=== PATIENT | male | born 1935 | race Asian ===

== ENCOUNTER 2019-06-10 14:07 | Inpatient (IN) | payer OTHER ==
--- NOTE | 2019-06-10 14:40 | PDOC ---
History of Present Illness - General Stated Complaint: Shortness of Breath Time Seen by Provider: 06/10/19 14:39
--- NOTE | 2019-06-10 14:40 | PDOC ---
History of Present Illness - General Stated Complaint: Shortness of Breath Time Seen by Provider: 06/10/19 14:39 History Source: Patient Exam Limitations: No Limitations - History of Present Illness Initial Comments: Pt is an 83 yo M, with PMH of HTN, NIDDM (not on meds), and CKD (refusing HD), who is presenting with complaints of SOB. Pt states over the past few weeks, he has had SOB from baseline, and his PMD doubled his lasix to 80 mg PO BID. Pt states this was helping until yesterday, when he could no longer even move around or walk to the bathroom without becoming SOB. He also endorses productive cough, nausea, decreased urine production, and b/l LE swelling "up to my waist". Pt denies any fevers/chills, headache, vision changes, syncope, chest pain, palpitations, vomiting, abdominal pain, hematuria or dysuria, diarrhea/constipation. Allergies: NKDA PCP: Dr. Elsie V. Endo: Dr. Danielle Social: Pt denies any cigarette, alcohol, or drug use. Remote hx of smoking, quit 20 years ago. Pt denies any recent travel or sick contacts. Surgical: no relevant history. Family: no relevant history. 06/10/19 16:56 Past History - Travel Traveled outside of the country in the last 30 days: No Close contact w/someone who was outside of country & ill: No - Past Medical History Allergies/Adverse Reactions: Allergies Allergy/AdvReac Type Severity Reaction Status Date / Time Penicillins Allergy Mild Verified 06/10/19 15:17 Home Medications: Ambulatory Orders Amlodipine Besylate 5 mg PO DAILY 06/10/19 Calcium Acetate [Phoslo -] 667 mg PO TID 06/10/19 Furosemide [Lasix] 80 mg PO TID 06/10/19 - Psycho Social/Smoking Cessation Hx Smoking History: Never smoked Have you smoked in the past 12 months: No Information on smoking cessation initiated: No Hx Alcohol Use: No Drug/Substance Use Hx: No Respiratory Specific PMHX - Complaint Specific PMHX Hx Asthma: No Hx Intubation: No Hx Bronchitis: No Hx Pneumonia: No Hx Pulmonary Embolus: No Hx TB (Tuberculosis): No Hx Angina: No Review of Systems - Review of Systems Able to Perform ROS?: Yes Is the patient limited Occitan proficient: No Constitutional: Yes: Weight Stable. No: Chills, Fever, Loss of Appetite, Malaise, Weakness HEENTM: No: Recent change in vision, Nose Congestion, Throat Pain, Throat Swelling, Difficulty Swallowing Respiratory: Yes: Cough, Shortness of Breath, SOB with Exertion, SOB at Rest. No: Orthopnea, Productive cough, Hemoptysis Cardiac (ROS): Yes: Edema. No: Chest Pain, Irregular Heart Rate, Lightheadedness, Palpitations, Syncope, Chest Tightness ABD/GI: Yes: Nausea. No: Constipated, Diarrhea, Poor Appetite, Poor Fluid Intake, Vomiting, Abdominal cramping : No: Burning, Dysuria, Frequency, Flank Pain, Hematuria, Pain, Urgency Musculoskeletal: No: Back Pain, Joint Pain, Muscle Pain, Muscle Weakness Integumentary: No: Rash Neurological: No: Headache, Numbness, Weakness, Unsteady Gait, Dizziness Psychiatric: No: Sleep Pattern Change, Change in Appetite Endocrine: No: Increased Urine, Change in Weight Hematologic/Lymphatic: No: Anemia, Blood Clots, Easy Bleeding, Easy Bruising All Other Systems: Reviewed and Negative *Physical Exam - Vital Signs Last Vital Signs Temp Pulse Resp BP Pulse Ox 97.4 F L 96 H 19 147/81 95 06/10/19 14:09 06/10/19 14:09 06/10/19 14:09 06/10/19 14:09 06/10/19 14:09 - Physical Exam Comments: Vitals stable, pt afebrile. O2 saturation 98% on Pt in NAD, normal body habitus. Pt alert and oriented x3. supervisor train operations generally intact, muscular strength and sensation intact. No midline spinal tenderness, step-offs, or crepitus. Head normocephalic, atraumatic. Eyes PERRLA, EOMI. Oropharynx without erythema or exudates, no LAD b/l. No nasal congestion. Hearing intact. +b/l pedal edema to Clear heart sounds, S1/S2, no JVD, or heart murmur. Coarse and diminished lung sounds b/l, worst at bases. Nonproductive cough on exam. No abdominal or CVA tenderness to palpation, no rebound, no guarding. Abdomen soft, non-distended, and with normoactive bowel sounds. Skin without jaundice or rash. 06/10/19 17:01 06/10/19 17:13 ED Treatment Course - LABORATORY CBC & Chemistry Diagram: 06/10/19 15:00 06/10/19 15:00 Medical Decision Making - Medical Decision Making Pt was seen at bedside, also will be seen by attending Dr. Rubio. Pt presenting with dyspnea, LE edema and nausea. Pt states his SOB has been worsening, and is now unable to ambulate within his house. Pt has discussed dialysis with his PMD and refused, also not improved by doubling lasix dose. Will evaluate for worsening CKD vs CHF vs ACS vs pleural effusions. Pt not febrile, no productive cough, less likely pneumonia. Pt stable on 2 L NC. Will continue to reassess pt and monitor for symptomatic improvement. ECG: NSR, intervals WNL (HR 91, KS 186, QRS 104, QTc 484). Mild depressions I, II, avL, V6, with no reciprocal changes. No prior ECG for comparison. 06/10/19 18:06 CBC: mild anemia, not at transfusion level CMP: BUN/Cr 88/5.9 Trop .17, BNP 50,098 POCUS echo showed poor contractility, reduced EF Pt admitted to hospitalist team (Dr. Merida) for heart failure, CKD and elevated troponin. Pt requires cardiac consultation and management of his medications. Pt stable and resting. 06/10/19 18:11 Discharge - Discharge Information Problems reviewed: Yes Clinical Impression/Diagnosis: Troponin I above reference range CHF (congestive heart failure) Qualifiers: Heart failure type: unspecified Heart failure chronicity: acute on chronic Qualified Code(s): I50.9 - Heart failure, unspecified CKD (chronic kidney disease) Qualifiers: Chronic kidney disease stage: unspecified stage Qualified Code(s): N18.9 - Chronic kidney disease, unspecified Condition: Stable - Admission Yes - Follow up/Referral - Patient Discharge Instructions - Post Discharge Activity
--- NOTE | 2019-06-10 14:42 | PDOC ---
Attending Attestation - Resident Resident Name: Ann Germain - ED Attending Attestation I have performed the following: I have examined & evaluated the patient, The case was reviewed & discussed with the resident, I agree w/resident's findings & plan - HPI HPI: 06/10/19 17:12 83 yo M, with PMH of HTN, NIDDM (not on meds), and CKD (refusing HD), who is presenting with complaints of SOB. Pt states over the past few weeks, he has had SOB from baseline, and his PMD doubled his lasix to 80 mg PO BID. Pt states this was helping until yesterday, when he could no longer even move around or walk to the bathroom without becoming SOB. He also endorses productive cough, nausea, decreased urine production, and b/l LE swelling "up to my waist". - Physicial Exam PE: 06/10/19 14:42 Agree with the resident's HPI and PE as documented in the electronic medical record. NAD, well appearing, EOMI, PERRL, nl conjunctiva, anicteric; neck supple. lungs clear, though diminished at the bases. +tachycardic, abdomen soft nontender. no rebound, guarding. Back nontender. CH x4, no focal neuro deficits. 3+ peripheral edema. normal color for ethnicity, WWP. 06/10/19 16:52 - Medical Decision Making 06/10/19 14:44 Vital Signs Temp Pulse Resp BP Pulse Ox 97.4 F L 96 H 19 147/81 95 06/10/19 14:09 06/10/19 14:09 06/10/19 14:09 06/10/19 14:09 06/10/19 14:41 DDx SOB: ACS, PE, PTX, CHF, COPD exac, pulmonary edema, pleurisy, pneumonia, viral syndrome. effusion. anemia, electrolyte/metabolic derangements. Considered but clinically doubt based on HPI and PE: Low suspicion for pulmonary embolism or dissection. Bedside ultrasound revealed severely decreased ejection fraction less than 30%, no pericardial effusion. Prior merrily a lines bilaterally with pleural effusions at the bases, left greater than right with spine sign. Laboratory results are consistent with very elevated BNP consistent with CHF. Will give diuresis, Lasix 80mg IV due to fluid overload state. ASA for NSTEMI admit to medical service, cards cs for CHF vs NSTEMI, tele monitor, hospitalist service further management. 06/10/19 16:54 06/10/19 17:01 Heart Score/ECG Review #1 ECG reviewed & interpreted by me at: 14:30 General ECG Interpretation: Sinus Rhythm, Normal Rate, Normal Intervals Compared to previous ECG there are: Previous ECG unavail 06/10/19 14:41 EKG normal sinus rhythm at 91 bpm, no interval abnormalities, narrow QRS, ST and T wave segments and morphology normal. Nonspecific T wave abnormalities with TWI in V6, I, AVL, II, III in inferolateral distribution.
[2019-06-10 15:14] LABS: BASO % 1.2 % (0-2.0); EOS % 0.7 % (0-4.5); HEMATOCRIT 37.4 % (35.4-49); HEMOGLOBIN 11.5 GM/dL (11.7-16.9); LYMPH % 6.1 % (8-40); MCHC 30.8 g/dl (32.0-35.9); MEAN CELL VOLUME 63.7 fl (80-96); MEAN PLT VOLUME 8.7 fl (7.5-11.1); MONO % 15.9 % (3.8-10.2); NEUT % 76.1 % (42.8-82.8); PLATELET COUNT 231 K/MM3 (134-434); RBC 5.87 M/mm3 (4.00-5.60); RDW 18.7 % (11.9-15.9); WHITE BLOOD COUNT 9.6 K/mm3 (4.0-10.0)
[2019-06-10 15:15] LABS: VENOUS PC02 41.8 mmHg (38-52); VENOUS PH 7.32 (7.31-7.41)
[2019-06-10 15:18] LABS: VENOUS PO2 < 49 mmHg (28-48)
[2019-06-10 15:21] LABS: MCH 19.6 pg (25.7-33.7)
[2019-06-10 15:34] LABS: INR 1.05 (0.83-1.09); PROTHROMBIN TIME (PATIENT) 12.4 SEC (9.7-13.0)
[2019-06-10 15:41] LABS: ALBUMIN 3.5 g/dl (3.4-5.0); BILIRUBIN,TOTAL 0.9 mg/dL (0.2-1); BLOOD UREA NITROGEN 88.2 mg/dL (7-18); CALCIUM 8.9 mg/dL (8.5-10.1); CREATININE 5.9 mg/dL (0.55-1.3); POTASSIUM 5.1 mmol/L (3.5-5.1)
[2019-06-10 16:01] LABS: N-TERMINAL BNP 50098.8 pg/ml (5-450)
[2019-06-10] MEDS ORDERED: FUROSEMIDE 40 MG/4 ML INJECTABLE VIAL IVPUSH ONE (16:11)
[2019-06-10] MEDS ORDERED: ASPIRIN 81 MG CHEWABLE TABLETS PO ONE (16:12)
[2019-06-10] MEDS ORDERED: FUROSEMIDE 40 MG/4 ML INJECTABLE VIAL ONE (16:23)
[2019-06-10] MEDS ORDERED: ASPIRIN 81 MG CHEWABLE TABLETS ONE (16:23)
--- NOTE | 2019-06-10 16:39 | PN ---
Teaching Attending Note Name of Resident: Jamir Nelson ATTENDING PHYSICIAN STATEMENT I saw and evaluated the patient. I reviewed the resident's note and discussed the case with the resident. I agree with the resident's findings and plan as documented. SUBJECTIVE: Patient is an 83yo male with PMHx of CKD stage V, HTN, T2DM who presents today with 1 week worsening lower extremity edema. 2 plus pillow orthopnea, patient has been refusing dialysis. OBJECTIVE: Vital Signs Temperature 97.4 F L 06/10/19 14:09 Pulse Rate 96 H 06/10/19 14:09 Respiratory Rate 19 06/10/19 14:09 Blood Pressure 147/81 06/10/19 14:09 O2 Sat by Pulse Oximetry (%) 95 06/10/19 14:41 GENERAL: The patient is awake, alert, and fully oriented, in no acute distress. HEAD: Normal with no signs of trauma. EYES: PERRL, extraocular movements intact, sclera anicteric, conjunctiva clear. ENT: Ears normal, oropharynx clear without exudates, moist mucous membranes. NECK: Trachea midline, full range of motion, supple. + JVD LUNGS: Breath sounds equal, clear to auscultation bilaterally, no wheezes, no crackles, no accessory muscle use. HEART: Regular rate and rhythm, S1, S2 without murmur, rub or gallop. ABDOMEN: Soft, nontender, nondistended, normoactive bowel sounds, no guarding, no rebound, no hepatosplenomegaly, no masses. EXTREMITIES: 2+ pulses, warm, 3+ pitting edema to groin and abdominal wall. NEUROLOGICAL: Cranial nerves II through XII grossly intact. Normal speech, gait not observed. PSYCH: Normal mood, normal affect. SKIN: Warm, dry, normal turgor, no rashes or lesions noted CBCD WBC 9.6 K/mm3 (4.0-10.0) 06/10/19 15:00 RBC 5.87 M/mm3 (4.00-5.60) H 06/10/19 15:00 Hgb 11.5 GM/dL (11.7-16.9) L 06/10/19 15:00 Hct 37.4 % (35.4-49) 06/10/19 15:00 MCV 63.7 fl (80-96) L 06/10/19 15:00 MCHC 30.8 g/dl (32.0-35.9) L 06/10/19 15:00 RDW 18.7 % (11.9-15.9) H 06/10/19 15:00 Plt Count 231 K/MM3 (134-434) 06/10/19 15:00 MPV 8.7 fl (7.5-11.1) 06/10/19 15:00 CMP Sodium 140 mmol/L (136-145) 06/10/19 15:00 Potassium 5.1 mmol/L (3.5-5.1) 06/10/19 15:00 Chloride 107 mmol/L (98-107) 06/10/19 15:00 Carbon Dioxide 23 mmol/L (21-32) 06/10/19 15:00 Anion Gap 10 MMOL/L (8-16) 06/10/19 15:00 BUN 88.2 mg/dL (7-18) H 06/10/19 15:00 Creatinine 5.9 mg/dL (0.55-1.3) H 06/10/19 15:00 Random Glucose 185 mg/dL (74-106) H 06/10/19 15:00 Calcium 8.9 mg/dL (8.5-10.1) 06/10/19 15:00 Total Bilirubin 0.9 mg/dL (0.2-1) 06/10/19 15:00 AST 31 U/L (15-37) 06/10/19 15:00 ALT 47 U/L (13-61) 06/10/19 15:00 Alkaline Phosphatase 184 U/L (45-117) H 06/10/19 15:00 Total Protein 7.0 g/dl (6.4-8.2) 06/10/19 15:00 Albumin 3.5 g/dl (3.4-5.0) 06/10/19 15:00 CARDIAC ENZYMES Creatine Kinase 159 U/L (26-308) 06/10/19 15:00 Troponin I 0.17 ng/ml (0.00-0.05) H 06/10/19 15:00 Home Medications Medication Instructions Recorded Amlodipine Besylate 5 mg PO DAILY 06/10/19 Calcium Acetate [Phoslo -] 667 mg PO TID 06/10/19 Furosemide [Lasix] 80 mg PO TID 06/10/19 ECG - NSR @91bpm, normal axis, delayed R-wave progression with questionable LVH , no BRAD or STD, TWI in inferior leads, Qtc 484ms CXR: CM, with pulmonary congestion ASSESSMENT/PLAN: Patient is an 83yo male with PMHx of CKD stage V, HTN, T2DM who presents today with 1 week worsening lower extremity edema plus 2 pillow orthopnea, patient has been refusing dialysis. # CKD Stage V with Acute volume overload; will need dialysis , lasix 80mg IV Bid , Dr. Prescott , [place] [facility] [place], fajardo for now, will stop Norvasc since swelling of LEs #Troponinemia due to CKD / demand ischemia, cardio consult Dr Ty #Prolonged Qtc : monitor, avoid prolonging agents #Mild hyperkalemia: monitor #Hx of HTN : Hydralazine 5mg BID PO for PRN SBP >170 #hx of HLD will do lipid panel #T2DM: ISS for coverage DVT PPX: Heparin TID
[2019-06-10 17:42] LABS: ANISOCYTOSIS 3+; MACROCYTOSIS 1+; PLATELET ESTIMATE NORMAL; TARGET CELLS 1+
[2019-06-10 17:46] LABS: OVALOCYTE 1+
[2019-06-10] MEDS ORDERED: HEPARIN NA (PORCINE) 5,000 UNITS/ML 1ML VIAL SQ SCH (18:00)
[2019-06-10] MEDS ORDERED: hydrALAZINE HCL 10 MG TABLET PO PRN (18:03)
--- NOTE | 2019-06-10 18:19 | HP ---
CHIEF COMPLAINT: SOB PCP: Dr. Ameya Zimmerman HISTORY OF PRESENT ILLNESS: 83yo M with h/o CKD stage V, HTN, Type 2 DM who presents today with 1 week worsening lower extremity edema. Pt has been told he has end-stage CKD, however he refuses dialysis because he believed his family members suffered and did not benefit in regards to mortality. Pt noticed about 1-2 weeks he has been having increased edema of his legs. He does not weigh himself regularly and he does not know his dry weight. Pt reports he went to see his PCP who increased his lasix to 80mg TID PO. He was only taking this for a couple of days when he noticed severe dyspnea on exertion worsening when he went to the bathroom or moving from [id number] in his house. Pt endorses orthopnea and uses multiple pillows at night to sleep. Pt denies any fever/chills, headaches, blurry vision , diarrhea/constiption, chest pain, palpitations, abdominal pain, n/v. Recent Travel: PAST MEDICAL HISTORY: As above PAST SURGICAL HISTORY: Denies Social History: Smoking: Former smoker; quit 10 years ago and used to smoke from 16-s Alcohol: Occassional coors light with dinner out Drugs: None lives at home with ; independent in ADLs; heritage: [facility] Allergies Penicillins Allergy (Mild, Verified 06/10/19 15:17) HOME MEDICATIONS: Home Medications Medication Instructions Recorded Amlodipine Besylate 5 mg PO DAILY 06/10/19 Calcium Acetate [Phoslo -] 667 mg PO TID 06/10/19 Furosemide [Lasix] 80 mg PO TID 06/10/19 REVIEW OF SYSTEMS As per HPI PHYSICAL EXAMINATION Vital Signs - 24 hr 06/10/19 06/10/19 06/10/19 14:09 14:41 17:11 Temperature 97.4 F L 98.6 F Pulse Rate 96 H Pulse Rate [ 95 H Apical] Respiratory 19 19 Rate Blood Pressure 147/81 Blood Pressure 161/98 [Right Arm] O2 Sat by Pulse 95 95 99 Oximetry (%) 06/10/19 17:42 Temperature Pulse Rate Pulse Rate [ Apical] Respiratory Rate Blood Pressure Blood Pressure [Right Arm] O2 Sat by Pulse 100 Oximetry (%) GENERAL: Awake, alert, and fully oriented, in no acute distress. HEENT: NC/AT, [place], MMM, EOMI. NECK: + JVD LUNGS: Rales throughout all lung strong bilaterally. No wheezes. No accessory muscle use. On 2LNC. Speaking in full sentences HEART: RRR, normal S1 and S2 without murmur ABDOMEN: Soft, nontender, abdominal wall edema, hypoactive BS, + hepatojugular reflux, no guarding or rebound, no hepatomegaly or caput medusa noted. MUSCULOSKELETAL: No CVA tenderness. EXTREMITIES: 2+ DP pulses b/l, 3+ pitting edema to groin and abdominal wall. Warm, venous stasis changes also noted, no calf tenderness. NEUROLOGICAL: Nonfocal exam. Normal speech. Gait no observed PSYCHIATRIC: Cooperative. Good eye contact. Appropriate mood and affect. SKIN: Warm, dry, no rashes or lesions noted, stasis changes as above, normal capillary refill. Laboratory Results - last 24 hr 06/10/19 06/10/19 06/10/19 15:00 15:00 15:00 WBC 9.6 RBC 5.87 H Hgb 11.5 L Hct 37.4 MCV 63.7 L MCH 19.6 L MCHC 30.8 L RDW 18.7 H Plt Count 231 MPV 8.7 Absolute Neuts (auto) 7.3 Neutrophils % 76.1 Lymphocytes % 6.1 L Monocytes % 15.9 H Eosinophils % 0.7 Basophils % 1.2 Nucleated RBC % 1 H Hypochromia 3+ Platelet Estimate Normal Platelet Comment Present Polychromasia 2+ Poikilocytosis 2+ Anisocytosis 3+ Microcytosis 2+ Macrocytosis 1+ Target Cells 1+ Ovalocytes 1+ Zoila Cells 1+ Schistocytes 1+ PT with INR INR VBG pH POC VBG pCO2 POC VBG pO2 VBG HCO3 VBG O2 Sat (Jhonatan) VBG Base Excess Sodium 140 Potassium 5.1 Chloride 107 Carbon Dioxide 23 Anion Gap 10 BUN 88.2 H Creatinine 5.9 H Est GFR (CKD-EPI)AfAm 9.46 Est GFR (CKD-EPI)NonAf 8.16 Random Glucose 185 H Calcium 8.9 Total Bilirubin 0.9 AST 31 ALT 47 Alkaline Phosphatase 184 H Creatine Kinase 159 Creatine Kinase Index 3.3 CK-MB (CK-2) 5.4 H Troponin I 0.17 H B-Natriuretic Peptide 46283.8 H Total Protein 7.0 Albumin 3.5 06/10/19 06/10/19 15:00 15:00 WBC RBC Hgb Hct MCV MCH MCHC RDW Plt Count MPV Absolute Neuts (auto) Neutrophils % Lymphocytes % Monocytes % Eosinophils % Basophils % Nucleated RBC % Hypochromia Platelet Estimate Platelet Comment Polychromasia Poikilocytosis Anisocytosis Microcytosis Macrocytosis Target Cells Ovalocytes [place] Cells Schistocytes PT with INR 12.40 INR 1.05 VBG pH 7.32 POC VBG pCO2 41.8 POC VBG pO2 < 49 H VBG HCO3 20.8 L VBG O2 Sat (Jhonatan) 41.2 L VBG Base Excess -4.5 L Sodium Potassium Chloride Carbon Dioxide Anion Gap BUN Creatinine Est GFR (CKD-EPI)AfAm Est GFR (CKD-EPI)NonAf Random Glucose Calcium Total Bilirubin AST ALT Alkaline Phosphatase Creatine Kinase Creatine Kinase Index CK-MB (CK-2) Troponin I B-Natriuretic Peptide Total Protein Albumin ECG - NSR @91bpm, normal axis, delayed R-wave progression with questionable LVH , no BRAD or STD, TWI in inferior leads, Qtc 484ms ASSESSMENT/PLAN: Acute volume overload CKD Stage V Troponinemia 2/2 to demand ischemia Prolonged Qtc Mild hyperkalemia History of HTN History of HLD --Pt continues to refuse dialysis --Lasix 80mg BID IVP --[place] catheter insertion for accurate I&O's --Monitor Urine output --daily weights with AM shift --Nephrology consulted --Will have to assess pt's urine ouput with Lasix 80mg IVP; if not diuresing well can likely increase to 100mg IVP --Low threshold for NIPPV for work of breathing if pt becomes labored --Troponin likley for demand ischemia and decreased renal clearance --Continue to trend --ECG without any significant findings --Avoid QT prolonging agents --BGM ACHS; ISS for coverage --Hydralazine 5mg BID PO for PRN SBP >170 --STOP norvasc as this can worsen angioedema of legs FEN: Fluids: None; active diuresis Electrolyte abnormalities: Mild hyperkalemia; monitor considering Lasix doses Nutrition: Renal; diabetic diet; fluid restriction 1.5L PPX: DVT - Heparin TID GI - Not indicated Dispo: Telemetry admission Case discussed with Dr. Henna Nelson, DO - IM PGY-3 Visit type - Emergency Visit Emergency Visit: Yes Care time: The patient presented to the Emergency Department on the above date and was hospitalized for further evaluation of their emergent condition. - New Patient This patient is new to me today: Yes Date on this admission: 06/10/19 - Critical Care Critical Care patient: No ATTENDING PHYSICIAN STATEMENT I saw and evaluated the patient. I reviewed the resident's note and discussed the case with the resident. I agree with the resident's findings and plan as documented. SUBJECTIVE: OBJECTIVE: ASSESSMENT AND PLAN:
[2019-06-10] MEDS: INSULIN SLIDING SCALE (NOVOLOG) 1 VIAL SQ SCH (22:16)
[2019-06-10] MEDS: hydrALAZINE HCL 10 MG TABLET PO SCH (22:18)
[2019-06-10] MEDS: HEPARIN NA (PORCINE) 5,000 UNITS/ML 1ML VIAL SQ SCH (22:19)
--- NOTE | 2019-06-10 23:02 | CONSULT ---
Consult Consult Specialty:: Nephrology Reason for Consultation:: CKD - History of Present Illness Chief Complaint: lower ext edema History of Present Illness: Pt is an 83 year old male with pmhx of CKD, HTN, and DM who presents to the er with shortness of breath and lower ext edema. He says that the changes have been progressive. He denies chest pain. He is on lasix at home which he has doubled to 80 mg twice a day. He feels that it did not improve his urine output. He says that he has been reluctant to start HD. He follows with Dr Danielle. He does have family history of ESRD. He had a daughter that was on HD. He denies loss of appetite. He denies nsaid use. He does complain of decreased energy. - History Source History Provided By: Patient, Medical Record - Past Medical History Cardio/Vascular: Yes: HTN Renal/: Yes: Renal Inusuff Endocrine: Yes: Diabetes Mellitus - Alcohol/Substance Use Hx Alcohol Use: No - Smoking History Smoking history: Never smoked Have you smoked in the past 12 months: No Home Medications - Allergies Allergies/Adverse Reactions: Allergies Allergy/AdvReac Type Severity Reaction Status Date / Time Penicillins Allergy Mild Verified 06/10/19 15:17 - Home Medications Home Medications: Ambulatory Orders Amlodipine Besylate 5 mg PO DAILY 06/10/19 Calcium Acetate [Phoslo -] 667 mg PO TID 06/10/19 Furosemide [Lasix] 80 mg PO TID 06/10/19 Family Medical History Family Hx Renal Disease: Daughter, Sister Review of Systems - Review of Systems Constitutional: reports: Malaise Eyes: reports: No Symptoms HENT: reports: No Symptoms Neck: reports: No Symptoms Cardiovascular: reports: Edema, Shortness of Breath Respiratory: reports: SOB on Exertion Gastrointestinal: reports: No Symptoms Genitourinary: reports: No Symptoms Musculoskeletal: reports: No Symptoms Integumentary: reports: No Symptoms Neurological: reports: No Symptoms Endocrine: reports: No Symptoms Hematology/Lymphatic: reports: No Symptoms Psychiatric: reports: No Symptoms Physical Exam Vital Signs: Vital Signs Temperature 98.6 F 06/10/19 17:11 Pulse Rate 95 H 06/10/19 17:11 Respiratory Rate 19 06/10/19 17:11 Blood Pressure 161/98 06/10/19 17:11 O2 Sat by Pulse Oximetry (%) 100 06/10/19 17:42 Constitutional: Yes: Calm Eyes: Yes: Conjunctiva Clear HENT: Yes: Atraumatic Neck: Yes: Supple Cardiovascular: Yes: S1, S2 Respiratory: Yes: CTA Bilaterally Gastrointestinal: Yes: Soft Renal/: Yes: [place] Present Musculoskeletal: Yes: WNL Edema: Yes Edema: LLE: 2+, RLE: 2+ Integumentary: Yes: Venous Stasis Changes Neurological: Yes: Oriented Psychiatric: Yes: Oriented Labs: CBC, BMP 06/10/19 15:00 06/10/19 15:00 Laboratory Tests 06/10/19 06/10/19 06/10/19 15:00 15:00 15:00 WBC 9.6 Hgb 11.5 L Plt Count 231 Sodium 140 Potassium 5.1 Chloride 107 Carbon Dioxide 23 Anion Gap 10 BUN 88.2 H Creatinine 5.9 H B-Natriuretic Peptide 82690.8 H Imaging - Results Chest X-ray: Image Reviewed Problem List - Problems (1) CKD (chronic kidney disease) Code(s): N18.9 - CHRONIC KIDNEY DISEASE, UNSPECIFIED (2) HTN (hypertension) Code(s): I10 - ESSENTIAL (PRIMARY) HYPERTENSION (3) Diabetes mellitus Code(s): E11.9 - TYPE 2 DIABETES MELLITUS WITHOUT COMPLICATIONS Assessment/Plan Current Medications Generic Name Dose Route Start Last Admin Trade Name Maria L PRN Reason Stop Dose Admin Calcium Acetate 667 mg 06/11/19 08:00 Phoslo - PO TIDCM CELESTINO Furosemide 80 mg 06/11/19 06:00 Lasix Injection - IVPUSH BID@0600,1400 [facility] Heparin Sodium (Porcine) 5,000 unit 06/10/19 18:00 06/10/19 22:19 Heparin - SQ 5,000 unit TID CELESTINO Administration Hydralazine HCl 10 mg 06/10/19 19:15 06/10/19 22:18 Apresoline - PO 10 mg Q12H CELESTINO Administration Insulin Aspart 1 vial 06/10/19 22:00 06/10/19 22:16 Novolog Vial Sliding Scale - SQ Not Given ACHS [facility] Protocol Impression 1. CKD 2. HTN 3. DM 4. fluid overload Plan - cont lasix - monitor urine output - check phos and pth - pt agrees to HD if medical therapy does not work - check renal ultrasound - repeat labs in am - low potassium diet - lokelma if he develops hyperkalemia - discussed with medical team earlier today - no indication for acute HD
[2019-06-11] MEDS: FUROSEMIDE 40 MG/4 ML INJECTABLE VIAL IVPUSH SCH ×2 (06:45→13:29)
[2019-06-11] MEDS: hydrALAZINE HCL 10 MG TABLET PO SCH ×2 (06:45→18:37)
[2019-06-11] MEDS: HEPARIN NA (PORCINE) 5,000 UNITS/ML 1ML VIAL SQ SCH ×3 (06:45→21:11)
[2019-06-11] MEDS: INSULIN SLIDING SCALE (NOVOLOG) 1 VIAL SQ SCH ×4 (06:46→21:11)
[2019-06-11 07:08] LABS: HEMATOCRIT 33.8 % (35.4-49); HEMOGLOBIN 10.6 GM/dL (11.7-16.9); MCHC 31.5 g/dl (32.0-35.9); MEAN CELL VOLUME 62.6 fl (80-96); MEAN PLT VOLUME 8.8 fl (7.5-11.1); PLATELET COUNT 219 K/MM3 (134-434); RBC 5.39 M/mm3 (4.00-5.60); RDW 18.6 % (11.9-15.9); WHITE BLOOD COUNT 10.5 K/mm3 (4.0-10.0)
[2019-06-11 07:38] LABS: ALBUMIN 3.2 g/dl (3.4-5.0); BILIRUBIN,TOTAL 0.9 mg/dL (0.2-1); BLOOD UREA NITROGEN 91.8 mg/dL (7-18); CALCIUM 8.7 mg/dL (8.5-10.1); MAGNESIUM 3.1 mg/dL (1.8-2.4); PHOSPHOROUS 6.7 mg/dL (2.5-4.9); TOT PROT 6.2 g/dl (6.4-8.2)
[2019-06-11 07:51] LABS: MCH 19.7 pg (25.7-33.7)
[2019-06-11] MEDS: CALCIUM ACETATE 667 MG CAPSULE (FP) PO SCH ×3 (09:13→17:06)
--- NOTE | 2019-06-11 11:20 | PN ---
Progress Note (short form) - Note Progress Note: Renal follow up for ISMAEL vs. Progressive CKD Seen and examined at the bedside feels a little better making urine, was unable to tolerate having fajardo catheter in place and it was removed denies any confusion, lethargy, nausea, vomiting Vital Signs Temperature 98.5 F 06/11/19 09:00 Pulse Rate 87 06/11/19 09:00 Respiratory Rate 20 06/11/19 09:00 Blood Pressure 152/87 06/11/19 09:00 O2 Sat by Pulse Oximetry (%) 97 06/11/19 09:00 Intake & Output 06/08/19 06/09/19 06/10/19 06/11/19 23:59 23:59 23:59 23:59 Weight 84.368 kg NAD awake and alert neck supple RRR Dec BS at lung bases + edema in LE CBC, BMP 06/11/19 06:00 06/11/19 06:00 Current Medications Calcium Acetate (Phoslo -) 667 mg PO TIDCM [facility] Last Admin: 06/11/19 09:13 Dose: 667 mg Furosemide (Lasix Injection -) 80 mg IVPUSH BID@0600,1400 [facility] Last Admin: 06/11/19 06:45 Dose: 80 mg Heparin Sodium (Porcine) (Heparin -) 5,000 unit SQ TID [facility] Last Admin: 06/11/19 06:45 Dose: 5,000 unit Hydralazine HCl (Apresoline -) 10 mg PO Q12H [facility] Last Admin: 06/11/19 06:45 Dose: 10 mg Insulin Aspart (Novolog Vial Sliding Scale -) 1 vial SQ [facility]; Protocol Last Admin: 06/11/19 06:46 Dose: 2 units Impression 1. CKD 2. HTN 3. DM 4. fluid overload Plan Renal function unchanged at of this morning no hyperkalemia, acidosis or uremia to warrent emergent HD however if no significant change in renal function likely will warrant [employer] in near future continue Lasix 80mg IV BID Trend renal function and electrolytes Thank you Vinnie Al DO
--- NOTE | 2019-06-11 11:29 | EKG ---
Test Reason : Blood Pressure : / mmHG Vent. Rate : 091 BPM Atrial Rate : 091 BPM P-R Int : 186 ms QRS Dur : 104 ms QT Int : 394 ms P-R-T Axes : 072 038 201 degrees QTc Int : 484 ms POOR DATA QUALITY, INTERPRETATION MAY BE ADVERSELY AFFECTED NORMAL SINUS RHYTHM POSSIBLE LEFT ATRIAL ENLARGEMENT POSSIBLE ANTERIOR INFARCT , AGE UNDETERMINED ABNORMAL ECG NO PREVIOUS ECGS AVAILABLE Confirmed by EKRVIN MONTANA, JA ([id number]) on 06/11/2019 11:29:38 AM Referred By: Confirmed By:JA GALEANA MD
--- NOTE | 2019-06-11 12:53 | PN ---
Physical Exam: SUBJECTIVE: Patient seen and examined. He denies SOB. OBJECTIVE: Vital Signs Period Temp Pulse Resp BP Sys/Alexandre Pulse Ox Last 24 Hr 97.4 F-98.6 F 83-96 18-20 142-161/81-98 95-100 GENERAL: The patient is awake, alert, and fully oriented, in no acute distress. LUNGS: Breath sounds equal, clear to auscultation bilaterally, no wheezes, no crackles, no accessory muscle use. HEART: Regular rate and rhythm, S1, S2 without murmur, rub or gallop. ABDOMEN: Soft, nontender, nondistended, normoactive bowel sounds, no guarding, no rebound, no hepatosplenomegaly, no masses. EXTREMITIES: 2+ pulses, 1+ edema of both legs. Laboratory Results - last 24 hr 06/10/19 06/10/19 06/10/19 15:00 15:00 15:00 WBC 9.6 RBC 5.87 H Hgb 11.5 L Hct 37.4 MCV 63.7 L MCH 19.6 L MCHC 30.8 L RDW 18.7 H Plt Count 231 MPV 8.7 Absolute Neuts (auto) 7.3 Neutrophils % 76.1 Lymphocytes % 6.1 L Monocytes % 15.9 H Eosinophils % 0.7 Basophils % 1.2 Nucleated RBC % 1 H Hypochromia 3+ Platelet Estimate Normal Platelet Comment Present Polychromasia 2+ Poikilocytosis 2+ Anisocytosis 3+ Microcytosis 2+ Macrocytosis 1+ Target Cells 1+ Ovalocytes 1+ Walker Cells 1+ Schistocytes 1+ PT with INR INR VBG pH POC VBG pCO2 POC VBG pO2 VBG HCO3 VBG O2 Sat (Jhonatan) VBG Base Excess Sodium 140 Potassium 5.1 Chloride 107 Carbon Dioxide 23 Anion Gap 10 BUN 88.2 H Creatinine 5.9 H Est GFR (CKD-EPI)AfAm 9.46 Est GFR (CKD-EPI)NonAf 8.16 POC Glucometer Random Glucose 185 H Hemoglobin A1c % Calcium 8.9 Phosphorus Magnesium Iron TIBC Iron Saturation Unsaturated IBC Ferritin Total Bilirubin 0.9 AST 31 ALT 47 Alkaline Phosphatase 184 H Creatine Kinase 159 Creatine Kinase Index 3.3 CK-MB (CK-2) 5.4 H Troponin I 0.17 H B-Natriuretic Peptide 39139.8 H Total Protein 7.0 Albumin 3.5 06/10/19 06/10/19 06/10/19 15:00 15:00 22:05 WBC RBC Hgb Hct MCV MCH MCHC RDW Plt Count MPV Absolute Neuts (auto) Neutrophils % Lymphocytes % Monocytes % Eosinophils % Basophils % Nucleated RBC % Hypochromia Platelet Estimate Platelet Comment Polychromasia Poikilocytosis Anisocytosis Microcytosis Macrocytosis Target Cells Ovalocytes Walker Cells Schistocytes PT with INR 12.40 INR 1.05 VBG pH 7.32 POC VBG pCO2 41.8 POC VBG pO2 < 49 H VBG HCO3 20.8 L VBG O2 Sat (Jhonatan) 41.2 L VBG Base Excess -4.5 L Sodium Potassium Chloride Carbon Dioxide Anion Gap BUN Creatinine Est GFR (CKD-EPI)AfAm Est GFR (CKD-EPI)NonAf POC Glucometer 167 Random Glucose Hemoglobin A1c % Calcium Phosphorus Magnesium Iron TIBC Iron Saturation Unsaturated IBC Ferritin Total Bilirubin AST ALT Alkaline Phosphatase Creatine Kinase Creatine Kinase Index CK-MB (CK-2) Troponin I B-Natriuretic Peptide Total Protein Albumin 06/11/19 06/11/19 06/11/19 00:00 06:00 06:00 WBC 10.5 H RBC 5.39 Hgb 10.6 L Hct 33.8 L MCV 62.6 L MCH 19.7 L MCHC 31.5 L RDW 18.6 H Plt Count 219 MPV 8.8 Absolute Neuts (auto) Neutrophils % Lymphocytes % Monocytes % Eosinophils % Basophils % Nucleated RBC % Hypochromia Platelet Estimate Platelet Comment Polychromasia Poikilocytosis Anisocytosis Microcytosis Macrocytosis Target Cells Ovalocytes Walker Cells Schistocytes PT with INR INR VBG pH POC VBG pCO2 POC VBG pO2 VBG HCO3 VBG O2 Sat (Jhonatan) VBG Base Excess Sodium 141 Potassium 5.0 Chloride 109 H Carbon Dioxide 22 Anion Gap 10 BUN 91.8 H Creatinine 6.0 H Est GFR (CKD-EPI)AfAm 9.27 Est GFR (CKD-EPI)NonAf 8.00 POC Glucometer Random Glucose 197 H Hemoglobin A1c % Calcium 8.7 Phosphorus 6.7 H Magnesium 3.1 H Iron TIBC Iron Saturation Unsaturated IBC Ferritin Total Bilirubin 0.9 AST 28 ALT 47 Alkaline Phosphatase 180 H Creatine Kinase Creatine Kinase Index CK-MB (CK-2) Troponin I 0.17 H B-Natriuretic Peptide Total Protein 6.2 L Albumin 3.2 L 06/11/19 06/11/19 06/11/19 06:00 06:00 08:40 WBC RBC Hgb Hct MCV MCH MCHC RDW Plt Count MPV Absolute Neuts (auto) Neutrophils % Lymphocytes % Monocytes % Eosinophils % Basophils % Nucleated RBC % Hypochromia Platelet Estimate Platelet Comment Polychromasia Poikilocytosis Anisocytosis Microcytosis Macrocytosis Target Cells Ovalocytes Zoila Cells Schistocytes PT with INR INR VBG pH POC VBG pCO2 POC VBG pO2 VBG HCO3 VBG O2 Sat (Jhonatan) VBG Base Excess Sodium Potassium Chloride Carbon Dioxide Anion Gap BUN Creatinine Est GFR (CKD-EPI)AfAm Est GFR (CKD-EPI)NonAf POC Glucometer Random Glucose Hemoglobin A1c % 8.0 H Calcium Phosphorus Magnesium Iron 16 L TIBC 329 Iron Saturation 4 L Unsaturated IBC 313 H Ferritin 17.1 Total Bilirubin AST ALT Alkaline Phosphatase Creatine Kinase Creatine Kinase Index CK-MB (CK-2) Troponin I 0.15 H B-Natriuretic Peptide Total Protein Albumin 06/11/19 11:13 WBC RBC Hgb Hct MCV MCH MCHC RDW Plt Count MPV Absolute Neuts (auto) Neutrophils % Lymphocytes % Monocytes % Eosinophils % Basophils % Nucleated RBC % Hypochromia Platelet Estimate Platelet Comment Polychromasia Poikilocytosis Anisocytosis Microcytosis Macrocytosis Target Cells Ovalocytes Walker Cells Schistocytes PT with INR INR VBG pH POC VBG pCO2 POC VBG pO2 VBG HCO3 VBG O2 Sat (Jhonatan) VBG Base Excess Sodium Potassium Chloride Carbon Dioxide Anion Gap BUN Creatinine Est GFR (CKD-EPI)AfAm Est GFR (CKD-EPI)NonAf POC Glucometer 118 Random Glucose Hemoglobin A1c % Calcium Phosphorus Magnesium Iron TIBC Iron Saturation Unsaturated IBC Ferritin Total Bilirubin AST ALT Alkaline Phosphatase Creatine Kinase Creatine Kinase Index CK-MB (CK-2) Troponin I B-Natriuretic Peptide Total Protein Albumin Active Medications Generic Name Dose Route Start Last Admin Trade Name Freq PRN Reason Stop Dose Admin Calcium Acetate 667 mg 06/11/19 08:00 06/11/19 11:56 Phoslo - PO 667 mg TIDCM [facility] Administration Furosemide 80 mg 06/11/19 06:00 06/11/19 06:45 Lasix Injection - IVPUSH 80 mg BID@0600,1400 [facility] Administration Heparin Sodium (Porcine) 5,000 unit 06/10/19 18:00 06/11/19 06:45 Heparin - SQ 5,000 unit TID [facility] Administration Hydralazine HCl 10 mg 06/10/19 19:15 06/11/19 06:45 Apresoline - PO 10 mg Q12H [facility] Administration Insulin Aspart 1 vial 06/10/19 22:00 06/11/19 11:23 Novolog Vial Sliding Scale - SQ Not Given ACHS [facility] Protocol ASSESSMENT/PLAN: This is an 83 year old man with a history of HTN, type 2 DM, stage 5 CKD who presented to the ED today with worsening leg swelling. 1. Fluid overload - Patient reluctant to start HD and would rather try conservative management first - Continue Lasix 80 mg IV 2x daily - Monitor BUN, creatinine, electrolytes 2. Stage 5 CKD 3. Elevated troponin likely secondary to CKD 4. HTN - Continue hydralazine, Lasix 5. Hyperlipidemia 6. Type 2 DM - Continue Novolog sliding scale 7. Anemia, likely secondary to iron deficiency and CKD - Check stool for occult blood - Monitor hemoglobin 8. Hyperphosphatemia - Continue PhosLo - PTH pending Visit type - Emergency Visit Emergency Visit: Yes ED Registration Date: 06/10/19 Care time: The patient presented to the Emergency Department on the above date and was hospitalized for further evaluation of their emergent condition. - New Patient This patient is new to me today: Yes Date on this admission: 06/11/19 - Critical Care Critical Care patient: No - Discharge Referral Referred to [facility] Med P.C.: No
--- NOTE | 2019-06-11 16:09 | CON.CARD ---
Consult Consult Specialty:: Cardiology Referred by:: Dr. Go Reason for Consultation:: CHF and elevated troponin - History of Present Illness Chief Complaint: Worsening SOB and leg edema History of Present Illness: 83 year-old man with a PMHx of HTN, DM-II, advanced CKD, refused HD in the past admitted 06/10/19 with one week of worsening leg edema and SOB. The patient noticed worsening leg edmea and SOB on exertion for about 1-2 weeks. He also reports chest congestion, fatigue and weakness. Oral Lasix increased to 80 mg BID by his PCP with little improvement. In addition to edema and dyspnea, he also has orthopnea. He reports no chest pain, palpitation, syncope or near syncope. He denies fever/chills. ECG 06/10/19 showed sinus rhythm, LAE and inferolateral ST-T changes, suggestive of ischemia. CXR 06/10/19 revealed marked cardiomegaly, possible pericardial effusion, CHF, pleural effusion. BNP is markedly elevated. Troponin is mildly elevated, but non-dynamic. Seen by renal and patient agrees to HD. - History Source History Provided By: Patient, Family Member, Medical Record Limitations to Obtaining History: No Limitations - Past Medical History Cardio/Vascular: Yes: HTN Renal/: Yes: Renal Inusuff Endocrine: Yes: Diabetes Mellitus - Alcohol/Substance Use Hx Alcohol Use: No - Smoking History Smoking history: Never smoked Have you smoked in the past 12 months: No Home Medications - Allergies Allergies/Adverse Reactions: Allergies Allergy/AdvReac Type Severity Reaction Status Date / Time Penicillins Allergy Mild Verified 06/10/19 15:17 - Home Medications Home Medications: Ambulatory Orders Amlodipine Besylate 5 mg PO DAILY 06/10/19 Calcium Acetate [Phoslo -] 667 mg PO TID 06/10/19 Furosemide [Lasix] 80 mg PO TID 06/10/19 Review of Systems - Review of Systems Constitutional: reports: Weakness Eyes: reports: No Symptoms HENT: reports: No Symptoms Neck: reports: No Symptoms Cardiovascular: reports: Shortness of Breath Respiratory: reports: Exercise Intolerance, SOB, SOB on Exertion Gastrointestinal: reports: No Symptoms Neurological: reports: Weakness Vital Signs: Vital Signs Temperature 98.2 F 06/11/19 14:10 Pulse Rate 83 06/11/19 14:10 Respiratory Rate 17 06/11/19 14:10 Blood Pressure 143/77 06/11/19 14:10 O2 Sat by Pulse Oximetry (%) 97 06/11/19 09:00 General: Well developed. Chronic ill. No acute distress. Head: Normocephalic. Atraumatic, Eyes: PERRLA, EOMI. Sclerae anicteric. Conjunctivae clear. Neck: Supple. (+) JVD. No bruits. Heart: Normal S1, S2: Regular rhythm and rate. Soft S4. II/ JACKY. Lungs: Decreased BS at bases, Bibasilar crackles and rhonchi. No wheezing. Abdomen: Soft. Bowel sound positive. Non tender. No masses. Extremities: Anasarca, 3+ edema. No clubbing or cyanosis. PD 2+, equal bilaterally. Neuro: Intact, no focal findings. AAO X3 - Other Data Labs, Other Data: CBC, BMP 06/11/19 06:00 06/11/19 06:00 INR, PTT INR 1.05 (0.83-1.09) 06/10/19 15:00 Troponin, BNP 06/10/19 06/11/19 06/11/19 15:00 00:00 08:40 Troponin I 0.17 H 0.17 H 0.15 H B-Natriuretic Peptide 35911.8 H Troponin, BNP 06/10/19 06/11/19 06/11/19 15:00 00:00 08:40 Troponin I 0.17 H 0.17 H 0.15 H B-Natriuretic Peptide 28290.8 H Assessment/Plan 83 year-old man with a PMHx of HTN, DM-II, advanced CKD, refused HD in the past admitted 06/10/19 with one week of worsening leg edema and SOB. ECG 06/10/19 showed sinus rhythm, LAE and inferolateral ST-T changes, suggestive of ischemia. CXR 06/10/19 revealed marked cardiomegaly, possible pericardial effusion, CHF, pleural effusion. BNP is markedly elevated. Troponin is mildly elevated, but non-dynamic. Seen by renal and patient agrees to HD. 1) CHF: likely acute on chronic systolic CHF with severe fluid overload, dyspnea and orthopnea with severely elevated BNP. Advanced CKD contributes significantly to his symptoms. Continue IV Lasix or start Lasix IV drip to keep Os > Is. Daily weight and monitor renal function and lytes. May need HD if not responsive to IV diuretics. Echo for cardiac dimension, systolic function and rule out pericardial effusion. Start metoprolol 25 mg BID. Add Imdur 30 mg daily. Continue hydralazine. 2) Mild, non-dynamic troponin elevation, likely secondary to advanced CKD and acute CHF. Not acute coronary syndrome, However, the patient has multiple risk factors of CAD and ECG evidence of inferolateral ischemia. He has high likelihood of significant CAD. Conservative cardiac care. Continue aspirin, change it to 81 mg daily. Start atorvastatin 40 mg daily. Start metoprolol 25 mg BID We will follow the patient with you.
[2019-06-12] MEDS: hydrALAZINE HCL 10 MG TABLET PO SCH ×2 (06:49→18:17)
[2019-06-12] MEDS: HEPARIN NA (PORCINE) 5,000 UNITS/ML 1ML VIAL SQ SCH ×3 (06:56→21:45)
[2019-06-12] MEDS: FUROSEMIDE 40 MG/4 ML INJECTABLE VIAL IVPUSH SCH ×2 (06:56→13:16)
[2019-06-12] MEDS: INSULIN SLIDING SCALE (NOVOLOG) 1 VIAL SQ SCH ×4 (06:57→21:56)
[2019-06-12 07:37] LABS: BASO % 0.1 % (0-2.0); EOS % 1.2 % (0-4.5); HEMATOCRIT 33.9 % (35.4-49); HEMOGLOBIN 10.7 GM/dL (11.7-16.9); LYMPH % 62.9 % (8-40); MCHC 31.6 g/dl (32.0-35.9); MEAN CELL VOLUME 62.6 fl (80-96); MEAN PLT VOLUME 8.7 fl (7.5-11.1); MONO % 3.2 % (3.8-10.2); NEUT % 32.6 % (42.8-82.8); PLATELET COUNT 233 K/MM3 (134-434); RBC 5.41 M/mm3 (4.00-5.60); RDW 18.9 % (11.9-15.9); WHITE BLOOD COUNT 8.7 K/mm3 (4.0-10.0)
[2019-06-12 07:47] LABS: MCH 19.8 pg (25.7-33.7)
[2019-06-12 08:05] LABS: ALBUMIN 2.9 g/dl (3.4-5.0); BILIRUBIN,TOTAL 0.7 mg/dL (0.2-1); BLOOD UREA NITROGEN 92.6 mg/dL (7-18); CALCIUM 8.6 mg/dL (8.5-10.1); CREATININE 6.3 mg/dL (0.55-1.3); MAGNESIUM 2.9 mg/dL (1.8-2.4); PHOSPHOROUS 6.2 mg/dL (2.5-4.9); POTASSIUM 4.4 mmol/L (3.5-5.1); TOT PROT 5.9 g/dl (6.4-8.2)
[2019-06-12] MEDS: CALCIUM ACETATE 667 MG CAPSULE (FP) PO SCH ×3 (09:11→17:16)
--- NOTE | 2019-06-12 10:29 | PN ---
Progress Note (short form) - Note Progress Note: Renal follow up for ISMAEL vs. Progressive CKD Coverage for Dr. Prescott Seen and examined at the bedside continues to have cough and chest congestion making urine legs remain swollen no N/V, confusion or lethargy Vital Signs Temperature 97.7 F 06/12/19 09:00 Pulse Rate 89 06/12/19 09:00 Respiratory Rate 20 06/12/19 09:00 Blood Pressure 138/73 06/12/19 09:00 O2 Sat by Pulse Oximetry (%) 95 06/12/19 09:00 Intake & Output 06/11/19 06/12/19 06/12/19 23:59 07:59 15:59 Intake Total 250 Balance 250 Weight 84.187 kg Intake: Oral 250 Other: Voiding Method Incontinent Incontinent # Unmeasured Voids Void 1 Weight Measurement Method Standing Scale NAD awake and alert neck supple Course BS Dec BS at lung bases + edema in LE CBC, BMP 06/12/19 06:16 06/12/19 06:16 Current Medications Calcium Acetate (Phoslo -) 667 mg PO TIDCM [facility] Last Admin: 06/12/19 09:11 Dose: 667 mg Furosemide (Lasix Injection -) 100 mg IVPUSH BID@0600,1400 [facility] Heparin Sodium (Porcine) (Heparin -) 5,000 unit SQ TID [facility] Last Admin: 06/12/19 06:56 Dose: 5,000 unit Hydralazine HCl (Apresoline -) 10 mg PO Q12H [facility] Last Admin: 06/12/19 06:49 Dose: 10 mg Insulin Aspart (Novolog Vial Sliding Scale -) 1 vial SQ [facility]; Protocol Last Admin: 06/12/19 06:57 Dose: Not Given Impression 1. CKD 2. HTN 3. DM 4. fluid overload Plan Renal function without improvement and pt continues to have optimal response to diuretics Will increase lasix to 100mg BID pt advised given his low eGFR and volume overload he would benifit from dialysis. He continues to be reluctant but understands that he may need it. He requests an additional day to think about it and continues diuretics no hyperkalemia, acidosis or uremia to warrent emergent HD Trend renal function and electrolytes Thank you Vinnie Al DO
[2019-06-12 10:38] LABS: ANISOCYTOSIS 2+; MACROCYTOSIS 0; OVALOCYTE 2+; PLATELET ESTIMATE NORMAL; TARGET CELLS 2+; TEAR DROP CELLS 1+; TOXIC GRANULATION 1+
--- NOTE | 2019-06-12 11:15 | PN ---
Teaching Attending Note Name of Resident: Olaf Winn ATTENDING PHYSICIAN STATEMENT I saw and evaluated the patient. I reviewed the resident's note and discussed the case with the resident. I agree with the resident's findings and plan as documented. SUBJECTIVE: Patient feels weak. OBJECTIVE: Vital Signs Period Temp Pulse Resp BP Sys/Alexandre Pulse Ox Last 24 Hr 97.7 F-98.4 F 83-94 17-20 130-149/64-84 95-96 HEART: S1S2, RRR LUNGS: Clear ABDOMEN: Soft, non-tender, non-distended, normal BS EXTREMITIES: 1+ edema Laboratory Results - last 24 hr 06/11/19 06/11/19 06/11/19 11:13 16:43 21:05 WBC RBC Hgb Hct MCV MCH MCHC RDW Plt Count MPV Absolute Neuts (auto) Neutrophils % Neutrophils % (Manual) Band Neutrophils % Lymphocytes % Lymphocytes % (Manual) Monocytes % Monocytes % (Manual) Eosinophils % Eosinophils % (Manual) Basophils % Basophils % (Manual) Myelocytes % (Man) Promyelocytes % (Man) Blast Cells % (Manual) Nucleated RBC % Metamyelocytes Hypochromia Toxic Granulation Platelet Estimate Platelet Comment Polychromasia Poikilocytosis Anisocytosis Microcytosis Macrocytosis Spherocytes Target Cells Tear Drop Cells Ovalocytes Schistocytes Sodium Potassium Chloride Carbon Dioxide Anion Gap BUN Creatinine Est GFR (CKD-EPI)AfAm Est GFR (CKD-EPI)NonAf POC Glucometer 118 158 222 Random Glucose Calcium Phosphorus Magnesium Total Bilirubin AST ALT Alkaline Phosphatase Total Protein Albumin 06/12/19 06/12/19 06/12/19 05:57 06:16 06:16 WBC 8.7 RBC 5.41 Hgb 10.7 L Hct 33.9 L MCV 62.6 L MCH 19.8 L MCHC 31.6 L RDW 18.9 H Plt Count 233 MPV 8.7 Absolute Neuts (auto) 2.8 Neutrophils % 32.6 L D Neutrophils % (Manual) 83.5 H Band Neutrophils % 0.0 Lymphocytes % 62.9 H D Lymphocytes % (Manual) 4.1 L Monocytes % 3.2 L Monocytes % (Manual) 3 L Eosinophils % 1.2 Eosinophils % (Manual) 3.1 Basophils % 0.1 Basophils % (Manual) 0.0 Myelocytes % (Man) 0 Promyelocytes % (Man) 0 Blast Cells % (Manual) 0 Nucleated RBC % 1 H Metamyelocytes 0 Hypochromia 2+ Toxic Granulation 1+ Platelet Estimate Normal Platelet Comment Present Polychromasia 1+ Poikilocytosis 2+ Anisocytosis 2+ Microcytosis 2+ Macrocytosis 0 Spherocytes 1+ Target Cells 2+ Tear Drop Cells 1+ Ovalocytes 2+ Schistocytes 1+ Sodium 138 Potassium 4.4 Chloride 106 Carbon Dioxide 21 Anion Gap 11 BUN 92.6 H Creatinine 6.3 H Est GFR (CKD-EPI)AfAm 8.74 Est GFR (CKD-EPI)NonAf 7.54 POC Glucometer 109 Random Glucose 109 H Calcium 8.6 Phosphorus 6.2 H Magnesium 2.9 H Total Bilirubin 0.7 AST 19 ALT 37 Alkaline Phosphatase 162 H Total Protein 5.9 L Albumin 2.9 L Current Medications Generic Name Dose Route Start Last Admin Trade Name Freq PRN Reason Stop Dose Admin Calcium Acetate 667 mg 06/11/19 08:00 06/12/19 09:11 Phoslo - PO 667 mg TIDCM [facility] Administration Furosemide 100 mg 06/12/19 10:27 Lasix Injection - IVPUSH BID@0600,1400 [facility] Heparin Sodium (Porcine) 5,000 unit 06/10/19 18:00 06/12/19 06:56 Heparin - SQ 5,000 unit TID [facility] Administration Hydralazine HCl 10 mg 06/10/19 19:15 06/12/19 06:49 Apresoline - PO 10 mg Q12H [facility] Administration Insulin Aspart 1 vial 06/10/19 22:00 06/12/19 06:57 Novolog Vial Sliding Scale - SQ Not Given ACHS [facility] Protocol ASSESSMENT AND PLAN: This is an 83 year old man with a history of HTN, type 2 DM, stage 5 CKD who presented to the ED today with worsening leg swelling. 1. Fluid overload - Patient still resistant to HD - he says if medication doesn't work, he is prepared and not afraid to - Weight decreased 0.18 kg in 2 days - Lasix increased to 100 mg IV 2x daily - Monitor BUN, creatinine, electrolytes 2. Stage 5 CKD 3. Elevated troponin likely secondary to CKD 4. HTN - Continue hydralazine, Lasix 5. Hyperlipidemia 6. Type 2 DM - Continue Novolog sliding scale 7. Anemia, likely secondary to iron deficiency and CKD - Check stool for occult blood - Hemoglobin stable 8. Hyperphosphatemia - Continue PhosLo - PTH pending
--- NOTE | 2019-06-12 12:31 | PN ---
Physical Exam: SUBJECTIVE: Patient seen and examined 83 y/o M, pmh of CKD stage V, T2DM presented with LE edema of 1 week duration likely 2/2 fluid overload from ESRD. Currently, pt is stable, afebrile, asymptomatic without any c/o or issues. Pt still refused dialysis for now and would like to continue medical management. Denies f/c/n/v/d/sob/chest pain. OBJECTIVE: Vital Signs Last Vital Signs Temp Pulse Resp BP Pulse Ox 97.7 F 89 20 138/73 95 06/12/19 09:00 06/12/19 09:00 06/12/19 09:00 06/12/19 09:00 06/12/19 09:00 GENERAL: The patient is awake, alert, and fully oriented, in no acute distress. HEAD: Normal with no signs of trauma. EYES: PERRL, extraocular movements intact, sclera anicteric, conjunctiva clear. No ptosis. ENT: Ears normal, nares patent, oropharynx clear without exudates, moist mucous membranes. NECK: Trachea midline, full range of motion, supple. LUNGS: Breath sounds equal, clear to auscultation bilaterally, no wheezes, no crackles, no accessory muscle use. HEART: Regular rate and rhythm, S1, S2 without murmur, rub or gallop. ABDOMEN: Soft, nontender, nondistended, normoactive bowel sounds, no guarding, no rebound, no hepatosplenomegaly, no masses. EXTREMITIES: 2+ pulses, warm, well-perfused, no edema. NEUROLOGICAL: Cranial nerves II through XII grossly intact. Normal speech, gait not observed. PSYCH: Normal mood, normal affect. SKIN: Warm, dry, normal turgor, no rashes or lesions noted Laboratory Results - last 24 hr CBC,CMP WBC 8.7 K/mm3 (4.0-10.0) 06/12/19 06:16 RBC 5.41 M/mm3 (4.00-5.60) 06/12/19 06:16 Hgb 10.7 GM/dL (11.7-16.9) L 06/12/19 06:16 Hct 33.9 % (35.4-49) L 06/12/19 06:16 MCV 62.6 fl (80-96) L 06/12/19 06:16 MCH 19.8 pg (25.7-33.7) L 06/12/19 06:16 MCHC 31.6 g/dl (32.0-35.9) L 06/12/19 06:16 RDW 18.9 % (11.9-15.9) H 06/12/19 06:16 Plt Count 233 K/MM3 (134-434) 06/12/19 06:16 MPV 8.7 fl (7.5-11.1) 06/12/19 06:16 Absolute Neuts (auto) 2.8 K/mm3 (1.5-8.0) 06/12/19 06:16 Neutrophils % 32.6 % (42.8-82.8) L D 06/12/19 06:16 Neutrophils % (Manual) 83.5 % (42.8-82.8) H 06/12/19 06:16 Band Neutrophils % 0.0 % 06/12/19 06:16 Lymphocytes % 62.9 % (8-40) H D 06/12/19 06:16 Lymphocytes % (Manual) 4.1 % (8-40) L 06/12/19 06:16 Monocytes % 3.2 % (3.8-10.2) L 06/12/19 06:16 Monocytes % (Manual) 3 % (3.8-10.2) L 06/12/19 06:16 Eosinophils % 1.2 % (0-4.5) 06/12/19 06:16 Eosinophils % (Manual) 3.1 % (0-4.5) 06/12/19 06:16 Basophils % 0.1 % (0-2.0) 06/12/19 06:16 Basophils % (Manual) 0.0 % (0-2.0) 06/12/19 06:16 Myelocytes % (Man) 0 % (0-2) 06/12/19 06:16 Promyelocytes % (Man) 0 % (0-2) 06/12/19 06:16 Blast Cells % (Manual) 0 % (0-0) 06/12/19 06:16 Nucleated RBC % 1 % (0-0) H 06/12/19 06:16 Metamyelocytes 0 % (0-2) 06/12/19 06:16 Hypochromia 2+ 06/12/19 06:16 Toxic Granulation 1+ 06/12/19 06:16 Platelet Estimate Normal 06/12/19 06:16 Platelet Comment Present 06/12/19 06:16 Polychromasia 1+ 06/12/19 06:16 Poikilocytosis 2+ 06/12/19 06:16 Anisocytosis 2+ 06/12/19 06:16 Microcytosis 2+ 06/12/19 06:16 Macrocytosis 0 06/12/19 06:16 Spherocytes 1+ 06/12/19 06:16 Target Cells 2+ 06/12/19 06:16 Tear Drop Cells 1+ 06/12/19 06:16 Ovalocytes 2+ 06/12/19 06:16 Duncan Cells 1+ 06/10/19 15:00 Schistocytes 1+ 06/12/19 06:16 Sodium 138 mmol/L (136-145) 06/12/19 06:16 Potassium 4.4 mmol/L (3.5-5.1) 06/12/19 06:16 Chloride 106 mmol/L (98-107) 06/12/19 06:16 Carbon Dioxide 21 mmol/L (21-32) 06/12/19 06:16 Anion Gap 11 MMOL/L (8-16) 06/12/19 06:16 BUN 92.6 mg/dL (7-18) H 06/12/19 06:16 Creatinine 6.3 mg/dL (0.55-1.3) H 06/12/19 06:16 Est GFR (CKD-EPI)AfAm 8.74 06/12/19 06:16 Est GFR (CKD-EPI)NonAf 7.54 06/12/19 06:16 POC Glucometer 167 UNITS (80-120) 06/12/19 11:23 Random Glucose 109 mg/dL (74-106) H 06/12/19 06:16 Hemoglobin A1c % 8.0 % (4.2-6.3) H 06/11/19 06:00 Calcium 8.6 mg/dL (8.5-10.1) 06/12/19 06:16 Phosphorus 6.2 mg/dL (2.5-4.9) H 06/12/19 06:16 Magnesium 2.9 mg/dL (1.8-2.4) H 06/12/19 06:16 Iron 16 ug/dL (50-175) L 06/11/19 06:00 TIBC 329 ug/dL (250-450) 06/11/19 06:00 Iron Saturation 4 % (17.5-39) L 06/11/19 06:00 Unsaturated IBC 313 ug/dL (200-275) H 06/11/19 06:00 Ferritin 17.1 ng/ml (8-388) 06/11/19 06:00 Total Bilirubin 0.7 mg/dL (0.2-1) 06/12/19 06:16 AST 19 U/L (15-37) 06/12/19 06:16 ALT 37 U/L (13-61) 06/12/19 06:16 Alkaline Phosphatase 162 U/L (45-117) H 06/12/19 06:16 Creatine Kinase 159 U/L (26-308) 06/10/19 15:00 Creatine Kinase Index 3.3 % (0.0-5.0) 06/10/19 15:00 CK-MB (CK-2) 5.4 ng/mL (0.5-3.6) H 06/10/19 15:00 Troponin I 0.15 ng/ml (0.00-0.05) H 06/11/19 08:40 B-Natriuretic Peptide 47064.8 pg/ml (5-450) H 06/10/19 15:00 Total Protein 5.9 g/dl (6.4-8.2) L 06/12/19 06:16 Albumin 2.9 g/dl (3.4-5.0) L 06/12/19 06:16 Active Medications Current Medications Calcium Acetate (Phoslo -) 667 mg PO TIDCM [facility] Last Admin: 06/12/19 11:26 Dose: 667 mg Furosemide (Lasix Injection -) 100 mg IVPUSH BID@0600,1400 [facility] Heparin Sodium (Porcine) (Heparin -) 5,000 unit SQ TID [facility] Last Admin: 06/12/19 06:56 Dose: 5,000 unit Hydralazine HCl (Apresoline -) 10 mg PO Q12H [facility] Last Admin: 06/12/19 06:49 Dose: 10 mg Insulin Aspart (Novolog Vial Sliding Scale -) 1 vial SQ [facility]; Protocol Last Admin: 06/12/19 11:25 Dose: 2 units Home Medications Medication Instructions Recorded Amlodipine Besylate 5 mg PO DAILY 06/10/19 Calcium Acetate [Phoslo -] 667 mg PO TID 06/10/19 Furosemide [Lasix] 80 mg PO TID 06/10/19 Microbiology 06/10/19 22:00 Urine - Urine - Catheterized Urine Culture - Final NO GROWTH OBTAINED ASSESSMENT/PLAN: 83 y/o M, pmh of CKD stage V, T2DM presented with LE edema of 1 week duration likely 2/2 fluid overload from ESRD. #LE edema likely 2/2 to Fluid overload 2/2 ESRD Pt refused HD Cont lasix 80 mg IV 2x daily monitor renal fxn and lytes Nephro consult- As per nephro Renal fxn has not improved but good response to diuretics Lasix increased to 100 BID Pt would like to think about HD today and respond tomorrow- f/u Currently no hyperkalemia, acidosis or uremia to warrant emergent HD #CHF- acute on chronic systolic CHF w/ severe fluid overload Advanced CKD contributes to symptoms As per cardio Daily weight and monitor renal function and lytes. Echo for cardiac dimension, systolic function and rule out pericardial effusion. Start metoprolol 25 mg BID. Add Imdur 30 mg daily. Continue hydralazine. Continue aspirin, change it to 81 mg daily. Start atorvastatin 40 mg daily. 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 - New Patient This patient is new to me today: Yes Date on this admission: 06/12/19 - Critical Care Critical Care patient: No - Discharge Referral Referred to [facility] Med [facility] No ATTENDING PHYSICIAN STATEMENT I saw and evaluated the patient. I reviewed the resident's note and discussed the case with the resident. I agree with the resident's findings and plan as documented. SUBJECTIVE: OBJECTIVE: ASSESSMENT AND PLAN:
[2019-06-13 06:55] LABS: ALBUMIN 2.9 g/dl (3.4-5.0); BILIRUBIN,TOTAL 0.6 mg/dL (0.2-1); CREATININE 6.2 mg/dL (0.55-1.3); PHOSPHOROUS 6.4 mg/dL (2.5-4.9); POTASSIUM 4.2 mmol/L (3.5-5.1); TOT PROT 5.7 g/dl (6.4-8.2)
[2019-06-13 07:00] LABS: HEMATOCRIT 33.3 % (35.4-49); HEMOGLOBIN 10.2 GM/dL (11.7-16.9); MCHC 30.7 g/dl (32.0-35.9); MEAN CELL VOLUME 63.3 fl (80-96); MEAN PLT VOLUME 8.7 fl (7.5-11.1); PLATELET COUNT 203 K/MM3 (134-434); RBC 5.25 M/mm3 (4.00-5.60); RDW 18.4 % (11.9-15.9); WHITE BLOOD COUNT 7.9 K/mm3 (4.0-10.0)
[2019-06-13] MEDS: HEPARIN NA (PORCINE) 5,000 UNITS/ML 1ML VIAL SQ SCH ×3 (07:02→21:23)
[2019-06-13] MEDS: FUROSEMIDE 40 MG/4 ML INJECTABLE VIAL IVPUSH SCH ×2 (07:03→14:05)
[2019-06-13 07:06] LABS: ADD RBC MORPHOLOGY YES; MCH 19.5 pg (25.7-33.7)
[2019-06-13] MEDS: INSULIN SLIDING SCALE (NOVOLOG) 1 VIAL SQ SCH ×4 (07:08→21:29)
[2019-06-13] MEDS: hydrALAZINE HCL 10 MG TABLET PO SCH ×2 (07:11→18:35)
[2019-06-13] MEDS: CALCIUM ACETATE 667 MG CAPSULE (FP) PO SCH ×3 (08:40→17:25)
--- NOTE | 2019-06-13 09:22 | PN ---
Teaching Attending Note Name of Resident: Olaf Winn ATTENDING PHYSICIAN STATEMENT I saw and evaluated the patient. I reviewed the resident's note and discussed the case with the resident. I agree with the resident's findings and plan as documented. SUBJECTIVE: Patient is an 83yo male with PMHx of CKD stage V, HTN, T2DM who presents to ED. with 1 week worsening lower extremity edema, 2 plus pillow orthopnea, patient has been refusing dialysis. Patient is feeling better today. But has a little improvement. OBJECTIVE: Vital Signs Temperature 97.7 F 06/13/19 06:00 Pulse Rate 82 06/13/19 06:00 Respiratory Rate 18 06/13/19 06:00 Blood Pressure 138/75 06/13/19 06:00 O2 Sat by Pulse Oximetry (%) 96 06/12/19 21:00 GENERAL: The patient is awake, alert, and fully oriented, in no acute distress. HEAD: Normal with no signs of trauma. EYES: PERRL, extraocular movements intact, sclera anicteric, conjunctiva clear. ENT: Ears normal, oropharynx clear without exudates, moist mucous membranes. NECK: Trachea midline, full range of motion, supple. + JVD LUNGS: Breath sounds equal, clear to auscultation bilaterally, no wheezes, no crackles, no accessory muscle use. HEART: Regular rate and rhythm, S1, S2 positive ,JACKY 2/6 ,no rub or gallop. ABDOMEN: Soft, nontender, nondistended, normoactive bowel sounds, no guarding, no rebound, no hepatosplenomegaly, no masses. EXTREMITIES: 2+ pulses, warm, 3+ pitting edema to groin and abdominal wall. NEUROLOGICAL: Cranial nerves II through XII grossly intact. Normal speech, gait not observed. PSYCH: Normal mood, normal affect. SKIN: Warm, dry, normal turgor, no rashes or lesions noted CBCD WBC 7.9 K/mm3 (4.0-10.0) 06/13/19 05:35 RBC 5.25 M/mm3 (4.00-5.60) 06/13/19 05:35 Hgb 10.2 GM/dL (11.7-16.9) L 06/13/19 05:35 Hct 33.3 % (35.4-49) L 06/13/19 05:35 MCV 63.3 fl (80-96) L 06/13/19 05:35 MCHC 30.7 g/dl (32.0-35.9) L 06/13/19 05:35 RDW 18.4 % (11.9-15.9) H 06/13/19 05:35 Plt Count 203 K/MM3 (134-434) 06/13/19 05:35 MPV 8.7 fl (7.5-11.1) 06/13/19 05:35 CMP Sodium 138 mmol/L (136-145) 06/13/19 05:35 Potassium 4.2 mmol/L (3.5-5.1) 06/13/19 05:35 Chloride 105 mmol/L (98-107) 06/13/19 05:35 Carbon Dioxide 22 mmol/L (21-32) 06/13/19 05:35 Anion Gap 10 MMOL/L (8-16) 06/13/19 05:35 BUN 103.0 mg/dL (7-18) H 06/13/19 05:35 Creatinine 6.2 mg/dL (0.55-1.3) H 06/13/19 05:35 Random Glucose 143 mg/dL (74-106) H 06/13/19 05:35 Calcium 8.0 mg/dL (8.5-10.1) L 06/13/19 05:35 Total Bilirubin 0.6 mg/dL (0.2-1) 06/13/19 05:35 AST 12 U/L (15-37) L 06/13/19 05:35 ALT 30 U/L (13-61) 06/13/19 05:35 Alkaline Phosphatase 145 U/L (45-117) H 06/13/19 05:35 Total Protein 5.7 g/dl (6.4-8.2) L 06/13/19 05:35 Albumin 2.9 g/dl (3.4-5.0) L 06/13/19 05:35 CARDIAC ENZYMES Creatine Kinase 159 U/L (26-308) 06/10/19 15:00 Troponin I 0.15 ng/ml (0.00-0.05) H 06/11/19 08:40 Home Medications Medication Instructions Recorded Amlodipine Besylate 5 mg PO DAILY 06/10/19 Calcium Acetate [Phoslo -] 667 mg PO TID 06/10/19 Furosemide [Lasix] 80 mg PO TID 06/10/19 Current Medications Generic Name Dose Route Start Last Admin Trade Name Maria L PRN Reason Stop Dose Admin Aspirin 81 mg 06/13/19 10:00 Asa - PO DAILY [facility] Atorvastatin Calcium 40 mg 06/13/19 22:00 Lipitor - PO HS [facility] Calcium Acetate 667 mg 06/11/19 08:00 06/13/19 08:40 Phoslo - PO Not Given TIDCM [facility] Furosemide 100 mg 06/12/19 10:27 06/13/19 07:03 Lasix Injection - IVPUSH 100 mg BID@0600,1400 [facility] Administration Heparin Sodium (Porcine) 5,000 unit 06/10/19 18:00 06/13/19 07:02 Heparin - SQ Not Given TID [facility] Hydralazine HCl 10 mg 06/10/19 19:15 06/13/19 07:11 Apresoline - PO Not Given Q12H [facility] Insulin Aspart 1 vial 06/10/19 22:00 06/13/19 07:08 Novolog Vial Sliding Scale - SQ Not Given ACHS [facility] Protocol Isosorbide Mononitrate 30 mg 06/13/19 10:00 Imdur - PO DAILY [facility] Metoprolol Succinate 25 mg 06/13/19 10:00 Toprol Xl - PO BID [facility] ECG - NSR @91bpm, normal axis, delayed R-wave progression with questionable LVH , no BRAD or STD, TWI in inferior leads, Qtc 484ms CXR: CM, with pulmonary congestion echocardiogram revealed an ejection fraction of 30-35% with global hypokinesis and moderate mitral and tricuspid valve regurgitation. ECG 06/10/19 showed sinus rhythm, LAE and inferolateral ST-T changes, suggestive of ischemia. CXR 06/10/19 revealed marked cardiomegaly, possible pericardial effusion, CHF, pleural effusion. ASSESSMENT/PLAN: Patient is an 83yo male with PMHx of CKD stage V, HTN, T2DM who presents to ED. with 1 week worsening lower extremity edema, 2+ pillow orthopnea, patient has been refusing dialysis. Patient agreed to dialysis today # ESRD , CKD Stage V with Acute volume overload; currently on lasix 100mg IV Bid (increased from 80mg), Dr. Foster, patient is going for a Permacath placement. Strict salt and fluid restrictions.No fluids nor ice cubes at the bedside. Continue HF regimen #Troponinemia due to CKD / demand ischemia, cardio consult Dr Ty appreciated #Prolonged Qtc : monitor, avoid prolonging agents #Hx of HTN : Hydralazine increased to 25mg tID po #hx of HLD on lipitor continue #T2DM: ISS for coverage #Anemia, likely secondary to iron deficiency and CKD,H/H is stable #Hyperphosphatemia on PhosLo, PTH is still pending, follow up DVT PPX: Heparin TID
[2019-06-13] MEDS: ASPIRIN 81 MG CHEWABLE TABLETS PO SCH (09:41)
[2019-06-13] MEDS: metoPROLOL SUCCINATE 25 MG TAB.SR.24H (FP) PO SCH ×2 (09:41→21:29)
[2019-06-13] MEDS: ISOSORBIDE MONONITRATE 30 MG TAB.SR.24H (FP) PO SCH (09:41)
[2019-06-13 09:46] LABS: ANISOCYTOSIS 3+; MACROCYTOSIS 1+; PLATELET ESTIMATE NORMAL; TARGET CELLS 3+; TEAR DROP CELLS 1+; TOXIC GRANULATION 1+
--- NOTE | 2019-06-13 10:50 | ECHO ---
Name: CARLTON BabatundeFERNANDONILESH Exam:Adult Echocardiogram Study Date: 06/13/2019 08:51 AM Age: 83 yrs Reason For Study: fluid overload Height: 68 in Weight: 185 lb BSA: 2.0 m2 MMode/2D Measurements & Calculations IVSd: 0.82 cm Ao root diam: 3.7 cm LVIDd: 6.3 cm LA dimension: 4.0 cm LVIDs: 5.3 cm ACS: 1.6 cm LVPWd: 0.82 cm IVSs: 0.93 cm LVPWs: 0.95 cm EDV(Teich): 201.6 ml ESV(Teich): 138.0 ml EPSS: 1.9 cm Doppler Measurements & Calculations MV E max rick: 74.8 cm/sec AI P1/2t: 766.6 msec MV A max rick: 53.3 cm/sec MV E/A: 1.4 AI max rick: 372.6 cm/sec MR max rick: 512.2 cm/sec AI max P.5 mmHg MR max P.9 mmHg AI dec slope: 142.3 cm/sec2 TR max rick: 327.8 cm/sec PI end-d rick: 161.8 cm/sec TR max P.2 mmHg Med Peak E' Rick: 3.7 cm/sec Med E/e': 20.1 Lat Peak E' Rick: 4.2 cm/sec Lat E/e': 17.9 Procedure A complete two-dimensional transthoracic echocardiogram was performed (2D, M-mode, Doppler and color flow Doppler). Left Ventricle The left ventricle is normal in size. Left ventricular systolic function is severely reduced. Ejectio n Fraction = 30-35%. Diastolic dysfunction, Grade II (pseudonormalization pattern). Ratio E/E'= 18. The re is severe global hypokinesis of the left ventricle. Right Ventricle The right ventricle is not well visualized. Atria Borderline left atrial enlargement. Right atrial size is normal. Mitral Valve There is mild mitral valve thickening. There is mild to moderate mitral annular calcification. There is moderate mitral regurgitation. Tricuspid Valve The tricuspid valve is normal in structure and function. There is moderate tricuspid regurgitation. P ulmonary artery systolic pressure is at least 57 mmHg if RA pressure is assumed 3 mmHg. Aortic Valve There is mild aortic sclerosis.;. No aortic regurgitation is present. Pulmonic Valve The pulmonic valve is not well visualized. Mild pulmonic valvular regurgitation. Great Vessels The aortic root is normal size. Pericardium/Pleura There is no pericardial effusion. There is a pleural effusion present. Interpretation Summary The left ventricle is normal in size. Left ventricular systolic function is severely reduced. There is severe global hypokinesis of the left ventricle. Ejection Fraction = 30-35%. Diastolic dysfunction, Grade II (pseudonormalization pattern). Ratio E/E'= 18 Borderline left atrial enlargement. Right atrial size is normal. There is mild mitral valve thickening. There is mild to moderate mitral annular calcification. There is moderate mitral regurgitation. There is moderate tricuspid regurgitation. Pulmonary artery systolic pressure is at least 57 mmHg if RA pressure is assumed 3 mmHg There is mild aortic sclerosis. Mild pulmonic valvular regurgitation. There is no pericardial effusion. There is a pleural effusion present. Previous study is not available for comparison Torres Martinez MD 06/13/2019 10:49 AM
--- NOTE | 2019-06-13 12:49 | PN ---
Physical Exam: SUBJECTIVE: Patient seen and examined 83 y/o M, pmh of CKD stage V, T2DM presented with LE edema of 1 week duration likely 2/2 fluid overload from ESRD. Currently, pt is stable, afebrile, asymptomatic without any c/o or issues. Pt accepts dialysis and is willing to move forward with it. Denies f/c/n/v/d/sob/chest pain. OBJECTIVE: Vital Signs Last Vital Signs Temp Pulse Resp BP Pulse Ox 98.2 F 81 18 146/89 100 06/13/19 10:00 06/13/19 10:00 06/13/19 10:00 06/13/19 10:00 06/13/19 09:00 GENERAL: The patient is awake, alert, and fully oriented, in no acute distress. EYES: PERRL, extraocular movements intact ENT: oropharynx clear without exudates, moist mucous membranes. NECK: full range of motion, supple. LUNGS: Breath sounds equal, clear to auscultation bilaterally, no wheezes, no crackles, HEART: Regular rate and rhythm, ABDOMEN: Soft, nontender, nondistended, normoactive bowel sounds EXTREMITIES: 2+ pulses, no edema. NEUROLOGICAL: Cranial nerves II through XII grossly intact. SKIN: Warm, dry, normal turgor Laboratory Results - last 24 hr WBC 7.9 K/mm3 (4.0-10.0) 06/13/19 05:35 RBC 5.25 M/mm3 (4.00-5.60) 06/13/19 05:35 Hgb 10.2 GM/dL (11.7-16.9) L 06/13/19 05:35 Hct 33.3 % (35.4-49) L 06/13/19 05:35 MCV 63.3 fl (80-96) L 06/13/19 05:35 MCH 19.5 pg (25.7-33.7) L 06/13/19 05:35 MCHC 30.7 g/dl (32.0-35.9) L 06/13/19 05:35 RDW 18.4 % (11.9-15.9) H 06/13/19 05:35 Plt Count 203 K/MM3 (134-434) 06/13/19 05:35 MPV 8.7 fl (7.5-11.1) 06/13/19 05:35 Absolute Neuts (auto) 2.8 K/mm3 (1.5-8.0) 06/12/19 06:16 Neutrophils % No Result Required. 06/13/19 05:35 Neutrophils % (Manual) 82.8 % (42.8-82.8) 06/13/19 05:35 Band Neutrophils % 0.0 % 06/13/19 05:35 Lymphocytes % No Result Required. 06/13/19 05:35 Lymphocytes % (Manual) 6.1 % (8-40) L D 06/13/19 05:35 Monocytes % 3.2 % (3.8-10.2) L 06/12/19 06:16 Monocytes % (Manual) 5 % (3.8-10.2) 06/13/19 05:35 Eosinophils % 1.2 % (0-4.5) 06/12/19 06:16 Eosinophils % (Manual) 5.0 % (0-4.5) H 06/13/19 05:35 Basophils % 0.1 % (0-2.0) 06/12/19 06:16 Basophils % (Manual) 0.0 % (0-2.0) 06/13/19 05:35 Myelocytes % (Man) 0 % (0-2) 06/13/19 05:35 Promyelocytes % (Man) 0 % (0-2) 06/13/19 05:35 Blast Cells % (Manual) 0 % (0-0) 06/13/19 05:35 Nucleated RBC % 0 % (0-0) 06/13/19 05:35 Metamyelocytes 0 % (0-2) 06/13/19 05:35 Hypochromia 3+ 06/13/19 05:35 Toxic Granulation 1+ 06/13/19 05:35 Platelet Estimate Normal 06/13/19 05:35 Platelet Comment Present 06/12/19 06:16 Polychromasia 1+ 06/13/19 05:35 Poikilocytosis 3+ 06/13/19 05:35 Anisocytosis 3+ 06/13/19 05:35 Microcytosis 3+ 06/13/19 05:35 Macrocytosis 1+ 06/13/19 05:35 Spherocytes 2+ 06/13/19 05:35 Target Cells 3+ 06/13/19 05:35 Tear Drop Cells 1+ 06/13/19 05:35 Ovalocytes 2+ 06/12/19 06:16 Franklin Cells 1+ 06/10/19 15:00 Fragmented RBCs 1+ 06/13/19 05:35 Schistocytes 3+ 06/13/19 05:35 Sodium 138 mmol/L (136-145) 06/13/19 05:35 Potassium 4.2 mmol/L (3.5-5.1) 06/13/19 05:35 Chloride 105 mmol/L (98-107) 06/13/19 05:35 Carbon Dioxide 22 mmol/L (21-32) 06/13/19 05:35 Anion Gap 10 MMOL/L (8-16) 06/13/19 05:35 BUN 103.0 mg/dL (7-18) H 06/13/19 05:35 Creatinine 6.2 mg/dL (0.55-1.3) H 06/13/19 05:35 Est GFR (CKD-EPI)AfAm 8.91 06/13/19 05:35 Est GFR (CKD-EPI)NonAf 7.69 06/13/19 05:35 POC Glucometer 125 UNITS (80-120) 06/13/19 11:24 Random Glucose 143 mg/dL (74-106) H 06/13/19 05:35 Hemoglobin A1c % 8.0 % (4.2-6.3) H 06/11/19 06:00 Calcium 8.0 mg/dL (8.5-10.1) L 06/13/19 05:35 Phosphorus 6.4 mg/dL (2.5-4.9) H 06/13/19 05:35 Magnesium 3.0 mg/dL (1.8-2.4) H 06/13/19 05:35 Iron 16 ug/dL (50-175) L 06/11/19 06:00 TIBC 329 ug/dL (250-450) 06/11/19 06:00 Iron Saturation 4 % (17.5-39) L 06/11/19 06:00 Unsaturated IBC 313 ug/dL (200-275) H 06/11/19 06:00 Ferritin 17.1 ng/ml (8-388) 06/11/19 06:00 Total Bilirubin 0.6 mg/dL (0.2-1) 06/13/19 05:35 AST 12 U/L (15-37) L 06/13/19 05:35 ALT 30 U/L (13-61) 06/13/19 05:35 Alkaline Phosphatase 145 U/L (45-117) H 06/13/19 05:35 Creatine Kinase 159 U/L (26-308) 06/10/19 15:00 Creatine Kinase Index 3.3 % (0.0-5.0) 06/10/19 15:00 CK-MB (CK-2) 5.4 ng/mL (0.5-3.6) H 06/10/19 15:00 Troponin I 0.15 ng/ml (0.00-0.05) H 06/11/19 08:40 B-Natriuretic Peptide 95383.8 pg/ml (5-450) H 06/10/19 15:00 Total Protein 5.7 g/dl (6.4-8.2) L 06/13/19 05:35 Albumin 2.9 g/dl (3.4-5.0) L 06/13/19 05:35 Active Medications Current Medications Aspirin (Asa -) 81 mg PO DAILY [facility] Last Admin: 06/13/19 09:41 Dose: 81 mg Atorvastatin Calcium (Lipitor -) 40 mg PO HS [facility] Calcium Acetate (Phoslo -) 667 mg PO TIDCM [facility] Last Admin: 06/13/19 11:47 Dose: 667 mg Furosemide (Lasix Injection -) 100 mg IVPUSH BID@0600,1400 [facility] Last Admin: 06/13/19 07:03 Dose: 100 mg Heparin Sodium (Porcine) (Heparin -) 5,000 unit SQ TID [facility] Last Admin: 06/13/19 07:02 Dose: Not Given Hydralazine HCl (Apresoline -) 10 mg PO Q12H [facility] Last Admin: 06/13/19 07:11 Dose: Not Given Insulin Aspart (Novolog Vial Sliding Scale -) 1 vial SQ ACHS [facility]; Protocol Last Admin: 06/13/19 11:31 Dose: Not Given Isosorbide Mononitrate (Imdur -) 30 mg PO DAILY [facility] Last Admin: 06/13/19 09:41 Dose: 30 mg Metoprolol Succinate (Toprol Xl -) 25 mg PO BID [facility] Last Admin: 11/11/19 09:41 Dose: 25 mg Home Medications Medication Instructions Recorded Amlodipine Besylate 5 mg PO DAILY 06/10/19 Calcium Acetate [Phoslo -] 667 mg PO TID 06/10/19 Furosemide [Lasix] 80 mg PO TID 06/10/19 Microbiology 06/10/19 22:00 Urine - Urine - Catheterized Urine Culture - Final NO GROWTH OBTAINED ASSESSMENT/PLAN: 83 y/o M, pmh of CKD stage V, T2DM presented with LE edema of 1 week duration likely 2/2 fluid overload from ESRD. #LE edema likely 2/2 to Fluid overload 2/2 ESRD Pt wants to move forward with HD Cont lasix 100 NID as per nephro monitor renal fxn and lytes Nephro consult- As per nephro Renal fxn has not improved but good response to diuretics Currently no hyperkalemia, acidosis or uremia to warrant emergent HD #CHF- acute on chronic systolic CHF w/ severe fluid overload Advanced CKD contributes to symptoms As per cardio Daily weight and monitor renal function and lytes. Echo- LV function severely, severe global hypokinesis, Diastolic dysfunction grade II, moderate MR, TR, pleural effusion present, EF 30% metoprolol 25 mg BID. Imdur 30 mg daily. Continue hydralazine. Continue aspirin, change it to 81 mg daily. Atorvastatin 40 mg daily. 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 - New Patient This patient is new to me today: Yes Date on this admission: 06/15/19 - Critical Care Critical Care patient: No - Discharge Referral Referred to [facility] Med [facility] No ATTENDING PHYSICIAN STATEMENT I saw and evaluated the patient. I reviewed the resident's note and discussed the case with the resident. I agree with the resident's findings and plan as documented. SUBJECTIVE: OBJECTIVE: ASSESSMENT AND PLAN:
--- NOTE | 2019-06-13 12:57 | PN ---
Progress Note, Physician History of Present Illness: Pt seen and examined at bedside. He is awake and alert. His neighbor who is a nurse is at bedside. He requests that I discuss his care with her, which I did. I also called Dr Danielle. - Current Medication List Current Medications: Active Medications Aspirin (Asa -) 81 mg PO DAILY [facility] Last Admin: 06/13/19 09:41 Dose: 81 mg Atorvastatin Calcium (Lipitor -) 40 mg PO HS [facility] Calcium Acetate (Phoslo -) 667 mg PO TIDCM [facility] Last Admin: 06/13/19 11:47 Dose: 667 mg Furosemide (Lasix Injection -) 100 mg IVPUSH BID@0600,1400 [facility] Last Admin: 06/13/19 07:03 Dose: 100 mg Heparin Sodium (Porcine) (Heparin -) 5,000 unit SQ TID [facility] Last Admin: 06/13/19 07:02 Dose: Not Given Hydralazine HCl (Apresoline -) 10 mg PO Q12H [facility] Last Admin: 06/13/19 07:11 Dose: Not Given Insulin Aspart (Novolog Vial Sliding Scale -) 1 vial SQ [facility]; Protocol Last Admin: 06/13/19 11:31 Dose: Not Given Isosorbide Mononitrate (Imdur -) 30 mg PO DAILY [facility] Last Admin: 06/13/19 09:41 Dose: 30 mg Metoprolol Succinate (Toprol Xl -) 25 mg PO BID [facility] Last Admin: 06/13/19 09:41 Dose: 25 mg - Objective Vital Signs: Vital Signs Temperature 98.2 F 06/13/19 10:00 Pulse Rate 81 06/13/19 10:00 Respiratory Rate 18 06/13/19 10:00 Blood Pressure 146/89 06/13/19 10:00 O2 Sat by Pulse Oximetry (%) 100 06/13/19 09:00 Constitutional: Yes: Calm Eyes: Yes: Conjunctiva Clear HENT: Yes: Atraumatic Neck: Yes: Supple Cardiovascular: Yes: S1, S2 Respiratory: Yes: CTA Bilaterally Gastrointestinal: Yes: Soft Genitourinary: Yes: WNL Musculoskeletal: Yes: WNL Edema: Yes Edema: LLE: 1+, RLE: 1+ Integumentary: Yes: Venous Stasis Changes Neurological: Yes: Oriented Psychiatric: Yes: Oriented Labs: CBC, BMP 06/13/19 05:35 06/13/19 05:35 INR, PTT INR 1.05 (0.83-1.09) 06/10/19 15:00 Problem List - Problems (1) CKD (chronic kidney disease) Code(s): N18.9 - CHRONIC KIDNEY DISEASE, UNSPECIFIED (2) HTN (hypertension) Code(s): I10 - ESSENTIAL (PRIMARY) HYPERTENSION (3) Diabetes mellitus Code(s): E11.9 - TYPE 2 DIABETES MELLITUS WITHOUT COMPLICATIONS Assessment/Plan Current Medications Generic Name Dose Route Start Last Admin Trade Name Maria L PRN Reason Stop Dose Admin Aspirin 81 mg 06/13/19 10:00 06/13/19 09:41 Asa - PO 81 mg DAILY [facility] Administration Atorvastatin Calcium 40 mg 06/13/19 22:00 Lipitor - PO HS [facility] Calcium Acetate 667 mg 06/11/19 08:00 06/13/19 11:47 Phoslo - PO 667 mg TIDCM [facility] Administration Furosemide 100 mg 06/12/19 10:27 06/13/19 07:03 Lasix Injection - IVPUSH 100 mg BID@0600,1400 [facility] Administration Heparin Sodium (Porcine) 5,000 unit 06/10/19 18:00 06/13/19 07:02 Heparin - SQ Not Given TID [facility] Hydralazine HCl 10 mg 06/10/19 19:15 06/13/19 07:11 Apresoline - PO Not Given Q12H [facility] Insulin Aspart 1 vial 06/10/19 22:00 06/13/19 11:31 Novolog Vial Sliding Scale - SQ Not Given ACHS [facility] Protocol Isosorbide Mononitrate 30 mg 06/13/19 10:00 06/13/19 09:41 Imdur - PO 30 mg DAILY [facility] Administration Metoprolol Succinate 25 mg 06/13/19 10:00 06/13/19 09:41 Toprol Xl - PO 25 mg BID [facility] Administration Impression 1. CKD 2. HTN 3. DM 4. fluid overload 5. esrd Plan - pt agrees to HD - discussed options at length - pt has minimal response to lasix - called vascular for permacath - renal ultrasound reviewed - pt wants an HD unit in [place], will send to [facility]
--- NOTE | 2019-06-13 13:56 | PN ---
Progress Note, Physician Chief Complaint: shortness of breath History of Present Illness: 83 year-old man with a PMHx of HTN, DM-II, advanced CKD, refused HD in the past admitted 06/10/19 with one week of worsening leg edema and SOB. The patient noticed worsening leg edmea and SOB on exertion for about 1-2 weeks. He also reports chest congestion, fatigue and weakness. Oral Lasix increased to 80 mg BID by his PCP with little improvement. In addition to edema and dyspnea, he also has orthopnea. He reports no chest pain, palpitation, syncope or near syncope. He denies fever/chills. ECG 06/10/19 showed sinus rhythm, LAE and inferolateral ST-T changes, suggestive of ischemia. CXR 06/10/19 revealed marked cardiomegaly, possible pericardial effusion, CHF, pleural effusion. BNP is markedly elevated. Troponin is mildly elevated, but non-dynamic. Seen by renal and patient agrees to HD. - Current Medication List Current Medications: Active Medications Aspirin (Asa -) 81 mg PO DAILY [facility] Last Admin: 06/13/19 09:41 Dose: 81 mg Atorvastatin Calcium (Lipitor -) 40 mg PO HS [facility] Calcium Acetate (Phoslo -) 667 mg PO TIDCM [facility] Last Admin: 06/13/19 11:47 Dose: 667 mg Furosemide (Lasix Injection -) 100 mg IVPUSH BID@0600,1400 [facility] Last Admin: 06/13/19 07:03 Dose: 100 mg Heparin Sodium (Porcine) (Heparin -) 5,000 unit SQ TID [facility] Last Admin: 06/13/19 07:02 Dose: Not Given Hydralazine HCl (Apresoline -) 10 mg PO Q12H [facility] Last Admin: 06/13/19 07:11 Dose: Not Given Insulin Aspart (Novolog Vial Sliding Scale -) [address] [facility]; Protocol Last Admin: 06/13/19 11:31 Dose: Not Given Isosorbide Mononitrate (Imdur -) 30 mg PO DAILY [facility] Last Admin: 06/13/19 09:41 Dose: 30 mg Metoprolol Succinate (Toprol Xl -) 25 mg PO BID [facility] Last Admin: 06/13/19 09:41 Dose: 25 mg - Objective Vital Signs: Vital Signs Temperature 98.2 F 06/13/19 10:00 Pulse Rate 81 06/13/19 10:00 Respiratory Rate 18 06/13/19 10:00 Blood Pressure 146/89 06/13/19 10:00 O2 Sat by Pulse Oximetry (%) 100 06/13/19 09:00 Constitutional: Yes: Mild Distress, Obese Eyes: Yes: WNL, Conjunctiva Clear, EOM Intact HENT: Yes: WNL, Atraumatic, Normocephalic Neck: Yes: WNL, Supple, Trachea Midline Cardiovascular: Yes: WNL, Regular Rate and Rhythm, S1, S2 Respiratory: Yes: Regular, On Nasal O2, Rales Gastrointestinal: Yes: WNL, Normal Bowel Sounds, Soft ...Rectal Exam: Yes: Deferred Genitourinary: Yes: Anuria Musculoskeletal: Yes: WNL Extremities: Yes: WNL Edema: LUE: 1+, RUE: 1+, LLE: 1+, RLE: 1+ Peripheral Pulses: Left Radial: 1+, Right Radial: 1+, Left Doralis Pedis: 1+, Right Dorsalis Pedis: 1+, Left Femoral: 1+, Right Femoral: 1+ Integumentary: Yes: WNL Neurological: Yes: WNL, Alert, Oriented ...Motor Strength: WNL Psychiatric: Yes: WNL, Alert, Oriented Labs: CBC, BMP 06/13/19 05:35 06/13/19 05:35 INR, PTT INR 1.05 (0.83-1.09) 06/10/19 15:00 Assessment/Plan 83 year-old man with a PMHx of HTN, DM-II, advanced CKD, refused HD in the past admitted 06/10/19 with one week of worsening leg edema and SOB. The patient noticed worsening leg edmea and SOB on exertion for about 1-2 weeks. He also reports chest congestion, fatigue and weakness. Oral Lasix increased to 80 mg BID by his PCP with little improvement. In addition to edema and dyspnea, he also has orthopnea. He reports no chest pain, palpitation, syncope or near syncope. He denies fever/chills. ECG 06/10/19 showed sinus rhythm, LAE and inferolateral ST-T changes, suggestive of ischemia. CXR 06/10/19 revealed marked cardiomegaly, possible pericardial effusion, CHF, pleural effusion. BNP is markedly elevated. Troponin is mildly elevated, but non-dynamic. Seen by renal and patient agrees to HD. The patient's echocardiogram revealed an ejection fraction of 30-35% with global hypokinesis and moderate mitral and tricuspid valve regurgitation. The patient is about to start dialysis tomorrow. Needs fluid removal. Increase hydralazine to 25 mg 3 times a day. We'll continue to up titrate the heart failure regimen. Strict salt and fluid restrictions.No fluids nor ice cubes at the bedside. conservative cardiac care in this setting. We'll continue to follow with you.
--- NOTE | 2019-06-13 14:59 | SPA.PREOP ---
- PRE-OP NOTE Dx: CKD now in need of HD Planned Procedure: Permacath Insertion Surgeon: Romario Medina Last Vital Signs Temp Pulse Resp BP Pulse Ox 97 F L 90 20 138/71 100 06/13/19 14:00 06/13/19 14:00 06/13/19 14:00 06/13/19 14:00 06/13/19 09:00 Lab Results WBC 7.9 K/mm3 (4.0-10.0) 06/13/19 05:35 RBC 5.25 M/mm3 (4.00-5.60) 06/13/19 05:35 Hgb 10.2 GM/dL (11.7-16.9) L 06/13/19 05:35 Hct 33.3 % (35.4-49) L 06/13/19 05:35 MCV 63.3 fl (80-96) L 06/13/19 05:35 MCHC 30.7 g/dl (32.0-35.9) L 06/13/19 05:35 RDW 18.4 % (11.9-15.9) H 06/13/19 05:35 Plt Count 203 K/MM3 (134-434) 06/13/19 05:35 Sodium 138 mmol/L (136-145) 06/13/19 05:35 Potassium 4.2 mmol/L (3.5-5.1) 06/13/19 05:35 Chloride 105 mmol/L (98-107) 06/13/19 05:35 Carbon Dioxide 22 mmol/L (21-32) 06/13/19 05:35 Anion Gap 10 MMOL/L (8-16) 06/13/19 05:35 BUN 103.0 mg/dL (7-18) H 06/13/19 05:35 Creatinine 6.2 mg/dL (0.55-1.3) H 06/13/19 05:35 Random Glucose 143 mg/dL (74-106) H 06/13/19 05:35 Calcium 8.0 mg/dL (8.5-10.1) L 06/13/19 05:35 INR 1.05 (0.83-1.09) 06/10/19 15:00 - ASSESSMENT/PLAN 1. Make NPO after midnight except po meds 2. GI/DVT PPX 3. Medical optimization / clearance 4. Consent to be obtained by surgeon after risks, benefits and alternatives discussed with patient and or Health Care Proxy. Problem List - Problems (1) CKD (chronic kidney disease) Code(s): N18.9 - CHRONIC KIDNEY DISEASE, UNSPECIFIED (2) Diabetes mellitus Code(s): E11.9 - TYPE 2 DIABETES MELLITUS WITHOUT COMPLICATIONS (3) HTN (hypertension) Code(s): I10 - ESSENTIAL (PRIMARY) HYPERTENSION Visit type - Case Type Case Type: ED Admission - New patient This patient is new to me today: Yes Date on this admission: 06/13/19
[2019-06-13] MEDS: ATORVASTATIN CA 40 MG TABLET (FP) PO SCH (21:29)
[2019-06-14] MEDS ORDERED: LIDOCAINE HCL 1%, 10 MG/ML (20ML VIAL) INF ONE
[2019-06-14] MEDS: FUROSEMIDE 40 MG/4 ML INJECTABLE VIAL IVPUSH SCH (06:25)
[2019-06-14] MEDS: HEPARIN NA (PORCINE) 5,000 UNITS/ML 1ML VIAL SQ SCH ×2 (06:25→15:34)
[2019-06-14] MEDS: INSULIN SLIDING SCALE (NOVOLOG) 1 VIAL SQ SCH ×4 (06:26→21:52)
[2019-06-14] MEDS: hydrALAZINE HCL 10 MG TABLET PO SCH (06:26)
[2019-06-14 06:58] LABS: BASO % 1.7 % (0-2.0); EOS % 3.5 % (0-4.5); HEMATOCRIT 33.8 % (35.4-49); HEMOGLOBIN 10.4 GM/dL (11.7-16.9); LYMPH % 9.1 % (8-40); MCHC 30.9 g/dl (32.0-35.9); MEAN CELL VOLUME 62.6 fl (80-96); MEAN PLT VOLUME 8.5 fl (7.5-11.1); MONO % 7.3 % (3.8-10.2); NEUT % 78.4 % (42.8-82.8); PLATELET COUNT 247 K/MM3 (134-434); RDW 18.9 % (11.9-15.9); WHITE BLOOD COUNT 8.2 K/mm3 (4.0-10.0)
[2019-06-14 06:59] LABS: MCH 19.3 pg (25.7-33.7)
[2019-06-14 07:22] LABS: ALBUMIN 2.9 g/dl (3.4-5.0); BILIRUBIN,TOTAL 0.6 mg/dL (0.2-1); CALCIUM 8.1 mg/dL (8.5-10.1); CREATININE 6.4 mg/dL (0.55-1.3); POTASSIUM 4.3 mmol/L (3.5-5.1)
[2019-06-14 07:35] LABS: BLOOD UREA NITROGEN 104.4 mg/dL (7-18)
[2019-06-14] MEDS: CALCIUM ACETATE 667 MG CAPSULE (FP) PO SCH ×3 (08:00→17:45)
--- NOTE | 2019-06-14 10:46 | PN ---
Progress Note, Physician History of Present Illness: pt seen and examined today in nad. no overnight events. no new complaints. - Current Medication List Current Medications: Active Medications Aspirin (Asa -) 81 mg PO DAILY [facility] Last Admin: 06/13/19 09:41 Dose: 81 mg Atorvastatin Calcium (Lipitor -) 40 mg PO HS [facility] Last Admin: 06/13/19 21:29 Dose: 40 mg Calcium Acetate (Phoslo -) 667 mg PO TIDCM [facility] Last Admin: 06/13/19 17:25 Dose: 667 mg Furosemide (Lasix Injection -) 100 mg IVPUSH BID@0600,1400 [facility] Last Admin: 06/14/19 06:25 Dose: Not Given Heparin Sodium (Porcine) (Heparin -) 5,000 unit SQ TID [facility] Last Admin: 06/14/19 06:25 Dose: Not Given Hydralazine HCl (Apresoline -) 25 mg PO TID [facility] Insulin Aspart (Novolog Vial Sliding Scale -) 1 vial SQ [facility]; Protocol Last Admin: 06/14/19 06:26 Dose: Not Given Isosorbide Mononitrate (Imdur -) 30 mg PO DAILY [facility] Last Admin: 06/13/19 09:41 Dose: 30 mg Metoprolol Succinate (Toprol Xl -) 25 mg PO BID [facility] Last Admin: 06/13/19 21:29 Dose: 25 mg - Objective Vital Signs: Vital Signs Temperature 97.7 F 06/14/19 09:13 Pulse Rate 68 06/14/19 09:13 Respiratory Rate 18 06/14/19 09:13 Blood Pressure 142/70 06/14/19 09:13 O2 Sat by Pulse Oximetry (%) 99 06/14/19 09:00 Constitutional: Yes: No Distress, Calm Eyes: Yes: Conjunctiva Clear, EOM Intact HENT: Yes: Atraumatic, Normocephalic Neck: Yes: Supple, Trachea Midline Cardiovascular: Yes: Regular Rate and Rhythm, S1, S2. No: Bradycardia, Tachycardia, Pulse Irregular, Bruit, JVD, Gallop, Murmur, Rub, S3, S4, Varicosities Respiratory: Yes: Regular, Diminished, On Nasal O2, Rales, Rhonchi. No: CTA Bilaterally, SOB, SOB on Exertion, Wheezes Gastrointestinal: Yes: Normal Bowel Sounds, Soft. No: Distention, Tenderness Extremities: Yes: WNL Edema: No Peripheral Pulses WNL: Yes Neurological: Yes: Alert, Oriented Psychiatric: Yes: Alert, Oriented Labs: CBC, BMP 06/14/19 06:07 06/14/19 06:07 INR, PTT INR 1.05 (0.83-1.09) 06/10/19 15:00 - ....Imaging Chest X-ray: Report Reviewed, Image Reviewed EKG: Report Reviewed, Image Reviewed Other: Report Reviewed, Image Reviewed (tele-nsr, 5 beats nsvt) Assessment/Plan 83 year-old man with a PMHx of HTN, DM-II, advanced CKD, refused HD in the past admitted 06/10/19 with one week of worsening leg edema and SOB. The patient noticed worsening leg edmea and SOB on exertion for about 1-2 weeks. He also reports chest congestion, fatigue and weakness. Oral Lasix increased to 80 mg BID by his PCP with little improvement. In addition to edema and dyspnea, he also has orthopnea. He reports no chest pain, palpitation, syncope or near syncope. He denies fever/chills. ECG 06/10/19 showed sinus rhythm, LAE and inferolateral ST-T changes, suggestive of ischemia. CXR 06/10/19 revealed marked cardiomegaly, possible pericardial effusion, CHF, pleural effusion. BNP is markedly elevated. Troponin is mildly elevated, but non-dynamic. Seen by renal and patient agrees to HD. The patient's echocardiogram revealed an ejection fraction of 30-35% with global hypokinesis and moderate mitral and tricuspid valve regurgitation. Acute on likely chronic systolic CHF -ESRD -planned to start HD today, plan for volume removal as needed -cont IV Lasix for now -cont hydralazine 25 mg 3 times a day. -cont Toprol XL 25mg bid -We'll continue to up titrate the heart failure regimen. -Strict salt and fluid restrictions.No fluids nor ice cubes at the bedside. -conservative cardiac care in this setting. -We'll continue to follow with you.
[2019-06-14] MEDS: ISOSORBIDE MONONITRATE 30 MG TAB.SR.24H (FP) PO SCH (11:38)
[2019-06-14] MEDS: ASPIRIN 81 MG CHEWABLE TABLETS PO SCH (11:38)
[2019-06-14] MEDS: metoPROLOL SUCCINATE 25 MG TAB.SR.24H (FP) PO SCH ×2 (11:39→21:31)
--- NOTE | 2019-06-14 12:04 | PN ---
Teaching Attending Note Name of Resident: Olaf Winn ATTENDING PHYSICIAN STATEMENT I saw and evaluated the patient. I reviewed the resident's note and discussed the case with the resident. I agree with the resident's findings and plan as documented. SUBJECTIVE: yusef is an 83yo male with PMHx of CKD stage V, HTN, T2DM who presents to ED. with 1 week worsening lower extremity edema, 2 plus pillow orthopnea, patient has been refusing dialysis. Patient is feeling better today. But has a little improvement. agreed to have dialysis , going for permacath today. OBJECTIVE: Vital Signs Temperature 97.7 F 06/14/19 09:13 Pulse Rate 68 06/14/19 09:13 Respiratory Rate 18 06/14/19 09:13 Blood Pressure 142/70 06/14/19 09:13 O2 Sat by Pulse Oximetry (%) 99 06/14/19 09:00 GENERAL: The patient is awake, alert, and fully oriented, in no acute distress. HEAD: Normal with no signs of trauma. EYES: PERRL, extraocular movements intact, sclera anicteric, conjunctiva clear. ENT: Ears normal, oropharynx clear without exudates, moist mucous membranes. NECK: Trachea midline, full range of motion, supple. + JVD LUNGS: Breath sounds equal, clear to auscultation bilaterally, no wheezes, no crackles, no accessory muscle use. HEART: Regular rate and rhythm, S1, S2 positive ,JACKY 2/6 ,no rub or gallop. ABDOMEN: Soft, nontender, nondistended, normoactive bowel sounds, no guarding, no rebound, no hepatosplenomegaly, no masses. EXTREMITIES: 2+ pulses, warm, 3+ pitting edema to groin and abdominal wall. NEUROLOGICAL: Cranial nerves II through XII grossly intact. Normal speech, gait not observed. PSYCH: Normal mood, normal affect. SKIN: Warm, dry, normal turgor, no rashes or lesions noted CBCD WBC 8.2 K/mm3 (4.0-10.0) 06/14/19 06:07 RBC 5.40 M/mm3 (4.00-5.60) 06/14/19 06:07 Hgb 10.4 GM/dL (11.7-16.9) L 06/14/19 06:07 Hct 33.8 % (35.4-49) L 06/14/19 06:07 MCV 62.6 fl (80-96) L 06/14/19 06:07 MCHC 30.9 g/dl (32.0-35.9) L 06/14/19 06:07 RDW 18.9 % (11.9-15.9) H 06/14/19 06:07 Plt Count 247 K/MM3 (134-434) D 06/14/19 06:07 MPV 8.5 fl (7.5-11.1) 06/14/19 06:07 CMP Sodium 135 mmol/L (136-145) L 06/14/19 06:07 Potassium 4.3 mmol/L (3.5-5.1) 06/14/19 06:07 Chloride 103 mmol/L (98-107) 06/14/19 06:07 Carbon Dioxide 21 mmol/L (21-32) 06/14/19 06:07 Anion Gap 11 MMOL/L (8-16) 06/14/19 06:07 BUN 104.4 mg/dL (7-18) H* 06/14/19 06:07 Creatinine 6.4 mg/dL (0.55-1.3) H 06/14/19 06:07 Random Glucose 146 mg/dL (74-106) H 06/14/19 06:07 Calcium 8.1 mg/dL (8.5-10.1) L 06/14/19 06:07 Total Bilirubin 0.6 mg/dL (0.2-1) 06/14/19 06:07 AST 14 U/L (15-37) L 06/14/19 06:07 ALT 28 U/L (13-61) 06/14/19 06:07 Alkaline Phosphatase 149 U/L (45-117) H 06/14/19 06:07 Total Protein 6.0 g/dl (6.4-8.2) L 06/14/19 06:07 Albumin 2.9 g/dl (3.4-5.0) L 06/14/19 06:07 CARDIAC ENZYMES Creatine Kinase 159 U/L (26-308) 06/10/19 15:00 Troponin I 0.15 ng/ml (0.00-0.05) H 06/11/19 08:40 Current Medications Generic Name Dose Route Start Last Admin Trade Name Freq PRN Reason Stop Dose Admin Aspirin 81 mg 06/13/19 10:00 06/14/19 11:38 Asa - PO Not Given DAILY [facility] Atorvastatin Calcium 40 mg 06/13/19 22:00 06/13/19 21:29 Lipitor - PO 40 mg HS [facility] Administration Calcium Acetate 667 mg 06/11/19 08:00 06/14/19 08:00 Phoslo - PO Not Given TIDCM [facility] Furosemide 100 mg 06/12/19 10:27 06/14/19 06:25 Lasix Injection - IVPUSH Not Given BID@0600,1400 [facility] Heparin Sodium (Porcine) 5,000 unit 06/10/19 18:00 06/14/19 06:25 Heparin - SQ Not Given TID [facility] Hydralazine HCl 25 mg 06/14/19 13:00 Apresoline - PO TID [facility] Insulin Aspart 1 vial 06/10/19 22:00 06/14/19 06:26 Novolog Vial Sliding Scale - SQ Not Given ACHS [facility] Protocol Isosorbide Mononitrate 30 mg 06/13/19 10:00 06/14/19 11:38 Imdur - PO Not Given DAILY [facility] Metoprolol Succinate 25 mg 06/13/19 10:00 06/14/19 11:39 Toprol Xl - PO Not Given BID [facility] Home Medications Medication Instructions Recorded Amlodipine Besylate 5 mg PO DAILY 06/10/19 Calcium Acetate [Phoslo -] 667 mg PO TID 06/10/19 Furosemide [Lasix] 80 mg PO TID 06/10/19 ECG - NSR @91bpm, normal axis, delayed R-wave progression with questionable LVH , no BRAD or STD, TWI in inferior leads, Qtc 484ms CXR: CM, with pulmonary congestion echocardiogram revealed an ejection fraction of 30-35% with global hypokinesis and moderate mitral and tricuspid valve regurgitation. ECG 06/10/19 showed sinus rhythm, LAE and inferolateral ST-T changes, suggestive of ischemia. CXR 06/10/19 revealed marked cardiomegaly, possible pericardial effusion, CHF, pleural effusion. ASSESSMENT/PLAN: Patient is an 83yo male with PMHx of CKD stage V, HTN, T2DM who presents to ED. with 1 week worsening lower extremity edema, 2+ pillow orthopnea, patient has been refusing dialysis. Patient agreed to dialysis today # ESRD , CKD Stage V with Acute volume overload; currently on lasix 100mg IV Bid (increased from 80mg) will hold it for now as per Dr. Foster, patient is going for a Permacath placement. Strict salt and fluid restrictions.No fluids nor ice cubes at the bedside. Continue HF regimen, HD today,renal diet,pending placement in HD #Troponinemia due to CKD / demand ischemia, cardio consult Dr Ty appreciated #Prolonged Qtc : monitor, avoid prolonging agents #Hx of HTN : Hydralazine increased to 25mg tID po #hx of HLD on lipitor continue #T2DM: ISS for coverage #Anemia, likely secondary to iron deficiency and CKD,H/H is stable #Hyperphosphatemia on PhosLo, PTH is still pending, follow up DVT PPX: Heparin TID
[2019-06-14 12:40] LABS: ANISOCYTOSIS 2+; MACROCYTOSIS 1+; OVALOCYTE 1+; PLATELET ESTIMATE NORMAL; TARGET CELLS 2+
[2019-06-14] MEDS ORDERED: HEPARIN NA (PORCINE) 5,000 UNITS/ML 1ML VIAL ONE (12:46)
[2019-06-14] MEDS ORDERED: LIDOCAINE HCL 1%, 10 MG/ML (20ML VIAL) ONE ×2 (12:46)
[2019-06-14] MEDS ORDERED: SODIUM CHLORIDE 250 ML IV PRN (12:56)
--- NOTE | 2019-06-14 12:56 | PN ---
Progress Note, Physician History of Present Illness: Pt seen and examined at bedside. He is awake and alert. He denies shortness of breath at rest. He is going for a permacath today. - Current Medication List Current Medications: Active Medications Aspirin (Asa -) 81 mg PO DAILY [facility] Last Admin: 06/14/19 11:38 Dose: Not Given Atorvastatin Calcium (Lipitor -) 40 mg PO HS [facility] Last Admin: 06/13/19 21:29 Dose: 40 mg Calcium Acetate (Phoslo -) 667 mg PO TIDCM [facility] Last Admin: 06/14/19 12:18 Dose: Not Given Furosemide (Lasix Injection -) 100 mg IVPUSH BID@0600,1400 [facility] Last Admin: 06/14/19 06:25 Dose: Not Given Heparin Sodium (Porcine) (Heparin -) 5,000 unit SQ TID [facility] Last Admin: 06/14/19 06:25 Dose: Not Given Hydralazine HCl (Apresoline -) 25 mg PO TID [facility] Insulin Aspart (Novolog Vial Sliding Scale -) 1 vial SQ [facility]; Protocol Last Admin: 06/14/19 12:46 Dose: Not Given Isosorbide Mononitrate (Imdur -) 30 mg PO DAILY [facility] Last Admin: 06/14/19 11:38 Dose: Not Given Metoprolol Succinate (Toprol Xl -) 25 mg PO BID [facility] Last Admin: 06/14/19 11:39 Dose: Not Given - Objective Vital Signs: Vital Signs Temperature 97.7 F 06/14/19 09:13 Pulse Rate 68 06/14/19 09:13 Respiratory Rate 18 06/14/19 09:13 Blood Pressure 142/70 06/14/19 09:13 O2 Sat by Pulse Oximetry (%) 99 06/14/19 09:00 Constitutional: Yes: Calm Eyes: Yes: Conjunctiva Clear HENT: Yes: Atraumatic Neck: Yes: Supple Cardiovascular: Yes: S1, S2 Respiratory: Yes: CTA Bilaterally Gastrointestinal: Yes: Soft Genitourinary: Yes: WNL Musculoskeletal: Yes: WNL Edema: Yes Edema: LLE: 2+, RLE: 2+ Integumentary: Yes: Venous Stasis Changes Neurological: Yes: Oriented Psychiatric: Yes: Oriented Labs: CBC, BMP 06/14/19 06:07 06/14/19 06:07 INR, PTT INR 1.05 (0.83-1.09) 06/10/19 15:00 Problem List - Problems (1) CKD (chronic kidney disease) Code(s): N18.9 - CHRONIC KIDNEY DISEASE, UNSPECIFIED (2) HTN (hypertension) Code(s): I10 - ESSENTIAL (PRIMARY) HYPERTENSION (3) Diabetes mellitus Code(s): E11.9 - TYPE 2 DIABETES MELLITUS WITHOUT COMPLICATIONS Assessment/Plan Current Medications Generic Name Dose Route Start Last Admin Trade Name Maria L PRN Reason Stop Dose Admin Aspirin 81 mg 06/13/19 10:00 06/14/19 11:38 Asa - PO Not Given DAILY [facility] Atorvastatin Calcium 40 mg 06/13/19 22:00 06/13/19 21:29 Lipitor - PO 40 mg HS [facility] Administration Calcium Acetate 667 mg 06/11/19 08:00 06/14/19 12:18 Phoslo - PO Not Given TIDCM [facility] Furosemide 100 mg 06/12/19 10:27 06/14/19 06:25 Lasix Injection - IVPUSH Not Given BID@0600,1400 [facility] Heparin Sodium (Porcine) 5,000 unit 06/10/19 18:00 06/14/19 06:25 Heparin - SQ Not Given TID [facility] Hydralazine HCl 25 mg 06/14/19 13:00 Apresoline - PO TID [facility] Insulin Aspart 1 vial 06/10/19 22:00 06/14/19 12:46 Novolog Vial Sliding Scale - SQ Not Given ACHS [facility] Protocol Isosorbide Mononitrate 30 mg 06/13/19 10:00 06/14/19 11:38 Imdur - PO Not Given DAILY [facility] Metoprolol Succinate 25 mg 06/13/19 10:00 06/14/19 11:39 Toprol Xl - PO Not Given BID [facility] Impression 1. CKD 2. HTN 3. DM 4. fluid overload 5. esrd Plan - permacath today - HD today - renal diet - pending placement in HD - hold lasix today
[2019-06-14] MEDS ORDERED: ONDANSETRON 4 MG/2 ML VIAL IVPUSH PRN (13:11)
[2019-06-14] MEDS ORDERED: SODIUM CHLORIDE 1,000 ML IV SCH (13:15)
--- NOTE | 2019-06-14 13:20 | PN ---
Physical Exam: SUBJECTIVE: Patient seen and examined 83 y/o M, pmh of CKD stage V, T2DM presented with LE edema of 1 week duration likely 2/2 fluid overload from ESRD. Currently, pt is stable, afebrile, asymptomatic without any c/o or issues. Pt accepts dialysis and is willing to move forward with it. However, pt appears to be mildy confused. Denies f/c/n/v/d /sob/chest pain. OBJECTIVE: Last Vital Signs Temp Pulse Resp BP Pulse Ox 97.7 F 68 18 142/70 99 06/14/19 09:13 06/14/19 09:13 06/14/19 09:13 06/14/19 09:13 06/14/19 09:00 GENERAL: The patient is awake, alert but not too oriented to person. But is oriented to place and time. As per , pt is becoming confused EYES: PERRL, extraocular movements intact ENT: oropharynx clear without exudates, moist mucous membranes. NECK: full range of motion, supple. LUNGS: stridors and wheezing heard b/l. HEART: Regular rate and rhythm, S1 and S2 normal ABDOMEN: Soft, nontender, nondistended, normoactive bowel sounds EXTREMITIES: 2+ pulses, no edema. Chronic venous stasis skin changes b/l NEUROLOGICAL: Cranial nerves II through XII grossly intact. SKIN: Warm, dry, normal turgor Laboratory Results - last 24 hr CBC,CMP WBC 8.2 K/mm3 (4.0-10.0) 06/14/19 06:07 RBC 5.40 M/mm3 (4.00-5.60) 06/14/19 06:07 Hgb 10.4 GM/dL (11.7-16.9) L 06/14/19 06:07 Hct 33.8 % (35.4-49) L 06/14/19 06:07 MCV 62.6 fl (80-96) L 06/14/19 06:07 MCH 19.3 pg (25.7-33.7) L 06/14/19 06:07 MCHC 30.9 g/dl (32.0-35.9) L 06/14/19 06:07 RDW 18.9 % (11.9-15.9) H 06/14/19 06:07 Plt Count 247 K/MM3 (134-434) D 06/14/19 06:07 MPV 8.5 fl (7.5-11.1) 06/14/19 06:07 Absolute Neuts (auto) 6.5 K/mm3 (1.5-8.0) 06/14/19 06:07 Neutrophils % 78.4 % (42.8-82.8) D 06/14/19 06:07 Neutrophils % (Manual) 82.8 % (42.8-82.8) 06/13/19 05:35 Band Neutrophils % 0.0 % 06/13/19 05:35 Lymphocytes % 9.1 % (8-40) D 06/14/19 06:07 Lymphocytes % (Manual) 6.1 % (8-40) L D 06/13/19 05:35 Monocytes % 7.3 % (3.8-10.2) D 06/14/19 06:07 Monocytes % (Manual) 5 % (3.8-10.2) 06/13/19 05:35 Eosinophils % 3.5 % (0-4.5) D 06/14/19 06:07 Eosinophils % (Manual) 5.0 % (0-4.5) H 06/13/19 05:35 Basophils % 1.7 % (0-2.0) D 06/14/19 06:07 Basophils % (Manual) 0.0 % (0-2.0) 06/13/19 05:35 Myelocytes % (Man) 0 % (0-2) 06/13/19 05:35 Promyelocytes % (Man) 0 % (0-2) 06/13/19 05:35 Blast Cells % (Manual) 0 % (0-0) 06/13/19 05:35 Nucleated RBC % 2 % (0-0) H 06/14/19 06:07 Metamyelocytes 0 % (0-2) 06/13/19 05:35 Hypochromia 2+ 06/14/19 06:07 Toxic Granulation 1+ 06/13/19 05:35 Platelet Estimate Normal 06/14/19 06:07 Platelet Comment Present 06/12/19 06:16 Polychromasia 1+ 06/14/19 06:07 Poikilocytosis 2+ 06/14/19 06:07 Anisocytosis 2+ 06/14/19 06:07 Microcytosis 2+ 06/14/19 06:07 Macrocytosis 1+ 06/14/19 06:07 Spherocytes 2+ 06/13/19 05:35 Target Cells 2+ 06/14/19 06:07 Tear Drop Cells 1+ 06/13/19 05:35 Ovalocytes 1+ 06/14/19 06:07 Pine Cells 1+ 06/10/19 15:00 Fragmented RBCs 0 06/14/19 06:07 Schistocytes 1+ 06/14/19 06:07 Sodium 135 mmol/L (136-145) L 06/14/19 06:07 Potassium 4.3 mmol/L (3.5-5.1) 06/14/19 06:07 Chloride 103 mmol/L (98-107) 06/14/19 06:07 Carbon Dioxide 21 mmol/L (21-32) 06/14/19 06:07 Anion Gap 11 MMOL/L (8-16) 06/14/19 06:07 BUN 104.4 mg/dL (7-18) H* 06/14/19 06:07 Creatinine 6.4 mg/dL (0.55-1.3) H 06/14/19 06:07 Est GFR (CKD-EPI)AfAm 8.57 06/14/19 06:07 Est GFR (CKD-EPI)NonAf 7.40 06/14/19 06:07 POC Glucometer 135 UNITS (80-120) 06/14/19 12:25 Random Glucose 146 mg/dL (74-106) H 06/14/19 06:07 Hemoglobin A1c % 8.0 % (4.2-6.3) H 06/11/19 06:00 Calcium 8.1 mg/dL (8.5-10.1) L 06/14/19 06:07 Phosphorus 6.4 mg/dL (2.5-4.9) H 06/13/19 05:35 Magnesium 3.0 mg/dL (1.8-2.4) H 06/13/19 05:35 Iron 16 ug/dL (50-175) L 06/11/19 06:00 TIBC 329 ug/dL (250-450) 06/11/19 06:00 Iron Saturation 4 % (17.5-39) L 06/11/19 06:00 Unsaturated IBC 313 ug/dL (200-275) H 06/11/19 06:00 Ferritin 17.1 ng/ml (8-388) 06/11/19 06:00 Total Bilirubin 0.6 mg/dL (0.2-1) 06/14/19 06:07 AST 14 U/L (15-37) L 06/14/19 06:07 ALT 28 U/L (13-61) 06/14/19 06:07 Alkaline Phosphatase 149 U/L (45-117) H 06/14/19 06:07 Creatine Kinase 159 U/L (26-308) 06/10/19 15:00 Creatine Kinase Index 3.3 % (0.0-5.0) 06/10/19 15:00 CK-MB (CK-2) 5.4 ng/mL (0.5-3.6) H 06/10/19 15:00 Troponin I 0.15 ng/ml (0.00-0.05) H 06/11/19 08:40 B-Natriuretic Peptide 55968.8 pg/ml (5-450) H 06/10/19 15:00 Total Protein 6.0 g/dl (6.4-8.2) L 06/14/19 06:07 Albumin 2.9 g/dl (3.4-5.0) L 06/14/19 06:07 Active Medications Current Medications Aspirin (Asa -) 81 mg PO DAILY [facility] Last Admin: 06/14/19 11:38 Dose: Not Given Atorvastatin Calcium (Lipitor -) 40 mg PO HS [facility] Last Admin: 06/13/19 21:29 Dose: 40 mg Calcium Acetate (Phoslo -) 667 mg PO TIDCM [facility] Last Admin: 06/14/19 12:18 Dose: Not Given Heparin Sodium (Porcine) (Heparin -) 5,000 unit SQ TID [facility] Last Admin: 06/14/19 06:25 Dose: Not Given Hydralazine HCl (Apresoline -) 25 mg PO TID [facility] Sodium Chloride (Normal Saline -) 250 mls @ 3,000 mls/hr IV PRN PRN PRN Reason: Hypotension during Dialysis Stop: 06/15/19 12:56 Insulin Aspart (Novolog Vial Sliding Scale -) 1 vial SQ [facility]; Protocol Last Admin: 06/14/19 12:46 Dose: Not Given Isosorbide Mononitrate (Imdur -) 30 mg PO DAILY [facility] Last Admin: 06/14/19 11:38 Dose: Not Given Metoprolol Succinate (Toprol Xl -) 25 mg PO BID [facility] Last Admin: 06/14/19 11:39 Dose: Not Given Home Medications Medication Instructions Recorded Amlodipine Besylate 5 mg PO DAILY 06/10/19 Calcium Acetate [Phoslo -] 667 mg PO TID 06/10/19 Furosemide [Lasix] 80 mg PO TID 06/10/19 Microbiology 06/10/19 22:00 Urine - Urine - Catheterized Urine Culture - Final NO GROWTH OBTAINED ASSESSMENT/PLAN: 83 y/o M, pmh of CKD stage V, T2DM presented with LE edema of 1 week duration likely 2/2 fluid overload from ESRD. #LE edema likely 2/2 to Fluid overload 2/2 ESRD Pt wants to move forward with HD As per nephro permacath today HD today renal diet pending placement in HD Hold lasix as per nephro for HD #CHF- acute on chronic systolic CHF w/ severe fluid overload Advanced CKD contributes to symptoms As per cardio Daily weight and monitor renal function and lytes. Echo- LV function severely, severe global hypokinesis, Diastolic dysfunction grade II, moderate MR, TR, pleural effusion present, EF 30% metoprolol 25 mg BID. Imdur 30 mg daily. Continue hydralazine 25 mg 3 times a day. Continue 81 mg daily. Atorvastatin 40 mg daily. Strict salt and fluid restrictions.No fluids nor ice cubes at the bedside. 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 - New Patient This patient is new to me today: Yes Date on this admission: 06/15/19 - Critical Care Critical Care patient: No - Discharge Referral Referred to [facility] Med P.C.: No ATTENDING PHYSICIAN STATEMENT I saw and evaluated the patient. I reviewed the resident's note and discussed the case with the resident. I agree with the resident's findings and plan as documented. SUBJECTIVE: OBJECTIVE: ASSESSMENT AND PLAN:
[2019-06-14] MEDS ORDERED: PROPOFOL 20 ML ONE (14:02)
[2019-06-14] MEDS ORDERED: LIDOCAINE HCL 1%, 10 MG/ML (20ML VIAL) NR ONE (15:03)
[2019-06-14] MEDS: hydrALAZINE HCL 25 MG TABLET (FP) PO SCH ×2 (17:44→21:31)
[2019-06-14] MEDS: guaiFENesin 600 MG TABLET.ER (FP) PO SCH ×2 (17:45→21:31)
--- NOTE | 2019-06-14 18:10 | OP ---
DATE OF OPERATION: 06/14/2019 PREOPERATIVE DIAGNOSIS: End-stage renal disease. POSTOPERATIVE DIAGNOSIS: End-stage renal disease. PROCEDURE: Insertion of Perma-Cath. SURGEON: Romario Azul DO ANESTHESIA: Fractional. BLOOD LOSS: 20 mL. INDICATIONS: Patient is an 83-year-old gentleman that is admitted to the hospital with acute renal failure. He needs dialysis access for dialysis. Patient was consented for the procedure understanding all risks, benefits, alternatives. Was then taken to the operating room. DESCRIPTION OF PROCEDURE: Once in the operating room, was laid on the operating room table in supine manner. The area of the right neck and chest were prepped and draped in sterile surgical manner. Under ultrasound guidance, we visualized the right internal jugular vein, and 10 mL of lidocaine 1% was injected there. We then took our micropuncture needle and punctured the right internal jugular vein. Micropuncture wire was inserted. Micropuncture sheath was inserted. A 0.035 floppy guidewire was inserted under fluoroscopy. We then injected 10 mL of lidocaine 1% above and below the clavicle. We then took an 11 blade and made a 1-cm incision at the puncture site. Took our 15 blade and made a 1-cm incision below the clavicle. We then tunneled the Perma-Cath up to the puncture site. We then placed our breakaway sheath over the guidewire into the vein under fluoroscopy. Inner cannula and guidewire were removed. The catheter was placed inside the sheath. Sheath was broken away as the catheter was placed inside the vein. Neck of the catheter was nice and smooth. Tip of the catheter was located outside the right atrium. We then giovani back on each port of the catheter, and there was good flow. Heparinized saline was injected, 2000 units of IV heparin was injected into each port. Using 4-0 Biosyn, we were able to place 2 simple sutures at the puncture site, 3-0 nylon was used, and the catheter was attached to the skin. Biopatch, Steri-Strips, 4 x 4, Tegaderms were placed. Patient tolerated the procedure with no complications. Patient was transferred to the PACU in stable condition where a chest x-ray will be ordered. ROMARIO AZUL DO [employer]/[id number]
[2019-06-14] MEDS: ATORVASTATIN CA 40 MG TABLET (FP) PO SCH (21:31)
[2019-06-14] MEDS ORDERED: guaiFENesin 600 MG TABLET.ER (FP) PO SCH (22:00)
[2019-06-15] MEDS: hydrALAZINE HCL 25 MG TABLET (FP) PO SCH ×3 (05:53→21:59)
[2019-06-15] MEDS: INSULIN SLIDING SCALE (NOVOLOG) 1 VIAL SQ SCH ×3 (06:21→17:37)
[2019-06-15 06:56] LABS: HEMATOCRIT 32.4 % (35.4-49); HEMOGLOBIN 10.2 GM/dL (11.7-16.9); MCHC 31.4 g/dl (32.0-35.9); MEAN CELL VOLUME 62.8 fl (80-96); MEAN PLT VOLUME 8.8 fl (7.5-11.1); PLATELET COUNT 212 K/MM3 (134-434); RBC 5.15 M/mm3 (4.00-5.60); RDW 19.1 % (11.9-15.9); WHITE BLOOD COUNT 6.3 K/mm3 (4.0-10.0)
[2019-06-15 07:01] LABS: MCH 19.7 pg (25.7-33.7)
[2019-06-15 07:21] LABS: ALBUMIN 2.6 g/dl (3.4-5.0); BILIRUBIN,TOTAL 0.6 mg/dL (0.2-1); BLOOD UREA NITROGEN 82.5 mg/dL (7-18); CALCIUM 8.2 mg/dL (8.5-10.1); CREATININE 5.3 mg/dL (0.55-1.3); TOT PROT 5.3 g/dl (6.4-8.2)
[2019-06-15] MEDS: CALCIUM ACETATE 667 MG CAPSULE (FP) PO SCH ×3 (09:28→17:37)
[2019-06-15] MEDS: guaiFENesin 600 MG TABLET.ER (FP) PO SCH ×2 (09:29→22:00)
[2019-06-15] MEDS: ASPIRIN 81 MG CHEWABLE TABLETS PO SCH ×2 (09:30→11:45)
[2019-06-15] MEDS: ISOSORBIDE MONONITRATE 30 MG TAB.SR.24H (FP) PO SCH ×2 (09:31→11:45)
[2019-06-15] MEDS: metoPROLOL SUCCINATE 25 MG TAB.SR.24H (FP) PO SCH ×2 (09:31→11:44)
--- NOTE | 2019-06-15 09:57 | PN ---
Progress Note (short form) - Note Progress Note: POD 1, s/p R chest PC insertion Pt doing well. No issues overnight. PC used last night for 2 hours, oozing noted at dressing site. Dressings changed this AM, no oozing noted from insertion site. New 4x4s and tegaderm applied Pt tolerated well. Continue HD per renal. Pt should f/u with Dr Medina upon d/c for discussion/scheduling of permanent HD placement.
--- NOTE | 2019-06-15 11:52 | PN ---
Progress Note, Physician History of Present Illness: Pt seen and examined at bedside. He is confused. He denies shortness of breath. - Current Medication List Current Medications: Active Medications Aspirin (Asa -) 81 mg PO DAILY [facility] Last Admin: 06/15/19 11:45 Dose: 81 mg Atorvastatin Calcium (Lipitor -) 40 mg PO HS [facility] Last Admin: 06/14/19 21:31 Dose: 40 mg Calcium Acetate (Phoslo -) 667 mg PO TIDCM [facility] Last Admin: 06/15/19 11:44 Dose: 667 mg Fentanyl (Sublimaze Injection -) 25 mcg IVPUSH [id number] PRN PRN Reason: PAIN-PACU ORDER X 4 DOSES ONLY Stop: 06/15/19 13:10 Fentanyl (Sublimaze Injection -) 50 mcg IVPUSH [id number] PRN PRN Reason: PAIN-PACU ORDER X 4 DOSES ONLY Stop: 06/15/19 13:10 Guaifenesin (Mucinex -) 600 mg PO BID [facility] Last Admin: 06/15/19 09:29 Dose: 600 mg Heparin Sodium (Porcine) (Heparin -) 5,000 unit SQ TID [facility] Last Admin: 06/14/19 15:34 Dose: Not Given Hydralazine HCl (Apresoline -) 25 mg PO TID [facility] Last Admin: 06/15/19 05:53 Dose: Not Given Sodium Chloride (Normal Saline -) 250 mls @ 3,000 mls/hr IV PRN PRN PRN Reason: Hypotension during Dialysis Stop: 06/15/19 12:56 Insulin Aspart (Novolog Vial Sliding Scale -) 1 vial SQ [facility]; Protocol Last Admin: 06/15/19 06:21 Dose: Not Given Isosorbide Mononitrate (Imdur -) 30 mg PO DAILY [facility] Last Admin: 06/15/19 11:45 Dose: 30 mg Metoprolol Succinate (Toprol Xl -) 25 mg PO BID [facility] Last Admin: 06/15/19 11:44 Dose: 25 mg Ondansetron HCl (Zofran Injection) 4 mg IVPUSH Q6H PRN PRN Reason: NAUSEA AND/OR VOMITING Stop: 06/15/19 13:10 - Objective Vital Signs: Vital Signs Temperature 98 F 06/15/19 09:00 Pulse Rate 78 06/15/19 09:00 Respiratory Rate 20 06/15/19 09:00 Blood Pressure 158/74 06/15/19 09:00 O2 Sat by Pulse Oximetry (%) 100 06/14/19 21:00 Constitutional: Yes: Calm Eyes: Yes: Conjunctiva Clear HENT: Yes: Atraumatic Neck: Yes: Supple Cardiovascular: Yes: S1, S2 Respiratory: Yes: On Nasal O2 Gastrointestinal: Yes: Soft Genitourinary: Yes: Incontinence Musculoskeletal: Yes: WNL Edema: Yes Edema: LLE: 1+, RLE: 1+ Integumentary: Yes: Venous Stasis Changes Neurological: Yes: Confusion Labs: CBC, BMP 06/15/19 06:20 06/15/19 06:20 INR, PTT INR 1.05 (0.83-1.09) 06/10/19 15:00 Problem List - Problems (1) CKD (chronic kidney disease) Code(s): N18.9 - CHRONIC KIDNEY DISEASE, UNSPECIFIED (2) HTN (hypertension) Code(s): I10 - ESSENTIAL (PRIMARY) HYPERTENSION (3) Diabetes mellitus Code(s): E11.9 - TYPE 2 DIABETES MELLITUS WITHOUT COMPLICATIONS Assessment/Plan Current Medications Generic Name Dose Route Start Last Admin Trade Name Freq PRN Reason Stop Dose Admin Aspirin 81 mg 06/13/19 10:00 06/15/19 11:45 Asa - PO 81 mg DAILY [facility] Administration Atorvastatin Calcium 40 mg 06/13/19 22:00 06/14/19 21:31 Lipitor - PO 40 mg HS [facility] Administration Calcium Acetate 667 mg 06/11/19 08:00 06/15/19 11:44 Phoslo - PO 667 mg TIDCM [facility] Administration Fentanyl 25 mcg 06/14/19 13:11 Sublimaze Injection - IVPUSH 06/15/19 13:10 [id number] PRN PAIN-PACU ORDER X 4 DOSES ONLY Fentanyl 50 mcg 06/14/19 13:11 Sublimaze Injection - IVPUSH 06/15/19 13:10 [id number] PRN PAIN-PACU ORDER X 4 DOSES ONLY Guaifenesin 600 mg 06/14/19 13:30 06/15/19 09:29 Mucinex - PO 600 mg BID [facility] Administration Heparin Sodium (Porcine) 5,000 unit 06/10/19 18:00 06/14/19 15:34 Heparin - SQ Not Given TID [facility] Hydralazine HCl 25 mg 06/14/19 13:00 06/15/19 05:53 Apresoline - PO Not Given TID [facility] Sodium Chloride 250 mls @ 3,000 mls/hr 06/14/19 12:56 Normal Saline - IV 06/15/19 12:56 PRN PRN Hypotension during Dialysis Insulin Aspart 1 vial 06/10/19 22:00 06/15/19 06:21 Novolog Vial Sliding Scale - SQ Not Given ACHS [facility] Protocol Isosorbide Mononitrate 30 mg 06/13/19 10:00 06/15/19 11:45 Imdur - PO 30 mg DAILY [facility] Administration Metoprolol Succinate 25 mg 06/13/19 10:00 06/15/19 11:44 Toprol Xl - PO 25 mg BID [facility] Administration Ondansetron HCl 4 mg 06/14/19 13:11 Zofran Injection IVPUSH 06/15/19 13:10 Q6H PRN NAUSEA AND/OR VOMITING Impression 1. CKD 2. HTN 3. DM 4. fluid overload 5. esrd Plan - pt tolerated HD yesterday - check ct head - will give a dose of lasix - discussed with medical team - HD tomorrow - renal diet - pending placement in HD
[2019-06-15] MEDS ORDERED: FUROSEMIDE 40 MG/4 ML INJECTABLE VIAL IVPUSH ONE (11:53)
[2019-06-15 12:04] LABS: ANISOCYTOSIS 3+; MACROCYTOSIS 0; PLATELET ESTIMATE NORMAL; ROULEAU 1+; TARGET CELLS 3+
[2019-06-15] MEDS: HEPARIN NA (PORCINE) 5,000 UNITS/ML 1ML VIAL SQ SCH ×3 (13:36→21:50)
--- NOTE | 2019-06-15 14:42 | PN ---
Progress Note (short form) - Note Progress Note: Anesthesia postop note 83 y/o s/p MAC for permacath POD#1, aler and awake, no complaints. No anesthesia complications.
--- NOTE | 2019-06-15 14:46 | PN ---
Progress Note, Physician Chief Complaint: shortness of breath History of Present Illness: 83 year-old man with a PMHx of HTN, DM-II, advanced CKD, refused HD in the past admitted 06/10/19 with one week of worsening leg edema and SOB. The patient noticed worsening leg edmea and SOB on exertion for about 1-2 weeks. He also reports chest congestion, fatigue and weakness. Oral Lasix increased to 80 mg BID by his PCP with little improvement. In addition to edema and dyspnea, he also has orthopnea. He reports no chest pain, palpitation, syncope or near syncope. He denies fever/chills. ECG 06/10/19 showed sinus rhythm, LAE and inferolateral ST-T changes, suggestive of ischemia. CXR 06/10/19 revealed marked cardiomegaly, possible pericardial effusion, CHF, pleural effusion. BNP is markedly elevated. Troponin is mildly elevated, but non-dynamic. Seen by renal and patient agrees to HD. The patient's echocardiogram revealed an ejection fraction of 30-35% with global hypokinesis and moderate mitral and tricuspid valve regurgitation. The patient is clinically and symptomatically improved after initiation of dialysis. - Current Medication List Current Medications: Active Medications Aspirin (Asa -) 81 mg PO DAILY [facility] Last Admin: 06/15/19 11:45 Dose: 81 mg Atorvastatin Calcium (Lipitor -) 40 mg PO HS [facility] Last Admin: 06/14/19 21:31 Dose: 40 mg Calcium Acetate (Phoslo -) 667 mg PO TIDCM [facility] Last Admin: 06/15/19 11:44 Dose: 667 mg Guaifenesin (Mucinex -) 600 mg PO BID [facility] Last Admin: 06/15/19 09:29 Dose: 600 mg Heparin Sodium (Porcine) (Heparin -) 5,000 unit SQ TID [facility] Last Admin: 06/15/19 14:16 Dose: Not Given Hydralazine HCl (Apresoline -) 25 mg PO TID [facility] Last Admin: 06/15/19 13:36 Dose: 25 mg Insulin Aspart (Novolog Vial Sliding Scale -) 1 vial SQ [facility]; Protocol Last Admin: 06/15/19 12:03 Dose: 2 units Isosorbide Mononitrate (Imdur -) 30 mg PO DAILY [facility] Last Admin: 06/15/19 11:45 Dose: 30 mg Metoprolol Succinate (Toprol Xl -) 25 mg PO BID [facility] Last Admin: 06/15/19 11:44 Dose: 25 mg - Objective Vital Signs: Vital Signs Temperature 98 F 06/15/19 09:00 Pulse Rate 78 06/15/19 09:00 Respiratory Rate 20 06/15/19 09:00 Blood Pressure 158/74 06/15/19 09:00 O2 Sat by Pulse Oximetry (%) 100 06/15/19 09:00 Constitutional: Yes: No Distress, Calm, Obese Eyes: Yes: WNL, Conjunctiva Clear, EOM Intact HENT: Yes: WNL, Atraumatic, Normocephalic Neck: Yes: WNL, Supple, Trachea Midline Cardiovascular: Yes: WNL, Regular Rate and Rhythm Respiratory: Yes: Rales Gastrointestinal: Yes: WNL, Normal Bowel Sounds, Soft ...Rectal Exam: Yes: Deferred Musculoskeletal: Yes: Back Pain Edema: LLE: Trace, RLE: Trace Peripheral Pulses: Left Radial: 1+, Right Radial: 1+, Left Doralis Pedis: 1+, Right Dorsalis Pedis: 1+, Left Femoral: 1+, Right Femoral: 1+ Neurological: Yes: WNL, Alert, Oriented ...Motor Strength: WNL Labs: CBC, BMP 06/15/19 06:20 06/15/19 06:20 INR, PTT INR 1.05 (0.83-1.09) 06/10/19 15:00 Assessment/Plan 83 year-old man with a PMHx of HTN, DM-II, advanced CKD, refused HD in the past admitted 06/10/19 with one week of worsening leg edema and SOB. The patient noticed worsening leg edmea and SOB on exertion for about 1-2 weeks. He also reports chest congestion, fatigue and weakness. Oral Lasix increased to 80 mg BID by his PCP with little improvement. In addition to edema and dyspnea, he also has orthopnea. He reports no chest pain, palpitation, syncope or near syncope. He denies fever/chills. ECG 06/10/19 showed sinus rhythm, LAE and inferolateral ST-T changes, suggestive of ischemia. CXR 06/10/19 revealed marked cardiomegaly, possible pericardial effusion, CHF, pleural effusion. BNP is markedly elevated. Troponin is mildly elevated, but non-dynamic. Seen by renal and patient agrees to HD. The patient's echocardiogram revealed an ejection fraction of 30-35% with global hypokinesis and moderate mitral and tricuspid valve regurgitation. The patient is clinically and symptomatically improved after initiation of dialysis. please increase Toprol-XL from 25-50 mg daily. continue hydralazine and the other medications as currently. strict salt and fluid restrictions. Please removeall free water and ice cubes from the bedside. Continue fluid removal with dialysis. please arrange for an outpatient follow-up with within one week of discharge. Please do not hesitateto call us PRN.
--- NOTE | 2019-06-15 17:43 | PN ---
Physical Exam: SUBJECTIVE: Patient seen and examined 83 y/o M, pmh of CKD stage V, T2DM presented with LE edema of 1 week duration likely 2/2 fluid overload from ESRD. Currently, pt is stable, afebrile, asymptomatic without any c/o or issues. Pt is s/p dialysis and doing well. However, pt appears improved but still a bit confused. Denies f/c/n/v/d/sob/ chest pain. OBJECTIVE: Vital Signs Period Temp Pulse Resp BP Sys/Alexandre Pulse Ox Last 24 Hr 97.6 F-98.3 F 67-673 18-20 102-158/56-96 100-100 GENERAL: The patient is awake, alert but not too oriented to person. But is oriented to place and time. As per , pt is becoming confused EYES: PERRL, extraocular movements intact ENT: oropharynx clear without exudates, moist mucous membranes. NECK: full range of motion, supple. LUNGS: stridors and wheezing heard b/l. HEART: Regular rate and rhythm, S1 and S2 normal ABDOMEN: Soft, nontender, nondistended, normoactive bowel sounds EXTREMITIES: 2+ pulses, no edema. Chronic venous stasis skin changes b/l NEUROLOGICAL: Cranial nerves II through XII grossly intact. SKIN: Warm, dry, normal turgor Laboratory Results - last 24 hr CBC,CMP WBC 6.3 K/mm3 (4.0-10.0) 06/15/19 06:20 RBC 5.15 M/mm3 (4.00-5.60) 06/15/19 06:20 Hgb 10.2 GM/dL (11.7-16.9) L 06/15/19 06:20 Hct 32.4 % (35.4-49) L 06/15/19 06:20 MCV 62.8 fl (80-96) L 06/15/19 06:20 MCH 19.7 pg (25.7-33.7) L 06/15/19 06:20 MCHC 31.4 g/dl (32.0-35.9) L 06/15/19 06:20 RDW 19.1 % (11.9-15.9) H 06/15/19 06:20 Plt Count 212 K/MM3 (134-434) 06/15/19 06:20 MPV 8.8 fl (7.5-11.1) 06/15/19 06:20 Absolute Neuts (auto) K/mm3 (1.5-8.0) 06/15/19 06:20 Neutrophils % % (42.8-82.8) 06/15/19 06:20 Neutrophils % (Manual) 79.2 % (42.8-82.8) 06/15/19 06:20 Band Neutrophils % 0.0 % 06/15/19 06:20 Lymphocytes % % (8-40) 06/15/19 06:20 Lymphocytes % (Manual) 4.9 % (8-40) L 06/15/19 06:20 Monocytes % % (3.8-10.2) 06/15/19 06:20 Monocytes % (Manual) 6 % (3.8-10.2) 06/15/19 06:20 Eosinophils % % (0-4.5) 06/15/19 06:20 Eosinophils % (Manual) 3.0 % (0-4.5) 06/15/19 06:20 Basophils % % (0-2.0) 06/15/19 06:20 Basophils % (Manual) 3.0 % (0-2.0) H D 06/15/19 06:20 Myelocytes % (Man) 0 % (0-2) 06/15/19 06:20 Promyelocytes % (Man) 0 % (0-2) 06/15/19 06:20 Blast Cells % (Manual) 0 % (0-0) 06/15/19 06:20 Nucleated RBC % 4 % (0-0) H 06/15/19 06:20 Metamyelocytes 0 % (0-2) 06/15/19 06:20 Hypochromia 3+ 06/15/19 06:20 Toxic Granulation 1+ 06/13/19 05:35 Platelet Estimate Normal 06/15/19 06:20 Platelet Comment Present 06/12/19 06:16 Polychromasia 1+ 06/15/19 06:20 Poikilocytosis 3+ 06/15/19 06:20 Anisocytosis 3+ 06/15/19 06:20 Microcytosis 3+ 06/15/19 06:20 Macrocytosis 0 06/15/19 06:20 Spherocytes 2+ 06/13/19 05:35 Target Cells 3+ 06/15/19 06:20 Tear Drop Cells 1+ 06/13/19 05:35 Ovalocytes 1+ 06/14/19 06:07 Zoila Cells 1+ 06/10/19 15:00 Rouleaux 1+ 06/15/19 06:20 Fragmented RBCs 2+ 06/15/19 06:20 Schistocytes 3+ 06/15/19 06:20 Sodium 139 mmol/L (136-145) 06/15/19 06:20 Potassium 4.0 mmol/L (3.5-5.1) 06/15/19 06:20 Chloride 105 mmol/L (98-107) 06/15/19 06:20 Carbon Dioxide 25 mmol/L (21-32) 06/15/19 06:20 Anion Gap 9 MMOL/L (8-16) 06/15/19 06:20 BUN 82.5 mg/dL (7-18) H 06/15/19 06:20 Creatinine 5.3 mg/dL (0.55-1.3) H 06/15/19 06:20 Est GFR (CKD-EPI)AfAm 10.77 06/15/19 06:20 Est GFR (CKD-EPI)NonAf 9.29 06/15/19 06:20 POC Glucometer 188 UNITS (80-120) 06/15/19 17:35 Random Glucose 86 mg/dL (74-106) 06/15/19 06:20 Hemoglobin A1c % 8.0 % (4.2-6.3) H 06/11/19 06:00 Calcium 8.2 mg/dL (8.5-10.1) L 06/15/19 06:20 Phosphorus 6.4 mg/dL (2.5-4.9) H 06/13/19 05:35 Magnesium 3.0 mg/dL (1.8-2.4) H 06/13/19 05:35 Iron 16 ug/dL (50-175) L 06/11/19 06:00 TIBC 329 ug/dL (250-450) 06/11/19 06:00 Iron Saturation 4 % (17.5-39) L 06/11/19 06:00 Unsaturated IBC 313 ug/dL (200-275) H 06/11/19 06:00 Ferritin 17.1 ng/ml (8-388) 06/11/19 06:00 Total Bilirubin 0.6 mg/dL (0.2-1) 06/15/19 06:20 AST 13 U/L (15-37) L 06/15/19 06:20 ALT 21 U/L (13-61) 06/15/19 06:20 Alkaline Phosphatase 122 U/L (45-117) H 06/15/19 06:20 Creatine Kinase 159 U/L (26-308) 06/10/19 15:00 Creatine Kinase Index 3.3 % (0.0-5.0) 06/10/19 15:00 CK-MB (CK-2) 5.4 ng/mL (0.5-3.6) H 06/10/19 15:00 Troponin I 0.15 ng/ml (0.00-0.05) H 06/11/19 08:40 B-Natriuretic Peptide 72850.8 pg/ml (5-450) H 06/10/19 15:00 Total Protein 5.3 g/dl (6.4-8.2) L 06/15/19 06:20 Albumin 2.6 g/dl (3.4-5.0) L 06/15/19 06:20 Active Medications Current Medications Aspirin (Asa -) 81 mg PO DAILY [facility] Last Admin: 06/15/19 11:45 Dose: 81 mg Atorvastatin Calcium (Lipitor -) 40 mg PO HS [facility] Last Admin: 06/14/19 21:31 Dose: 40 mg Calcium Acetate (Phoslo -) 667 mg PO TIDCM [facility] Last Admin: 06/15/19 17:37 Dose: 667 mg Guaifenesin (Mucinex -) 600 mg PO BID [facility] Last Admin: 06/15/19 09:29 Dose: 600 mg Heparin Sodium (Porcine) (Heparin -) 5,000 unit SQ TID [facility] Last Admin: 06/15/19 14:16 Dose: Not Given Hydralazine HCl (Apresoline -) 25 mg PO TID [facility] Last Admin: 06/15/19 13:36 Dose: 25 mg Insulin Aspart (Novolog Vial Sliding Scale -) 1 vial SQ ACHS [facility]; Protocol Last Admin: 06/15/19 17:37 Dose: 2 units Isosorbide Mononitrate (Imdur -) 30 mg PO DAILY [facility] Last Admin: 06/15/19 11:45 Dose: 30 mg Metoprolol Succinate (Toprol Xl -) 50 mg PO DAILY [facility] Home Medications Medication Instructions Recorded Amlodipine Besylate 5 mg PO DAILY 06/10/19 Calcium Acetate [Phoslo -] 667 mg PO TID 06/10/19 Furosemide [Lasix] 80 mg PO TID 06/10/19 Microbiology 06/10/19 22:00 Urine - Urine - Catheterized Urine Culture - Final NO GROWTH OBTAINED ASSESSMENT/PLAN: 83 y/o M, pmh of CKD stage V, T2DM presented with LE edema of 1 week duration likely 2/2 fluid overload from ESRD. #LE edema likely 2/2 to Fluid overload 2/2 ESRD As per nephro permacath placed HD today done renal diet pending placement in HD A dose lasix given as per nephro for HD #CHF- acute on chronic systolic CHF w/ severe fluid overload Advanced CKD contributes to symptoms As per cardio Daily weight and monitor renal function and lytes. metoprolol 50 mg daily Imdur 30 mg daily. Continue hydralazine 25 mg 3 times a day. Continue 81 mg daily. Atorvastatin 40 mg daily. Strict salt and fluid restrictions. No fluids nor ice cubes at the bedside. #AMS CT head- no acute changes #CKD stage V monitor lytes and renal fxn Cont phoslo Hepatitis panel-pending #HTN Cont hydralazine #HLD cont atorvastatin #Type 2 DM Cont Novolog sliding scale #Anemia-iron def vs ESRD Check stool for occult blood- f/u #DVT ppx Heparin FEN: renal diet, no fluids Dispo: HD tomorrow, f/u w/ nephro Visit type - Emergency Visit Emergency Visit: Yes ED Registration Date: 06/10/19 Care time: The patient presented to the Emergency Department on the above date and was hospitalized for further evaluation of their emergent condition. - New Patient This patient is new to me today: Yes Date on this admission: 06/15/19 - Critical Care Critical Care patient: No - Discharge Referral Referred to [facility] Med P.C.: No ATTENDING PHYSICIAN STATEMENT I saw and evaluated the patient. I reviewed the resident's note and discussed the case with the resident. I agree with the resident's findings and plan as documented. SUBJECTIVE: OBJECTIVE: ASSESSMENT AND PLAN:
--- NOTE | 2019-06-15 18:53 | PN ---
Teaching Attending Note Name of Resident: Olaf Winn ATTENDING PHYSICIAN STATEMENT I saw and evaluated the patient. I reviewed the resident's note and discussed the case with the resident. I agree with the resident's findings and plan as documented. SUBJECTIVE: no pain , no fever or chills. denies SOB OBJECTIVE: NAD , awake, alert, knows he is in a hospital, knows his age, not the year. CV: RRR. Lungs: fine crackels at bases Abd: soft, NT, ND , NL BS Ext : trace edema on LE ASSESSMENT AND PLAN: 83 y/o man with h./o CKD , HTn , systolic CHF and DM who presented with AMS and was found to be uremic and in acute CHF 1- Acute systolic CHF exacerbation. 2- ESRD 3- chronic microcytic anemia: iron def 4-AMS: due to metabolic encephalopathy from uremia 5- H/o DM 6- h/o HTN plan : - per residents, mental status was not changed from yesterday - suspect AMS to remain due to Uremia - CT of head with no acute infarct or bleed - lasix today -HD tomorrow - cont imdur, HZN and increase toprol - cont SSI . DC HS coverage - Heparin sq
[2019-06-15 20:07] LABS: HEP B CORE AB, TOT Negative (Negative)
[2019-06-15] MEDS: ATORVASTATIN CA 40 MG TABLET (FP) PO SCH (22:00)
[2019-06-16] MEDS: hydrALAZINE HCL 25 MG TABLET (FP) PO SCH ×4 (06:38→22:18)
[2019-06-16] MEDS: HEPARIN NA (PORCINE) 5,000 UNITS/ML 1ML VIAL SQ SCH ×4 (06:38→22:19)
[2019-06-16] MEDS: INSULIN SLIDING SCALE (NOVOLOG) 1 VIAL SQ SCH ×3 (06:39→17:45)
[2019-06-16 07:52] LABS: ALBUMIN 2.7 g/dl (3.4-5.0); BILIRUBIN,TOTAL 0.6 mg/dL (0.2-1); BLOOD UREA NITROGEN 87.6 mg/dL (7-18); CALCIUM 8.1 mg/dL (8.5-10.1); CREATININE 5.8 mg/dL (0.55-1.3); POTASSIUM 3.9 mmol/L (3.5-5.1); TOT PROT 5.4 g/dl (6.4-8.2)
[2019-06-16 08:15] LABS: BASO % 0.8 % (0-2.0); EOS % 3.5 % (0-4.5); HEMATOCRIT 32.1 % (35.4-49); HEMOGLOBIN 10.1 GM/dL (11.7-16.9); LYMPH % 5.7 % (8-40); MCHC 31.5 g/dl (32.0-35.9); MEAN CELL VOLUME 62.7 fl (80-96); MEAN PLT VOLUME 8.7 fl (7.5-11.1); MONO % 10.6 % (3.8-10.2); NEUT % 79.4 % (42.8-82.8); PLATELET COUNT 198 K/MM3 (134-434); RBC 5.12 M/mm3 (4.00-5.60); WHITE BLOOD COUNT 8.3 K/mm3 (4.0-10.0)
[2019-06-16 08:17] LABS: MCH 19.8 pg (25.7-33.7)
[2019-06-16] MEDS: CALCIUM ACETATE 667 MG CAPSULE (FP) PO SCH ×3 (08:32→17:45)
[2019-06-16] MEDS: ASPIRIN 81 MG CHEWABLE TABLETS PO SCH (09:25)
[2019-06-16] MEDS: ISOSORBIDE MONONITRATE 30 MG TAB.SR.24H (FP) PO SCH (09:25)
[2019-06-16] MEDS: guaiFENesin 600 MG TABLET.ER (FP) PO SCH ×3 (09:25→22:19)
[2019-06-16] MEDS ORDERED: SODIUM CHLORIDE 250 ML IV PRN (10:45)
[2019-06-16 11:00] LABS: PLATELET ESTIMATE NORMAL
--- NOTE | 2019-06-16 13:04 | PN ---
Progress Note, Physician History of Present Illness: Pt seen and examined at bedside. He is tolerating HD. He is more alert today. - Current Medication List Current Medications: Active Medications Aspirin (Asa -) 81 mg PO DAILY [facility] Last Admin: 06/16/19 09:25 Dose: 81 mg Atorvastatin Calcium (Lipitor -) 40 mg PO HS [facility] Last Admin: 06/15/19 22:00 Dose: 40 mg Calcium Acetate (Phoslo -) 667 mg PO TIDCM [facility] Last Admin: 06/16/19 11:53 Dose: 667 mg Guaifenesin (Mucinex -) 600 mg PO BID [facility] Last Admin: 06/16/19 09:25 Dose: 600 mg Heparin Sodium (Porcine) (Heparin -) 5,000 unit SQ TID [facility] Last Admin: 06/16/19 06:38 Dose: 5,000 unit Hydralazine HCl (Apresoline -) 25 mg PO TID [facility] Last Admin: 06/16/19 06:38 Dose: 25 mg Sodium Chloride (Normal Saline -) 250 mls @ 3,000 mls/hr IV PRN PRN PRN Reason: Hypotension during Dialysis Stop: 06/17/19 10:44 Insulin Aspart ([facility] Vial Sliding Scale -) [facility] Protocol Last Admin: 06/16/19 11:51 Dose: Not Given Isosorbide Mononitrate (Imdur -) 30 mg PO DAILY [facility] Last Admin: 06/16/19 09:25 Dose: 30 mg Metoprolol Succinate (Toprol Xl -) 50 mg PO DAILY [facility] Last Admin: 06/16/19 09:25 Dose: 50 mg - Objective Vital Signs: Vital Signs Temperature 97.3 F L 06/16/19 10:50 Pulse Rate 60 06/16/19 11:30 Respiratory Rate 18 06/16/19 11:30 Blood Pressure 150/70 06/16/19 11:30 O2 Sat by Pulse Oximetry (%) 98 06/15/19 21:00 Constitutional: Yes: Calm Eyes: Yes: Conjunctiva Clear HENT: Yes: Atraumatic Neck: Yes: Supple Cardiovascular: Yes: S1, S2 Respiratory: Yes: On Nasal O2, Rhonchi Gastrointestinal: Yes: Soft Genitourinary: Yes: WNL Musculoskeletal: Yes: WNL Edema: Yes Edema: LLE: 1+, RLE: 1+ Integumentary: Yes: Venous Stasis Changes Neurological: Yes: Oriented Psychiatric: Yes: Oriented Labs: CBC, BMP 06/16/19 06:10 06/16/19 06:10 INR, PTT INR 1.05 (0.83-1.09) 06/10/19 15:00 - ....Imaging Cat Scan: Report Reviewed Problem List - Problems (1) CKD (chronic kidney disease) Code(s): N18.9 - CHRONIC KIDNEY DISEASE, UNSPECIFIED (2) HTN (hypertension) Code(s): I10 - ESSENTIAL (PRIMARY) HYPERTENSION (3) Diabetes mellitus Code(s): E11.9 - TYPE 2 DIABETES MELLITUS WITHOUT COMPLICATIONS Assessment/Plan Current Medications Generic Name Dose Route Start Last Admin Trade Name Freq PRN Reason Stop Dose Admin Aspirin 81 mg 06/13/19 10:00 06/16/19 09:25 Asa - PO 81 mg DAILY [facility] Administration Atorvastatin Calcium 40 mg 06/13/19 22:00 06/15/19 22:00 Lipitor - PO 40 mg HS [facility] Administration Calcium Acetate 667 mg 06/11/19 08:00 06/16/19 11:53 Phoslo - PO 667 mg TIDCM [facility] Administration Guaifenesin 600 mg 06/14/19 13:30 06/16/19 09:25 Mucinex - PO 600 mg BID [facility] Administration Heparin Sodium (Porcine) 5,000 unit 06/10/19 18:00 06/16/19 06:38 Heparin - SQ 5,000 unit TID [facility] Administration Hydralazine HCl 25 mg 06/14/19 13:00 06/16/19 06:38 Apresoline - PO 25 mg TID [facility] Administration Sodium Chloride 250 mls @ 3,000 mls/hr 06/16/19 10:45 Normal Saline - IV 06/17/19 10:44 PRN PRN Hypotension during Dialysis Insulin Aspart 1 vial 06/16/19 07:00 06/16/19 11:51 Novolog Vial Sliding Scale - SQ Not Given TIDAC [facility] Protocol Isosorbide Mononitrate 30 mg 06/13/19 10:00 06/16/19 09:25 Imdur - PO 30 mg DAILY [facility] Administration Metoprolol Succinate 50 mg 06/16/19 10:00 06/16/19 09:25 Toprol Xl - PO 50 mg DAILY [facility] Administration Laboratory Tests 06/11/19 06:00 PTH Intact Pending PTH Intact Intraop 0 m Pending Impression 1. CKD 2. HTN 3. DM 4. fluid overload 5. esrd 6. altered mental status Plan - mental status is improved - HD today - renal diet - ct head reviewed - pending placement in HD
--- NOTE | 2019-06-16 15:38 | PN ---
Physical Exam: SUBJECTIVE: Patient seen and examined 83 y/o M, pmh of CKD stage V, T2DM presented with LE edema of 1 week duration likely 2/2 fluid overload from ESRD. Currently, pt is stable, afebrile, asymptomatic without any c/o or issues. Pt is going to dialysis. However, pt appears improved but still a bit confused. Denies f/c/n/v/d/sob/chest pain. OBJECTIVE: Vital Signs Period Temp Pulse Resp BP Sys/Alexandre Pulse Ox Last 24 Hr 96.7 F-98.2 F 60-69 18-20 114-152/60-82 98 GENERAL: The patient is awake, alert and oriented. Mildly confused. EYES: PERRL, extraocular movements intact ENT: dentation poor. Uses artificial teeth. moist mucous membranes. NECK: full range of motion, supple. LUNGS: wheezing heard b/l. HEART: Regular rate and rhythm, S1 and S2 normal ABDOMEN: Soft, nontender, nondistended, normoactive bowel sounds EXTREMITIES: 2+ pulses, no edema. Chronic venous stasis skin changes b/l NEUROLOGICAL: Cranial nerves II through XII grossly intact. SKIN: Warm, dry, normal turgor Laboratory Results - last 24 hr CBC,CMP WBC 8.3 K/mm3 (4.0-10.0) 06/16/19 06:10 RBC 5.12 M/mm3 (4.00-5.60) 06/16/19 06:10 Hgb 10.1 GM/dL (11.7-16.9) L 06/16/19 06:10 Hct 32.1 % (35.4-49) L 06/16/19 06:10 MCV 62.7 fl (80-96) L 06/16/19 06:10 MCH 19.8 pg (25.7-33.7) L 06/16/19 06:10 MCHC 31.5 g/dl (32.0-35.9) L 06/16/19 06:10 RDW 19.0 % (11.9-15.9) H 06/16/19 06:10 Plt Count 198 K/MM3 (134-434) 06/16/19 06:10 MPV 8.7 fl (7.5-11.1) 06/16/19 06:10 Absolute Neuts (auto) 6.6 K/mm3 (1.5-8.0) 06/16/19 06:10 Neutrophils % 79.4 % (42.8-82.8) 06/16/19 06:10 Neutrophils % (Manual) 79.2 % (42.8-82.8) 06/15/19 06:20 Band Neutrophils % 0.0 % 06/15/19 06:20 Lymphocytes % 5.7 % (8-40) L D 06/16/19 06:10 Lymphocytes % (Manual) 4.9 % (8-40) L 06/15/19 06:20 Monocytes % 10.6 % (3.8-10.2) H 06/16/19 06:10 Monocytes % (Manual) 6 % (3.8-10.2) 06/15/19 06:20 Eosinophils % 3.5 % (0-4.5) 06/16/19 06:10 Eosinophils % (Manual) 3.0 % (0-4.5) 06/15/19 06:20 Basophils % 0.8 % (0-2.0) 06/16/19 06:10 Basophils % (Manual) 3.0 % (0-2.0) H D 06/15/19 06:20 Myelocytes % (Man) 0 % (0-2) 06/15/19 06:20 Promyelocytes % (Man) 0 % (0-2) 06/15/19 06:20 Blast Cells % (Manual) 0 % (0-0) 06/15/19 06:20 Nucleated RBC % 1 % (0-0) H 06/16/19 06:10 Metamyelocytes 0 % (0-2) 06/15/19 06:20 Hypochromia 3+ 06/15/19 06:20 Toxic Granulation 1+ 06/13/19 05:35 Platelet Estimate Normal 06/16/19 06:10 Platelet Comment Present 06/12/19 06:16 Polychromasia 1+ 06/15/19 06:20 Poikilocytosis 3+ 06/15/19 06:20 Anisocytosis 3+ 06/15/19 06:20 Microcytosis 3+ 06/15/19 06:20 Macrocytosis 0 06/15/19 06:20 Spherocytes 2+ 06/13/19 05:35 Target Cells 3+ 06/15/19 06:20 Tear Drop Cells 1+ 06/13/19 05:35 Ovalocytes 1+ 06/14/19 06:07 [place] Cells 1+ 06/10/19 15:00 Rouleaux 1+ 06/15/19 06:20 Fragmented RBCs 2+ 06/15/19 06:20 Schistocytes 3+ 06/15/19 06:20 Sodium 137 mmol/L (136-145) 06/16/19 06:10 Potassium 3.9 mmol/L (3.5-5.1) 06/16/19 06:10 Chloride 102 mmol/L (98-107) 06/16/19 06:10 Carbon Dioxide 26 mmol/L (21-32) 06/16/19 06:10 Anion Gap 8 MMOL/L (8-16) 06/16/19 06:10 BUN 87.6 mg/dL (7-18) H 06/16/19 06:10 Creatinine 5.8 mg/dL (0.55-1.3) H 06/16/19 06:10 Est GFR (CKD-EPI)AfAm 9.66 06/16/19 06:10 Est GFR (CKD-EPI)NonAf 8.33 06/16/19 06:10 POC Glucometer 148 UNITS (80-120) 06/16/19 11:48 Random Glucose 146 mg/dL (74-106) H 06/16/19 06:10 Hemoglobin A1c % 8.0 % (4.2-6.3) H 06/11/19 06:00 Calcium 8.1 mg/dL (8.5-10.1) L 06/16/19 06:10 Phosphorus 6.4 mg/dL (2.5-4.9) H 06/13/19 05:35 Magnesium 3.0 mg/dL (1.8-2.4) H 06/13/19 05:35 Iron 16 ug/dL (50-175) L 06/11/19 06:00 TIBC 329 ug/dL (250-450) 06/11/19 06:00 Iron Saturation 4 % (17.5-39) L 06/11/19 06:00 Unsaturated IBC 313 ug/dL (200-275) H 06/11/19 06:00 Ferritin 17.1 ng/ml (8-388) 06/11/19 06:00 Total Bilirubin 0.6 mg/dL (0.2-1) 06/16/19 06:10 AST 12 U/L (15-37) L 06/16/19 06:10 ALT 20 U/L (13-61) 06/16/19 06:10 Alkaline Phosphatase 125 U/L (45-117) H 06/16/19 06:10 Creatine Kinase 159 U/L (26-308) 06/10/19 15:00 Creatine Kinase Index 3.3 % (0.0-5.0) 06/10/19 15:00 CK-MB (CK-2) 5.4 ng/mL (0.5-3.6) H 06/10/19 15:00 Troponin I 0.15 ng/ml (0.00-0.05) H 06/11/19 08:40 B-Natriuretic Peptide 40980.8 pg/ml (5-450) H 06/10/19 15:00 Total Protein 5.4 g/dl (6.4-8.2) L 06/16/19 06:10 Albumin 2.7 g/dl (3.4-5.0) L 06/16/19 06:10 Active Medications Current Medications Aspirin (Asa -) 81 mg PO DAILY [facility] Last Admin: 06/16/19 09:25 Dose: 81 mg Atorvastatin Calcium (Lipitor -) 40 mg PO HS [facility] Last Admin: 06/15/19 22:00 Dose: 40 mg Calcium Acetate (Phoslo -) 667 mg PO TIDCM [facility] Last Admin: 06/16/19 11:53 Dose: 667 mg Guaifenesin (Mucinex -) 600 mg PO BID [facility] Last Admin: 06/16/19 09:25 Dose: 600 mg Heparin Sodium (Porcine) (Heparin -) 5,000 unit SQ TID [facility] Last Admin: 06/16/19 13:51 Dose: Not Given Hydralazine HCl (Apresoline -) 25 mg PO TID [facility] Last Admin: 06/16/19 13:51 Dose: Not Given Sodium Chloride (Normal Saline -) 250 mls @ 3,000 mls/hr IV PRN PRN PRN Reason: Hypotension during Dialysis Stop: 06/17/19 10:44 Insulin Aspart (Novolog Vial Sliding Scale -) 1 vial SQ TIDAC [facility]; Protocol Last Admin: 06/16/19 11:51 Dose: Not Given Isosorbide Mononitrate (Imdur -) 30 mg PO DAILY [facility] Last Admin: 06/16/19 09:25 Dose: 30 mg Metoprolol Succinate (Toprol Xl -) 50 mg PO DAILY [facility] Last Admin: 06/16/19 09:25 Dose: 50 mg Home Medications Medication Instructions Recorded Amlodipine Besylate 5 mg PO DAILY 06/10/19 Calcium Acetate [Phoslo -] 667 mg PO TID 06/10/19 Furosemide [Lasix] 80 mg PO TID 06/10/19 Microbiology 06/10/19 22:00 Urine - Urine - Catheterized Urine Culture - Final NO GROWTH OBTAINED ASSESSMENT/PLAN: 83 y/o M, pmh of CKD stage V, T2DM presented with LE edema of 1 week duration likely 2/2 fluid overload from ESRD. #LE edema likely 2/2 to Fluid overload 2/2 ESRD HD today pending placement in HD PT- f/u jeff #CHF- acute on chronic systolic CHF w/ severe fluid overload metoprolol 50 mg daily Imdur 30 mg daily. Strict salt and fluid restrictions. No fluids nor ice cubes at the bedside. #ESRD monitor lytes and renal fxn Cont phoslo Hepatitis panel-all negative #HTN Cont hydralazine 25 mg 3 times a day. #HLD cont atorvastatin #Type 2 DM Cont Novolog sliding scale #Anemia-iron def vs ESRD Check stool for occult blood- f/u #DVT ppx Heparin FEN: renal diet, Dispo: monitor pt and his mentation, f/u PT Visit type - Emergency Visit Emergency Visit: Yes ED Registration Date: 06/10/19 Care time: The patient presented to the Emergency Department on the above date and was hospitalized for further evaluation of their emergent condition. - New Patient This patient is new to me today: Yes Date on this admission: 06/16/19 - Critical Care Critical Care patient: No - Discharge Referral Referred to [facility] Med P.C.: No ATTENDING PHYSICIAN STATEMENT I saw and evaluated the patient. I reviewed the resident's note and discussed the case with the resident. I agree with the resident's findings and plan as documented. SUBJECTIVE: OBJECTIVE: ASSESSMENT AND PLAN:
--- NOTE | 2019-06-16 15:43 | PN ---
Teaching Attending Note Name of Resident: Pura Dexter ATTENDING PHYSICIAN STATEMENT I saw and evaluated the patient. I reviewed the resident's note and discussed the case with the resident. I agree with the resident's findings and plan as documented. SUBJECTIVE: No fever or chills. No CP . complains of slow service to go to bathroom. has OBJECTIVE: NAD , awake, alert, knows he is in a hospital, knows his age, not the year. CV: RRR. Lungs: fine crackels at bases Abd: soft, NT, ND , NL BS Ext: trace edema on LE ASSESSMENT AND PLAN: 83 y/o man with h./o CKD , HTn , systolic CHF and DM who presented with AMS and was found to be uremic and in acute CHF 1- Acute systolic CHF exacerbation. 2- ESRD 3- chronic microcytic anemia: iron def 4-AMS: due to metabolic encephalopathy from uremia 5- H/o DM 6- h/o HTN Plan: - Montior mental status with HD before we look for other causes of confusion - cont HD per renal - out pt HD center to be arranged - cont imdur, HZN and toprol - cont SSI . - work up for anemia as out pt. - PT eval - Heparin sq
[2019-06-16 16:52] LABS: MAGNESIUM 2.6 mg/dL (1.8-2.4); PHOSPHOROUS 5.9 mg/dL (2.5-4.9)
[2019-06-16] MEDS: ATORVASTATIN CA 40 MG TABLET (FP) PO SCH ×2 (22:12→22:19)
[2019-06-17] MEDS ORDERED: LORazepam 2 MG/ML SDV VIAL IVPUSH ONE (01:28)
[2019-06-17] MEDS: INSULIN SLIDING SCALE (NOVOLOG) 1 VIAL SQ SCH ×3 (06:11→17:43)
[2019-06-17] MEDS: hydrALAZINE HCL 25 MG TABLET (FP) PO SCH ×3 (06:12→22:18)
[2019-06-17] MEDS: HEPARIN NA (PORCINE) 5,000 UNITS/ML 1ML VIAL SQ SCH ×3 (06:12→22:17)
[2019-06-17 06:37] LABS: HEMATOCRIT 33.3 % (35.4-49); HEMOGLOBIN 10.4 GM/dL (11.7-16.9); MCHC 31.2 g/dl (32.0-35.9); MEAN CELL VOLUME 62.6 fl (80-96); MEAN PLT VOLUME 8.7 fl (7.5-11.1); PLATELET COUNT 208 K/MM3 (134-434); RBC 5.33 M/mm3 (4.00-5.60); RDW 18.8 % (11.9-15.9); WHITE BLOOD COUNT 9.6 K/mm3 (4.0-10.0)
[2019-06-17 06:41] LABS: MCH 19.5 pg (25.7-33.7)
[2019-06-17 06:59] LABS: CALCIUM 8.4 mg/dL (8.5-10.1); CREATININE 4.7 mg/dL (0.55-1.3); POTASSIUM 4.1 mmol/L (3.5-5.1)
[2019-06-17] MEDS ORDERED: PT OWN MED DRAWER 7, Y5N ONE ×3 (07:20→21:18)
[2019-06-17] MEDS: CALCIUM ACETATE 667 MG CAPSULE (FP) PO SCH ×4 (09:13→17:42)
[2019-06-17] MEDS: ISOSORBIDE MONONITRATE 30 MG TAB.SR.24H (FP) PO SCH (10:22)
[2019-06-17] MEDS: guaiFENesin 600 MG TABLET.ER (FP) PO SCH ×2 (10:22→22:17)
[2019-06-17] MEDS: ASPIRIN 81 MG CHEWABLE TABLETS PO SCH (10:22)
[2019-06-17] MEDS ORDERED: OLANZapine 5 MG TABLET PO ONE (15:00)
--- NOTE | 2019-06-17 15:16 | PN ---
Physical Exam: SUBJECTIVE: Patient seen and examined 83 y/o M, pmh of CKD stage V, T2DM presented with LE edema of 1 week duration likely 2/2 fluid overload from ESRD. Pt is very confused and speech is nonsensical. Pt is making threats to his and staff. Pt's warns about weapons including knives and guns in her home as part of her 's collection. Denies f/c/n/v/d/sob/chest pain. OBJECTIVE: Vital Signs Period Temp Pulse Resp BP Sys/Alexandre Pulse Ox Last 24 Hr 97.4 F-98.2 F 68-79 18-20 134-148/61-71 95-98 GENERAL: Pt is very confused. Speech is aggressive and suicidal. Pt makes threats to his and staff. Lethargic EYES: PERRL, extraocular movements intact. Eye lids seem to be lagging ENT: dentation poor. Uses artificial teeth. moist mucous membranes. NECK: full range of motion, supple. LUNGS: wheezing heard b/l. HEART: Regular rate and rhythm, S1 and S2 normal ABDOMEN: Soft, nontender, nondistended, normoactive bowel sounds EXTREMITIES: 2+ pulses, no edema. Chronic venous stasis skin changes b/l NEUROLOGICAL: Cranial nerves II through XII grossly intact. SKIN: Warm, dry, normal turgor Laboratory Results - last 24 hr CBC,CMP WBC 9.6 K/mm3 (4.0-10.0) 06/17/19 06:00 RBC 5.33 M/mm3 (4.00-5.60) 06/17/19 06:00 Hgb 10.4 GM/dL (11.7-16.9) L 06/17/19 06:00 Hct 33.3 % (35.4-49) L 06/17/19 06:00 MCV 62.6 fl (80-96) L 06/17/19 06:00 MCH 19.5 pg (25.7-33.7) L 06/17/19 06:00 MCHC 31.2 g/dl (32.0-35.9) L 06/17/19 06:00 RDW 18.8 % (11.9-15.9) H 06/17/19 06:00 Plt Count 208 K/MM3 (134-434) 06/17/19 06:00 MPV 8.7 fl (7.5-11.1) 06/17/19 06:00 Absolute Neuts (auto) 6.6 K/mm3 (1.5-8.0) 06/16/19 06:10 Neutrophils % 79.4 % (42.8-82.8) 06/16/19 06:10 Neutrophils % (Manual) 79.2 % (42.8-82.8) 06/15/19 06:20 Band Neutrophils % 0.0 % 06/15/19 06:20 Lymphocytes % 5.7 % (8-40) L D 06/16/19 06:10 Lymphocytes % (Manual) 4.9 % (8-40) L 06/15/19 06:20 Monocytes % 10.6 % (3.8-10.2) H 06/16/19 06:10 Monocytes % (Manual) 6 % (3.8-10.2) 06/15/19 06:20 Eosinophils % 3.5 % (0-4.5) 06/16/19 06:10 Eosinophils % (Manual) 3.0 % (0-4.5) 06/15/19 06:20 Basophils % 0.8 % (0-2.0) 06/16/19 06:10 Basophils % (Manual) 3.0 % (0-2.0) H D 06/15/19 06:20 Myelocytes % (Man) 0 % (0-2) 06/15/19 06:20 Promyelocytes % (Man) 0 % (0-2) 06/15/19 06:20 Blast Cells % (Manual) 0 % (0-0) 06/15/19 06:20 Nucleated RBC % 1 % (0-0) H 06/16/19 06:10 Metamyelocytes 0 % (0-2) 06/15/19 06:20 Hypochromia 3+ 06/15/19 06:20 Toxic Granulation 1+ 06/13/19 05:35 Platelet Estimate Normal 06/16/19 06:10 Platelet Comment Present 06/12/19 06:16 Polychromasia 1+ 06/15/19 06:20 Poikilocytosis 3+ 06/15/19 06:20 Anisocytosis 3+ 06/15/19 06:20 Microcytosis 3+ 06/15/19 06:20 Macrocytosis 0 06/15/19 06:20 Spherocytes 2+ 06/13/19 05:35 Target Cells 3+ 06/15/19 06:20 Tear Drop Cells 1+ 06/13/19 05:35 Ovalocytes 1+ 06/14/19 06:07 [place] Cells 1+ 06/10/19 15:00 Rouleaux 1+ 06/15/19 06:20 Fragmented RBCs 2+ 06/15/19 06:20 Schistocytes 3+ 06/15/19 06:20 Sodium 137 mmol/L (136-145) 06/17/19 06:00 Potassium 4.1 mmol/L (3.5-5.1) 06/17/19 06:00 Chloride 100 mmol/L (98-107) 06/17/19 06:00 Carbon Dioxide 28 mmol/L (21-32) 06/17/19 06:00 Anion Gap 10 MMOL/L (8-16) 06/17/19 06:00 BUN 63.0 mg/dL (7-18) H 06/17/19 06:00 Creatinine 4.7 mg/dL (0.55-1.3) H 06/17/19 06:00 Est GFR (CKD-EPI)AfAm 12.45 06/17/19 06:00 Est GFR (CKD-EPI)NonAf 10.74 06/17/19 06:00 POC Glucometer 133 UNITS (80-120) 06/17/19 12:26 Random Glucose 146 mg/dL (74-106) H 06/17/19 06:00 Hemoglobin A1c % 8.0 % (4.2-6.3) H 06/11/19 06:00 Calcium 8.4 mg/dL (8.5-10.1) L 06/17/19 06:00 Phosphorus 5.9 mg/dL (2.5-4.9) H 06/16/19 06:10 Magnesium 2.6 mg/dL (1.8-2.4) H 06/16/19 06:10 Iron 16 ug/dL (50-175) L 06/11/19 06:00 TIBC 329 ug/dL (250-450) 06/11/19 06:00 Iron Saturation 4 % (17.5-39) L 06/11/19 06:00 Unsaturated IBC 313 ug/dL (200-275) H 06/11/19 06:00 Ferritin 17.1 ng/ml (8-388) 06/11/19 06:00 Total Bilirubin 0.6 mg/dL (0.2-1) 06/16/19 06:10 AST 12 U/L (15-37) L 06/16/19 06:10 ALT 20 U/L (13-61) 06/16/19 06:10 Alkaline Phosphatase 125 U/L (45-117) H 06/16/19 06:10 Creatine Kinase 159 U/L (26-308) 06/10/19 15:00 Creatine Kinase Index 3.3 % (0.0-5.0) 06/10/19 15:00 CK-MB (CK-2) 5.4 ng/mL (0.5-3.6) H 06/10/19 15:00 Troponin I 0.15 ng/ml (0.00-0.05) H 06/11/19 08:40 B-Natriuretic Peptide 51245.8 pg/ml (5-450) H 06/10/19 15:00 Total Protein 5.4 g/dl (6.4-8.2) L 06/16/19 06:10 Albumin 2.7 g/dl (3.4-5.0) L 06/16/19 06:10 PTH Intact 236 pg/mL (15-65) H 06/11/19 06:00 PTH Intact Intraop 0 m (.) 06/11/19 06:00 Active Medications Current Medications Aspirin (Asa -) 81 mg PO DAILY [facility] Last Admin: 06/17/19 10:22 Dose: 81 mg Atorvastatin Calcium (Lipitor -) 40 mg PO HS [facility] Last Admin: 06/16/19 22:19 Dose: Not Given Calcium Acetate (Phoslo -) 667 mg PO TIDCM [facility] Last Admin: 06/17/19 12:29 Dose: 667 mg Guaifenesin (Mucinex -) 600 mg PO BID [facility] Last Admin: 06/17/19 10:22 Dose: 600 mg Heparin Sodium (Porcine) (Heparin -) 5,000 unit SQ TID [facility] Last Admin: 06/17/19 06:12 Dose: 5,000 unit Hydralazine HCl (Apresoline -) 25 mg PO TID [facility] Last Admin: 06/17/19 06:12 Dose: 25 mg Insulin Aspart (Novolog Vial Sliding Scale -) 1 vial SQ TIDAC [facility]; Protocol Last Admin: 06/17/19 12:27 Dose: Not Given Isosorbide Mononitrate (Imdur -) 30 mg PO DAILY [facility] Last Admin: 06/17/19 10:22 Dose: 30 mg Metoprolol Succinate (Toprol Xl -) 25 mg PO DAILY [facility] Last Admin: 06/17/19 10:22 Dose: 25 mg Home Medications Medication Instructions Recorded Amlodipine Besylate 5 mg PO DAILY 06/10/19 Calcium Acetate [Phoslo -] 667 mg PO TID 06/10/19 Furosemide [Lasix] 80 mg PO TID 06/10/19 Microbiology 06/10/19 22:00 Urine - Urine - Catheterized Urine Culture - Final NO GROWTH OBTAINED ASSESSMENT/PLAN: 83 y/o M, pmh of CKD stage V, T2DM presented with LE edema of 1 week duration likely 2/2 fluid overload from ESRD. #AMS Pt is very confused and speech is not sensible. Pt seems to be making threats to staff and family members. Combative, lethargic. Will consult neuro and psych Gave olanzapine 5 mg and restraints to calm pt down #LE edema likely 2/2 to Fluid overload 2/2 ESRD HD tomorrow pending placement for HD PT- pt could not be assessed due to mental status change- will try again tomorrow #Safety at home Pt's expresses concern for safety of self and pt at home Will speak to social work #CHF- acute on chronic systolic CHF w/ severe fluid overload Strict salt and fluid restrictions. No fluids nor ice cubes at the bedside. #ESRD Cont phoslo #HTN Cont hydralazine 25 mg 3 times a day. #HLD cont atorvastatin #Type 2 DM Cont Novolog sliding scale #Anemia-iron def vs ESRD Check stool for occult blood- f/u #DVT ppx Heparin FEN: renal diet Dispo: monitor pt and his mentation, f/u PT Visit type - Emergency Visit Emergency Visit: Yes ED Registration Date: 06/10/19 Care time: The patient presented to the Emergency Department on the above date and was hospitalized for further evaluation of their emergent condition. - New Patient This patient is new to me today: Yes Date on this admission: 06/17/19 - Critical Care Critical Care patient: No - Discharge Referral Referred to [facility] No ATTENDING PHYSICIAN STATEMENT I saw and evaluated the patient. I reviewed the resident's note and discussed the case with the resident. I agree with the resident's findings and plan as documented. SUBJECTIVE: OBJECTIVE: ASSESSMENT AND PLAN:
[2019-06-17] MEDS ORDERED: SODIUM CHLORIDE 250 ML IV PRN (15:29)
--- NOTE | 2019-06-17 15:29 | PN ---
Progress Note, Physician History of Present Illness: Pt seen and examined at bedside. He is increasingly confused today. - Current Medication List Current Medications: Active Medications Aspirin (Asa -) 81 mg PO DAILY [facility] Last Admin: 06/17/19 10:22 Dose: 81 mg Atorvastatin Calcium (Lipitor -) 40 mg PO HS [facility] Last Admin: 06/16/19 22:19 Dose: Not Given Calcium Acetate (Phoslo -) 667 mg PO TIDCM [facility] Last Admin: 06/17/19 12:29 Dose: 667 mg Guaifenesin (Mucinex -) 600 mg PO BID [facility] Last Admin: 06/17/19 10:22 Dose: 600 mg Heparin Sodium (Porcine) (Heparin -) 5,000 unit SQ TID [facility] Last Admin: 06/17/19 15:23 Dose: Not Given Hydralazine HCl (Apresoline -) 25 mg PO TID [facility] Last Admin: 06/17/19 15:23 Dose: Not Given Insulin Aspart (Novolog Vial Sliding Scale -) 1 vial SQ TIDAC [facility]; Protocol Last Admin: 06/17/19 12:27 Dose: Not Given Isosorbide Mononitrate (Imdur -) 30 mg PO DAILY [facility] Last Admin: 06/17/19 10:22 Dose: 30 mg Metoprolol Succinate (Toprol Xl -) 25 mg PO DAILY [facility] Last Admin: 06/17/19 10:22 Dose: 25 mg - Objective Vital Signs: Vital Signs Temperature 98 F 06/17/19 09:00 Pulse Rate 68 06/17/19 09:00 Respiratory Rate 18 06/17/19 09:00 Blood Pressure 142/68 06/17/19 09:00 O2 Sat by Pulse Oximetry (%) 98 06/17/19 09:00 Constitutional: Yes: Anxious Eyes: Yes: Conjunctiva Clear HENT: Yes: Atraumatic Neck: Yes: Supple Cardiovascular: Yes: S1, S2 Respiratory: Yes: Rhonchi Gastrointestinal: Yes: Soft Genitourinary: Yes: Incontinence Musculoskeletal: Yes: Muscle Weakness Edema: Yes Edema: LLE: 1+, RLE: 1+ Neurological: Yes: Confusion Labs: CBC, BMP 06/17/19 06:00 06/17/19 06:00 INR, PTT INR 1.05 (0.83-1.09) 06/10/19 15:00 Problem List - Problems (1) CKD (chronic kidney disease) Code(s): N18.9 - CHRONIC KIDNEY DISEASE, UNSPECIFIED (2) HTN (hypertension) Code(s): I10 - ESSENTIAL (PRIMARY) HYPERTENSION (3) Diabetes mellitus Code(s): E11.9 - TYPE 2 DIABETES MELLITUS WITHOUT COMPLICATIONS Assessment/Plan Current Medications Generic Name Dose Route Start Last Admin Trade Name Nilesq PRN Reason Stop Dose Admin Aspirin 81 mg 06/13/19 10:00 06/17/19 10:22 Asa - PO 81 mg DAILY [facility] Administration Atorvastatin Calcium 40 mg 06/13/19 22:00 06/16/19 22:19 Lipitor - PO Not Given HS [facility] Calcium Acetate 667 mg 06/11/19 08:00 06/17/19 12:29 Phoslo - PO 667 mg TIDCM [facility] Administration Guaifenesin 600 mg 06/14/19 13:30 06/17/19 10:22 Mucinex - PO 600 mg BID [facility] Administration Heparin Sodium (Porcine) 5,000 unit 06/10/19 18:00 06/17/19 15:23 Heparin - SQ Not Given TID [facility] Hydralazine HCl 25 mg 06/14/19 13:00 06/17/19 15:23 Apresoline - PO Not Given TID [facility] Insulin Aspart 1 vial 06/16/19 07:00 06/17/19 12:27 Novolog Vial Sliding Scale - SQ Not Given TIDAC [facility] Protocol Isosorbide Mononitrate 30 mg 06/13/19 10:00 06/17/19 10:22 Imdur - PO 30 mg DAILY [facility] Administration Metoprolol Succinate 25 mg 06/16/19 16:06 06/17/19 10:22 Toprol Xl - PO 25 mg DAILY [facility] Administration Impression 1. CKD 2. HTN 3. DM 4. fluid overload 5. esrd 6. altered mental status Plan - mental status worse overnight and today - check ua and cultures - hd tomorrow - discussed with medical team - discussed with family - renal diet - pending placement in HD
[2019-06-17 16:36] LABS: URINE APPEARANCE CLEAR; URINE BILIRUBIN NEGATIVE (NEGATIVE); URINE COLOR YELLOW; URINE GLUCOSE (UA) 1+ (NEGATIVE); URINE KETONE NEGATIVE (NEGATIVE); URINE LEUK ESTERASE NEGATIVE (NEGATIVE); URINE NITRITE NEGATIVE (NEGATIVE); URINE PROTEIN 4+ (NEGATIVE); URINE UROBILINOGEN 0.2 mg/dL (0.2-1.0)
--- NOTE | 2019-06-17 17:31 | PN ---
Teaching Attending Note Name of Resident: Olaf Winn ATTENDING PHYSICIAN STATEMENT I saw and evaluated the patient. I reviewed the resident's note and discussed the case with the resident. I agree with the resident's findings and plan as documented. SUBJECTIVE: No fever or chills. No pain . talks about people he saw in the room to whom they spoke Objectives: NAD, awake, alert, looks annoyed and does not follow commands CV: RRR. Lungs: fine crackles at bases Abd: soft, NT, ND , NL BS. Ext: Trace edema on LE, but improved from before ASSESSMENT AND PLAN: 83 y/o man with h./o CKD , HTn , systolic CHF and DM who presented with AMS and was found to be uremic and in acute CHF 1- Acute systolic CHF exacerbation. 2- ESRD 3- chronic microcytic anemia: iron def 4-AMS: likely due to metabolic encephalopathy from uremia and now acute delirium 5- H/o DM 6- h/o HTN Plan: - acute delirium is worsening ,with agitation and risk fro self harm ( leaving bed and falls) . will give a dose of zyprexa 5 mg po . will repeat EKG as his QTC is 484. try to minimize antipsychotics use - auditory and visual hallucinations are new and are probably due to delirium - psych and neuro consult - cont HD per renal - out pt HD center to be arranged - cont imdur, HZN and toprol ( decreased to 25 due to the sinus shamir with escape junctional rhythm ) - cont SSI . - work up for anemia as out pt. - PT eval - Heparin sq - wrist restraints for safety
[2019-06-17] MEDS: ACETAMINOPHEN 500 MG TABLET (FP) PO PRN (17:42)
--- NOTE | 2019-06-17 18:43 | CON.PSY ---
Psychiatry Consult Chief Complaint: Asked to see patient for periods of agitation, indu. during the night time, History of Present Problem: Hx obtained from chart, RN Relatives at bedside. According to relatives and nurse patient is more calm during the day. He has been agitated mostly atnights . This pm , received Zyprexa 5 mgs Last night he required Ativan for behavioral contrrol Symptoms: reports: Sleep Disturbance (hx obtain from family), Irritability, Restlessness, Hallucinations - Current Medications Current Medications: Active Medications Acetaminophen (Tylenol -) 500 mg PO Q6H PRN PRN Reason: PAIN LEVEL 6-10 Last Admin: 06/17/19 17:42 Dose: 500 mg Aspirin (Asa -) 81 mg PO DAILY [facility] Last Admin: 06/17/19 10:22 Dose: 81 mg Atorvastatin Calcium (Lipitor -) 40 mg PO HS [facility] Last Admin: 06/16/19 22:19 Dose: Not Given Calcium Acetate (Phoslo -) 667 mg PO TIDCM [facility] Last Admin: 06/17/19 17:42 Dose: 667 mg Guaifenesin (Mucinex -) 600 mg PO BID [facility] Last Admin: 06/17/19 10:22 Dose: 600 mg Heparin Sodium (Porcine) (Heparin -) 5,000 unit SQ TID [facility] Last Admin: 06/17/19 15:23 Dose: Not Given Hydralazine HCl (Apresoline -) 25 mg PO TID [facility] Last Admin: 06/17/19 15:23 Dose: Not Given Sodium Chloride (Normal Saline -) 250 mls @ 3,000 mls/hr IV PRN PRN PRN Reason: Hypotension during Dialysis Stop: 06/18/19 15:29 Insulin Aspart (Novolog Vial Sliding Scale -) 1 vial SQ TIDAC [facility]; Protocol Last Admin: 06/17/19 17:43 Dose: Not Given Isosorbide Mononitrate (Imdur -) 30 mg PO DAILY [facility] Last Admin: 06/17/19 10:22 Dose: 30 mg Metoprolol Succinate (Toprol Xl -) 25 mg PO DAILY [facility] Last Admin: 06/17/19 10:22 Dose: 25 mg - Allergies Allergies: Allergies Allergy/AdvReac Type Severity Reaction Status Date / Time Penicillins Allergy Mild Verified 06/10/19 15:17 - Current Living Status Usual Living Arrangement: With Spouse (Appropriate for hospital setting) - Mood Mood: Anxious, Irritable (confused) - Psychomotor Activity Psychomotor Activity: Normal, Other (normal,quiet) - Thought Process Thought Process: Other (confused,) - Cognition Attention: Other (grossly impaired at this time) Memory, Immediate Recall: Impaired Memory, Short Term: 0/3 - Concentration Serial Sevens Intact: No Simple Calculations Intact: No - Abstraction Judgement: Severely Impaired - Insight Insight: Impaired - Impulse Control Impulse Control: Moderately Impaired - Suicidal Ideation Suicidal Ideation: No - Homicidal Ideation Homicidal Ideation: No Assessment/Plan Patient mental status may improved now that he is on dialysis Delirium also Rec: Pain control - continue tylenol- family thinks he has pain Continue zyprexa 5 mgs q hs and increase if tolerated If patient does not respond to Zyprexa-consider remeron 15 mgs q hs instead Patient family would like to be home care upon discharge rn women services intervention
[2019-06-17] MEDS ORDERED: OLANZapine 5 MG TABLET PO SCH (22:00)
[2019-06-17] MEDS: ATORVASTATIN CA 40 MG TABLET (FP) PO SCH (22:17)
[2019-06-18] MEDS: HEPARIN NA (PORCINE) 5,000 UNITS/ML 1ML VIAL SQ SCH ×3 (05:20→21:59)
[2019-06-18] MEDS: hydrALAZINE HCL 25 MG TABLET (FP) PO SCH ×3 (05:20→22:01)
[2019-06-18] MEDS: INSULIN SLIDING SCALE (NOVOLOG) 1 VIAL SQ SCH ×3 (06:47→17:28)
[2019-06-18 07:32] LABS: HEMATOCRIT 31.7 % (35.4-49); MCHC 31.4 g/dl (32.0-35.9); MEAN CELL VOLUME 62.2 fl (80-96); MEAN PLT VOLUME 8.4 fl (7.5-11.1); PLATELET COUNT 212 K/MM3 (134-434); RDW 19.2 % (11.9-15.9); WHITE BLOOD COUNT 9.8 K/mm3 (4.0-10.0)
[2019-06-18 07:53] LABS: MCH 19.5 pg (25.7-33.7)
[2019-06-18 08:02] LABS: ALBUMIN 2.7 g/dl (3.4-5.0); BILIRUBIN,TOTAL 0.8 mg/dL (0.2-1); BLOOD UREA NITROGEN 70.6 mg/dL (7-18); CALCIUM 8.2 mg/dL (8.5-10.1); POTASSIUM 3.9 mmol/L (3.5-5.1); TOT PROT 5.6 g/dl (6.4-8.2)
--- NOTE | 2019-06-18 11:04 | PN ---
Teaching Attending Note Name of Resident: Stan Pugh ATTENDING PHYSICIAN STATEMENT I saw and evaluated the patient. I reviewed the resident's note and discussed the case with the resident. I agree with the resident's findings and plan as documented. SUBJECTIVE: No severe agitation over night , but confused OBJECTIVE: NAD, awake, lethargic, arousable CV: RRR. Lungs: clear anteriorly Abd: soft, NT, ND , NL BS. Ext: Trace edema on LE, but improved from before ASSESSMENT AND PLAN: 83 y/o man with h./o CKD , HTn , systolic CHF and DM who presented with AMS and was found to be uremic and in acute CHF 1- Acute systolic CHF exacerbation. 2- ESRD 3- chronic microcytic anemia: iron def 4-AMS: likely due to metabolic encephalopathy from uremia and now acute delirium 5- H/o DM 6- h/o HTN Plan: - zyprexa q HS. monitor QTC. EKG frm this am pending - auditory and visual hallucinations are new and are probably due to delirium - psych consult appreciated -neuro consult pending - cont HD per renal - out pt HD center to be arranged - cont imdur, HZN and toprol - cont SSI . - work up for anemia as out pt. - PT eval - Heparin sq - wrist restraints for safety.
[2019-06-18] MEDS: CALCIUM ACETATE 667 MG CAPSULE (FP) PO SCH ×3 (11:17→17:58)
[2019-06-18] MEDS: guaiFENesin 600 MG TABLET.ER (FP) PO SCH ×2 (11:19→22:00)
[2019-06-18] MEDS: ASPIRIN 81 MG CHEWABLE TABLETS PO SCH (11:19)
[2019-06-18] MEDS: ISOSORBIDE MONONITRATE 30 MG TAB.SR.24H (FP) PO SCH (11:19)
--- NOTE | 2019-06-18 11:29 | CONSULT ---
Consult - text type - Consultation Consultation Note: Neurology HISTORY OF PRESENT ILLNESS: 83yo M with h/o CKD stage V, HTN, Type 2 DM who presents on day of admission with 1 week worsening lower extremity edema. Pt has been told he has end-stage CKD, however he refuses dialysis because he believed his family members suffered and did not benefit in regards to mortality. Pt noticed about 1-2 weeks he has been having increased edema of his legs. He does not weigh himself regularly and he does not know his dry weight. Pt reports he went to see his PCP who increased his lasix to 80mg TID PO. He was only taking this for a couple of days when he noticed severe dyspnea on exertion worsening when he went to the bathroom or moving from [id number] in his house. Pt endorses orthopnea and uses multiple pillows at night to sleep. Pt denies any fever/ chills, headaches, blurry vision, diarrhea/constiption, chest pain, palpitations , abdominal pain, n/v. 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 Psychiatry consult completed, for behavioral changes, put on Zyprexa and if not helpful can use Remeron, per note. Confused this AM but not aggitated and conversive, not having clear hallucinations. Mental status likely 2/2 uremia. Recent Travel: PAST MEDICAL HISTORY: As above PAST SURGICAL HISTORY: Denies Social History: Smoking: Former smoker; quit 10 years ago and used to smoke from 15-70's Alcohol: Occassional coors light with dinner out Drugs: None lives at home with ; independent in ADLs; heritage: [facility] Family: HTN Allergies Penicillins Allergy (Mild, Verified 06/10/19 15:17) HOME MEDICATIONS: Home Medications Medication Instructions Recorded Amlodipine Besylate 5 mg PO DAILY 06/10/19 Calcium Acetate [Phoslo -] 667 mg PO TID 06/10/19 Furosemide [Lasix] 80 mg PO TID 06/10/19 REVIEW OF SYSTEMS Unable to complete 2/2 AMS PHYSICAL EXAMINATION Vital Signs Period Temp Pulse Resp BP Sys/Alexandre Pulse Ox Last 24 Hr 97.4 F-98.7 F 59-73 18-20 95-146/55-100 97 GENERAL: Awake, alert, not oriented, conversive but not coherent HEENT: NC/AT, CAROLA, MMM, EOMI. NECK: + JVD LUNGS: Rales throughout all lung strong bilaterally. No wheezes. No accessory muscle use. On 2LNC. Speaking in full sentences HEART: RRR, normal S1 and S2 without murmur ABDOMEN: Soft, nontender, abdominal wall edema, hypoactive BS, + hepatojugular reflux, no guarding or rebound, no hepatomegaly or caput medusa noted. MUSCULOSKELETAL: No CVA tenderness. EXTREMITIES: 2+ DP pulses b/l, 3+ pitting edema to groin and abdominal wall. Warm, venous stasis changes also noted, no calf tenderness. NEUROLOGICAL: Nonfocal exam. Normal speech. moves all extremities, sensory intact PSYCHIATRIC: Cooperative. Good eye contact. Appropriate mood and affect. SKIN: Warm, dry, no rashes or lesions noted, stasis changes as above, normal capillary refill. CBCD WBC 9.8 K/mm3 (4.0-10.0) 06/18/19 06:20 RBC 5.10 M/mm3 (4.00-5.60) 06/18/19 06:20 Hgb 10.0 GM/dL (11.7-16.9) L 06/18/19 06:20 Hct 31.7 % (35.4-49) L 06/18/19 06:20 MCV 62.2 fl (80-96) L 06/18/19 06:20 MCHC 31.4 g/dl (32.0-35.9) L 06/18/19 06:20 RDW 19.2 % (11.9-15.9) H 06/18/19 06:20 Plt Count 212 K/MM3 (134-434) 06/18/19 06:20 MPV 8.4 fl (7.5-11.1) 06/18/19 06:20 CMP Sodium 138 mmol/L (136-145) 06/18/19 06:20 Potassium 3.9 mmol/L (3.5-5.1) 06/18/19 06:20 Chloride 102 mmol/L (98-107) 06/18/19 06:20 Carbon Dioxide 27 mmol/L (21-32) 06/18/19 06:20 Anion Gap 9 MMOL/L (8-16) 06/18/19 06:20 BUN 70.6 mg/dL (7-18) H 06/18/19 06:20 Creatinine 5.0 mg/dL (0.55-1.3) H 06/18/19 06:20 Random Glucose 131 mg/dL (74-106) H 06/18/19 06:20 Calcium 8.2 mg/dL (8.5-10.1) L 06/18/19 06:20 Total Bilirubin 0.8 mg/dL (0.2-1) 06/18/19 06:20 AST 15 U/L (15-37) 06/18/19 06:20 ALT 18 U/L (13-61) 06/18/19 06:20 Alkaline Phosphatase 120 U/L (45-117) H 06/18/19 06:20 Total Protein 5.6 g/dl (6.4-8.2) L 06/18/19 06:20 Albumin 2.7 g/dl (3.4-5.0) L 06/18/19 06:20 CARDIAC ENZYMES Creatine Kinase 159 U/L (26-308) 06/10/19 15:00 Troponin I 0.15 ng/ml (0.00-0.05) H 06/11/19 08:40 ASSESSMENT AND PLAN: 83yo M with h/o CKD stage V, HTN, Type 2 DM who presents on day of admission with 1 week worsening lower extremity edema. Pt has been told he has end-stage CKD, however he refuses dialysis because he believed his family members suffered and did not benefit in regards to mortality. Pt noticed about 1-2 weeks he has been having increased edema of his legs. He does not weigh himself regularly and he does not know his dry weight. Pt reports he went to see his PCP who increased his lasix to 80mg TID PO. He was only taking this for a couple of days when he noticed severe dyspnea on exertion worsening when he went to the bathroom or moving from [id number] in his house. Pt endorses orthopnea and uses multiple pillows at night to sleep. Pt denies any fever/ chills, headaches, blurry vision, diarrhea/constiption, chest pain, palpitations , abdominal pain, n/v. 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 Psychiatry consult completed, for behavioral changes, put on Zyprexa and if not helpful can use Remeron, per note. Confused this AM but not aggitated and conversive, not having clear hallucinations. Mental status likely 2/2 uremia. Continue pysch follow up and optimization. Continue mgmt for uremia, as underlying etiology improves, mental status should also but may be a delay. Reorientation as able. Maintain adequate hydration. Will order repeat CT head to confirm no changes or interval developments.
--- NOTE | 2019-06-18 13:02 | PN ---
Physical Exam: SUBJECTIVE: Patient seen and examined at bedside. Patient alert, but not oriented. OBJECTIVE: Vital Signs Period Temp Pulse Resp BP Sys/Alexandre Pulse Ox Last 24 Hr 97.4 F-98.7 F 59-73 18-20 95-146/55-100 97 GENERAL: The patient is awake, alert in no acute distress. HEAD: Normal with no signs of trauma. LUNGS: Breath sounds equal, clear to auscultation bilaterally, no wheezes, no crackles, no accessory muscle use. HEART: Regular rate and rhythm, S1, S2 without murmur, rub or gallop. ABDOMEN: Soft, nontender, nondistended, normoactive bowel sounds, no guarding, no rebound, no hepatosplenomegaly, no masses. EXTREMITIES: 2+ pulses, warm, well-perfused, no edema. NEUROLOGICAL: Cranial nerves II through X grossly intact. slurred speech, gait not observed. evaluation limited and patient not able to follow commands. Laboratory Results - last 24 hr 06/17/19 06/17/19 06/17/19 15:45 17:40 22:22 WBC RBC Hgb Hct MCV MCH MCHC RDW Plt Count MPV Sodium Potassium Chloride Carbon Dioxide Anion Gap BUN Creatinine Est GFR (CKD-EPI)AfAm Est GFR (CKD-EPI)NonAf POC Glucometer 128 178 Random Glucose Calcium Total Bilirubin AST ALT Alkaline Phosphatase Total Protein Albumin Urine Color Yellow Urine Appearance Clear Urine pH 7.0 Ur Specific [place] 1.015 Urine Protein 4+ H Urine Glucose (UA) 1+ H Urine Ketones Negative Urine Blood Negative Urine Nitrite Negative Urine Bilirubin Negative Urine Urobilinogen 0.2 Ur Leukocyte Esterase Negative 06/18/19 06/18/19 06/18/19 05:18 06:20 06:20 WBC 9.8 RBC 5.10 Hgb 10.0 L Hct 31.7 L MCV 62.2 L MCH 19.5 L MCHC 31.4 L RDW 19.2 H Plt Count 212 MPV 8.4 Sodium 138 Potassium 3.9 Chloride 102 Carbon Dioxide 27 Anion Gap 9 BUN 70.6 H Creatinine 5.0 H Est GFR (CKD-EPI)AfAm 11.55 Est GFR (CKD-EPI)NonAf 9.97 POC Glucometer 152 Random Glucose 131 H Calcium 8.2 L Total Bilirubin 0.8 AST 15 ALT 18 Alkaline Phosphatase 120 H Total Protein 5.6 L Albumin 2.7 L Urine Color Urine Appearance Urine pH Ur Specific [place] Urine Protein Urine Glucose (UA) Urine Ketones Urine Blood Urine Nitrite Urine Bilirubin Urine Urobilinogen Ur Leukocyte Esterase 06/18/19 12:41 WBC RBC Hgb Hct MCV MCH MCHC RDW Plt Count MPV Sodium Potassium Chloride Carbon Dioxide Anion Gap BUN Creatinine Est GFR (CKD-EPI)AfAm Est GFR (CKD-EPI)NonAf POC Glucometer 134 Random Glucose Calcium Total Bilirubin AST ALT Alkaline Phosphatase Total Protein Albumin Urine Color Urine Appearance Urine pH Ur Specific [place] Urine Protein Urine Glucose (UA) Urine Ketones Urine Blood Urine Nitrite Urine Bilirubin Urine Urobilinogen Ur Leukocyte Esterase Active Medications Generic Name Dose Route Start Last Admin Trade Name Freq PRN Reason Stop Dose Admin Acetaminophen 500 mg 06/17/19 17:19 06/17/19 17:42 Tylenol - PO 500 mg Q6H PRN Administration PAIN LEVEL 6-10 Aspirin 81 mg 06/13/19 10:00 06/18/19 11:19 Asa - PO 81 mg DAILY [facility] Administration Atorvastatin Calcium 40 mg 06/13/19 22:00 06/17/19 22:17 Lipitor - PO 40 mg HS [facility] Administration Calcium Acetate 667 mg 06/11/19 08:00 06/18/19 11:19 Phoslo - PO 667 mg TIDCM [facility] Administration Guaifenesin 600 mg 06/14/19 13:30 06/18/19 11:19 Mucinex - PO 600 mg BID [facility] Administration Heparin Sodium (Porcine) 5,000 unit 06/10/19 18:00 06/18/19 05:20 Heparin - SQ 5,000 unit TID [facility] Administration Hydralazine HCl 25 mg 06/14/19 13:00 06/18/19 05:20 Apresoline - PO 25 mg TID [facility] Administration Sodium Chloride 250 mls @ 3,000 mls/hr 06/17/19 15:29 Normal Saline - IV 06/18/19 15:29 PRN PRN Hypotension during Dialysis Insulin Aspart 1 vial 06/16/19 07:00 06/18/19 12:44 Novolog Vial Sliding Scale - SQ Not Given TIDAC [facility] Protocol Isosorbide Mononitrate 30 mg 06/13/19 10:00 06/18/19 11:19 Imdur - PO 30 mg DAILY [facility] Administration Metoprolol Succinate 25 mg 06/16/19 16:06 06/18/19 11:18 Toprol Xl - PO 25 mg DAILY [facility] Administration Olanzapine 5 mg 06/17/19 22:00 06/17/19 22:17 Zyprexa - PO 5 mg HS [facility] Administration ASSESSMENT/PLAN: 83 y/o M, pmh of CKD stage V, T2DM presented with LE edema of 1 week duration likely 2/2 fluid overload from ESRD. AMS likely 2/2 uremia -patient continues to exhibit delerium. -neurology consulted; agrees that patient's AMS most likely 2/2 uremia -nephrology consulted; patient undergoing HD today -less combative today -c/w olanzapine 5mg HS for now, will titrate up if patient continues to be agitated. -pt concerned for home safety; will discuss case w/ social work LE edema likely 2/2 to Fluid overload 2/2 ESRD -HD today -pending placement for outpatient HD CHF- acute on chronic systolic CHF w/ severe fluid overload -Strict salt and fluid restrictions. No fluids nor ice cubes at the bedside. ESRD -Cont phoslo -nephro onboard -HD today HTN -Cont hydralazine 25 mg 3 times a day. HLD -cont atorvastatin Type 2 DM -Cont Novolog sliding scale -BGM ACHS FEN -no fluids indicated -lytes WNL, will monitor -renal diet DVT ppx -Heparin SQ 5k units Q8h Dispo: -admit tele Visit type - Emergency Visit Emergency Visit: Yes ED Registration Date: 06/10/19 Care time: The patient presented to the Emergency Department on the above date and was hospitalized for further evaluation of their emergent condition. - New Patient This patient is new to me today: Yes Date on this admission: 06/18/19 - Critical Care Critical Care patient: No - Discharge Referral Referred to [facility] Med P.C.: No ATTENDING PHYSICIAN STATEMENT I saw and evaluated the patient. I reviewed the resident's note and discussed the case with the resident. I agree with the resident's findings and plan as documented. SUBJECTIVE: OBJECTIVE: ASSESSMENT AND PLAN:
[2019-06-18] MEDS ORDERED: PT OWN MED DRAWER 7, Y5N ONE (13:56)
--- NOTE | 2019-06-18 16:09 | PN ---
Progress Note, Physician History of Present Illness: Pt seen and examined at bedside. He remains confused. - Current Medication List Current Medications: Active Medications Acetaminophen (Tylenol -) 500 mg PO Q6H PRN PRN Reason: PAIN LEVEL 6-10 Last Admin: 06/17/19 17:42 Dose: 500 mg Aspirin (Asa -) 81 mg PO DAILY [facility] Last Admin: 06/18/19 11:19 Dose: 81 mg Atorvastatin Calcium (Lipitor -) 40 mg PO HS [facility] Last Admin: 06/17/19 22:17 Dose: 40 mg Calcium Acetate (Phoslo -) 667 mg PO TIDCM [facility] Last Admin: 06/18/19 11:19 Dose: 667 mg Guaifenesin (Mucinex -) 600 mg PO BID [facility] Last Admin: 06/18/19 11:19 Dose: 600 mg Heparin Sodium (Porcine) (Heparin -) 5,000 unit SQ TID [facility] Last Admin: 06/18/19 14:56 Dose: 5,000 unit Hydralazine HCl (Apresoline -) 25 mg PO TID [facility] Last Admin: 06/18/19 14:56 Dose: 25 mg Sodium Chloride (Normal Saline -) 250 mls @ 3,000 mls/hr IV PRN PRN PRN Reason: Hypotension during Dialysis Stop: 06/18/19 15:29 Insulin Aspart (Novolog Vial Sliding Scale -) 1 vial SQ TIDAC [facility]; Protocol Last Admin: 06/18/19 12:44 Dose: Not Given Isosorbide Mononitrate (Imdur -) 30 mg PO DAILY [facility] Last Admin: 06/18/19 11:19 Dose: 30 mg Metoprolol Succinate (Toprol Xl -) 25 mg PO DAILY [facility] Last Admin: 06/18/19 11:18 Dose: 25 mg Olanzapine (Zyprexa -) 5 mg PO HS [facility] Last Admin: 06/17/19 22:17 Dose: 5 mg - Objective Vital Signs: Vital Signs Temperature 97.8 F 06/18/19 14:00 Pulse Rate 72 06/18/19 14:00 Respiratory Rate 20 06/18/19 14:00 Blood Pressure 130/70 06/18/19 14:00 O2 Sat by Pulse Oximetry (%) 97 06/17/19 20:00 Constitutional: Yes: Anxious Eyes: Yes: Conjunctiva Clear HENT: Yes: Atraumatic Cardiovascular: Yes: S1, S2 Respiratory: Yes: CTA Bilaterally Gastrointestinal: Yes: Normal Bowel Sounds, Soft Genitourinary: Yes: WNL Musculoskeletal: Yes: WNL Extremities: Yes: WNL Edema: No Integumentary: Yes: Venous Stasis Changes Neurological: Yes: Confusion Psychiatric: Yes: Agitated Labs: CBC, BMP 06/18/19 06:20 06/18/19 06:20 INR, PTT INR 1.05 (0.83-1.09) 06/10/19 15:00 Problem List - Problems (1) CKD (chronic kidney disease) Code(s): N18.9 - CHRONIC KIDNEY DISEASE, UNSPECIFIED (2) HTN (hypertension) Code(s): I10 - ESSENTIAL (PRIMARY) HYPERTENSION (3) Diabetes mellitus Code(s): E11.9 - TYPE 2 DIABETES MELLITUS WITHOUT COMPLICATIONS Assessment/Plan Current Medications Generic Name Dose Route Start Last Admin Trade Name Freq PRN Reason Stop Dose Admin Acetaminophen 500 mg 06/17/19 17:19 06/17/19 17:42 Tylenol - PO 500 mg Q6H PRN Administration PAIN LEVEL 6-10 Aspirin 81 mg 06/13/19 10:00 06/18/19 11:19 Asa - PO 81 mg DAILY [facility] Administration Atorvastatin Calcium 40 mg 06/13/19 22:00 06/17/19 22:17 Lipitor - PO 40 mg HS [facility] Administration Calcium Acetate 667 mg 06/11/19 08:00 06/18/19 11:19 Phoslo - PO 667 mg TIDCM [facility] Administration Guaifenesin 600 mg 06/14/19 13:30 06/18/19 11:19 Mucinex - PO 600 mg BID [facility] Administration Heparin Sodium (Porcine) 5,000 unit 06/10/19 18:00 06/18/19 14:56 Heparin - SQ 5,000 unit TID [facility] Administration Hydralazine HCl 25 mg 06/14/19 13:00 06/18/19 14:56 Apresoline - PO 25 mg TID [facility] Administration Sodium Chloride 250 mls @ 3,000 mls/hr 06/17/19 15:29 Normal Saline - IV 06/18/19 15:29 PRN PRN Hypotension during Dialysis Insulin Aspart 1 vial 06/16/19 07:00 06/18/19 12:44 Novolog Vial Sliding Scale - SQ Not Given TIDAC [facility] Protocol Isosorbide Mononitrate 30 mg 06/13/19 10:00 06/18/19 11:19 Imdur - PO 30 mg DAILY [facility] Administration Metoprolol Succinate 25 mg 06/16/19 16:06 06/18/19 11:18 Toprol Xl - PO 25 mg DAILY [facility] Administration Olanzapine 2.5 mg 06/18/19 16:06 Zyprexa - PO HS [facility] Impression 1. CKD 2. HTN 3. DM 4. fluid overload 5. esrd 6. altered mental status Plan - pt tolerated HD - he is going for a second ct head today - neuro input appreciated - ua neg, follow cultures - discussed with family
[2019-06-18] MEDS: ATORVASTATIN CA 40 MG TABLET (FP) PO SCH (22:00)
[2019-06-18] MEDS: ACETAMINOPHEN 500 MG TABLET (FP) PO PRN (22:00)
[2019-06-18] MEDS: OLANZapine 2.5 MG TABLET PO SCH (22:01)
[2019-06-19] MEDS: HEPARIN NA (PORCINE) 5,000 UNITS/ML 1ML VIAL SQ SCH ×4 (05:33→21:15)
[2019-06-19] MEDS: hydrALAZINE HCL 25 MG TABLET (FP) PO SCH ×4 (05:33→21:16)
[2019-06-19] MEDS: INSULIN SLIDING SCALE (NOVOLOG) 1 VIAL SQ SCH ×4 (06:11→17:14)
[2019-06-19 06:45] LABS: INR 1.03 (0.83-1.09); PROTHROMBIN TIME (PATIENT) 12.2 SEC (9.7-13.0)
[2019-06-19 07:52] LABS: BLOOD UREA NITROGEN 45.6 mg/dL (7-18); CALCIUM 7.9 mg/dL (8.5-10.1); CREATININE 4.2 mg/dL (0.55-1.3); MAGNESIUM 2.2 mg/dL (1.8-2.4); POTASSIUM 3.9 mmol/L (3.5-5.1)
[2019-06-19] MEDS: CALCIUM ACETATE 667 MG CAPSULE (FP) PO SCH ×3 (08:10→17:14)
[2019-06-19] MEDS: ISOSORBIDE MONONITRATE 30 MG TAB.SR.24H (FP) PO SCH ×2 (11:02→11:12)
[2019-06-19] MEDS: guaiFENesin 600 MG TABLET.ER (FP) PO SCH ×3 (11:02→21:16)
[2019-06-19] MEDS: ASPIRIN 81 MG CHEWABLE TABLETS PO SCH ×2 (11:02→11:12)
--- NOTE | 2019-06-19 11:32 | PN ---
Progress Note (short form) - Note Progress Note: Neurology HISTORY OF PRESENT ILLNESS: 83yo M with h/o CKD stage V, HTN, Type 2 DM who presents on day of admission with 1 week worsening lower extremity edema. Pt has been told he has end-stage CKD, however he refuses dialysis because he believed his family members suffered and did not benefit in regards to mortality. Pt noticed about 1-2 weeks he has been having increased edema of his legs. He does not weigh himself regularly and he does not know his dry weight. Pt reports he went to see his PCP who increased his lasix to 80mg TID PO. He was only taking this for a couple of days when he noticed severe dyspnea on exertion worsening when he went to the bathroom or moving from [id number] in his house. Pt endorses orthopnea and uses multiple pillows at night to sleep. Pt denies any fever/ chills, headaches, blurry vision, diarrhea/constiption, chest pain, palpitations , abdominal pain, n/v. 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 Psychiatry consult completed, for behavioral changes, put on Zyprexa and if not helpful can use Remeron, per note. Somnolent this AM but not aggitated. Mental status likely 2/[address] repeated, results pending. Active Medications Acetaminophen (Tylenol -) 500 mg PO Q6H PRN PRN Reason: PAIN LEVEL 6-10 Last Admin: 06/18/19 22:00 Dose: 500 mg Aspirin (Asa -) 81 mg PO DAILY [facility] Last Admin: 06/19/19 11:12 Dose: Not Given Atorvastatin Calcium (Lipitor -) 40 mg PO HS [facility] Last Admin: 06/18/19 22:00 Dose: 40 mg Calcium Acetate (Phoslo -) 667 mg PO TIDCM [facility] Last Admin: 06/19/19 08:10 Dose: 667 mg Guaifenesin (Mucinex -) 600 mg PO BID [facility] Last Admin: 06/19/19 11:12 Dose: Not Given Heparin Sodium (Porcine) (Heparin -) 5,000 unit SQ TID [facility] Last Admin: 06/19/19 05:46 Dose: Not Given Hydralazine HCl (Apresoline -) 25 mg PO TID [facility] Last Admin: 06/19/19 05:46 Dose: Not Given Sodium Chloride (Normal Saline -) 250 mls @ 3,000 mls/hr IV PRN PRN PRN Reason: Hypotension during Dialysis Stop: 06/18/19 15:29 Insulin Aspart (Novolog Vial Sliding Scale -) 1 vial SQ TIDAC [facility]; Protocol Last Admin: 06/19/19 11:12 Dose: Not Given Isosorbide Mononitrate (Imdur -) 30 mg PO DAILY [facility] Last Admin: 06/19/19 11:12 Dose: Not Given Metoprolol Succinate (Toprol Xl -) 25 mg PO DAILY [facility] Last Admin: 06/19/19 11:12 Dose: Not Given Olanzapine (Zyprexa -) 2.5 mg PO HS [facility] Last Admin: 06/18/19 22:01 Dose: 2.5 mg PHYSICAL EXAMINATION Vital Signs Period Temp Pulse Resp BP Sys/Alexandre Pulse Ox Last 24 Hr 97.8 F-98.9 F 68-82 20-20 119-134/62-70 96 GENERAL: Awake, alert, not oriented, conversive but not coherent HEENT: NC/AT, CAROLA, MMM, EOMI. NECK: + JVD LUNGS: Rales throughout all lung strong bilaterally. No wheezes. No accessory muscle use. On 2LNC. Speaking in full sentences HEART: RRR, normal S1 and S2 without murmur ABDOMEN: Soft, nontender, abdominal wall edema, hypoactive BS, + hepatojugular reflux, no guarding or rebound, no hepatomegaly or caput medusa noted. MUSCULOSKELETAL: No CVA tenderness. EXTREMITIES: 2+ DP pulses b/l, 3+ pitting edema to groin and abdominal wall. Warm, venous stasis changes also noted, no calf tenderness. NEUROLOGICAL: Nonfocal exam. Normal speech. moves all extremities, sensory intact PSYCHIATRIC: Cooperative. Good eye contact. Appropriate mood and affect. SKIN: Warm, dry, no rashes or lesions noted, stasis changes as above, normal capillary refill. CBCD WBC 9.8 K/mm3 (4.0-10.0) 06/18/19 06:20 RBC 5.10 M/mm3 (4.00-5.60) 06/18/19 06:20 Hgb 10.0 GM/dL (11.7-16.9) L 06/18/19 06:20 Hct 31.7 % (35.4-49) L 06/18/19 06:20 MCV 62.2 fl (80-96) L 06/18/19 06:20 MCHC 31.4 g/dl (32.0-35.9) L 06/18/19 06:20 RDW 19.2 % (11.9-15.9) H 06/18/19 06:20 Plt Count 212 K/MM3 (134-434) 06/18/19 06:20 MPV 8.4 fl (7.5-11.1) 06/18/19 06:20 CMP Sodium 143 mmol/L (136-145) 06/19/19 06:00 Potassium 3.9 mmol/L (3.5-5.1) 06/19/19 06:00 Chloride 107 mmol/L (98-107) 06/19/19 06:00 Carbon Dioxide 30 mmol/L (21-32) 06/19/19 06:00 Anion Gap 6 MMOL/L (8-16) L 06/19/19 06:00 BUN 45.6 mg/dL (7-18) H 06/19/19 06:00 Creatinine 4.2 mg/dL (0.55-1.3) H 06/19/19 06:00 Random Glucose 123 mg/dL (74-106) H 06/19/19 06:00 Calcium 7.9 mg/dL (8.5-10.1) L 06/19/19 06:00 Total Bilirubin 0.8 mg/dL (0.2-1) 06/18/19 06:20 AST 15 U/L (15-37) 06/18/19 06:20 ALT 18 U/L (13-61) 06/18/19 06:20 Alkaline Phosphatase 120 U/L (45-117) H 06/18/19 06:20 Total Protein 5.6 g/dl (6.4-8.2) L 06/18/19 06:20 Albumin 2.7 g/dl (3.4-5.0) L 06/18/19 06:20 CARDIAC ENZYMES Creatine Kinase 159 U/L (26-308) 06/10/19 15:00 Troponin I 0.15 ng/ml (0.00-0.05) H 06/11/19 08:40 ASSESSMENT AND PLAN: 83yo M with h/o CKD stage V, HTN, Type 2 DM who presents on day of admission with 1 week worsening lower extremity edema. Pt has been told he has end-stage CKD, however he refuses dialysis because he believed his family members suffered and did not benefit in regards to mortality. Pt noticed about 1-2 weeks he has been having increased edema of his legs. He does not weigh himself regularly and he does not know his dry weight. Pt reports he went to see his PCP who increased his lasix to 80mg TID PO. He was only taking this for a couple of days when he noticed severe dyspnea on exertion worsening when he went to the bathroom or moving from [id number] in his house. Pt endorses orthopnea and uses multiple pillows at night to sleep. Pt denies any fever/ chills, headaches, blurry vision, diarrhea/constiption, chest pain, palpitations , abdominal pain, n/v. 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 Psychiatry consult completed, for behavioral changes, put on Zyprexa and if not helpful can use Remeron, per note. Somnolent this AM but not aggitated. Mental status likely 2/[address] repeated, results pending. Continue pysch follow up and optimization. Continue mgmt for uremia, as underlying etiology improves, mental status should also but may be a delay. Reorientation as able. Maintain adequate hydration.
[2019-06-19] MEDS: ACETAMINOPHEN 500 MG TABLET (FP) PO PRN ×2 (14:25→19:41)
--- NOTE | 2019-06-19 17:16 | PN ---
Progress Note, Physician History of Present Illness: Pt seen and examined at bedside. He slept most of the day. The agitation is improved. - Current Medication List Current Medications: Active Medications Acetaminophen (Tylenol -) 500 mg PO Q6H PRN PRN Reason: PAIN LEVEL 6-10 Last Admin: 06/19/19 14:25 Dose: 500 mg Aspirin (Asa -) 81 mg PO DAILY [facility] Last Admin: 06/19/19 11:12 Dose: Not Given Atorvastatin Calcium (Lipitor -) 40 mg PO HS [facility] Last Admin: 06/18/19 22:00 Dose: 40 mg Calcium Acetate (Phoslo -) 667 mg PO TIDCM [facility] Last Admin: 06/19/19 14:25 Dose: 667 mg Guaifenesin (Mucinex -) 600 mg PO BID [facility] Last Admin: 06/19/19 11:12 Dose: Not Given Heparin Sodium (Porcine) (Heparin -) 5,000 unit SQ TID [facility] Last Admin: 06/19/19 15:04 Dose: 5,000 unit Hydralazine HCl (Apresoline -) 25 mg PO TID [facility] Last Admin: 06/19/19 15:04 Dose: 25 mg Sodium Chloride (Normal Saline -) 250 mls @ 3,000 mls/hr IV PRN PRN PRN Reason: Hypotension during Dialysis Stop: 06/18/19 15:29 Insulin Aspart (Novolog Vial Sliding Scale -) 1 vial SQ TIDAC [facility]; Protocol Last Admin: 06/19/19 11:12 Dose: Not Given Isosorbide Mononitrate (Imdur -) 30 mg PO DAILY [facility] Last Admin: 06/19/19 11:12 Dose: Not Given Metoprolol Succinate (Toprol Xl -) 25 mg PO DAILY [facility] Last Admin: 06/19/19 11:12 Dose: Not Given Olanzapine (Zyprexa -) 2.5 mg PO [facility] Last Admin: 06/18/19 22:01 Dose: 2.5 mg - Objective Vital Signs: Vital Signs Temperature 97.7 F 06/19/19 14:00 Pulse Rate 65 06/19/19 14:00 Respiratory Rate 20 06/19/19 14:00 Blood Pressure 120/54 L 06/19/19 14:00 O2 Sat by Pulse Oximetry (%) 96 06/18/19 21:00 Constitutional: Yes: Calm Eyes: Yes: Conjunctiva Clear HENT: Yes: Atraumatic Neck: Yes: Supple Cardiovascular: Yes: S1, S2 Respiratory: Yes: CTA Bilaterally Gastrointestinal: Yes: Soft Genitourinary: Yes: Incontinence Musculoskeletal: Yes: Muscle Weakness Edema: Yes Edema: LLE: 1+, RLE: 1+ Integumentary: Yes: Venous Stasis Changes Neurological: Yes: Oriented Psychiatric: Yes: Oriented Labs: CBC, BMP 06/18/19 06:20 06/19/19 06:00 INR, PTT INR 1.03 (0.83-1.09) 06/19/19 06:00 Problem List - Problems (1) CKD (chronic kidney disease) Code(s): N18.9 - CHRONIC KIDNEY DISEASE, UNSPECIFIED (2) HTN (hypertension) Code(s): I10 - ESSENTIAL (PRIMARY) HYPERTENSION (3) Diabetes mellitus Code(s): E11.9 - TYPE 2 DIABETES MELLITUS WITHOUT COMPLICATIONS Assessment/Plan Current Medications Generic Name Dose Route Start Last Admin Trade Name Freq PRN Reason Stop Dose Admin Acetaminophen 500 mg 06/17/19 17:19 06/19/19 14:25 Tylenol - PO 500 mg Q6H PRN Administration PAIN LEVEL 6-10 Aspirin 81 mg 06/13/19 10:00 06/19/19 11:12 Asa - PO Not Given DAILY [facility] Atorvastatin Calcium 40 mg 06/13/19 22:00 06/18/19 22:00 Lipitor - PO 40 mg HS [facility] Administration Calcium Acetate 667 mg 06/11/19 08:00 06/19/19 17:14 Phoslo - PO Not Given TIDCM [facility] Guaifenesin 600 mg 06/14/19 13:30 06/19/19 11:12 Mucinex - PO Not Given BID [facility] Heparin Sodium (Porcine) 5,000 unit 06/10/19 18:00 06/19/19 15:04 Heparin - SQ 5,000 unit TID [facility] Administration Hydralazine HCl 25 mg 06/14/19 13:00 06/19/19 15:04 Apresoline - PO 25 mg TID [facility] Administration Sodium Chloride 250 mls @ 3,000 mls/hr 06/17/19 15:29 Normal Saline - IV 06/18/19 15:29 PRN PRN Hypotension during Dialysis Insulin Aspart 1 vial 06/16/19 07:00 06/19/19 17:14 Novolog Vial Sliding Scale - SQ 2 units TIDAC [facility] Administration Protocol Isosorbide Mononitrate 30 mg 06/13/19 10:00 06/19/19 11:12 Imdur - PO Not Given DAILY [facility] Metoprolol Succinate 25 mg 06/16/19 16:06 06/19/19 11:12 Toprol Xl - PO Not Given DAILY [facility] Olanzapine 2.5 mg 06/18/19 16:06 06/18/19 22:01 Zyprexa - PO 2.5 mg HS [facility] Administration Impression 1. CKD 2. HTN 3. DM 4. fluid overload 5. esrd 6. altered mental status Plan - next HD on Thursday - neuro input appreciated - pt tolerating po intake - discussed with - urine cultures negative so far
--- NOTE | 2019-06-19 17:23 | PN ---
Progress Note (short form) - Note Progress Note: Subjective: per RN was combative over night but better than before. confused for RN. For me he denies any SOB or pain Objective: Vital Signs: Last Vital Signs Temp Pulse Resp BP Pulse Ox 97.7 F 65 20 120/54 L 96 06/19/19 14:00 06/19/19 14:00 06/19/19 14:00 06/19/19 14:00 06/18/19 21:00 Laboratory Results - last 24 hr 06/18/19 06/18/19 06/19/19 17:21 22:04 05:42 PT with INR INR Sodium Potassium Chloride Carbon Dioxide Anion Gap BUN Creatinine Est GFR (CKD-EPI)AfAm Est GFR (CKD-EPI)NonAf POC Glucometer 114 194 118 Random Glucose Calcium Phosphorus Magnesium 06/19/19 06/19/19 06/19/19 06:00 06:00 10:55 PT with INR 12.20 INR 1.03 Sodium 143 Potassium 3.9 Chloride 107 Carbon Dioxide 30 Anion Gap 6 L BUN 45.6 H Creatinine 4.2 H Est GFR (CKD-EPI)AfAm 14.27 Est GFR (CKD-EPI)NonAf 12.31 POC Glucometer 153 Random Glucose 123 H Calcium 7.9 L Phosphorus 4.0 Magnesium 2.2 06/19/19 16:44 PT with INR INR Sodium Potassium Chloride Carbon Dioxide Anion Gap BUN Creatinine Est GFR (CKD-EPI)AfAm Est GFR (CKD-EPI)NonAf POC Glucometer 174 Random Glucose Calcium Phosphorus Magnesium Physical Exam: NAD, lethargic, arousable. speaks with his eyes closed. calm adn cooperative CV: RRR. Lungs: clear anteriorly Abd: soft, NT, ND , NL BS. Ext: Trace edema on LE ASSESSMENT AND PLAN: 83 y/o man with h./o CKD , HTn , systolic CHF and DM who presented with AMS and was found to be uremic and in acute CHF 1- Acute systolic CHF exacerbation. 2- ESRD 3- Chronic microcytic anemia: iron def 4-AMS: likely due to metabolic encephalopathy from uremia and now acute delirium 5- H/o DM 6- h/o HTN Plan: - zyprexa q HS. decrease to 2.5. EKG in am - psych and neuro consult appreciated - Ct head pending read - cont HD per renal - out pt HD center to be arranged - cont imdur, HZN and toprol - cont SSI . - work up for anemia as out pt. - PT eval - Heparin sq - wrist restraints for safety. PT with range of motion exercises Visit type - Emergency Visit Emergency Visit: Yes ED Registration Date: 06/10/19 Care time: The patient presented to the Emergency Department on the above date and was hospitalized for further evaluation of their emergent condition. - New Patient This patient is new to me today: No - Critical Care Critical Care patient: No
--- NOTE | 2019-06-19 20:04 | EKG ---
Test Reason : Blood Pressure : / mmHG Vent. Rate : 068 BPM Atrial Rate : 068 BPM P-R Int : 200 ms QRS Dur : 098 ms QT Int : 424 ms P-R-T Axes : 064 016 213 degrees QTc Int : 450 ms NORMAL SINUS RHYTHM CANNOT RULE OUT ANTERIOR INFARCT (CITED ON OR BEFORE 10-JUN-2019) ABNORMAL ECG WHEN COMPARED WITH ECG OF 10-JUN-2019 14:29, NO SIGNIFICANT CHANGE WAS FOUND Confirmed by LOUIE HERNANDEZ MD ([id number]) on 06/19/2019 8:03:50 PM Referred By: Chas QUINONEZ Confirmed By:LOUIE HERNANDEZ MD
[2019-06-19] MEDS ORDERED: PT OWN MED DRAWER 7, Y5N ONE (20:53)
[2019-06-19] MEDS: ATORVASTATIN CA 40 MG TABLET (FP) PO SCH (21:16)
[2019-06-19] MEDS: OLANZapine 2.5 MG TABLET PO SCH (21:16)
[2019-06-20] MEDS: INSULIN SLIDING SCALE (NOVOLOG) 1 VIAL SQ SCH ×3 (06:44→17:08)
[2019-06-20] MEDS: hydrALAZINE HCL 25 MG TABLET (FP) PO SCH ×3 (06:44→22:32)
[2019-06-20] MEDS: HEPARIN NA (PORCINE) 5,000 UNITS/ML 1ML VIAL SQ SCH ×3 (06:45→22:32)
[2019-06-20 07:38] LABS: BLOOD UREA NITROGEN 52.3 mg/dL (7-18); CALCIUM 7.9 mg/dL (8.5-10.1); CREATININE 4.4 mg/dL (0.55-1.3); POTASSIUM 3.9 mmol/L (3.5-5.1)
--- NOTE | 2019-06-20 09:00 | PN ---
Progress Note (short form) - Note Progress Note: Neurology HISTORY OF PRESENT ILLNESS: 83yo M with h/o CKD stage V, HTN, Type 2 DM who presents on day of admission with 1 week worsening lower extremity edema. Pt has been told he has end-stage CKD, however he refuses dialysis because he believed his family members suffered and did not benefit in regards to mortality. Pt noticed about 1-2 weeks he has been having increased edema of his legs. He does not weigh himself regularly and he does not know his dry weight. Pt reports he went to see his PCP who increased his lasix to 80mg TID PO. He was only taking this for a couple of days when he noticed severe dyspnea on exertion worsening when he went to the bathroom or moving from [id number] in his house. Pt endorses orthopnea and uses multiple pillows at night to sleep. Pt denies any fever/ chills, headaches, blurry vision, diarrhea/constiption, chest pain, palpitations , abdominal pain, n/v. 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 Psychiatry consult completed, for behavioral changes, put on Zyprexa and if not helpful can use Remeron, per note. Somnolent this AM but not aggitated. Mental status likely 2/[address] repeated, no acute changes noted Active Medications Acetaminophen (Tylenol -) 500 mg PO Q6H PRN PRN Reason: PAIN LEVEL 6-10 Last Admin: 06/19/19 19:41 Dose: 500 mg Aspirin (Asa -) 81 mg PO DAILY [facility] Last Admin: 06/19/19 11:12 Dose: Not Given Atorvastatin Calcium (Lipitor -) 40 mg PO HS [facility] Last Admin: 06/19/19 21:16 Dose: 40 mg Calcium Acetate (Phoslo -) 667 mg PO TIDCM [facility] Last Admin: 06/19/19 17:14 Dose: Not Given Guaifenesin (Mucinex -) 600 mg PO BID [facility] Last Admin: 06/19/19 21:16 Dose: 600 mg Heparin Sodium (Porcine) (Heparin -) 5,000 unit SQ TID [facility] Last Admin: 06/20/19 06:45 Dose: 5,000 unit Hydralazine HCl (Apresoline -) 25 mg PO TID [facility] Last Admin: 06/20/19 06:44 Dose: Not Given Sodium Chloride (Normal Saline -) 250 mls @ 3,000 mls/hr IV PRN PRN PRN Reason: Hypotension during Dialysis Stop: 06/18/19 15:29 Insulin Aspart (Novolog Vial Sliding Scale -) 1 vial SQ TIDAC [facility]; Protocol Last Admin: 06/20/19 06:44 Dose: Not Given Isosorbide Mononitrate (Imdur -) 30 mg PO DAILY [facility] Last Admin: 06/19/19 11:12 Dose: Not Given Metoprolol Succinate (Toprol Xl -) 25 mg PO DAILY [facility] Last Admin: 06/19/19 11:12 Dose: Not Given Olanzapine (Zyprexa -) 2.5 mg PO HS [facility] Last Admin: 06/19/19 21:16 Dose: 2.5 mg PHYSICAL EXAMINATION Vital Signs Period Temp Pulse Resp BP Sys/Alexandre Pulse Ox Last 24 Hr 97.7 F-98.7 F 63-76 20-20 120-149/54-90 96-98 GENERAL: Awake, alert, not oriented, conversive but not coherent HEENT: NC/AT, CAROLA, MMM, EOMI. NECK: + JVD LUNGS: Rales throughout all lung strong bilaterally. No wheezes. No accessory muscle use. On 2LNC. Speaking in full sentences HEART: RRR, normal S1 and S2 without murmur ABDOMEN: Soft, nontender, abdominal wall edema, hypoactive BS, + hepatojugular reflux, no guarding or rebound, no hepatomegaly or caput medusa noted. MUSCULOSKELETAL: No CVA tenderness. EXTREMITIES: 2+ DP pulses b/l, 3+ pitting edema to groin and abdominal wall. Warm, venous stasis changes also noted, no calf tenderness. NEUROLOGICAL: Nonfocal exam. Normal speech. moves all extremities, sensory intact PSYCHIATRIC: Cooperative. Good eye contact. Appropriate mood and affect. SKIN: Warm, dry, no rashes or lesions noted, stasis changes as above, normal capillary refill. CBCD WBC 9.8 K/mm3 (4.0-10.0) 06/18/19 06:20 RBC 5.10 M/mm3 (4.00-5.60) 06/18/19 06:20 Hgb 10.0 GM/dL (11.7-16.9) L 06/18/19 06:20 Hct 31.7 % (35.4-49) L 06/18/19 06:20 MCV 62.2 fl (80-96) L 06/18/19 06:20 MCHC 31.4 g/dl (32.0-35.9) L 06/18/19 06:20 RDW 19.2 % (11.9-15.9) H 06/18/19 06:20 Plt Count 212 K/MM3 (134-434) 06/18/19 06:20 MPV 8.4 fl (7.5-11.1) 06/18/19 06:20 CMP Sodium 145 mmol/L (136-145) 06/20/19 06:35 Potassium 3.9 mmol/L (3.5-5.1) 06/20/19 06:35 Chloride 110 mmol/L (98-107) H 06/20/19 06:35 Carbon Dioxide 30 mmol/L (21-32) 06/20/19 06:35 Anion Gap 5 MMOL/L (8-16) L 06/20/19 06:35 BUN 52.3 mg/dL (7-18) H 06/20/19 06:35 Creatinine 4.4 mg/dL (0.55-1.3) H 06/20/19 06:35 Random Glucose 113 mg/dL (74-106) H 06/20/19 06:35 Calcium 7.9 mg/dL (8.5-10.1) L 06/20/19 06:35 Total Bilirubin 0.8 mg/dL (0.2-1) 06/18/19 06:20 AST 15 U/L (15-37) 06/18/19 06:20 ALT 18 U/L (13-61) 06/18/19 06:20 Alkaline Phosphatase 120 U/L (45-117) H 06/18/19 06:20 Total Protein 5.6 g/dl (6.4-8.2) L 06/18/19 06:20 Albumin 2.7 g/dl (3.4-5.0) L 06/18/19 06:20 CARDIAC ENZYMES Creatine Kinase 159 U/L (26-308) 06/10/19 15:00 Troponin I 0.15 ng/ml (0.00-0.05) H 06/11/19 08:40 ASSESSMENT AND PLAN: 83yo M with h/o CKD stage V, HTN, Type 2 DM who presents on day of admission with 1 week worsening lower extremity edema. Pt has been told he has end-stage CKD, however he refuses dialysis because he believed his family members suffered and did not benefit in regards to mortality. Pt noticed about 1-2 weeks he has been having increased edema of his legs. He does not weigh himself regularly and he does not know his dry weight. Pt reports he went to see his PCP who increased his lasix to 80mg TID PO. He was only taking this for a couple of days when he noticed severe dyspnea on exertion worsening when he went to the bathroom or moving from [id number] in his house. Pt endorses orthopnea and uses multiple pillows at night to sleep. Pt denies any fever/ chills, headaches, blurry vision, diarrhea/constiption, chest pain, palpitations , abdominal pain, n/v. 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 Psychiatry consult completed, for behavioral changes, put on Zyprexa and if not helpful can use Remeron, per note. Somnolent this AM but not aggitated. Remains afebrile and with normal WBC count. Mental status likely 2/[address] repeated, no acute changes noted. Continue pysch follow up and optimization. Continue mgmt for uremia, reorientation as able, monitor mental status. Maintain adequate hydration.
[2019-06-20] MEDS: CALCIUM ACETATE 667 MG CAPSULE (FP) PO SCH ×3 (11:16→17:08)
[2019-06-20] MEDS: ISOSORBIDE MONONITRATE 30 MG TAB.SR.24H (FP) PO SCH ×2 (11:17→12:49)
[2019-06-20] MEDS: ASPIRIN 81 MG CHEWABLE TABLETS PO SCH ×2 (11:17→12:49)
[2019-06-20] MEDS: guaiFENesin 600 MG TABLET.ER (FP) PO SCH ×3 (11:17→22:32)
[2019-06-20] MEDS ORDERED: SODIUM CHLORIDE 250 ML IV PRN (11:58)
--- NOTE | 2019-06-20 11:58 | PN ---
Progress Note, Physician History of Present Illness: Pt seen and examined at bedside. He remains altered. He denies shortness of breath. He is asking for food. - Current Medication List Current Medications: Active Medications Acetaminophen (Tylenol -) 500 mg PO Q6H PRN PRN Reason: PAIN LEVEL 6-10 Last Admin: 06/19/19 19:41 Dose: 500 mg Aspirin (Asa -) 81 mg PO DAILY [facility] Last Admin: 06/20/19 11:17 Dose: Not Given Atorvastatin Calcium (Lipitor -) 40 mg PO HS [facility] Last Admin: 06/19/19 21:16 Dose: 40 mg Calcium Acetate (Phoslo -) 667 mg PO TIDCM [facility] Last Admin: 06/20/19 11:16 Dose: Not Given Guaifenesin (Mucinex -) 600 mg PO BID [facility] Last Admin: 06/20/19 11:17 Dose: Not Given Heparin Sodium (Porcine) (Heparin -) 5,000 unit SQ TID [facility] Last Admin: 06/20/19 06:45 Dose: 5,000 unit Hydralazine HCl (Apresoline -) 25 mg PO TID [facility] Last Admin: 06/20/19 06:44 Dose: Not Given Sodium Chloride (Normal Saline -) 250 mls @ 3,000 mls/hr IV PRN PRN PRN Reason: Hypotension during Dialysis Stop: 06/18/19 15:29 Insulin Aspart (Novolog Vial Sliding Scale -) 1 vial SQ TIDAC [facility]; Protocol Last Admin: 06/20/19 11:41 Dose: Not Given Isosorbide Mononitrate (Imdur -) 30 mg PO DAILY [facility] Last Admin: 06/20/19 11:17 Dose: Not Given Metoprolol Succinate (Toprol Xl -) 25 mg PO DAILY [facility] Last Admin: 06/20/19 11:17 Dose: Not Given Olanzapine (Zyprexa -) 2.5 mg PO [facility] Last Admin: 06/19/19 21:16 Dose: 2.5 mg - Objective Vital Signs: Vital Signs Temperature 98.2 F 06/20/19 06:00 Pulse Rate 76 06/20/19 06:00 Respiratory Rate 20 06/20/19 06:00 Blood Pressure 146/90 06/20/19 06:00 O2 Sat by Pulse Oximetry (%) 98 06/19/19 21:00 Constitutional: Yes: Calm Eyes: Yes: Conjunctiva Clear HENT: Yes: Atraumatic Neck: Yes: Supple Cardiovascular: Yes: S1, S2 Respiratory: Yes: CTA Bilaterally Gastrointestinal: Yes: Soft Genitourinary: Yes: Incontinence Musculoskeletal: Yes: Muscle Weakness Edema: LLE: Trace, RLE: Trace Neurological: Yes: Oriented Psychiatric: Yes: Oriented Labs: CBC, BMP 06/18/19 06:20 06/20/19 06:35 INR, PTT INR 1.03 (0.83-1.09) 06/19/19 06:00 Problem List - Problems (1) CKD (chronic kidney disease) Code(s): N18.9 - CHRONIC KIDNEY DISEASE, UNSPECIFIED (2) HTN (hypertension) Code(s): I10 - ESSENTIAL (PRIMARY) HYPERTENSION (3) Diabetes mellitus Code(s): E11.9 - TYPE 2 DIABETES MELLITUS WITHOUT COMPLICATIONS Assessment/Plan Current Medications Generic Name Dose Route Start Last Admin Trade Name Freq PRN Reason Stop Dose Admin Acetaminophen 500 mg 06/17/19 17:19 06/19/19 19:41 Tylenol - PO 500 mg Q6H PRN Administration PAIN LEVEL 6-10 Aspirin 81 mg 06/13/19 10:00 06/20/19 11:17 Asa - PO Not Given DAILY [facility] Atorvastatin Calcium 40 mg 06/13/19 22:00 06/19/19 21:16 Lipitor - PO 40 mg HS [facility] Administration Calcium Acetate 667 mg 06/11/19 08:00 06/20/19 11:16 Phoslo - PO Not Given TIDCM [facility] Guaifenesin 600 mg 06/14/19 13:30 06/20/19 11:17 Mucinex - PO Not Given BID [facility] Heparin Sodium (Porcine) 5,000 unit 06/10/19 18:00 06/20/19 06:45 Heparin - SQ 5,000 unit TID [facility] Administration Hydralazine HCl 25 mg 06/14/19 13:00 06/20/19 06:44 Apresoline - PO Not Given TID [facility] Sodium Chloride 250 mls @ 3,000 mls/hr 06/17/19 15:29 Normal Saline - IV 06/18/19 15:29 PRN PRN Hypotension during Dialysis Insulin Aspart 1 vial 06/16/19 07:00 06/20/19 11:41 Novolog Vial Sliding Scale - SQ Not Given TIDAC [facility] Protocol Isosorbide Mononitrate 30 mg 06/13/19 10:00 06/20/19 11:17 Imdur - PO Not Given DAILY [facility] Metoprolol Succinate 25 mg 06/16/19 16:06 06/20/19 11:17 Toprol Xl - PO Not Given DAILY [facility] Olanzapine 2.5 mg 06/18/19 16:06 06/19/19 21:16 Zyprexa - PO 2.5 mg HS [facility] Administration Microbiology 06/17/19 15:45 Urine - Urine Clean Catch Urine Culture - Final NO GROWTH OBTAINED 06/10/19 22:00 Urine - Urine - Catheterized Urine Culture - Final NO GROWTH OBTAINED Impression 1. CKD 2. HTN 3. DM 4. fluid overload 5. esrd 6. altered mental status Plan - HD tomorrow - mental statu snot improved - neuro input appreciated - pt tolerating po intake - urine cultures negative so far
--- NOTE | 2019-06-20 15:40 | PN ---
Physical Exam: SUBJECTIVE: Patient seen and examined 83 y/o M, pmh of CKD stage V, T2DM presented with LE edema of 1 week duration likely 2/2 fluid overload from ESRD. Pt was difficult to arouse today and remains confused. Pt admits to generalized pain over his whole body, but unable to assess anything else. Pt is still in wrist restraints. OBJECTIVE: Last Vital Signs Temp Pulse Resp BP Pulse Ox 98.5 F 72 20 146/64 97 06/20/19 10:00 06/20/19 10:00 06/20/19 10:00 06/20/19 10:00 06/20/19 09:00 GENERAL: Pt remains confused and difficult to arouse. EYES: PERRL, extraocular movements intact. Pt does not open his eyes to command. ENT: dentation poor. Uses artificial teeth. moist mucous membranes. NECK: full range of motion, supple. LUNGS: wheezing heard b/l. HEART: Regular rate and rhythm, S1 and S2 normal ABDOMEN: Tenderness to palpation in the lower abdominal and suprapubic region, nondistended, normoactive bowel sounds EXTREMITIES: 2+ pulses, no edema. Chronic venous stasis skin changes b/l. Tenderness to palpation on both extremities b/l. NEUROLOGICAL: Cranial nerves II through XII grossly intact. SKIN: Warm, dry, normal turgor Laboratory Results - last 24 hr CBC,CMP WBC 9.8 K/mm3 (4.0-10.0) 06/18/19 06:20 RBC 5.10 M/mm3 (4.00-5.60) 06/18/19 06:20 Hgb 10.0 GM/dL (11.7-16.9) L 06/18/19 06:20 Hct 31.7 % (35.4-49) L 06/18/19 06:20 MCV 62.2 fl (80-96) L 06/18/19 06:20 MCH 19.5 pg (25.7-33.7) L 06/18/19 06:20 MCHC 31.4 g/dl (32.0-35.9) L 06/18/19 06:20 RDW 19.2 % (11.9-15.9) H 06/18/19 06:20 Plt Count 212 K/MM3 (134-434) 06/18/19 06:20 MPV 8.4 fl (7.5-11.1) 06/18/19 06:20 Absolute Neuts (auto) 6.6 K/mm3 (1.5-8.0) 06/16/19 06:10 Neutrophils % 79.4 % (42.8-82.8) 06/16/19 06:10 Neutrophils % (Manual) 79.2 % (42.8-82.8) 06/15/19 06:20 Band Neutrophils % 0.0 % 06/15/19 06:20 Lymphocytes % 5.7 % (8-40) L D 06/16/19 06:10 Lymphocytes % (Manual) 4.9 % (8-40) L 06/15/19 06:20 Monocytes % 10.6 % (3.8-10.2) H 06/16/19 06:10 Monocytes % (Manual) 6 % (3.8-10.2) 06/15/19 06:20 Eosinophils % 3.5 % (0-4.5) 06/16/19 06:10 Eosinophils % (Manual) 3.0 % (0-4.5) 06/15/19 06:20 Basophils % 0.8 % (0-2.0) 06/16/19 06:10 Basophils % (Manual) 3.0 % (0-2.0) H D 06/15/19 06:20 Myelocytes % (Man) 0 % (0-2) 06/15/19 06:20 Promyelocytes % (Man) 0 % (0-2) 06/15/19 06:20 Blast Cells % (Manual) 0 % (0-0) 06/15/19 06:20 Nucleated RBC % 1 % (0-0) H 06/16/19 06:10 Metamyelocytes 0 % (0-2) 06/15/19 06:20 Hypochromia 3+ 06/15/19 06:20 Toxic Granulation 1+ 06/13/19 05:35 Platelet Estimate Normal 06/16/19 06:10 Platelet Comment Present 06/12/19 06:16 Polychromasia 1+ 06/15/19 06:20 Poikilocytosis 3+ 06/15/19 06:20 Anisocytosis 3+ 06/15/19 06:20 Microcytosis 3+ 06/15/19 06:20 Macrocytosis 0 06/15/19 06:20 Spherocytes 2+ 06/13/19 05:35 Target Cells 3+ 06/15/19 06:20 Tear Drop Cells 1+ 06/13/19 05:35 Ovalocytes 1+ 06/14/19 06:07 [place] Cells 1+ 06/10/19 15:00 Rouleaux 1+ 06/15/19 06:20 Fragmented RBCs 2+ 06/15/19 06:20 Schistocytes 3+ 06/15/19 06:20 Sodium 145 mmol/L (136-145) 06/20/19 06:35 Potassium 3.9 mmol/L (3.5-5.1) 06/20/19 06:35 Chloride 110 mmol/L (98-107) H 06/20/19 06:35 Carbon Dioxide 30 mmol/L (21-32) 06/20/19 06:35 Anion Gap 5 MMOL/L (8-16) L 06/20/19 06:35 BUN 52.3 mg/dL (7-18) H 06/20/19 06:35 Creatinine 4.4 mg/dL (0.55-1.3) H 06/20/19 06:35 Est GFR (CKD-EPI)AfAm 13.49 06/20/19 06:35 Est GFR (CKD-EPI)NonAf 11.64 06/20/19 06:35 POC Glucometer 117 UNITS (80-120) 06/20/19 11:27 Random Glucose 113 mg/dL (74-106) H 06/20/19 06:35 Hemoglobin A1c % 8.0 % (4.2-6.3) H 06/11/19 06:00 Calcium 7.9 mg/dL (8.5-10.1) L 06/20/19 06:35 Phosphorus 4.0 mg/dL (2.5-4.9) 06/19/19 06:00 Magnesium 2.2 mg/dL (1.8-2.4) 06/19/19 06:00 Iron 16 ug/dL (50-175) L 06/11/19 06:00 TIBC 329 ug/dL (250-450) 06/11/19 06:00 Iron Saturation 4 % (17.5-39) L 06/11/19 06:00 Unsaturated IBC 313 ug/dL (200-275) H 06/11/19 06:00 Ferritin 17.1 ng/ml (8-388) 06/11/19 06:00 Total Bilirubin 0.8 mg/dL (0.2-1) 06/18/19 06:20 AST 15 U/L (15-37) 06/18/19 06:20 ALT 18 U/L (13-61) 06/18/19 06:20 Alkaline Phosphatase 120 U/L (45-117) H 06/18/19 06:20 Creatine Kinase 159 U/L (26-308) 06/10/19 15:00 Creatine Kinase Index 3.3 % (0.0-5.0) 06/10/19 15:00 CK-MB (CK-2) 5.4 ng/mL (0.5-3.6) H 06/10/19 15:00 Troponin I 0.15 ng/ml (0.00-0.05) H 06/11/19 08:40 B-Natriuretic Peptide 32348.8 pg/ml (5-450) H 06/10/19 15:00 Total Protein 5.6 g/dl (6.4-8.2) L 06/18/19 06:20 Albumin 2.7 g/dl (3.4-5.0) L 06/18/19 06:20 PTH Intact 236 pg/mL (15-65) H 06/11/19 06:00 PTH Intact Intraop 0 m (.) 06/11/19 06:00 Active Medications Current Medications Acetaminophen (Tylenol -) 500 mg PO Q6H PRN PRN Reason: PAIN LEVEL 6-10 Last Admin: 06/19/19 19:41 Dose: 500 mg Aspirin (Asa -) 81 mg PO DAILY [facility] Last Admin: 06/20/19 12:49 Dose: 81 mg Atorvastatin Calcium (Lipitor -) 40 mg PO HS [facility] Last Admin: 06/19/19 21:16 Dose: 40 mg Calcium Acetate (Phoslo -) 667 mg PO TIDCM [facility] Last Admin: 06/20/19 12:49 Dose: 667 mg Guaifenesin (Mucinex -) 600 mg PO BID [facility] Last Admin: 06/20/19 12:49 Dose: 600 mg Heparin Sodium (Porcine) (Heparin -) 5,000 unit SQ TID [facility] Last Admin: 06/20/19 13:39 Dose: 5,000 unit Hydralazine HCl (Apresoline -) 25 mg PO TID [facility] [place] Last Admin: 06/20/19 13:39 Dose: 25 mg Sodium Chloride (Normal Saline -) 250 mls @ 3,000 mls/hr IV PRN PRN PRN Reason: Hypotension during Dialysis Stop: 06/21/19 11:58 Insulin Aspart (Novolog Vial Sliding Scale -) 1 vial SQ TIDAC [facility]; Protocol Last Admin: 06/20/19 11:41 Dose: Not Given Isosorbide Mononitrate (Imdur -) 30 mg PO DAILY [facility] [place] Last Admin: 06/20/19 12:49 Dose: 30 mg Metoprolol Succinate (Toprol Xl -) 25 mg PO DAILY [facility] [place] Last Admin: 06/20/19 12:49 Dose: 25 mg Olanzapine (Zyprexa -) 2.5 mg PO HS [facility] Last Admin: 06/19/19 21:16 Dose: 2.5 mg Home Medications Medication Instructions Recorded Amlodipine Besylate 5 mg PO DAILY 06/10/19 Calcium Acetate [Phoslo -] 667 mg PO TID 06/10/19 Furosemide [Lasix] 80 mg PO TID 06/10/19 Microbiology 06/17/19 15:45 Urine - Urine Clean Catch Urine Culture - Final NO GROWTH OBTAINED 06/10/19 22:00 Urine - Urine - Catheterized Urine Culture - Final NO GROWTH OBTAINED ASSESSMENT/PLAN: 83 y/o M, pmh of CKD stage V, T2DM presented with LE edema of 1 week duration likely 2/2 fluid overload from ESRD. #AMS Hold olanzapine tonight EKG today- NSR, unchanged from previous ekg PT was called to attempt bedside exercises since full PT eval is difficult on pt. HD tomorrow- confusion likely 2/2 to uremia Nephro consult appreciated Neuro consult appreciated Pt on wrist restraint for safety of self and others #LE edema likely 2/2 to Fluid overload 2/2 ESRD Significantly improved pending placement for HD #Safety at home Pt's expresses concern for safety- advised to remove dangerous items from home Pt will be going to Rehab #CHF- acute on chronic systolic CHF w/ severe fluid overload Strict salt and fluid restrictions. No fluids nor ice cubes at the bedside. #HTN Cont hydralazine 25 mg 3 times a day. #HLD cont atorvastatin #Type 2 DM ISS #DVT ppx Heparin FEN: renal diet, IVF NS 250 at 3000 Dispo: F/u PT eval and his mentation, HD tomorrow Visit type - Emergency Visit Emergency Visit: Yes ED Registration Date: 06/10/19 Care time: The patient presented to the Emergency Department on the above date and was hospitalized for further evaluation of their emergent condition. - New Patient This patient is new to me today: Yes Date on this admission: 06/20/19 - Critical Care Critical Care patient: No - Discharge Referral Referred to [facility] No ATTENDING PHYSICIAN STATEMENT I saw and evaluated the patient. I reviewed the resident's note and discussed the case with the resident. I agree with the resident's findings and plan as documented. SUBJECTIVE: OBJECTIVE: ASSESSMENT AND PLAN:
--- NOTE | 2019-06-20 15:51 | PN ---
Teaching Attending Note Name of Resident: Viviana Rojas ATTENDING PHYSICIAN STATEMENT I saw and evaluated the patient. I reviewed the resident's note and discussed the case with the resident. I agree with the resident's findings and plan as documented. SUBJECTIVE: too lethargic to take hx OBJECTIVE: NAD, lethargic CV: RRR. Lungs: minimal bibasilar crackles Abd: soft, NT, ND , NL BS. Ext: Trace edema on LE ASSESSMENT AND PLAN: 83 y/o man with h./o CKD , HTn , systolic CHF and DM who presented with AMS and was found to be uremic and in acute CHF 1- Acute systolic CHF exacerbation. 2- ESRD 3- Chronic microcytic anemia: iron def 4-AMS: likely due to metabolic encephalopathy from uremia and now acute delirium 5- H/o DM 6- h/o HTN 7- urinary retention Plan: - too lethargic, hold zyprexa and reassess his agitation and hallucinations - Ct head final read with no acute events - bladder scan with 700 cc of urine . will straight cath him and then redo the bladder scan in 8 hrs - cont HD per renal - out pt HD center to be arranged - cont imdur, HZN and toprol - cont SSI . - work up for anemia as out pt. - PT eval - Heparin sq - wrist restraints for safety. ASSESSMENT AND PLAN:
[2019-06-20] MEDS ORDERED: SODIUM PHOSPHATE/NA BIPHOS 133 ML ENEMA PR ONE (17:48)
[2019-06-20] MEDS: SENNOSIDES 8.6MG TABLET (FP) PO SCH ×2 (18:27→22:32)
[2019-06-20] MEDS: ATORVASTATIN CA 40 MG TABLET (FP) PO SCH (22:32)
[2019-06-21] MEDS: HEPARIN NA (PORCINE) 5,000 UNITS/ML 1ML VIAL SQ SCH ×3 (05:42→22:31)
[2019-06-21] MEDS: hydrALAZINE HCL 25 MG TABLET (FP) PO SCH ×3 (05:42→22:31)
[2019-06-21] MEDS: INSULIN SLIDING SCALE (NOVOLOG) 1 VIAL SQ SCH ×3 (06:02→18:09)
[2019-06-21 07:02] LABS: HEMATOCRIT 32.1 % (35.4-49); HEMOGLOBIN 9.9 GM/dL (11.7-16.9); MEAN CELL VOLUME 62.2 fl (80-96); MEAN PLT VOLUME 8.7 fl (7.5-11.1); PLATELET COUNT 223 K/MM3 (134-434); RBC 5.16 M/mm3 (4.00-5.60); RDW 19.3 % (11.9-15.9); WHITE BLOOD COUNT 12.9 K/mm3 (4.0-10.0)
[2019-06-21 07:25] LABS: MCH 19.2 pg (25.7-33.7)
[2019-06-21 08:06] LABS: BLOOD UREA NITROGEN 50.6 mg/dL (7-18); CREATININE 4.6 mg/dL (0.55-1.3); MAGNESIUM 2.4 mg/dL (1.8-2.4); PHOSPHOROUS 3.9 mg/dL (2.5-4.9)
--- NOTE | 2019-06-21 08:37 | PN ---
Progress Note (short form) - Note Progress Note: Neurology HISTORY OF PRESENT ILLNESS: 83yo M with h/o CKD stage V, HTN, Type 2 DM who presents on day of admission with 1 week worsening lower extremity edema. Pt has been told he has end-stage CKD, however he refuses dialysis because he believed his family members suffered and did not benefit in regards to mortality. Pt noticed about 1-2 weeks he has been having increased edema of his legs. He does not weigh himself regularly and he does not know his dry weight. Pt reports he went to see his PCP who increased his lasix to 80mg TID PO. He was only taking this for a couple of days when he noticed severe dyspnea on exertion worsening when he went to the bathroom or moving from [id number] in his house. Pt endorses orthopnea and uses multiple pillows at night to sleep. Pt denies any fever/ chills, headaches, blurry vision, diarrhea/constiption, chest pain, palpitations , abdominal pain, n/v. 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 Psychiatry consult completed, for behavioral changes, put on Zyprexa and if not helpful can use Remeron, per note. Zyprexa reduced to 2.[address] repeated , no acute changes noted. Increase in WBC this am, 12.9. receiving hemodialysis at bedside and more awake and alert during my conversation with him during hemodialysis. Active Medications Acetaminophen (Tylenol -) 500 mg PO Q6H PRN PRN Reason: PAIN LEVEL 6-10 Last Admin: 06/19/19 19:41 Dose: 500 mg Aspirin (Asa -) 81 mg PO DAILY [facility] Last Admin: 06/20/19 12:49 Dose: 81 mg Atorvastatin Calcium (Lipitor -) 40 mg PO HS [facility] Last Admin: 06/20/19 22:32 Dose: 40 mg Calcium Acetate (Phoslo -) 667 mg PO TIDCM [facility] Last Admin: 06/20/19 17:08 Dose: 667 mg Guaifenesin (Mucinex -) 600 mg PO BID [facility] Last Admin: 06/20/19 22:32 Dose: 600 mg Heparin Sodium (Porcine) (Heparin -) 5,000 unit SQ TID [facility] Last Admin: 06/21/19 05:42 Dose: 5,000 unit Hydralazine HCl (Apresoline -) 25 mg PO TID [facility] Last Admin: 06/21/19 05:42 Dose: Not Given Sodium Chloride (Normal Saline -) 250 mls @ 3,000 mls/hr IV PRN PRN PRN Reason: Hypotension during Dialysis Stop: 06/21/19 11:58 Insulin Aspart (Novolog Vial Sliding Scale -) 1 vial SQ TIDAC [facility]; Protocol Last Admin: 06/21/19 06:02 Dose: Not Given Isosorbide Mononitrate (Imdur -) 30 mg PO DAILY [facility] Last Admin: 06/20/19 12:49 Dose: 30 mg Metoprolol Succinate (Toprol Xl -) 25 mg PO DAILY [facility] Last Admin: 06/20/19 12:49 Dose: 25 mg Olanzapine (Zyprexa -) 2.5 mg PO HS [facility] Last Admin: 06/19/19 21:16 Dose: 2.5 mg Senna (Senna -) 1 tab PO BID [facility] Last Admin: 06/20/19 22:32 Dose: 1 tab PHYSICAL EXAMINATION Vital Signs Period Temp Pulse Resp BP Sys/Alexandre Pulse Ox Last 24 Hr 98 F-98.8 F 68-75 2-20 118-146/57-71 97-97 GENERAL: Awake, alert, not oriented, conversive but not coherent HEENT: NC/AT, CAROLA, MMM, EOMI. NECK: + JVD LUNGS: Rales throughout all lung strong bilaterally. No wheezes. No accessory muscle use. On 2LNC. Speaking in full sentences HEART: RRR, normal S1 and S2 without murmur ABDOMEN: Soft, nontender, abdominal wall edema, hypoactive BS, + hepatojugular reflux, no guarding or rebound, no hepatomegaly or caput medusa noted. MUSCULOSKELETAL: No CVA tenderness. EXTREMITIES: 2+ DP pulses b/l, 3+ pitting edema to groin and abdominal wall. Warm, venous stasis changes also noted, no calf tenderness. NEUROLOGICAL: Nonfocal exam. Normal speech. moves all extremities, sensory intact PSYCHIATRIC: Cooperative. Good eye contact. Appropriate mood and affect. SKIN: Warm, dry, no rashes or lesions noted, stasis changes as above, normal capillary refill. CBCD WBC 12.9 K/mm3 (4.0-10.0) H 06/21/19 06:25 RBC 5.16 M/mm3 (4.00-5.60) 06/21/19 06:25 Hgb 9.9 GM/dL (11.7-16.9) L 06/21/19 06:25 Hct 32.1 % (35.4-49) L 06/21/19 06:25 MCV 62.2 fl (80-96) L 06/21/19 06:25 MCHC 31.0 g/dl (32.0-35.9) L 06/21/19 06:25 RDW 19.3 % (11.9-15.9) H 06/21/19 06:25 Plt Count 223 K/MM3 (134-434) 06/21/19 06:25 MPV 8.7 fl (7.5-11.1) 06/21/19 06:25 CMP Sodium 143 mmol/L (136-145) 06/21/19 06:25 Potassium 4.0 mmol/L (3.5-5.1) 06/21/19 06:25 Chloride 108 mmol/L (98-107) H 06/21/19 06:25 Carbon Dioxide 28 mmol/L (21-32) 06/21/19 06:25 Anion Gap 7 MMOL/L (8-16) L 06/21/19 06:25 BUN 50.6 mg/dL (7-18) H 06/21/19 06:25 Creatinine 4.6 mg/dL (0.55-1.3) H 06/21/19 06:25 Random Glucose 120 mg/dL (74-106) H 06/21/19 06:25 Calcium 8.0 mg/dL (8.5-10.1) L 06/21/19 06:25 Total Bilirubin 0.8 mg/dL (0.2-1) 06/18/19 06:20 AST 15 U/L (15-37) 06/18/19 06:20 ALT 18 U/L (13-61) 06/18/19 06:20 Alkaline Phosphatase 120 U/L (45-117) H 06/18/19 06:20 Total Protein 5.6 g/dl (6.4-8.2) L 06/18/19 06:20 Albumin 2.7 g/dl (3.4-5.0) L 06/18/19 06:20 CARDIAC ENZYMES Creatine Kinase 159 U/L (26-308) 06/10/19 15:00 Troponin I 0.15 ng/ml (0.00-0.05) H 06/11/19 08:40 ASSESSMENT AND PLAN: 83yo M with h/o CKD stage V, HTN, Type 2 DM who presents on day of admission with 1 week worsening lower extremity edema. Pt has been told he has end-stage CKD, however he refuses dialysis because he believed his family members suffered and did not benefit in regards to mortality. Pt noticed about 1-2 weeks he has been having increased edema of his legs. He does not weigh himself regularly and he does not know his dry weight. Pt reports he went to see his PCP who increased his lasix to 80mg TID PO. He was only taking this for a couple of days when he noticed severe dyspnea on exertion worsening when he went to the bathroom or moving from [id number] in his house. Pt endorses orthopnea and uses multiple pillows at night to sleep. Pt denies any fever/ chills, headaches, blurry vision, diarrhea/constiption, chest pain, palpitations , abdominal pain, n/v. 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 Psychiatry consult completed, for behavioral changes, put on Zyprexa and if not helpful can use Remeron, per note. Zyprexa reduced to 2.[address] repeated , no acute changes noted. Increase in WBC this am, 12.9. receiving hemodialysis at bedside and more awake and alert during my conversation with him during hemodialysis. Continue pysch follow up and optimization. Continue mgmt for uremia, reorientation as able, monitor mental status. Maintain adequate hydration. Follow up evaluation of possible underlying infection in context of leukocytosis this morning
--- NOTE | 2019-06-21 10:43 | EKG ---
Test Reason : Blood Pressure : / mmHG Vent. Rate : 073 BPM Atrial Rate : 073 BPM P-R Int : 206 ms QRS Dur : 098 ms QT Int : 410 ms P-R-T Axes : 040 001 168 degrees QTc Int : 451 ms NORMAL SINUS RHYTHM CANNOT RULE OUT ANTERIOR INFARCT (CITED ON OR BEFORE 10-JUN-2019) ABNORMAL ECG Confirmed by MD ROCKY, TOMÁS ([id number]) on 06/21/2019 10:43:23 AM Referred By: SAMUEL WARNER DR Confirmed By:TOMÁS HIDALGO MD
[2019-06-21] MEDS: SENNOSIDES 8.6MG TABLET (FP) PO SCH ×2 (10:53→22:31)
[2019-06-21] MEDS: CALCIUM ACETATE 667 MG CAPSULE (FP) PO SCH ×3 (10:53→18:24)
[2019-06-21] MEDS: ASPIRIN 81 MG CHEWABLE TABLETS PO SCH (10:53)
[2019-06-21] MEDS: guaiFENesin 600 MG TABLET.ER (FP) PO SCH ×2 (10:55→22:31)
[2019-06-21] MEDS: ISOSORBIDE MONONITRATE 30 MG TAB.SR.24H (FP) PO SCH (10:55)
[2019-06-21] MEDS ORDERED: PT OWN MED DRAWER 7, Y5N ONE (11:42)
[2019-06-21 12:43] LABS: EPI CELLS 0.2 /HPF (0-5/HPF); HYALINE CASTS 4 /lpf (0-8); URINE APPEARANCE CLOUDY; URINE BACTERIA 2212.2 /hpf (NEGATIVE); URINE BILIRUBIN NEGATIVE (NEGATIVE); URINE COLOR YELLOW; URINE GLUCOSE (UA) 1+ (NEGATIVE); URINE KETONE NEGATIVE (NEGATIVE); URINE LEUK ESTERASE TRACE (NEGATIVE); URINE NITRITE NEGATIVE (NEGATIVE); URINE PROTEIN 3+ (NEGATIVE); URINE UROBILINOGEN 0.2 mg/dL (0.2-1.0); URINE WBC 25 /hpf (0-5)
[2019-06-21 13:46] LABS: URINE CRYSTALS CA OXALATE /hpf; YEAST NONE SEEN (NEGATIVE)
--- NOTE | 2019-06-21 13:58 | PN ---
Progress Note, Physician History of Present Illness: Pt seen and examined at bedside. He is more awake today but still confused. - Current Medication List Current Medications: Active Medications Acetaminophen (Tylenol -) 500 mg PO Q6H PRN PRN Reason: PAIN LEVEL 6-10 Last Admin: 06/19/19 19:41 Dose: 500 mg Aspirin (Asa -) 81 mg PO DAILY [facility] Last Admin: 06/21/19 10:53 Dose: 81 mg Atorvastatin Calcium (Lipitor -) 40 mg PO HS [facility] Last Admin: 06/20/19 22:32 Dose: 40 mg Calcium Acetate (Phoslo -) 667 mg PO TIDCM [facility] Last Admin: 06/21/19 12:53 Dose: 667 mg Guaifenesin (Mucinex -) 600 mg PO BID [facility] Last Admin: 06/21/19 10:55 Dose: 600 mg Heparin Sodium (Porcine) (Heparin -) 5,000 unit SQ TID [facility] Last Admin: 06/21/19 05:42 Dose: 5,000 unit Hydralazine HCl (Apresoline -) 25 mg PO TID [facility] Last Admin: 06/21/19 05:42 Dose: Not Given Sodium Chloride (Normal Saline -) 250 mls @ 3,000 mls/hr IV PRN PRN PRN Reason: Hypotension during Dialysis Stop: 06/21/19 11:58 Insulin Aspart (Novolog Vial Sliding Scale -) 1 vial SQ TIDAC [facility]; Protocol Last Admin: 06/21/19 12:28 Dose: Not Given Isosorbide Mononitrate (Imdur -) 30 mg PO DAILY [facility] Last Admin: 06/21/19 10:55 Dose: 30 mg Metoprolol Succinate (Toprol Xl -) 25 mg PO DAILY [facility] Last Admin: 06/21/19 10:53 Dose: 25 mg Olanzapine (Zyprexa -) 2.5 mg PO [facility] Last Admin: 06/19/19 21:16 Dose: 2.5 mg Senna (Senna -) 1 tab PO BID [facility] Last Admin: 06/21/19 10:53 Dose: 1 tab - Objective Vital Signs: Vital Signs Temperature 98.5 F 06/21/19 06:55 Pulse Rate 66 06/21/19 10:58 Respiratory Rate 18 06/21/19 10:58 Blood Pressure 148/79 06/21/19 10:58 O2 Sat by Pulse Oximetry (%) 95 06/21/19 08:49 Constitutional: Yes: Calm Eyes: Yes: Conjunctiva Clear HENT: Yes: Atraumatic Neck: Yes: Supple Cardiovascular: Yes: S1, S2 Respiratory: Yes: CTA Bilaterally Gastrointestinal: Yes: Soft Genitourinary: Yes: Incontinence Musculoskeletal: Yes: Muscle Weakness Edema: Yes Edema: LLE: 1+, RLE: 1+ Integumentary: Yes: Venous Stasis Changes Neurological: Yes: Confusion Labs: CBC, BMP 06/21/19 06:25 06/21/19 06:25 INR, PTT INR 1.03 (0.83-1.09) 06/19/19 06:00 Problem List - Problems (1) CKD (chronic kidney disease) Code(s): N18.9 - CHRONIC KIDNEY DISEASE, UNSPECIFIED (2) HTN (hypertension) Code(s): I10 - ESSENTIAL (PRIMARY) HYPERTENSION (3) Diabetes mellitus Code(s): E11.9 - TYPE 2 DIABETES MELLITUS WITHOUT COMPLICATIONS Assessment/Plan Current Medications Generic Name Dose Route Start Last Admin Trade Name Freq PRN Reason Stop Dose Admin Acetaminophen 500 mg 06/17/19 17:19 06/19/19 19:41 Tylenol - PO 500 mg Q6H PRN Administration PAIN LEVEL 6-10 Aspirin 81 mg 06/13/19 10:00 06/21/19 10:53 Asa - PO 81 mg DAILY [facility] Administration Atorvastatin Calcium 40 mg 06/13/19 22:00 06/20/19 22:32 Lipitor - PO 40 mg HS [facility] Administration Calcium Acetate 667 mg 06/11/19 08:00 06/21/19 12:53 Phoslo - PO 667 mg TIDCM [facility] Administration Guaifenesin 600 mg 06/14/19 13:30 06/21/19 10:55 Mucinex - PO 600 mg BID [facility] Administration Heparin Sodium (Porcine) 5,000 unit 06/10/19 18:00 06/21/19 05:42 Heparin - SQ 5,000 unit TID [facility] Administration Hydralazine HCl 25 mg 06/14/19 13:00 06/21/19 05:42 Apresoline - PO Not Given TID [facility] Sodium Chloride 250 mls @ 3,000 mls/hr 06/20/19 11:58 Normal Saline - IV 06/21/19 11:58 PRN PRN Hypotension during Dialysis Insulin Aspart 1 vial 06/16/19 07:00 06/21/19 12:28 Novolog Vial Sliding Scale - SQ Not Given TIDAC [facility] Protocol Isosorbide Mononitrate 30 mg 06/13/19 10:00 06/21/19 10:55 Imdur - PO 30 mg DAILY [facility] Administration Metoprolol Succinate 25 mg 06/16/19 16:06 06/21/19 10:53 Toprol Xl - PO 25 mg DAILY [facility] Administration Olanzapine 2.5 mg 06/18/19 16:06 06/19/19 21:16 Zyprexa - PO 2.5 mg HS [facility] Administration Senna 1 tab 06/20/19 17:20 06/21/19 10:53 Senna - PO 1 tab BID [facility] Administration Impression 1. CKD 2. HTN 3. DM 4. fluid overload 5. esrd 6. altered mental status Plan - HD today - mental status is improved - neuro input appreciated - pt tolerating po intake - urine cultures negative so far
[2019-06-21 14:12] LABS: URINE RBC 16.6 /hpf (0-4)
--- NOTE | 2019-06-21 15:31 | PN ---
Physical Exam: SUBJECTIVE: Patient seen and examined 83 y/o M, pmh of CKD stage V, T2DM presented with LE edema of 1 week duration likely 2/2 fluid overload from ESRD. Pt has significantly improved s/p dialysis. Pt appears to be conversational and no longer lethargic. Pt has no c/ o overnight and only reports urinary retention. Denies f/c/n/v/d/sob/chest pain. OBJECTIVE: Vital Signs Period Temp Pulse Resp BP Sys/Alexandre Pulse Ox Last 24 Hr 98 F-98.8 F 66-75 2-20 118-149/57-79 95-97 GENERAL: Pt alert, awake and conversational. EYES: PERRL, extraocular movements intact. ENT: dentation poor. Uses artificial teeth. moist mucous membranes. NECK: full range of motion, supple. LUNGS: breath sounds have improved significantly. Mild wheezing heard b/l. HEART: Regular rate and rhythm, S1 and S2 normal ABDOMEN: Tenderness to palpation in the lower abdominal and suprapubic region mildly present, nondistended, normoactive bowel sounds EXTREMITIES: 2+ pulses, no edema. Chronic venous stasis skin changes b/l. Tenderness to palpation on both extremities b/l. NEUROLOGICAL: Cranial nerves II through XII grossly intact. SKIN: Warm, dry, normal turgor Laboratory Results - last 24 hr WBC 12.9 K/mm3 (4.0-10.0) H 06/21/19 06:25 RBC 5.16 M/mm3 (4.00-5.60) 06/21/19 06:25 Hgb 9.9 GM/dL (11.7-16.9) L 06/21/19 06:25 Hct 32.1 % (35.4-49) L 06/21/19 06:25 MCV 62.2 fl (80-96) L 06/21/19 06:25 MCH 19.2 pg (25.7-33.7) L 06/21/19 06:25 MCHC 31.0 g/dl (32.0-35.9) L 06/21/19 06:25 RDW 19.3 % (11.9-15.9) H 06/21/19 06:25 Plt Count 223 K/MM3 (134-434) 06/21/19 06:25 MPV 8.7 fl (7.5-11.1) 06/21/19 06:25 Absolute Neuts (auto) 6.6 K/mm3 (1.5-8.0) 06/16/19 06:10 Neutrophils % 79.4 % (42.8-82.8) 06/16/19 06:10 Neutrophils % (Manual) 79.2 % (42.8-82.8) 06/15/19 06:20 Band Neutrophils % 0.0 % 06/15/19 06:20 Lymphocytes % 5.7 % (8-40) L D 06/16/19 06:10 Lymphocytes % (Manual) 4.9 % (8-40) L 06/15/19 06:20 Monocytes % 10.6 % (3.8-10.2) H 06/16/19 06:10 Monocytes % (Manual) 6 % (3.8-10.2) 06/15/19 06:20 Eosinophils % 3.5 % (0-4.5) 06/16/19 06:10 Eosinophils % (Manual) 3.0 % (0-4.5) 06/15/19 06:20 Basophils % 0.8 % (0-2.0) 06/16/19 06:10 Basophils % (Manual) 3.0 % (0-2.0) H D 06/15/19 06:20 Myelocytes % (Man) 0 % (0-2) 06/15/19 06:20 Promyelocytes % (Man) 0 % (0-2) 06/15/19 06:20 Blast Cells % (Manual) 0 % (0-0) 06/15/19 06:20 Nucleated RBC % 1 % (0-0) H 06/16/19 06:10 Metamyelocytes 0 % (0-2) 06/15/19 06:20 Hypochromia 3+ 06/15/19 06:20 Toxic Granulation 1+ 06/13/19 05:35 Platelet Estimate Normal 06/16/19 06:10 Platelet Comment Present 06/12/19 06:16 Polychromasia 1+ 06/15/19 06:20 Poikilocytosis 3+ 06/15/19 06:20 Anisocytosis 3+ 06/15/19 06:20 Microcytosis 3+ 06/15/19 06:20 Macrocytosis 0 06/15/19 06:20 Spherocytes 2+ 06/13/19 05:35 Target Cells 3+ 06/15/19 06:20 Tear Drop Cells 1+ 06/13/19 05:35 Ovalocytes 1+ 06/14/19 06:07 [place] Cells 1+ 06/10/19 15:00 Rouleaux 1+ 06/15/19 06:20 Fragmented RBCs 2+ 06/15/19 06:20 Schistocytes 3+ 06/15/19 06:20 Sodium 143 mmol/L (136-145) 06/21/19 06:25 Potassium 4.0 mmol/L (3.5-5.1) 06/21/19 06:25 Chloride 108 mmol/L (98-107) H 06/21/19 06:25 Carbon Dioxide 28 mmol/L (21-32) 06/21/19 06:25 Anion Gap 7 MMOL/L (8-16) L 06/21/19 06:25 BUN 50.6 mg/dL (7-18) H 06/21/19 06:25 Creatinine 4.6 mg/dL (0.55-1.3) H 06/21/19 06:25 Est GFR (CKD-EPI)AfAm 12.78 06/21/19 06:25 Est GFR (CKD-EPI)NonAf 11.03 06/21/19 06:25 POC Glucometer 127 UNITS (80-120) 06/21/19 11:52 Random Glucose 120 mg/dL (74-106) H 06/21/19 06:25 Hemoglobin A1c % 8.0 % (4.2-6.3) H 06/11/19 06:00 Calcium 8.0 mg/dL (8.5-10.1) L 06/21/19 06:25 Phosphorus 3.9 mg/dL (2.5-4.9) 06/21/19 06:25 Magnesium 2.4 mg/dL (1.8-2.4) 06/21/19 06:25 Iron 16 ug/dL (50-175) L 06/11/19 06:00 TIBC 329 ug/dL (250-450) 06/11/19 06:00 Iron Saturation 4 % (17.5-39) L 06/11/19 06:00 Unsaturated IBC 313 ug/dL (200-275) H 06/11/19 06:00 Ferritin 17.1 ng/ml (8-388) 06/11/19 06:00 Total Bilirubin 0.8 mg/dL (0.2-1) 06/18/19 06:20 AST 15 U/L (15-37) 06/18/19 06:20 ALT 18 U/L (13-61) 06/18/19 06:20 Alkaline Phosphatase 120 U/L (45-117) H 06/18/19 06:20 Creatine Kinase 159 U/L (26-308) 06/10/19 15:00 Creatine Kinase Index 3.3 % (0.0-5.0) 06/10/19 15:00 CK-MB (CK-2) 5.4 ng/mL (0.5-3.6) H 06/10/19 15:00 Troponin I 0.15 ng/ml (0.00-0.05) H 06/11/19 08:40 B-Natriuretic Peptide 99892.8 pg/ml (5-450) H 06/10/19 15:00 Total Protein 5.6 g/dl (6.4-8.2) L 06/18/19 06:20 Albumin 2.7 g/dl (3.4-5.0) L 06/18/19 06:20 PTH Intact 236 pg/mL (15-65) H 06/11/19 06:00 PTH Intact Intraop 0 m (.) 06/11/19 06:00 Active Medications Current Medications Acetaminophen (Tylenol -) 500 mg PO Q6H PRN PRN Reason: PAIN LEVEL 6-10 Last Admin: 06/19/19 19:41 Dose: 500 mg Aspirin (Asa -) 81 mg PO DAILY [facility] Last Admin: 06/21/19 10:53 Dose: 81 mg Atorvastatin Calcium (Lipitor -) 40 mg PO HS [facility] Last Admin: 06/20/19 22:32 Dose: 40 mg Calcium Acetate (Phoslo -) 667 mg PO TIDCM [facility] Last Admin: 06/21/19 12:53 Dose: 667 mg Guaifenesin (Mucinex -) 600 mg PO BID [facility] Last Admin: 06/21/19 10:55 Dose: 600 mg Heparin Sodium (Porcine) (Heparin -) 5,000 unit SQ TID [facility] Last Admin: 06/21/19 14:44 Dose: 5,000 unit Hydralazine HCl (Apresoline -) 25 mg PO TID [facility] Last Admin: 06/21/19 14:46 Dose: 25 mg Sodium Chloride (Normal Saline -) 250 mls @ 3,000 mls/hr IV PRN PRN PRN Reason: Hypotension during Dialysis Stop: 06/21/19 11:58 Insulin Aspart (Novolog Vial Sliding Scale -) 1 vial SQ TIDAC [facility]; Protocol Last Admin: 06/21/19 12:28 Dose: Not Given Isosorbide Mononitrate (Imdur -) 30 mg PO DAILY [facility] Last Admin: 06/21/19 10:55 Dose: 30 mg Metoprolol Succinate (Toprol Xl -) 25 mg PO DAILY [facility] Last Admin: 06/21/19 10:53 Dose: 25 mg Olanzapine (Zyprexa -) 2.5 mg PO HS [facility] Last Admin: 06/19/19 21:16 Dose: 2.5 mg Senna (Senna -) 1 tab PO BID [facility] Last Admin: 06/21/19 10:53 Dose: 1 tab Home Medications Medication Instructions Recorded Amlodipine Besylate 5 mg PO DAILY 06/10/19 Calcium Acetate [Phoslo -] 667 mg PO TID 06/10/19 Furosemide [Lasix] 80 mg PO TID 06/10/19 Microbiology 06/17/19 15:45 Urine - Urine Clean Catch Urine Culture - Final NO GROWTH OBTAINED 06/10/19 22:00 Urine - Urine - Catheterized Urine Culture - Final NO GROWTH OBTAINED ASSESSMENT/PLAN: 83 y/o M, pmh of CKD stage V, T2DM presented with LE edema of 1 week duration likely 2/2 fluid overload from ESRD. #AMS Hold olanzapine PT performed bedside exercise with pt S/p HD, pt has significantly improved Nephro consult appreciated Neuro consult appreciated Pt on wrist restraint #Urinary retention likely 2/2 to UTI UA- Urine protein 3+, Urine glucose 1+, LE trace, Urine bacteria 2212.2 Pt has fajardo #LE edema likely 2/2 to Fluid overload 2/2 ESRD Significantly improved pending placement for HD #Safety at home Pt's expresses concern for safety- advised to remove dangerous items from home Pt will be going to Rehab #CHF- acute on chronic systolic CHF w/ severe fluid overload Strict salt and fluid restrictions. No fluids nor ice cubes at the bedside. #HTN Cont hydralazine 25 mg 3 times a day. #HLD cont atorvastatin #Type 2 DM ISS #DVT ppx Heparin FEN: renal diet Dispo: cont PT, monitor mentation, f/u next HD Visit type - Emergency Visit Emergency Visit: Yes ED Registration Date: 06/10/19 Care time: The patient presented to the Emergency Department on the above date and was hospitalized for further evaluation of their emergent condition. - New Patient This patient is new to me today: Yes Date on this admission: 06/21/19 - Critical Care Critical Care patient: No - Discharge Referral Referred to [facility] No ATTENDING PHYSICIAN STATEMENT I saw and evaluated the patient. I reviewed the resident's note and discussed the case with the resident. I agree with the resident's findings and plan as documented. SUBJECTIVE: OBJECTIVE: ASSESSMENT AND PLAN:
--- NOTE | 2019-06-21 18:31 | PN ---
Teaching Attending Note Name of Resident: Viviana Rojas ATTENDING PHYSICIAN STATEMENT I saw and evaluated the patient. I reviewed the resident's note and discussed the case with the resident. I agree with the resident's findings and plan as documented. SUBJECTIVE: no fever or chills. No pain , no SOB . NAD, awake, eating breakfast, joking. CV: RRR. Lungs: minimal bibasilar crackles Abd: soft, NT, ND , NL BS. Ext: Trace edema on LE ASSESSMENT AND PLAN: 83 y/o man with h./o CKD , HTN , systolic CHF and DM who presented with AMS and was found to be uremic and in acute CHF 1- Acute systolic CHF exacerbation. 2- ESRD 3- Chronic microcytic anemia: iron def 4-AMS: likely due to metabolic encephalopathy from uremia and now acute delirium. Improved 5- H/o DM 6- h/o HTN 7- urinary retention Plan: - yesterday , was the first day zyprexa was held. mental status improved and lethargy resolved. cont to hold - Unexplained elevation in WBC. send UA. the one sent earlier was form fajardo bag - trend WBC - hold off any ABx - HD today - fajardo for urinary retention . will give voiding trial soon - start flomax - out pt HD center to be arranged - cont imdur, HZN and toprol - cont SSI . - work up for anemia as out pt. - PT eval - Heparin sq
[2019-06-21] MEDS: ATORVASTATIN CA 40 MG TABLET (FP) PO SCH (22:31)
[2019-06-21] MEDS: TAMSULOSIN HCL 0.4 MG CAP PO SCH (22:31)
[2019-06-21] MEDS: OLANZapine 2.5 MG TABLET PO SCH (22:31)
[2019-06-22] MEDS: HEPARIN NA (PORCINE) 5,000 UNITS/ML 1ML VIAL SQ SCH ×3 (05:53→23:00)
[2019-06-22] MEDS: hydrALAZINE HCL 25 MG TABLET (FP) PO SCH ×3 (05:53→22:59)
[2019-06-22] MEDS: INSULIN SLIDING SCALE (NOVOLOG) 1 VIAL SQ SCH ×3 (06:00→17:42)
[2019-06-22 06:51] LABS: HEMOGLOBIN 10.2 GM/dL (11.7-16.9); MCHC 30.1 g/dl (32.0-35.9); MEAN CELL VOLUME 62.9 fl (80-96); MEAN PLT VOLUME 8.7 fl (7.5-11.1); PLATELET COUNT 242 K/MM3 (134-434); RDW 19.2 % (11.9-15.9); WHITE BLOOD COUNT 12.9 K/mm3 (4.0-10.0)
[2019-06-22 07:01] LABS: MCH 18.9 pg (25.7-33.7)
[2019-06-22 07:37] LABS: CALCIUM 8.2 mg/dL (8.5-10.1); CREATININE 3.7 mg/dL (0.55-1.3); MAGNESIUM 2.2 mg/dL (1.8-2.4); PHOSPHOROUS 3.3 mg/dL (2.5-4.9); POTASSIUM 4.1 mmol/L (3.5-5.1)
--- NOTE | 2019-06-22 09:04 | PN ---
Progress Note (short form) - Note Progress Note: Neurology HISTORY OF PRESENT ILLNESS: 83yo M with h/o CKD stage V, HTN, Type 2 DM who presents on day of admission with 1 week worsening lower extremity edema. Pt has been told he has end-stage CKD, however he refuses dialysis because he believed his family members suffered and did not benefit in regards to mortality. Pt noticed about 1-2 weeks he has been having increased edema of his legs. He does not weigh himself regularly and he does not know his dry weight. Pt reports he went to see his PCP who increased his lasix to 80mg TID PO. He was only taking this for a couple of days when he noticed severe dyspnea on exertion worsening when he went to the bathroom or moving from [id number] in his house. Pt endorses orthopnea and uses multiple pillows at night to sleep. Pt denies any fever/ chills, headaches, blurry vision, diarrhea/constiption, chest pain, palpitations , abdominal pain, n/v. 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 Psychiatry consult completed, for behavioral changes, put on Zyprexa and if not helpful can use Remeron, per note. Zyprexa reduced to 2.[address] repeated , no acute changes noted. Much improved this morning and conversive, not confused and coherent for the first time in the days that I have been following him. Active Medications Acetaminophen (Tylenol -) 500 mg PO Q6H PRN PRN Reason: PAIN LEVEL 6-10 Last Admin: 06/19/19 19:41 Dose: 500 mg Aspirin (Asa -) 81 mg PO DAILY [facility] Last Admin: 06/21/19 10:53 Dose: 81 mg Atorvastatin Calcium (Lipitor -) 40 mg PO HS [facility] Last Admin: 06/21/19 22:31 Dose: 40 mg Calcium Acetate (Phoslo -) 667 mg PO TIDCM [facility] Last Admin: 06/21/19 18:24 Dose: 667 mg Guaifenesin (Mucinex -) 600 mg PO BID [facility] Last Admin: 06/21/19 22:31 Dose: 600 mg Heparin Sodium (Porcine) (Heparin -) 5,000 unit SQ TID [facility] Last Admin: 06/22/19 05:53 Dose: 5,000 unit Hydralazine HCl (Apresoline -) 25 mg PO TID [facility] Last Admin: 06/22/19 05:53 Dose: 25 mg Sodium Chloride (Normal Saline -) 250 mls @ 3,000 mls/hr IV PRN PRN PRN Reason: Hypotension during Dialysis Stop: 06/21/19 11:58 Insulin Aspart (Novolog Vial Sliding Scale -) 1 vial SQ TIDAC [facility]; Protocol Last Admin: 06/22/19 06:00 Dose: 2 units Isosorbide Mononitrate (Imdur -) 30 mg PO DAILY [facility] Last Admin: 06/21/19 10:55 Dose: 30 mg Metoprolol Succinate (Toprol Xl -) 25 mg PO DAILY [facility] Last Admin: 06/21/19 10:53 Dose: 25 mg Olanzapine (Zyprexa -) 2.5 mg PO [facility] Last Admin: 06/21/19 22:31 Dose: Not Given Senna (Senna -) 1 tab PO BID [facility] Last Admin: 06/21/19 22:31 Dose: 1 tab Tamsulosin HCl (Flomax -) 0.4 mg PO [facility] Last Admin: 06/21/19 22:31 Dose: 0.4 mg PHYSICAL EXAMINATION Vital Signs Period Temp Pulse Resp BP Sys/Alexandre Pulse Ox Last 24 Hr 97.7 F-98.6 F 66-77 18-20 128-149/61-82 97 GENERAL: Awake, alert, not oriented, conversive but not coherent HEENT: NC/AT, CAROLA, MMM, EOMI. NECK: + JVD LUNGS: Rales throughout all lung strong bilaterally. No wheezes. No accessory muscle use. On 2LNC. Speaking in full sentences HEART: RRR, normal S1 and S2 without murmur ABDOMEN: Soft, nontender, abdominal wall edema, hypoactive BS, + hepatojugular reflux, no guarding or rebound, no hepatomegaly or caput medusa noted. MUSCULOSKELETAL: No CVA tenderness. EXTREMITIES: 2+ DP pulses b/l, 3+ pitting edema to groin and abdominal wall. Warm, venous stasis changes also noted, no calf tenderness. NEUROLOGICAL: Nonfocal exam. Normal speech. moves all extremities, sensory intact PSYCHIATRIC: Cooperative. Good eye contact. Appropriate mood and affect. SKIN: Warm, dry, no rashes or lesions noted, stasis changes as above, normal capillary refill. CBCD WBC 12.9 K/mm3 (4.0-10.0) H 06/22/19 05:52 RBC 5.40 M/mm3 (4.00-5.60) 06/22/19 05:52 Hgb 10.2 GM/dL (11.7-16.9) L 06/22/19 05:52 Hct 34.0 % (35.4-49) L 06/22/19 05:52 MCV 62.9 fl (80-96) L 06/22/19 05:52 MCHC 30.1 g/dl (32.0-35.9) L 06/22/19 05:52 RDW 19.2 % (11.9-15.9) H 06/22/19 05:52 Plt Count 242 K/MM3 (134-434) 06/22/19 05:52 MPV 8.7 fl (7.5-11.1) 06/22/19 05:52 CMP Sodium 140 mmol/L (136-145) 06/22/19 05:52 Potassium 4.1 mmol/L (3.5-5.1) 06/22/19 05:52 Chloride 105 mmol/L (98-107) 06/22/19 05:52 Carbon Dioxide 28 mmol/L (21-32) 06/22/19 05:52 Anion Gap 7 MMOL/L (8-16) L 06/22/19 05:52 BUN 39.0 mg/dL (7-18) H 06/22/19 05:52 Creatinine 3.7 mg/dL (0.55-1.3) H 06/22/19 05:52 Random Glucose 139 mg/dL (74-106) H 06/22/19 05:52 Calcium 8.2 mg/dL (8.5-10.1) L 06/22/19 05:52 Total Bilirubin 0.8 mg/dL (0.2-1) 06/18/19 06:20 AST 15 U/L (15-37) 06/18/19 06:20 ALT 18 U/L (13-61) 06/18/19 06:20 Alkaline Phosphatase 120 U/L (45-117) H 06/18/19 06:20 Total Protein 5.6 g/dl (6.4-8.2) L 06/18/19 06:20 Albumin 2.7 g/dl (3.4-5.0) L 06/18/19 06:20 CARDIAC ENZYMES Creatine Kinase 159 U/L (26-308) 06/10/19 15:00 Troponin I 0.15 ng/ml (0.00-0.05) H 06/11/19 08:40 ASSESSMENT AND PLAN: 83yo M with h/o CKD stage V, HTN, Type 2 DM who presents on day of admission with 1 week worsening lower extremity edema. Pt has been told he has end-stage CKD, however he refuses dialysis because he believed his family members suffered and did not benefit in regards to mortality. Pt noticed about 1-2 weeks he has been having increased edema of his legs. He does not weigh himself regularly and he does not know his dry weight. Pt reports he went to see his PCP who increased his lasix to 80mg TID PO. He was only taking this for a couple of days when he noticed severe dyspnea on exertion worsening when he went to the bathroom or moving from [id number] in his house. Pt endorses orthopnea and uses multiple pillows at night to sleep. Pt denies any fever/ chills, headaches, blurry vision, diarrhea/constiption, chest pain, palpitations , abdominal pain, n/v. 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 Psychiatry consult completed, for behavioral changes, put on Zyprexa and if not helpful can use Remeron, per note. Zyprexa reduced to 2.[address] repeated , no acute changes noted. Much improved this morning and conversive, not confused and coherent for the first time in the days that I have been following him. Continue pysch follow up and optimization. Continue mgmt for uremia, reorientation as able, monitor mental status. Maintain adequate hydration. Follow up evaluation of possible underlying infection in context of leukocytosis. Cognitively improved.
--- NOTE | 2019-06-22 09:23 | PN ---
Teaching Attending Note Name of Resident: Olaf Winn ATTENDING PHYSICIAN STATEMENT I saw and evaluated the patient. I reviewed the resident's note and discussed the case with the resident. I agree with the resident's findings and plan as documented. SUBJECTIVE: Patient is feeling better, slightly confused. feels weak. Vital Signs Temperature 98.5 F 06/22/19 05:50 Pulse Rate 76 06/22/19 05:50 Respiratory Rate 20 06/22/19 05:50 Blood Pressure 148/70 06/22/19 05:50 O2 Sat by Pulse Oximetry (%) 97 06/21/19 20:41 GENERAL: The patient is awake, slightly confused , in no acute distress. HEAD: Normal with no signs of trauma. EYES: PERRL, extraocular movements intact, sclera anicteric, conjunctiva clear. ENT: Ears normal, oropharynx clear without exudates, moist mucous membranes. NECK: Trachea midline, full range of motion, supple. LUNGS: Breath sounds equal, clear to auscultation bilaterally, no wheezes, no crackles, no accessory muscle use. HEART: Regular rate and rhythm, S1, S2 positive, JACKY 2/6, no rub or gallop. ABDOMEN: Soft, nontender, nondistended, normoactive bowel sounds, no guarding, no rebound, no hepatosplenomegaly, no masses. EXTREMITIES: 2+ pulses, warm, well-perfused, no edema. NEUROLOGICAL: Cranial nerves II through XII grossly intact. Normal speech, gait not observed. PSYCH: Normal mood, normal affect. SKIN: Warm, dry, normal turgor, no rashes or lesions noted CBCD WBC 12.9 K/mm3 (4.0-10.0) H 06/22/19 05:52 RBC 5.40 M/mm3 (4.00-5.60) 06/22/19 05:52 Hgb 10.2 GM/dL (11.7-16.9) L 06/22/19 05:52 Hct 34.0 % (35.4-49) L 06/22/19 05:52 MCV 62.9 fl (80-96) L 06/22/19 05:52 MCHC 30.1 g/dl (32.0-35.9) L 06/22/19 05:52 RDW 19.2 % (11.9-15.9) H 06/22/19 05:52 Plt Count 242 K/MM3 (134-434) 06/22/19 05:52 MPV 8.7 fl (7.5-11.1) 06/22/19 05:52 CMP Sodium 140 mmol/L (136-145) 06/22/19 05:52 Potassium 4.1 mmol/L (3.5-5.1) 06/22/19 05:52 Chloride 105 mmol/L (98-107) 06/22/19 05:52 Carbon Dioxide 28 mmol/L (21-32) 06/22/19 05:52 Anion Gap 7 MMOL/L (8-16) L 06/22/19 05:52 BUN 39.0 mg/dL (7-18) H 06/22/19 05:52 Creatinine 3.7 mg/dL (0.55-1.3) H 06/22/19 05:52 Random Glucose 139 mg/dL (74-106) H 06/22/19 05:52 Calcium 8.2 mg/dL (8.5-10.1) L 06/22/19 05:52 Total Bilirubin 0.8 mg/dL (0.2-1) 06/18/19 06:20 AST 15 U/L (15-37) 06/18/19 06:20 ALT 18 U/L (13-61) 06/18/19 06:20 Alkaline Phosphatase 120 U/L (45-117) H 06/18/19 06:20 Total Protein 5.6 g/dl (6.4-8.2) L 06/18/19 06:20 Albumin 2.7 g/dl (3.4-5.0) L 06/18/19 06:20 CARDIAC ENZYMES Creatine Kinase 159 U/L (26-308) 06/10/19 15:00 Troponin I 0.15 ng/ml (0.00-0.05) H 06/11/19 08:40 Current Medications Generic Name Dose Route Start Last Admin Trade Name Freq PRN Reason Stop Dose Admin Acetaminophen 500 mg 06/17/19 17:19 06/19/19 19:41 Tylenol - PO 500 mg Q6H PRN Administration PAIN LEVEL 6-10 Aspirin 81 mg 06/13/19 10:00 06/21/19 10:53 Asa - PO 81 mg DAILY [facility] Administration Atorvastatin Calcium 40 mg 06/13/19 22:00 06/21/19 22:31 Lipitor - PO 40 mg HS [facility] Administration Calcium Acetate 667 mg 06/11/19 08:00 06/21/19 18:24 Phoslo - PO 667 mg TIDCM [facility] Administration Guaifenesin 600 mg 06/14/19 13:30 06/21/19 22:31 Mucinex - PO 600 mg BID [facility] Administration Heparin Sodium (Porcine) 5,000 unit 06/10/19 18:00 06/22/19 05:53 Heparin - SQ 5,000 unit TID [facility] Administration Hydralazine HCl 25 mg 06/14/19 13:00 06/22/19 05:53 Apresoline - PO 25 mg TID [facility] Administration Sodium Chloride 250 mls @ 3,000 mls/hr 06/20/19 11:58 Normal Saline - IV 06/21/19 11:58 PRN PRN Hypotension during Dialysis Insulin Aspart 1 vial 06/16/19 07:00 06/22/19 06:00 Novolog Vial Sliding Scale - SQ 2 units TIDAC [facility] Administration Protocol Isosorbide Mononitrate 30 mg 06/13/19 10:00 06/21/19 10:55 Imdur - PO 30 mg DAILY [facility] Administration Metoprolol Succinate 25 mg 06/16/19 16:06 06/21/19 10:53 Toprol Xl - PO 25 mg DAILY [facility] Administration Olanzapine 2.5 mg 06/18/19 16:06 06/21/19 22:31 Zyprexa - PO Not Given HS [facility] Senna 1 tab 06/20/19 17:20 06/21/19 22:31 Senna - PO 1 tab BID [facility] Administration Tamsulosin HCl 0.4 mg 06/21/19 22:00 06/21/19 22:31 Flomax - PO 0.4 mg HS [facility] Administration Home Medications Medication Instructions Recorded Amlodipine Besylate 5 mg PO DAILY 06/10/19 Calcium Acetate [Phoslo -] 667 mg PO TID 06/10/19 Furosemide [Lasix] 80 mg PO TID 06/10/19 Echo:EJF 30-35%, diastolic dysfunction grade 2, moderate MR, moderate TR Assessment and plan: Patient is an 83 y/o man with PMhx of CKD , HTN , systolic CHF and DM who presented with AMS and was found to be uremic and in acute CHF # Acute systolic CHF exacerbation: On HD now. # ESRD on HD now, nephro on the case # Chronic microcytic anemia: iron def #AMS: likely due to metabolic encephalopathy from uremia s/p acute delirium. Improved. most likely due to zyprexa which was on hold # H/o DM : SS with coverage # h/o HTN : continue Imdur, Toprol # urinary retention continue Flomax # Acute change mental status: zyprexa was held ,mental status improved and lethargy resolved, cont to hold. Heparin sq
[2019-06-22] MEDS: ASPIRIN 81 MG CHEWABLE TABLETS PO SCH (11:36)
[2019-06-22] MEDS: guaiFENesin 600 MG TABLET.ER (FP) PO SCH ×2 (11:36→22:59)
[2019-06-22] MEDS: ISOSORBIDE MONONITRATE 30 MG TAB.SR.24H (FP) PO SCH (11:36)
[2019-06-22] MEDS: CALCIUM ACETATE 667 MG CAPSULE (FP) PO SCH ×3 (11:36→17:41)
[2019-06-22] MEDS: SENNOSIDES 8.6MG TABLET (FP) PO SCH ×2 (11:39→22:59)
--- NOTE | 2019-06-22 13:09 | PN ---
Progress Note, Physician History of Present Illness: Pt seen and examined at bedside. He remains confused. He denies shortness of breath. - Current Medication List Current Medications: Active Medications Acetaminophen (Tylenol -) 500 mg PO Q6H PRN PRN Reason: PAIN LEVEL 6-10 Last Admin: 06/19/19 19:41 Dose: 500 mg Aspirin (Asa -) 81 mg PO DAILY [facility] Last Admin: 06/22/19 11:36 Dose: 81 mg Atorvastatin Calcium (Lipitor -) 40 mg PO HS [facility] Last Admin: 06/21/19 22:31 Dose: 40 mg Calcium Acetate (Phoslo -) 667 mg PO TIDCM [facility] Last Admin: 06/22/19 11:36 Dose: 667 mg Guaifenesin (Mucinex -) 600 mg PO BID [facility] Last Admin: 06/22/19 11:36 Dose: 600 mg Heparin Sodium (Porcine) (Heparin -) 5,000 unit SQ TID [facility] Last Admin: 06/22/19 05:53 Dose: 5,000 unit Hydralazine HCl (Apresoline -) 25 mg PO TID [facility] Last Admin: 06/22/19 05:53 Dose: 25 mg Sodium Chloride (Normal Saline -) 250 mls @ 3,000 mls/hr IV PRN PRN PRN Reason: Hypotension during Dialysis Stop: 06/21/19 11:58 Insulin Aspart (Novolog Vial Sliding Scale -) 1 vial SQ TIDAC [facility]; Protocol Last Admin: 06/22/19 12:30 Dose: 2 units Isosorbide Mononitrate (Imdur -) 30 mg PO DAILY [facility] Last Admin: 06/22/19 11:36 Dose: 30 mg Metoprolol Succinate (Toprol Xl -) 25 mg PO DAILY [facility] Last Admin: 06/22/19 11:36 Dose: 25 mg Olanzapine (Zyprexa -) 2.5 mg PO [facility] Last Admin: 06/21/19 22:31 Dose: Not Given Senna (Senna -) 1 tab PO BID [facility] Last Admin: 06/22/19 11:39 Dose: 1 tab Tamsulosin HCl (Flomax -) 0.4 mg PO HS [facility] Last Admin: 06/21/19 22:31 Dose: 0.4 mg - Objective Vital Signs: Vital Signs Temperature 98.5 F 06/22/19 05:50 Pulse Rate 76 06/22/19 05:50 Respiratory Rate 20 06/22/19 05:50 Blood Pressure 148/70 06/22/19 05:50 O2 Sat by Pulse Oximetry (%) 97 06/21/19 20:41 Constitutional: Yes: Calm Eyes: Yes: Conjunctiva Clear HENT: Yes: Atraumatic Cardiovascular: Yes: S1, S2 Respiratory: Yes: CTA Bilaterally Gastrointestinal: Yes: Soft Genitourinary: Yes: Incontinence Musculoskeletal: Yes: WNL Edema: Yes Edema: LLE: 1+, RLE: 1+ Neurological: Yes: Confusion Labs: CBC, BMP 06/22/19 05:52 06/22/19 05:52 INR, PTT INR 1.03 (0.83-1.09) 06/19/19 06:00 Problem List - Problems (1) CKD (chronic kidney disease) Code(s): N18.9 - CHRONIC KIDNEY DISEASE, UNSPECIFIED (2) HTN (hypertension) Code(s): I10 - ESSENTIAL (PRIMARY) HYPERTENSION (3) Diabetes mellitus Code(s): E11.9 - TYPE 2 DIABETES MELLITUS WITHOUT COMPLICATIONS Assessment/Plan Current Medications Generic Name Dose Route Start Last Admin Trade Name Freq PRN Reason Stop Dose Admin Acetaminophen 500 mg 06/17/19 17:19 06/19/19 19:41 Tylenol - PO 500 mg Q6H PRN Administration PAIN LEVEL 6-10 Aspirin 81 mg 06/13/19 10:00 06/22/19 11:36 Asa - PO 81 mg DAILY [facility] Administration Atorvastatin Calcium 40 mg 06/13/19 22:00 06/21/19 22:31 Lipitor - PO 40 mg HS [facility] Administration Calcium Acetate 667 mg 06/11/19 08:00 06/22/19 11:36 Phoslo - PO 667 mg TIDCM [facility] Administration Guaifenesin 600 mg 06/14/19 13:30 06/22/19 11:36 Mucinex - PO 600 mg BID [facility] Administration Heparin Sodium (Porcine) 5,000 unit 06/10/19 18:00 06/22/19 05:53 Heparin - SQ 5,000 unit TID [facility] Administration Hydralazine HCl 25 mg 06/14/19 13:00 06/22/19 05:53 Apresoline - PO 25 mg TID [facility] Administration Sodium Chloride 250 mls @ 3,000 mls/hr 06/20/19 11:58 Normal Saline - IV 06/21/19 11:58 PRN PRN Hypotension during Dialysis Insulin Aspart 1 vial 06/16/19 07:00 06/22/19 12:30 Novolog Vial Sliding Scale - SQ 2 units TIDAC [facility] Administration Protocol Isosorbide Mononitrate 30 mg 06/13/19 10:00 06/22/19 11:36 Imdur - PO 30 mg DAILY [facility] Administration Metoprolol Succinate 25 mg 06/16/19 16:06 06/22/19 11:36 Toprol Xl - PO 25 mg DAILY [facility] Administration Olanzapine 2.5 mg 06/18/19 16:06 06/21/19 22:31 Zyprexa - PO Not Given HS [facility] Senna 1 tab 06/20/19 17:20 06/22/19 11:39 Senna - PO 1 tab BID [facility] Administration Tamsulosin HCl 0.4 mg 06/21/19 22:00 06/21/19 22:31 Flomax - PO 0.4 mg HS [facility] Administration Impression 1. CKD 2. HTN 3. DM 4. fluid overload 5. esrd 6. altered mental status Plan - next Hd tomorrow - monitor mental status - monitor wbc - pt tolerating po intake - urine cultures negative so far
--- NOTE | 2019-06-22 15:21 | PN ---
Physical Exam: SUBJECTIVE: Patient seen and examined 83 y/o M, pmh of CKD stage V, T2DM presented with LE edema of 1 week duration likely 2/2 fluid overload from ESRD. Pt has significantly improved. Pt appears to be conversational and no longer lethargic. Pt has no c/o overnight. Pt is in usual state of health. Denies f/c/n/v/d/sob/chest pain. OBJECTIVE: Vital Signs Period Temp Pulse Resp BP Sys/Alexandre Pulse Ox Last 24 Hr 97.7 F-98.7 F 64-80 20-20 111-148/54-82 97 GENERAL: Pt alert, awake and conversational. Mild confusion but much improved EYES: PERRL, extraocular movements intact. ENT: dentation poor. Uses artificial teeth. moist mucous membranes. NECK: full range of motion, supple. LUNGS: breath sounds have improved significantly. Mild wheezing heard b/l. HEART: Regular rate and rhythm, S1 and S2 normal ABDOMEN: Mild tenderness to palpation in the lower abdominal and suprapubic region, nondistended, normoactive bowel sounds EXTREMITIES: 2+ pulses, no edema. Chronic venous stasis skin changes b/l. Mild tenderness to palpation on both extremities b/l. NEUROLOGICAL: Cranial nerves II through XII grossly intact. SKIN: Warm, dry, normal turgor Laboratory Results - last 24 hr CBC,CMP WBC 12.9 K/mm3 (4.0-10.0) H 06/22/19 05:52 RBC 5.40 M/mm3 (4.00-5.60) 06/22/19 05:52 Hgb 10.2 GM/dL (11.7-16.9) L 06/22/19 05:52 Hct 34.0 % (35.4-49) L 06/22/19 05:52 MCV 62.9 fl (80-96) L 06/22/19 05:52 MCH 18.9 pg (25.7-33.7) L 06/22/19 05:52 MCHC 30.1 g/dl (32.0-35.9) L 06/22/19 05:52 RDW 19.2 % (11.9-15.9) H 06/22/19 05:52 Plt Count 242 K/MM3 (134-434) 06/22/19 05:52 MPV 8.7 fl (7.5-11.1) 06/22/19 05:52 Absolute Neuts (auto) 6.6 K/mm3 (1.5-8.0) 06/16/19 06:10 Neutrophils % 79.4 % (42.8-82.8) 06/16/19 06:10 Neutrophils % (Manual) 79.2 % (42.8-82.8) 06/15/19 06:20 Band Neutrophils % 0.0 % 06/15/19 06:20 Lymphocytes % 5.7 % (8-40) L D 06/16/19 06:10 Lymphocytes % (Manual) 4.9 % (8-40) L 06/15/19 06:20 Monocytes % 10.6 % (3.8-10.2) H 06/16/19 06:10 Monocytes % (Manual) 6 % (3.8-10.2) 06/15/19 06:20 Eosinophils % 3.5 % (0-4.5) 06/16/19 06:10 Eosinophils % (Manual) 3.0 % (0-4.5) 06/15/19 06:20 Basophils % 0.8 % (0-2.0) 06/16/19 06:10 Basophils % (Manual) 3.0 % (0-2.0) H D 06/15/19 06:20 Myelocytes % (Man) 0 % (0-2) 06/15/19 06:20 Promyelocytes % (Man) 0 % (0-2) 06/15/19 06:20 Blast Cells % (Manual) 0 % (0-0) 06/15/19 06:20 Nucleated RBC % 1 % (0-0) H 06/16/19 06:10 Metamyelocytes 0 % (0-2) 06/15/19 06:20 Hypochromia 3+ 06/15/19 06:20 Toxic Granulation 1+ 06/13/19 05:35 Platelet Estimate Normal 06/16/19 06:10 Platelet Comment Present 06/12/19 06:16 Polychromasia 1+ 06/15/19 06:20 Poikilocytosis 3+ 06/15/19 06:20 Anisocytosis 3+ 06/15/19 06:20 Microcytosis 3+ 06/15/19 06:20 Macrocytosis 0 06/15/19 06:20 Spherocytes 2+ 06/13/19 05:35 Target Cells 3+ 06/15/19 06:20 Tear Drop Cells 1+ 06/13/19 05:35 Ovalocytes 1+ 06/14/19 06:07 Eddy Cells 1+ 06/10/19 15:00 Rouleaux 1+ 06/15/19 06:20 Fragmented RBCs 2+ 06/15/19 06:20 Schistocytes 3+ 06/15/19 06:20 Sodium 140 mmol/L (136-145) 06/22/19 05:52 Potassium 4.1 mmol/L (3.5-5.1) 06/22/19 05:52 Chloride 105 mmol/L (98-107) 06/22/19 05:52 Carbon Dioxide 28 mmol/L (21-32) 06/22/19 05:52 Anion Gap 7 MMOL/L (8-16) L 06/22/19 05:52 BUN 39.0 mg/dL (7-18) H 06/22/19 05:52 Creatinine 3.7 mg/dL (0.55-1.3) H 06/22/19 05:52 Est GFR (CKD-EPI)AfAm 16.63 06/22/19 05:52 Est GFR (CKD-EPI)NonAf 14.35 06/22/19 05:52 POC Glucometer 161 UNITS (80-120) 06/22/19 12:13 Random Glucose 139 mg/dL (74-106) H 06/22/19 05:52 Hemoglobin A1c % 8.0 % (4.2-6.3) H 06/11/19 06:00 Calcium 8.2 mg/dL (8.5-10.1) L 06/22/19 05:52 Phosphorus 3.3 mg/dL (2.5-4.9) 06/22/19 05:52 Magnesium 2.2 mg/dL (1.8-2.4) 06/22/19 05:52 Iron 16 ug/dL (50-175) L 06/11/19 06:00 TIBC 329 ug/dL (250-450) 06/11/19 06:00 Iron Saturation 4 % (17.5-39) L 06/11/19 06:00 Unsaturated IBC 313 ug/dL (200-275) H 06/11/19 06:00 Ferritin 17.1 ng/ml (8-388) 06/11/19 06:00 Total Bilirubin 0.8 mg/dL (0.2-1) 06/18/19 06:20 AST 15 U/L (15-37) 06/18/19 06:20 ALT 18 U/L (13-61) 06/18/19 06:20 Alkaline Phosphatase 120 U/L (45-117) H 06/18/19 06:20 Ammonia 12.70 umol/L (11-32) 06/22/19 12:15 Creatine Kinase 159 U/L (26-308) 06/10/19 15:00 Creatine Kinase Index 3.3 % (0.0-5.0) 06/10/19 15:00 CK-MB (CK-2) 5.4 ng/mL (0.5-3.6) H 06/10/19 15:00 Troponin I 0.15 ng/ml (0.00-0.05) H 06/11/19 08:40 B-Natriuretic Peptide 97334.8 pg/ml (5-450) H 06/10/19 15:00 Total Protein 5.6 g/dl (6.4-8.2) L 06/18/19 06:20 Albumin 2.7 g/dl (3.4-5.0) L 06/18/19 06:20 PTH Intact 236 pg/mL (15-65) H 06/11/19 06:00 PTH Intact Intraop 0 m (.) 06/11/19 06:00 Active Medications Current Medications Acetaminophen (Tylenol -) 500 mg PO Q6H PRN PRN Reason: PAIN LEVEL 6-10 Last Admin: 06/19/19 19:41 Dose: 500 mg Aspirin (Asa -) 81 mg PO DAILY [facility] Last Admin: 06/22/19 11:36 Dose: 81 mg Atorvastatin Calcium (Lipitor -) 40 mg PO HS [facility] Last Admin: 06/21/19 22:31 Dose: 40 mg Calcium Acetate (Phoslo -) 667 mg PO TIDCM [facility] Last Admin: 06/22/19 14:26 Dose: 667 mg Guaifenesin (Mucinex -) 600 mg PO BID [facility] Last Admin: 06/22/19 11:36 Dose: 600 mg Heparin Sodium (Porcine) (Heparin -) 5,000 unit SQ TID [facility] Last Admin: 06/22/19 05:53 Dose: 5,000 unit Hydralazine HCl (Apresoline -) 25 mg PO TID [facility] Last Admin: 06/22/19 14:26 Dose: Not Given Sodium Chloride (Normal Saline -) 250 mls @ 3,000 mls/hr IV PRN PRN PRN Reason: Hypotension during Dialysis Stop: 06/23/19 13:09 Insulin Aspart ([facility] Vial Sliding Scale -) [facility] Protocol Last Admin: 06/22/19 12:30 Dose: 2 units Isosorbide Mononitrate (Imdur -) 30 mg PO DAILY [facility] Last Admin: 06/22/19 11:36 Dose: 30 mg Metoprolol Succinate (Toprol Xl -) 25 mg PO DAILY [facility] Last Admin: 06/22/19 11:36 Dose: 25 mg Olanzapine (Zyprexa -) 2.5 mg PO [facility] Last Admin: 06/21/19 22:31 Dose: Not Given Senna (Senna -) 1 tab PO BID [facility] Last Admin: 06/22/19 11:39 Dose: 1 tab Tamsulosin HCl (Flomax -) 0.4 mg PO [facility] Last Admin: 06/21/19 22:31 Dose: 0.4 mg Home Medications Medication Instructions Recorded Amlodipine Besylate 5 mg PO DAILY 06/10/19 Calcium Acetate [Phoslo -] 667 mg PO TID 06/10/19 Furosemide [Lasix] 80 mg PO TID 06/10/19 Microbiology 06/17/19 15:45 Urine - Urine Clean Catch Urine Culture - Final NO GROWTH OBTAINED 06/10/19 22:00 Urine - Urine - Catheterized Urine Culture - Final NO GROWTH OBTAINED ASSESSMENT/PLAN: 83 y/o M, pmh of CKD stage V, T2DM presented with LE edema of 1 week duration likely 2/2 fluid overload from ESRD. #AMS Stable today-improved PT for bedside exercise with pt HD planned for jeff Ammonia level normal #Urinary retention likely 2/2 to UTI UA- Urine protein 3+, Urine glucose 1+, LE trace, Urine bacteria 2212.2, calcium oxalate crystal US kidneys- f/u Trend WBC #LE edema likely 2/2 to Fluid overload 2/2 ESRD pending placement for HD #Safety at home Pt's expresses concern for safety- advised to remove dangerous items from home Pt will be going to Rehab #CHF- acute on chronic systolic CHF w/ severe fluid overload Strict salt and fluid restrictions. No fluids nor ice cubes at the bedside. #HTN Cont hydralazine 25 mg 3 times a day. #HLD cont atorvastatin #Type 2 DM ISS #DVT ppx Heparin FEN: renal diet Dispo: cont PT, monitor mentation, f/u next HD Visit type - Emergency Visit Emergency Visit: Yes ED Registration Date: 06/10/19 Care time: The patient presented to the Emergency Department on the above date and was hospitalized for further evaluation of their emergent condition. - New Patient This patient is new to me today: Yes Date on this admission: 06/22/19 - Critical Care Critical Care patient: No - Discharge Referral Referred to [facility] Med P.C.: No ATTENDING PHYSICIAN STATEMENT I saw and evaluated the patient. I reviewed the resident's note and discussed the case with the resident. I agree with the resident's findings and plan as documented. SUBJECTIVE: OBJECTIVE: ASSESSMENT AND PLAN:
[2019-06-22 16:20] LABS: EPI CELLS 6.6 /HPF (0-5/HPF); HYALINE CASTS 30 /lpf (0-8); PH,URINE 5.5 (5.0-8.0); URINE APPEARANCE TURBID; URINE BACTERIA 3348.5 /hpf (NEGATIVE); URINE BILIRUBIN NEGATIVE (NEGATIVE); URINE COLOR DK YELLOW; URINE GLUCOSE (UA) 1+ (NEGATIVE); URINE KETONE NEGATIVE (NEGATIVE); URINE LEUK ESTERASE 3+ (NEGATIVE); URINE NITRITE POSITIVE (NEGATIVE); URINE PROTEIN 4+ (NEGATIVE); URINE WBC 1310 /hpf (0-5)
[2019-06-22 17:02] LABS: URINE RBC 30-50 /hpf (0-4)
[2019-06-22 17:03] LABS: YEAST NEGATIVE (NEGATIVE)
[2019-06-22] MEDS ORDERED: CEFTRIAXONE 1 GM in DEXTROSE 5%-WATER - 50 ML IVPB SCH (17:15)
[2019-06-22] MEDS: ATORVASTATIN CA 40 MG TABLET (FP) PO SCH (22:59)
[2019-06-22] MEDS: TAMSULOSIN HCL 0.4 MG CAP PO SCH (23:00)
[2019-06-23] MEDS: hydrALAZINE HCL 25 MG TABLET (FP) PO SCH ×3 (05:37→21:19)
[2019-06-23] MEDS: INSULIN SLIDING SCALE (NOVOLOG) 1 VIAL SQ SCH ×3 (06:16→18:03)
[2019-06-23] MEDS: HEPARIN NA (PORCINE) 5,000 UNITS/ML 1ML VIAL SQ SCH ×3 (06:16→21:22)
[2019-06-23 08:11] LABS: HEMATOCRIT 31.5 % (35.4-49); HEMOGLOBIN 9.5 GM/dL (11.7-16.9); MEAN CELL VOLUME 62.7 fl (80-96); MEAN PLT VOLUME 8.4 fl (7.5-11.1); PLATELET COUNT 224 K/MM3 (134-434); RBC 5.03 M/mm3 (4.00-5.60); RDW 19.1 % (11.9-15.9); WHITE BLOOD COUNT 11.1 K/mm3 (4.0-10.0)
[2019-06-23 08:14] LABS: MCH 18.8 pg (25.7-33.7)
[2019-06-23 08:45] LABS: BLOOD UREA NITROGEN 47.5 mg/dL (7-18); CREATININE 4.1 mg/dL (0.55-1.3); MAGNESIUM 2.2 mg/dL (1.8-2.4); PHOSPHOROUS 4.1 mg/dL (2.5-4.9); POTASSIUM 3.9 mmol/L (3.5-5.1)
--- NOTE | 2019-06-23 09:09 | PN ---
Progress Note (short form) - Note Progress Note: Neurology HISTORY OF PRESENT ILLNESS: 83yo M with h/o CKD stage V, HTN, Type 2 DM who presents on day of admission with 1 week worsening lower extremity edema. Pt has been told he has end-stage CKD, however he refuses dialysis because he believed his family members suffered and did not benefit in regards to mortality. Pt noticed about 1-2 weeks he has been having increased edema of his legs. He does not weigh himself regularly and he does not know his dry weight. Pt reports he went to see his PCP who increased his lasix to 80mg TID PO. He was only taking this for a couple of days when he noticed severe dyspnea on exertion worsening when he went to the bathroom or moving from [id number] in his house. Pt endorses orthopnea and uses multiple pillows at night to sleep. Pt denies any fever/ chills, headaches, blurry vision, diarrhea/constiption, chest pain, palpitations , abdominal pain, n/v. 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 Psychiatry consult completed, for behavioral changes, put on Zyprexa and if not helpful can use Remeron, per note. Zyprexa reduced to 2.[address] repeated , no acute changes noted. Remains conversive this morning although tangential in conversation. However, remains awake, alert and having breakfast much improved mental status Active Medications Acetaminophen (Tylenol -) 500 mg PO Q6H PRN PRN Reason: PAIN LEVEL 6-10 Last Admin: 06/19/19 19:41 Dose: 500 mg Aspirin (Asa -) 81 mg PO DAILY [facility] Last Admin: 06/22/19 11:36 Dose: 81 mg Atorvastatin Calcium (Lipitor -) 40 mg PO HS [facility] Last Admin: 06/22/19 22:59 Dose: 40 mg Calcium Acetate (Phoslo -) 667 mg PO TIDCM [facility] Last Admin: 06/22/19 17:41 Dose: 667 mg Guaifenesin (Mucinex -) 600 mg PO BID [facility] Last Admin: 06/22/19 22:59 Dose: 600 mg Heparin Sodium (Porcine) (Heparin -) 5,000 unit SQ TID [facility] Last Admin: 06/23/19 06:16 Dose: 5,000 unit Hydralazine HCl (Apresoline -) 25 mg PO TID [facility] Last Admin: 06/23/19 05:37 Dose: Not Given Sodium Chloride (Normal Saline -) 250 mls @ 3,000 mls/hr IV PRN PRN PRN Reason: Hypotension during Dialysis Stop: 06/23/19 13:09 Insulin Aspart (Novolog Vial Sliding Scale -) 1 vial SQ TIDAC [facility]; Protocol Last Admin: 06/23/19 06:16 Dose: 2 units Isosorbide Mononitrate (Imdur -) 30 mg PO DAILY [facility] Last Admin: 06/22/19 11:36 Dose: 30 mg Metoprolol Succinate (Toprol Xl -) 25 mg PO DAILY [facility] Last Admin: 06/22/19 11:36 Dose: 25 mg Olanzapine (Zyprexa -) 2.5 mg PO [facility] Last Admin: 06/21/19 22:31 Dose: Not Given Senna (Senna -) 1 tab PO BID [facility] Last Admin: 06/22/19 22:59 Dose: 1 tab Tamsulosin HCl (Flomax -) 0.4 mg PO [facility] Last Admin: 06/22/19 23:00 Dose: 0.4 mg PHYSICAL EXAMINATION Vital Signs Period Temp Pulse Resp BP Sys/Alexandre Pulse Ox Last 24 Hr 97.2 F-98.7 F 64-80 20-20 111-141/54-74 94-99 GENERAL: Awake, alert, not oriented, conversive but not coherent HEENT: NC/AT, CAROLA, MMM, EOMI. NECK: + JVD LUNGS: Rales throughout all lung strong bilaterally. No wheezes. No accessory muscle use. On 2LNC. Speaking in full sentences HEART: RRR, normal S1 and S2 without murmur ABDOMEN: Soft, nontender, abdominal wall edema, hypoactive BS, + hepatojugular reflux, no guarding or rebound, no hepatomegaly or caput medusa noted. MUSCULOSKELETAL: No CVA tenderness. EXTREMITIES: 2+ DP pulses b/l, 3+ pitting edema to groin and abdominal wall. Warm, venous stasis changes also noted, no calf tenderness. NEUROLOGICAL: Nonfocal exam. Normal speech. moves all extremities, sensory intact PSYCHIATRIC: Cooperative. Good eye contact. Appropriate mood and affect. SKIN: Warm, dry, no rashes or lesions noted, stasis changes as above, normal capillary refill. CBCD WBC 11.1 K/mm3 (4.0-10.0) H 06/23/19 07:35 RBC 5.03 M/mm3 (4.00-5.60) 06/23/19 07:35 Hgb 9.5 GM/dL (11.7-16.9) L 06/23/19 07:35 Hct 31.5 % (35.4-49) L 06/23/19 07:35 MCV 62.7 fl (80-96) L 06/23/19 07:35 MCHC 30.0 g/dl (32.0-35.9) L 06/23/19 07:35 RDW 19.1 % (11.9-15.9) H 06/23/19 07:35 Plt Count 224 K/MM3 (134-434) 06/23/19 07:35 MPV 8.4 fl (7.5-11.1) 06/23/19 07:35 CMP Sodium 138 mmol/L (136-145) 06/23/19 07:35 Potassium 3.9 mmol/L (3.5-5.1) 06/23/19 07:35 Chloride 103 mmol/L (98-107) 06/23/19 07:35 Carbon Dioxide 27 mmol/L (21-32) 06/23/19 07:35 Anion Gap 8 MMOL/L (8-16) 06/23/19 07:35 BUN 47.5 mg/dL (7-18) H 06/23/19 07:35 Creatinine 4.1 mg/dL (0.55-1.3) H 06/23/19 07:35 Random Glucose 104 mg/dL (74-106) 06/23/19 07:35 Calcium 8.0 mg/dL (8.5-10.1) L 06/23/19 07:35 Total Bilirubin 0.8 mg/dL (0.2-1) 06/18/19 06:20 AST 15 U/L (15-37) 06/18/19 06:20 ALT 18 U/L (13-61) 06/18/19 06:20 Alkaline Phosphatase 120 U/L (45-117) H 06/18/19 06:20 Total Protein 5.6 g/dl (6.4-8.2) L 06/18/19 06:20 Albumin 2.7 g/dl (3.4-5.0) L 06/18/19 06:20 CARDIAC ENZYMES Creatine Kinase 159 U/L (26-308) 06/10/19 15:00 Troponin I 0.15 ng/ml (0.00-0.05) H 06/11/19 08:40 ASSESSMENT AND PLAN: 83yo M with h/o CKD stage V, HTN, Type 2 DM who presents on day of admission with 1 week worsening lower extremity edema. Pt has been told he has end-stage CKD, however he refuses dialysis because he believed his family members suffered and did not benefit in regards to mortality. Pt noticed about 1-2 weeks he has been having increased edema of his legs. He does not weigh himself regularly and he does not know his dry weight. Pt reports he went to see his PCP who increased his lasix to 80mg TID PO. He was only taking this for a couple of days when he noticed severe dyspnea on exertion worsening when he went to the bathroom or moving from [id number] in his house. Pt endorses orthopnea and uses multiple pillows at night to sleep. Pt denies any fever/ chills, headaches, blurry vision, diarrhea/constiption, chest pain, palpitations , abdominal pain, n/v. 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 Psychiatry consult completed, for behavioral changes, put on Zyprexa and if not helpful can use Remeron, per note. Zyprexa reduced to 2.[address] repeated , no acute changes noted. Remains conversive this morning although tangential in conversation. However, remains awake, alert and having breakfast much improved mental status [facility] and optimization. Continue mgmt for uremia, reorientation as able, monitor mental status. Maintain adequate hydration. WBC count reduced to 11.1. Cognitively improved.
[2019-06-23] MEDS ORDERED: SODIUM CHLORIDE 250 ML IV PRN (10:00)
--- NOTE | 2019-06-23 11:56 | PN ---
Progress Note, Physician History of Present Illness: Pt seen and examined at bedside. His mental status is improving. He is able to maintain a conversation. - Current Medication List Current Medications: Active Medications Acetaminophen (Tylenol -) 500 mg PO Q6H PRN PRN Reason: PAIN LEVEL 6-10 Last Admin: 06/19/19 19:41 Dose: 500 mg Aspirin (Asa -) 81 mg PO DAILY [facility] Last Admin: 06/22/19 11:36 Dose: 81 mg Atorvastatin Calcium (Lipitor -) 40 mg PO HS [facility] Last Admin: 06/22/19 22:59 Dose: 40 mg Calcium Acetate (Phoslo -) 667 mg PO TIDCM [facility] Last Admin: 06/22/19 17:41 Dose: 667 mg Guaifenesin (Mucinex -) 600 mg PO BID [facility] Last Admin: 06/22/19 22:59 Dose: 600 mg Heparin Sodium (Porcine) (Heparin -) 5,000 unit SQ TID [facility] Last Admin: 06/23/19 06:16 Dose: 5,000 unit Hydralazine HCl (Apresoline -) 25 mg PO TID [facility] Last Admin: 06/23/19 05:37 Dose: Not Given Insulin Aspart (Nov[facility] Vial Sliding Scale -) [facility] Protocol Last Admin: 06/23/19 06:16 Dose: 2 units Isosorbide Mononitrate (Imdur -) 30 mg PO DAILY [facility] Last Admin: 06/22/19 11:36 Dose: 30 mg Metoprolol Succinate (Toprol Xl -) 25 mg PO DAILY [facility] Last Admin: 06/22/19 11:36 Dose: 25 mg Olanzapine (Zyprexa -) 2.5 mg PO [facility] Last Admin: 06/21/19 22:31 Dose: Not Given Senna (Senna -) 1 tab PO BID [facility] Last Admin: 06/22/19 22:59 Dose: 1 tab Tamsulosin HCl (Flomax -) 0.4 mg PO [facility] Last Admin: 06/22/19 23:00 Dose: 0.4 mg - Objective Vital Signs: Vital Signs Temperature 97.2 F L 06/23/19 05:00 Pulse Rate 66 06/23/19 11:30 Respiratory Rate 18 06/23/19 11:30 Blood Pressure 134/66 06/23/19 11:30 O2 Sat by Pulse Oximetry (%) 94 L 06/22/19 21:00 Constitutional: Yes: Calm Eyes: Yes: Conjunctiva Clear HENT: Yes: Atraumatic Neck: Yes: Supple Cardiovascular: Yes: S1, S2 Respiratory: Yes: CTA Bilaterally Gastrointestinal: Yes: Soft Genitourinary: Yes: WNL Musculoskeletal: Yes: WNL Edema: Yes Edema: LLE: 1+, RLE: 1+ Neurological: Yes: Oriented Psychiatric: Yes: Oriented Labs: CBC, BMP 06/23/19 07:35 06/23/19 07:35 INR, PTT INR 1.03 (0.83-1.09) 06/19/19 06:00 Problem List - Problems (1) CKD (chronic kidney disease) Code(s): N18.9 - CHRONIC KIDNEY DISEASE, UNSPECIFIED (2) HTN (hypertension) Code(s): I10 - ESSENTIAL (PRIMARY) HYPERTENSION (3) Diabetes mellitus Code(s): E11.9 - TYPE 2 DIABETES MELLITUS WITHOUT COMPLICATIONS Assessment/Plan Current Medications Generic Name Dose Route Start Last Admin Trade Name Freq PRN Reason Stop Dose Admin Acetaminophen 500 mg 06/17/19 17:19 06/19/19 19:41 Tylenol - PO 500 mg Q6H PRN Administration PAIN LEVEL 6-10 Aspirin 81 mg 06/13/19 10:00 06/22/19 11:36 Asa - PO 81 mg DAILY [facility] Administration Atorvastatin Calcium 40 mg 06/13/19 22:00 06/22/19 22:59 Lipitor - PO 40 mg HS [facility] Administration Calcium Acetate 667 mg 06/11/19 08:00 06/22/19 17:41 Phoslo - PO 667 mg TIDCM [facility] Administration Guaifenesin 600 mg 06/14/19 13:30 06/22/19 22:59 Mucinex - PO 600 mg BID [facility] Administration Heparin Sodium (Porcine) 5,000 unit 06/10/19 18:00 06/23/19 06:16 Heparin - SQ 5,000 unit TID [facility] Administration Hydralazine HCl 25 mg 06/14/19 13:00 06/23/19 05:37 Apresoline - PO Not Given TID [facility] Insulin Aspart 1 vial 06/16/19 07:00 06/23/19 06:16 Novolog Vial Sliding Scale - SQ 2 units TIDAC [facility] Administration Protocol Isosorbide Mononitrate 30 mg 06/13/19 10:00 06/22/19 11:36 Imdur - PO 30 mg DAILY [facility] Administration Metoprolol Succinate 25 mg 06/16/19 16:06 06/22/19 11:36 Toprol Xl - PO 25 mg DAILY [facility] Administration Olanzapine 2.5 mg 06/18/19 16:06 06/21/19 22:31 Zyprexa - PO Not Given HS [facility] Senna 1 tab 06/20/19 17:20 06/22/19 22:59 Senna - PO 1 tab BID [facility] Administration Tamsulosin HCl 0.4 mg 06/21/19 22:00 06/22/19 23:00 Flomax - PO 0.4 mg HS [facility] Administration Impression 1. CKD 2. HTN 3. DM 4. fluid overload 5. esrd 6. altered mental status Plan - HD today - mental status is improving - renal diet - monitor wbc - pt tolerating po intake
--- NOTE | 2019-06-23 12:39 | PN ---
Physical Exam: SUBJECTIVE: Patient seen and examined 83 y/o M, pmh of CKD stage V, T2DM presented with LE edema of 1 week duration likely 2/2 fluid overload from ESRD. Pt is at his baseline today. Mildly confused as usual but much better than before. He was aggravated and confused overnight. Today pt is asymptomatic and afebrile. Denies f/c/n/v/d/sob/chest pain. OBJECTIVE: Vital Signs Period Temp Pulse Resp BP Sys/Alexandre Pulse Ox Last 24 Hr 97.2 F-98.7 F 64-80 18-20 111-141/54-74 94 GENERAL: Pt alert, awake and conversational. Mild confusion but much improved EYES: PERRL, extraocular movements intact. ENT: dentation poor. Uses artificial teeth. moist mucous membranes. NECK: full range of motion, supple. LUNGS: breath sounds have improved significantly. Mild wheezing heard b/l. HEART: Regular rate and rhythm, S1 and S2 normal ABDOMEN: Mild tenderness to palpation in suprapubic region, nondistended, normoactive bowel sounds EXTREMITIES: 2+ pulses, no edema. Chronic venous stasis skin changes b/l. Mild tenderness to palpation on both extremities b/l. NEUROLOGICAL: Cranial nerves II through XII grossly intact. SKIN: Warm, dry, normal turgor Laboratory Results - last 24 hr CBC,CMP WBC 11.1 K/mm3 (4.0-10.0) H 06/23/19 07:35 RBC 5.03 M/mm3 (4.00-5.60) 06/23/19 07:35 Hgb 9.5 GM/dL (11.7-16.9) L 06/23/19 07:35 Hct 31.5 % (35.4-49) L 06/23/19 07:35 MCV 62.7 fl (80-96) L 06/23/19 07:35 MCH 18.8 pg (25.7-33.7) L 06/23/19 07:35 MCHC 30.0 g/dl (32.0-35.9) L 06/23/19 07:35 RDW 19.1 % (11.9-15.9) H 06/23/19 07:35 Plt Count 224 K/MM3 (134-434) 06/23/19 07:35 MPV 8.4 fl (7.5-11.1) 06/23/19 07:35 Absolute Neuts (auto) 6.6 K/mm3 (1.5-8.0) 06/16/19 06:10 Neutrophils % 79.4 % (42.8-82.8) 06/16/19 06:10 Neutrophils % (Manual) 79.2 % (42.8-82.8) 06/15/19 06:20 Band Neutrophils % 0.0 % 06/15/19 06:20 Lymphocytes % 5.7 % (8-40) L D 06/16/19 06:10 Lymphocytes % (Manual) 4.9 % (8-40) L 06/15/19 06:20 Monocytes % 10.6 % (3.8-10.2) H 06/16/19 06:10 Monocytes % (Manual) 6 % (3.8-10.2) 06/15/19 06:20 Eosinophils % 3.5 % (0-4.5) 06/16/19 06:10 Eosinophils % (Manual) 3.0 % (0-4.5) 06/15/19 06:20 Basophils % 0.8 % (0-2.0) 06/16/19 06:10 Basophils % (Manual) 3.0 % (0-2.0) H D 06/15/19 06:20 Myelocytes % (Man) 0 % (0-2) 06/15/19 06:20 Promyelocytes % (Man) 0 % (0-2) 06/15/19 06:20 Blast Cells % (Manual) 0 % (0-0) 06/15/19 06:20 Nucleated RBC % 1 % (0-0) H 06/16/19 06:10 Metamyelocytes 0 % (0-2) 06/15/19 06:20 Hypochromia 3+ 06/15/19 06:20 Toxic Granulation 1+ 06/13/19 05:35 Platelet Estimate Normal 06/16/19 06:10 Platelet Comment Present 06/12/19 06:16 Polychromasia 1+ 06/15/19 06:20 Poikilocytosis 3+ 06/15/19 06:20 Anisocytosis 3+ 06/15/19 06:20 Microcytosis 3+ 06/15/19 06:20 Macrocytosis 0 06/15/19 06:20 Spherocytes 2+ 06/13/19 05:35 Target Cells 3+ 06/15/19 06:20 Tear Drop Cells 1+ 06/13/19 05:35 Ovalocytes 1+ 06/14/19 06:07 [place] Cells 1+ 06/10/19 15:00 Rouleaux 1+ 06/15/19 06:20 Fragmented RBCs 2+ 06/15/19 06:20 Schistocytes 3+ 06/15/19 06:20 Sodium 138 mmol/L (136-145) 06/23/19 07:35 Potassium 3.9 mmol/L (3.5-5.1) 06/23/19 07:35 Chloride 103 mmol/L (98-107) 06/23/19 07:35 Carbon Dioxide 27 mmol/L (21-32) 06/23/19 07:35 Anion Gap 8 MMOL/L (8-16) 06/23/19 07:35 BUN 47.5 mg/dL (7-18) H 06/23/19 07:35 Creatinine 4.1 mg/dL (0.55-1.3) H 06/23/19 07:35 Est GFR (CKD-EPI)AfAm 14.69 06/23/19 07:35 Est GFR (CKD-EPI)NonAf 12.67 06/23/19 07:35 POC Glucometer 159 UNITS (80-120) 06/23/19 06:06 Random Glucose 104 mg/dL (74-106) 06/23/19 07:35 Hemoglobin A1c % 8.0 % (4.2-6.3) H 06/11/19 06:00 Calcium 8.0 mg/dL (8.5-10.1) L 06/23/19 07:35 Phosphorus 4.1 mg/dL (2.5-4.9) 06/23/19 07:35 Magnesium 2.2 mg/dL (1.8-2.4) 06/23/19 07:35 Iron 16 ug/dL (50-175) L 06/11/19 06:00 TIBC 329 ug/dL (250-450) 06/11/19 06:00 Iron Saturation 4 % (17.5-39) L 06/11/19 06:00 Unsaturated IBC 313 ug/dL (200-275) H 06/11/19 06:00 Ferritin 17.1 ng/ml (8-388) 06/11/19 06:00 Total Bilirubin 0.8 mg/dL (0.2-1) 06/18/19 06:20 AST 15 U/L (15-37) 06/18/19 06:20 ALT 18 U/L (13-61) 06/18/19 06:20 Alkaline Phosphatase 120 U/L (45-117) H 06/18/19 06:20 Ammonia 12.70 umol/L (11-32) 06/22/19 12:15 Creatine Kinase 159 U/L (26-308) 06/10/19 15:00 Creatine Kinase Index 3.3 % (0.0-5.0) 06/10/19 15:00 CK-MB (CK-2) 5.4 ng/mL (0.5-3.6) H 06/10/19 15:00 Troponin I 0.15 ng/ml (0.00-0.05) H 06/11/19 08:40 B-Natriuretic Peptide 61206.8 pg/ml (5-450) H 06/10/19 15:00 Total Protein 5.6 g/dl (6.4-8.2) L 06/18/19 06:20 Albumin 2.7 g/dl (3.4-5.0) L 06/18/19 06:20 PTH Intact 236 pg/mL (15-65) H 06/11/19 06:00 PTH Intact Intraop 0 m (.) 06/11/19 06:00 Active Medications Current Medications Acetaminophen (Tylenol -) 500 mg PO Q6H PRN PRN Reason: PAIN LEVEL 6-10 Last Admin: 06/19/19 19:41 Dose: 500 mg Aspirin (Asa -) 81 mg PO DAILY [facility] Last Admin: 06/22/19 11:36 Dose: 81 mg Atorvastatin Calcium (Lipitor -) 40 mg PO HS [facility] Last Admin: 06/22/19 22:59 Dose: 40 mg Calcium Acetate (Phoslo -) 667 mg PO TIDCM [facility] Last Admin: 06/22/19 17:41 Dose: 667 mg Guaifenesin (Mucinex -) 600 mg PO BID [facility] Last Admin: 06/22/19 22:59 Dose: 600 mg Heparin Sodium (Porcine) (Heparin -) 5,000 unit SQ TID [facility] Last Admin: 06/23/19 06:16 Dose: 5,000 unit Hydralazine HCl (Apresoline -) 25 mg PO TID [facility] Last Admin: 06/23/19 05:37 Dose: Not Given Insulin Aspart (Novolog Vial Sliding Scale -) 1 vial SQ TIDAC [facility]; Protocol Last Admin: 06/23/19 06:16 Dose: 2 units Isosorbide Mononitrate (Imdur -) 30 mg PO DAILY [facility] Last Admin: 06/22/19 11:36 Dose: 30 mg Metoprolol Succinate (Toprol Xl -) 25 mg PO DAILY [facility] Last Admin: 06/22/19 11:36 Dose: 25 mg Olanzapine (Zyprexa -) 2.5 mg PO [facility] Last Admin: 06/21/19 22:31 Dose: Not Given Senna (Senna -) 1 tab PO BID [facility] Last Admin: 06/22/19 22:59 Dose: 1 tab Tamsulosin HCl (Flomax -) 0.4 mg PO [facility] Last Admin: 06/22/19 23:00 Dose: 0.4 mg Home Medications Medication Instructions Recorded Amlodipine Besylate 5 mg PO DAILY 06/10/19 Calcium Acetate [Phoslo -] 667 mg PO TID 06/10/19 Furosemide [Lasix] 80 mg PO TID 06/10/19 Microbiology 06/17/19 15:45 Urine - Urine Clean Catch Urine Culture - Final NO GROWTH OBTAINED 06/10/19 22:00 Urine - Urine - Catheterized Urine Culture - Final NO GROWTH OBTAINED ASSESSMENT/PLAN: 83 y/o M, pmh of CKD stage V, T2DM presented with LE edema of 1 week duration likely 2/2 fluid overload from ESRD. #AMS Stable today-improved PT for bedside exercise with pt HD today Spoke to - said pt has a moderate PCN allergy with a rash #Urinary retention likely 2/2 to UTI UA+ today- +nitrites, +LE US kidneys ordered- we will f/u WBC 11.1 today, came down from yesterday Pt given Levaquin overnight Start ceftriaxone tomorrow #LE edema likely 2/2 to Fluid overload 2/2 ESRD pending placement for HD #Safety at home Pt will be going to Rehab #CHF- acute on chronic systolic CHF w/ severe fluid overload Strict salt and fluid restrictions. No fluids nor ice cubes at the bedside. #HTN Cont hydralazine 25 mg 3 times a day. #HLD cont atorvastatin #Type 2 DM ISS #DVT ppx Heparin FEN: renal diet Dispo: cont PT, monitor mentation, f/u HD today Visit type - Emergency Visit Emergency Visit: Yes ED Registration Date: 06/10/19 Care time: The patient presented to the Emergency Department on the above date and was hospitalized for further evaluation of their emergent condition. - New Patient This patient is new to me today: Yes Date on this admission: 06/25/19 - Critical Care Critical Care patient: No - Discharge Referral Referred to [facility] No ATTENDING PHYSICIAN STATEMENT I saw and evaluated the patient. I reviewed the resident's note and discussed the case with the resident. I agree with the resident's findings and plan as documented. SUBJECTIVE: OBJECTIVE: ASSESSMENT AND PLAN:
[2019-06-23] MEDS: ISOSORBIDE MONONITRATE 30 MG TAB.SR.24H (FP) PO SCH (13:43)
[2019-06-23] MEDS: CALCIUM ACETATE 667 MG CAPSULE (FP) PO SCH ×3 (13:43→18:03)
[2019-06-23] MEDS: ASPIRIN 81 MG CHEWABLE TABLETS PO SCH (13:44)
[2019-06-23] MEDS: SENNOSIDES 8.6MG TABLET (FP) PO SCH ×2 (13:44→21:23)
[2019-06-23] MEDS: guaiFENesin 600 MG TABLET.ER (FP) PO SCH ×2 (13:44→21:22)
--- NOTE | 2019-06-23 17:25 | PN ---
Teaching Attending Note Name of Resident: Olaf Winn ATTENDING PHYSICIAN STATEMENT I saw and evaluated the patient. I reviewed the resident's note and discussed the case with the resident. I agree with the resident's findings and plan as documented. SUBJECTIVE: Patient is feeling better today , having HD at bedside. Vital Signs Temperature 98.1 F 06/23/19 14:00 Pulse Rate 75 06/23/19 14:00 Respiratory Rate 20 06/23/19 14:00 Blood Pressure 155/70 06/23/19 14:00 O2 Sat by Pulse Oximetry (%) 95 06/23/19 10:00 GENERAL: The patient is awake, better today , in no acute distress. HEAD: Normal with no signs of trauma. EYES: PERRL, extraocular movements intact, sclera anicteric, conjunctiva clear. ENT: Ears normal, oropharynx clear without exudates, moist mucous membranes. NECK: Trachea midline, full range of motion, supple. LUNGS: Breath sounds equal, clear to auscultation bilaterally, no wheezes, no crackles, no accessory muscle use. HEART: Regular rate and rhythm, S1, S2 positive, JACKY 2/6, no rub or gallop. ABDOMEN: Soft, NT,ND, normoactive bowel sounds, no guarding, no rebound, no hepatosplenomegaly, no masses. EXTREMITIES: 2+ pulses, warm, well-perfused, no edema. NEUROLOGICAL: Cranial nerves II through XII grossly intact. Normal speech, gait not observed. PSYCH: Normal mood, normal affect. SKIN: Warm, dry, normal turgor, no rashes or lesions noted CBCD WBC 11.1 K/mm3 (4.0-10.0) H 06/23/19 07:35 RBC 5.03 M/mm3 (4.00-5.60) 06/23/19 07:35 Hgb 9.5 GM/dL (11.7-16.9) L 06/23/19 07:35 Hct 31.5 % (35.4-49) L 06/23/19 07:35 MCV 62.7 fl (80-96) L 06/23/19 07:35 MCHC 30.0 g/dl (32.0-35.9) L 06/23/19 07:35 RDW 19.1 % (11.9-15.9) H 06/23/19 07:35 Plt Count 224 K/MM3 (134-434) 06/23/19 07:35 MPV 8.4 fl (7.5-11.1) 06/23/19 07:35 CMP Sodium 138 mmol/L (136-145) 06/23/19 07:35 Potassium 3.9 mmol/L (3.5-5.1) 06/23/19 07:35 Chloride 103 mmol/L (98-107) 06/23/19 07:35 Carbon Dioxide 27 mmol/L (21-32) 06/23/19 07:35 Anion Gap 8 MMOL/L (8-16) 06/23/19 07:35 BUN 47.5 mg/dL (7-18) H 06/23/19 07:35 Creatinine 4.1 mg/dL (0.55-1.3) H 06/23/19 07:35 Random Glucose 104 mg/dL (74-106) 06/23/19 07:35 Calcium 8.0 mg/dL (8.5-10.1) L 06/23/19 07:35 Total Bilirubin 0.8 mg/dL (0.2-1) 06/18/19 06:20 AST 15 U/L (15-37) 06/18/19 06:20 ALT 18 U/L (13-61) 06/18/19 06:20 Alkaline Phosphatase 120 U/L (45-117) H 06/18/19 06:20 Total Protein 5.6 g/dl (6.4-8.2) L 06/18/19 06:20 Albumin 2.7 g/dl (3.4-5.0) L 06/18/19 06:20 CARDIAC ENZYMES Creatine Kinase 159 U/L (26-308) 06/10/19 15:00 Troponin I 0.15 ng/ml (0.00-0.05) H 06/11/19 08:40 Current Medications Generic Name Dose Route Start Last Admin Trade Name Freq PRN Reason Stop Dose Admin Acetaminophen 500 mg 06/17/19 17:19 06/19/19 19:41 Tylenol - PO 500 mg Q6H PRN Administration PAIN LEVEL 6-10 Aspirin 81 mg 06/13/19 10:00 06/23/19 13:44 Asa - PO 81 mg DAILY [facility] Administration Atorvastatin Calcium 40 mg 06/13/19 22:00 06/22/19 22:59 Lipitor - PO 40 mg HS [facility] Administration Calcium Acetate 667 mg 06/11/19 08:00 06/23/19 13:44 Phoslo - PO Not Given TIDCM [facility] Guaifenesin 600 mg 06/14/19 13:30 06/23/19 13:44 Mucinex - PO 600 mg BID [facility] Administration Heparin Sodium (Porcine) 5,000 unit 06/10/19 18:00 06/23/19 13:45 Heparin - SQ 5,000 unit TID [facility] Administration Hydralazine HCl 25 mg 06/14/19 13:00 06/23/19 13:45 Apresoline - PO 25 mg TID [facility] Administration Insulin Aspart 1 vial 06/16/19 07:00 06/23/19 13:45 Novolog Vial Sliding Scale - SQ Not Given TIDAC [facility] Protocol Isosorbide Mononitrate 30 mg 06/13/19 10:00 06/23/19 13:43 Imdur - PO 30 mg DAILY [facility] Administration Metoprolol Succinate 25 mg 06/16/19 16:06 06/23/19 13:44 Toprol Xl - PO 25 mg DAILY [facility] Administration Olanzapine 2.5 mg 06/18/19 16:06 06/21/19 22:31 Zyprexa - PO Not Given HS [facility] Senna 1 tab 06/20/19 17:20 06/23/19 13:44 Senna - PO 1 tab BID [facility] Administration Tamsulosin HCl 0.4 mg 06/21/19 22:00 06/22/19 23:00 Flomax - PO 0.4 mg HS [facility] Administration Home Medications Medication Instructions Recorded Amlodipine Besylate 5 mg PO DAILY 06/10/19 Calcium Acetate [Phoslo -] 667 mg PO TID 06/10/19 Furosemide [Lasix] 80 mg PO TID 06/10/19 Echo:EJF 30-35%, diastolic dysfunction grade 2, moderate MR, moderate TR Assessment and plan: Patient is an 83 y/o man with PMhx of CKD , HTN , systolic CHF and DM who presented with AMS and was found to be uremic and in acute CHF # Acute systolic CHF exacerbation: On HD now improving # ESRD on HD (TTrSaT) nephro on the case # Chronic microcytic anemia: iron def as per nephro #AMS: likely due to metabolic encephalopathy from uremia s/p acute delirium. Improved. most likely due to zyprexa which was on hold # Hx of DM : SS with coverage # Hx of HTN : continue Imdur, Toprol # urinary retention continue Flomax # Acute change mental status: zyprexa was held ,mental status improved and lethargy resolved, cont to hold. Heparin sq
[2019-06-23] MEDS: TAMSULOSIN HCL 0.4 MG CAP PO SCH (21:23)
[2019-06-23] MEDS: ATORVASTATIN CA 40 MG TABLET (FP) PO SCH (21:23)
[2019-06-24 06:44] LABS: HEMATOCRIT 32.1 % (35.4-49); HEMOGLOBIN 9.9 GM/dL (11.7-16.9); MCHC 30.9 g/dl (32.0-35.9); MEAN CELL VOLUME 62.2 fl (80-96); MEAN PLT VOLUME 8.4 fl (7.5-11.1); PLATELET COUNT 246 K/MM3 (134-434); RBC 5.15 M/mm3 (4.00-5.60); RDW 19.1 % (11.9-15.9); WHITE BLOOD COUNT 10.1 K/mm3 (4.0-10.0)
[2019-06-24] MEDS: hydrALAZINE HCL 25 MG TABLET (FP) PO SCH ×3 (06:48→21:31)
[2019-06-24] MEDS: HEPARIN NA (PORCINE) 5,000 UNITS/ML 1ML VIAL SQ SCH ×3 (06:48→21:35)
[2019-06-24] MEDS: INSULIN SLIDING SCALE (NOVOLOG) 1 VIAL SQ SCH ×3 (06:50→18:19)
[2019-06-24 07:13] LABS: MCH 19.2 pg (25.7-33.7)
[2019-06-24 07:21] LABS: BLOOD UREA NITROGEN 41.2 mg/dL (7-18); CALCIUM 7.9 mg/dL (8.5-10.1); CREATININE 3.4 mg/dL (0.55-1.3); MAGNESIUM 2.1 mg/dL (1.8-2.4); PHOSPHOROUS 2.8 mg/dL (2.5-4.9)
[2019-06-24] MEDS: CALCIUM ACETATE 667 MG CAPSULE (FP) PO SCH ×3 (08:27→18:19)
--- NOTE | 2019-06-24 08:29 | PN ---
Progress Note (short form) - Note Progress Note: Neurology HISTORY OF PRESENT ILLNESS: 83yo M with h/o CKD stage V, HTN, Type 2 DM who presents on day of admission with 1 week worsening lower extremity edema. Pt has been told he has end-stage CKD, however he refuses dialysis because he believed his family members suffered and did not benefit in regards to mortality. Pt noticed about 1-2 weeks he has been having increased edema of his legs. He does not weigh himself regularly and he does not know his dry weight. Pt reports he went to see his PCP who increased his lasix to 80mg TID PO. He was only taking this for a couple of days when he noticed severe dyspnea on exertion worsening when he went to the bathroom or moving from [id number] in his house. Pt endorses orthopnea and uses multiple pillows at night to sleep. Pt denies any fever/ chills, headaches, blurry vision, diarrhea/constiption, chest pain, palpitations , abdominal pain, n/v. 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 Psychiatry consult completed, for behavioral changes, put on Zyprexa and if not helpful can use Remeron, per note. Zyprexa reduced to 2.[address] repeated , no acute changes noted. More somnolent this morning but arousable and briefly conversive, neurologically remained stable overnight. Active Medications Acetaminophen (Tylenol -) 500 mg PO Q6H PRN PRN Reason: PAIN LEVEL 6-10 Last Admin: 06/19/19 19:41 Dose: 500 mg Aspirin (Asa -) 81 mg PO DAILY [facility] Last Admin: 06/23/19 13:44 Dose: 81 mg Atorvastatin Calcium (Lipitor -) 40 mg PO HS [facility] Last Admin: 06/23/19 21:23 Dose: 40 mg Calcium Acetate (Phoslo -) 667 mg PO TIDCM [facility] Last Admin: 06/24/19 08:27 Dose: 667 mg Guaifenesin (Mucinex -) 600 mg PO BID [facility] Last Admin: 06/23/19 21:22 Dose: 600 mg Heparin Sodium (Porcine) (Heparin -) 5,000 unit SQ TID [facility] Last Admin: 06/24/19 06:48 Dose: 5,000 unit Hydralazine HCl (Apresoline -) 25 mg PO TID [facility] Last Admin: 06/24/19 06:48 Dose: 25 mg Ceftriaxone Sodium 1 gm/ (Dextrose) 50 mls @ 100 mls/hr IVPB DAILY [facility]; Protocol Insulin Aspart (Novolog Vial Sliding Scale -) 1 vial SQ TIDAC [facility]; Protocol Last Admin: 06/24/19 06:50 Dose: Not Given Isosorbide Mononitrate (Imdur -) 30 mg PO DAILY [facility] Last Admin: 06/23/19 13:43 Dose: 30 mg Metoprolol Succinate (Toprol Xl -) 25 mg PO DAILY [facility] Last Admin: 06/23/19 13:44 Dose: 25 mg Olanzapine (Zyprexa -) 2.5 mg PO HS [facility] Last Admin: 06/21/19 22:31 Dose: Not Given Senna (Senna -) 1 tab PO BID [facility] Last Admin: 06/23/19 21:23 Dose: 1 tab Tamsulosin HCl (Flomax -) 0.4 mg PO HS [facility] Last Admin: 06/23/19 21:23 Dose: 0.4 mg PHYSICAL EXAMINATION Vital Signs Period Temp Pulse Resp BP Sys/Alexandre Pulse Ox Last 24 Hr 97.3 F-98.8 F 66-81 18-180 118-155/56-78 93-95 GENERAL: Awake, alert, not oriented, conversive but not coherent HEENT: NC/AT, CAROLA, MMM, EOMI. NECK: + JVD LUNGS: Rales throughout all lung strong bilaterally. No wheezes. No accessory muscle use. On 2LNC. Speaking in full sentences HEART: RRR, normal S1 and S2 without murmur ABDOMEN: Soft, nontender, abdominal wall edema, hypoactive BS, + hepatojugular reflux, no guarding or rebound, no hepatomegaly or caput medusa noted. MUSCULOSKELETAL: No CVA tenderness. EXTREMITIES: 2+ DP pulses b/l, 3+ pitting edema to groin and abdominal wall. Warm, venous stasis changes also noted, no calf tenderness. NEUROLOGICAL: Nonfocal exam. Normal speech. moves all extremities, sensory intact PSYCHIATRIC: Cooperative. Good eye contact. Appropriate mood and affect. SKIN: Warm, dry, no rashes or lesions noted, stasis changes as above, normal capillary refill. CBCD WBC 10.1 K/mm3 (4.0-10.0) H 06/24/19 06:00 RBC 5.15 M/mm3 (4.00-5.60) 06/24/19 06:00 Hgb 9.9 GM/dL (11.7-16.9) L 06/24/19 06:00 Hct 32.1 % (35.4-49) L 06/24/19 06:00 MCV 62.2 fl (80-96) L 06/24/19 06:00 MCHC 30.9 g/dl (32.0-35.9) L 06/24/19 06:00 RDW 19.1 % (11.9-15.9) H 06/24/19 06:00 Plt Count 246 K/MM3 (134-434) 06/24/19 06:00 MPV 8.4 fl (7.5-11.1) 06/24/19 06:00 CMP Sodium 136 mmol/L (136-145) 06/24/19 06:00 Potassium 4.0 mmol/L (3.5-5.1) 06/24/19 06:00 Chloride 101 mmol/L (98-107) 06/24/19 06:00 Carbon Dioxide 28 mmol/L (21-32) 06/24/19 06:00 Anion Gap 6 MMOL/L (8-16) L 06/24/19 06:00 BUN 41.2 mg/dL (7-18) H 06/24/19 06:00 Creatinine 3.4 mg/dL (0.55-1.3) H 06/24/19 06:00 Random Glucose 135 mg/dL (74-106) H 06/24/19 06:00 Calcium 7.9 mg/dL (8.5-10.1) L 06/24/19 06:00 Total Bilirubin 0.8 mg/dL (0.2-1) 06/18/19 06:20 AST 15 U/L (15-37) 06/18/19 06:20 ALT 18 U/L (13-61) 06/18/19 06:20 Alkaline Phosphatase 120 U/L (45-117) H 06/18/19 06:20 Total Protein 5.6 g/dl (6.4-8.2) L 06/18/19 06:20 Albumin 2.7 g/dl (3.4-5.0) L 06/18/19 06:20 CARDIAC ENZYMES Creatine Kinase 159 U/L (26-308) 06/10/19 15:00 Troponin I 0.15 ng/ml (0.00-0.05) H 06/11/19 08:40 ASSESSMENT AND PLAN: 83yo M with h/o CKD stage V, HTN, Type 2 DM who presents on day of admission with 1 week worsening lower extremity edema. Pt has been told he has end-stage CKD, however he refuses dialysis because he believed his family members suffered and did not benefit in regards to mortality. Pt noticed about 1-2 weeks he has been having increased edema of his legs. He does not weigh himself regularly and he does not know his dry weight. Pt reports he went to see his PCP who increased his lasix to 80mg TID PO. He was only taking this for a couple of days when he noticed severe dyspnea on exertion worsening when he went to the bathroom or moving from [id number] in his house. Pt endorses orthopnea and uses multiple pillows at night to sleep. Pt denies any fever/ chills, headaches, blurry vision, diarrhea/constiption, chest pain, palpitations , abdominal pain, n/v. 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 Psychiatry consult completed, for behavioral changes, put on Zyprexa and if not helpful can use Remeron, per note. Zyprexa reduced to 2.[address] repeated , no acute changes noted. More somnolent this morning but arousable and briefly conversive, neurologically remained stable overnight. Continue [facility] follow up and optimization. Continue mgmt for uremia, reorientation as able, monitor mental status. Maintain adequate hydration. WBC count reduced to 10.1. Cognitively improved.
[2019-06-24] MEDS ORDERED: CEFTRIAXONE 1 GM in DEXTROSE 5%-WATER - 50 ML IVPB SCH (10:00)
[2019-06-24] MEDS: guaiFENesin 600 MG TABLET.ER (FP) PO SCH ×2 (11:02→21:35)
[2019-06-24] MEDS: ASPIRIN 81 MG CHEWABLE TABLETS PO SCH (11:02)
[2019-06-24] MEDS: SENNOSIDES 8.6MG TABLET (FP) PO SCH ×2 (11:03→21:35)
[2019-06-24] MEDS: ISOSORBIDE MONONITRATE 30 MG TAB.SR.24H (FP) PO SCH (11:03)
[2019-06-24] MEDS ORDERED: DEXTROSE 5%-WATER - 50 ML IVPB ONE (11:55)
[2019-06-24] MEDS ORDERED: cefTRIAXone SODIUM 1 GM VIAL ONE (11:55)
[2019-06-24] MEDS ORDERED: SODIUM CHLORIDE 250 ML IV PRN (12:39)
--- NOTE | 2019-06-24 12:39 | PN ---
Progress Note, Physician History of Present Illness: Pt seen and examined at bedside. His mental status is improved today. - Current Medication List Current Medications: Active Medications Acetaminophen (Tylenol -) 500 mg PO Q6H PRN PRN Reason: PAIN LEVEL 6-10 Last Admin: 06/19/19 19:41 Dose: 500 mg Aspirin (Asa -) 81 mg PO DAILY [facility] Last Admin: 06/24/19 11:02 Dose: 81 mg Atorvastatin Calcium (Lipitor -) 40 mg PO HS [facility] Last Admin: 06/23/19 21:23 Dose: 40 mg Calcium Acetate (Phoslo -) 667 mg PO TIDCM [facility] Last Admin: 06/24/19 11:03 Dose: 667 mg Guaifenesin (Mucinex -) 600 mg PO BID [facility] Last Admin: 06/24/19 11:02 Dose: 600 mg Heparin Sodium (Porcine) (Heparin -) 5,000 unit SQ TID [facility] Last Admin: 06/24/19 06:48 Dose: 5,000 unit Hydralazine HCl (Apresoline -) 25 mg PO TID [facility] Last Admin: 06/24/19 06:48 Dose: 25 mg Ceftriaxone Sodium 1 gm/ (Dextrose) 50 mls @ 100 mls/hr IVPB DAILY [facility]; Protocol Last Admin: 06/24/19 11:57 Dose: 100 mls/hr Insulin Aspart (Novolog Vial Sliding Scale -) 1 vial SQ TIDAC [facility]; Protocol Last Admin: 06/24/19 06:50 Dose: Not Given Isosorbide Mononitrate (Imdur -) 30 mg PO DAILY [facility] Last Admin: 06/24/19 11:03 Dose: 30 mg Metoprolol Succinate (Toprol Xl -) 25 mg PO DAILY [facility] Last Admin: 06/24/19 11:02 Dose: 25 mg Olanzapine (Zyprexa -) 2.5 mg PO HS [facility] Last Admin: 06/21/19 22:31 Dose: Not Given Senna (Senna -) 1 tab PO BID [facility] Last Admin: 06/24/19 11:03 Dose: 1 tab Tamsulosin HCl (Flomax -) 0.4 mg PO HS [facility] Last Admin: 06/23/19 21:23 Dose: 0.4 mg - Objective Vital Signs: Vital Signs Temperature 98.7 F 06/24/19 09:40 Pulse Rate 80 06/24/19 09:40 Respiratory Rate 18 06/24/19 09:40 Blood Pressure 133/69 06/24/19 09:40 O2 Sat by Pulse Oximetry (%) 98 06/24/19 09:00 Constitutional: Yes: Calm Eyes: Yes: Conjunctiva Clear HENT: Yes: Atraumatic Neck: Yes: Supple Cardiovascular: Yes: S1, S2 Respiratory: Yes: CTA Bilaterally Gastrointestinal: Yes: Normal Bowel Sounds, Soft Genitourinary: Yes: [place] Present Musculoskeletal: Yes: Muscle Weakness Edema: Yes Edema: LLE: 1+, RLE: 1+ Integumentary: Yes: Venous Stasis Changes Neurological: Yes: Oriented Psychiatric: Yes: Oriented Labs: CBC, BMP 06/24/19 06:00 06/24/19 06:00 INR, PTT INR 1.03 (0.83-1.09) 06/19/19 06:00 Problem List - Problems (1) CKD (chronic kidney disease) Code(s): N18.9 - CHRONIC KIDNEY DISEASE, UNSPECIFIED (2) HTN (hypertension) Code(s): I10 - ESSENTIAL (PRIMARY) HYPERTENSION (3) Diabetes mellitus Code(s): E11.9 - TYPE 2 DIABETES MELLITUS WITHOUT COMPLICATIONS Assessment/Plan Current Medications Generic Name Dose Route Start Last Admin Trade Name Freq PRN Reason Stop Dose Admin Acetaminophen 500 mg 06/17/19 17:19 06/19/19 19:41 Tylenol - PO 500 mg Q6H PRN Administration PAIN LEVEL 6-10 Aspirin 81 mg 06/13/19 10:00 06/24/19 11:02 Asa - PO 81 mg DAILY [facility] Administration Atorvastatin Calcium 40 mg 06/13/19 22:00 06/23/19 21:23 Lipitor - PO 40 mg HS [facility] Administration Calcium Acetate 667 mg 06/11/19 08:00 06/24/19 11:03 Phoslo - PO 667 mg TIDCM [facility] Administration Guaifenesin 600 mg 06/14/19 13:30 06/24/19 11:02 Mucinex - PO 600 mg BID [facility] Administration Heparin Sodium (Porcine) 5,000 unit 06/10/19 18:00 06/24/19 06:48 Heparin - SQ 5,000 unit TID [facility] Administration Hydralazine HCl 25 mg 06/14/19 13:00 06/24/19 06:48 Apresoline - PO 25 mg TID [facility] Administration Ceftriaxone Sodium 1 gm/ 50 mls @ 100 mls/hr 06/24/19 10:00 06/24/19 11:57 Dextrose IVPB 100 mls/hr DAILY [facility] Administration Protocol Insulin Aspart 1 vial 06/16/19 07:00 06/24/19 06:50 Novolog Vial Sliding Scale - SQ Not Given TIDAC [facility] Protocol Isosorbide Mononitrate 30 mg 06/13/19 10:00 06/24/19 11:03 Imdur - PO 30 mg DAILY [facility] Administration Metoprolol Succinate 25 mg 06/16/19 16:06 06/24/19 11:02 Toprol Xl - PO 25 mg DAILY [facility] Administration Olanzapine 2.5 mg 06/18/19 16:06 06/21/19 22:31 Zyprexa - PO Not Given HS [facility] Senna 1 tab 06/20/19 17:20 06/24/19 11:03 Senna - PO 1 tab BID [facility] Administration Tamsulosin HCl 0.4 mg 06/21/19 22:00 06/23/19 21:23 Flomax - PO 0.4 mg HS [facility] Administration Impression 1. CKD 2. HTN 3. DM 4. fluid overload 5. esrd 6. altered mental status Plan - HD tomorrow - mental status improved - can d/c fajardo - monitor wbc - pt tolerating po intake
--- NOTE | 2019-06-24 14:43 | PN ---
Physical Exam: SUBJECTIVE: Patient seen and examined Pt was sleepy but responsive. Pt still mildly confused but appears to be his baseline. No overnight issues. Denies f/c/chest pain, sob, numbness or tingling. OBJECTIVE: Vital Signs Period Temp Pulse Resp BP Sys/Alexandre Pulse Ox Last 24 Hr 97.3 F-98.8 F 66-81 18-20 122-143/59-78 93-98 GENERAL: Pt alert, awake and conversational. Mild confusion but much improved EYES: PERRL, extraocular movements intact. ENT: dentation poor. Uses artificial teeth. moist mucous membranes. NECK: full range of motion, supple. LUNGS: breath sounds have improved significantly. Mild wheezing heard b/l. HEART: Regular rate and rhythm, S1 and S2 normal ABDOMEN: Tenderness to palpation in suprapubic region- improved, nondistended, normoactive bowel sounds EXTREMITIES: 2+ pulses, no edema. Chronic venous stasis skin changes b/l. Mild tenderness to palpation on both extremities b/l. NEUROLOGICAL: Cranial nerves II through XII grossly intact. SKIN: Warm, dry, normal turgor Laboratory Results - last 24 hr CBC,CMP WBC 10.1 K/mm3 (4.0-10.0) H 06/24/19 06:00 RBC 5.15 M/mm3 (4.00-5.60) 06/24/19 06:00 Hgb 9.9 GM/dL (11.7-16.9) L 06/24/19 06:00 Hct 32.1 % (35.4-49) L 06/24/19 06:00 MCV 62.2 fl (80-96) L 06/24/19 06:00 MCH 19.2 pg (25.7-33.7) L 06/24/19 06:00 MCHC 30.9 g/dl (32.0-35.9) L 06/24/19 06:00 RDW 19.1 % (11.9-15.9) H 06/24/19 06:00 Plt Count 246 K/MM3 (134-434) 06/24/19 06:00 MPV 8.4 fl (7.5-11.1) 06/24/19 06:00 Absolute Neuts (auto) 6.6 K/mm3 (1.5-8.0) 06/16/19 06:10 Neutrophils % 79.4 % (42.8-82.8) 06/16/19 06:10 Neutrophils % (Manual) 79.2 % (42.8-82.8) 06/15/19 06:20 Band Neutrophils % 0.0 % 06/15/19 06:20 Lymphocytes % 5.7 % (8-40) L D 06/16/19 06:10 Lymphocytes % (Manual) 4.9 % (8-40) L 06/15/19 06:20 Monocytes % 10.6 % (3.8-10.2) H 06/16/19 06:10 Monocytes % (Manual) 6 % (3.8-10.2) 06/15/19 06:20 Eosinophils % 3.5 % (0-4.5) 06/16/19 06:10 Eosinophils % (Manual) 3.0 % (0-4.5) 06/15/19 06:20 Basophils % 0.8 % (0-2.0) 06/16/19 06:10 Basophils % (Manual) 3.0 % (0-2.0) H D 06/15/19 06:20 Myelocytes % (Man) 0 % (0-2) 06/15/19 06:20 Promyelocytes % (Man) 0 % (0-2) 06/15/19 06:20 Blast Cells % (Manual) 0 % (0-0) 06/15/19 06:20 Nucleated RBC % 1 % (0-0) H 06/16/19 06:10 Metamyelocytes 0 % (0-2) 06/15/19 06:20 Hypochromia 3+ 06/15/19 06:20 Toxic Granulation 1+ 06/13/19 05:35 Platelet Estimate Normal 06/16/19 06:10 Platelet Comment Present 06/12/19 06:16 Polychromasia 1+ 06/15/19 06:20 Poikilocytosis 3+ 06/15/19 06:20 Anisocytosis 3+ 06/15/19 06:20 Microcytosis 3+ 06/15/19 06:20 Macrocytosis 0 06/15/19 06:20 Spherocytes 2+ 06/13/19 05:35 Target Cells 3+ 06/15/19 06:20 Tear Drop Cells 1+ 06/13/19 05:35 Ovalocytes 1+ 06/14/19 06:07 Zoila Cells 1+ 06/10/19 15:00 Rouleaux 1+ 06/15/19 06:20 Fragmented RBCs 2+ 06/15/19 06:20 Schistocytes 3+ 06/15/19 06:20 Sodium 136 mmol/L (136-145) 06/24/19 06:00 Potassium 4.0 mmol/L (3.5-5.1) 06/24/19 06:00 Chloride 101 mmol/L (98-107) 06/24/19 06:00 Carbon Dioxide 28 mmol/L (21-32) 06/24/19 06:00 Anion Gap 6 MMOL/L (8-16) L 06/24/19 06:00 BUN 41.2 mg/dL (7-18) H 06/24/19 06:00 Creatinine 3.4 mg/dL (0.55-1.3) H 06/24/19 06:00 Est GFR (CKD-EPI)AfAm 18.42 06/24/19 06:00 Est GFR (CKD-EPI)NonAf 15.89 06/24/19 06:00 POC Glucometer 175 UNITS (80-120) 06/24/19 12:08 Random Glucose 135 mg/dL (74-106) H 06/24/19 06:00 Hemoglobin A1c % 8.0 % (4.2-6.3) H 06/11/19 06:00 Calcium 7.9 mg/dL (8.5-10.1) L 06/24/19 06:00 Phosphorus 2.8 mg/dL (2.5-4.9) 06/24/19 06:00 Magnesium 2.1 mg/dL (1.8-2.4) 06/24/19 06:00 Iron 16 ug/dL (50-175) L 06/11/19 06:00 TIBC 329 ug/dL (250-450) 06/11/19 06:00 Iron Saturation 4 % (17.5-39) L 06/11/19 06:00 Unsaturated IBC 313 ug/dL (200-275) H 06/11/19 06:00 Ferritin 17.1 ng/ml (8-388) 06/11/19 06:00 Total Bilirubin 0.8 mg/dL (0.2-1) 06/18/19 06:20 AST 15 U/L (15-37) 06/18/19 06:20 ALT 18 U/L (13-61) 06/18/19 06:20 Alkaline Phosphatase 120 U/L (45-117) H 06/18/19 06:20 Ammonia 12.70 umol/L (11-32) 06/22/19 12:15 Creatine Kinase 159 U/L (26-308) 06/10/19 15:00 Creatine Kinase Index 3.3 % (0.0-5.0) 06/10/19 15:00 CK-MB (CK-2) 5.4 ng/mL (0.5-3.6) H 06/10/19 15:00 Troponin I 0.15 ng/ml (0.00-0.05) H 06/11/19 08:40 B-Natriuretic Peptide 10758.8 pg/ml (5-450) H 06/10/19 15:00 Total Protein 5.6 g/dl (6.4-8.2) L 06/18/19 06:20 Albumin 2.7 g/dl (3.4-5.0) L 06/18/19 06:20 PTH Intact 236 pg/mL (15-65) H 06/11/19 06:00 PTH Intact Intraop 0 m (.) 06/11/19 06:00 Active Medications Current Medications Acetaminophen (Tylenol -) 500 mg PO Q6H PRN PRN Reason: PAIN LEVEL 6-10 Last Admin: 06/19/19 19:41 Dose: 500 mg Aspirin (Asa -) 81 mg PO DAILY [facility] Last Admin: 06/24/19 11:02 Dose: 81 mg Atorvastatin Calcium (Lipitor -) 40 mg PO HS [facility] Last Admin: 06/23/19 21:23 Dose: 40 mg Calcium Acetate (Phoslo -) 667 mg PO TIDCM [facility] Last Admin: 06/24/19 11:03 Dose: 667 mg Guaifenesin (Mucinex -) 600 mg PO BID [facility] Last Admin: 06/24/19 11:02 Dose: 600 mg Heparin Sodium (Porcine) (Heparin -) 5,000 unit SQ TID [facility] Last Admin: 06/24/19 06:48 Dose: 5,000 unit Hydralazine HCl (Apresoline -) 25 mg PO TID [facility] Last Admin: 06/24/19 06:48 Dose: 25 mg Ceftriaxone Sodium 1 gm/ (Dextrose) 50 mls @ 100 mls/hr IVPB DAILY [facility]; Protocol Last Admin: 06/24/19 11:57 Dose: 100 mls/hr Sodium Chloride (Normal Saline -) 250 mls @ 3,000 mls/hr IV PRN PRN PRN Reason: Hypotension during Dialysis Stop: 06/25/19 12:39 Insulin Aspart (Novolog Vial Sliding Scale -) 1 vial SQ TIDAC [facility]; Protocol Last Admin: 06/24/19 06:50 Dose: Not Given Isosorbide Mononitrate (Imdur -) 30 mg PO DAILY [facility] Last Admin: 06/24/19 11:03 Dose: 30 mg Metoprolol Succinate (Toprol Xl -) 25 mg PO DAILY [facility] Last Admin: 06/24/19 11:02 Dose: 25 mg Olanzapine (Zyprexa -) 2.5 mg PO HS [facility] Last Admin: 06/21/19 22:31 Dose: Not Given Senna (Senna -) 1 tab PO BID [facility] Last Admin: 06/24/19 11:03 Dose: 1 tab Tamsulosin HCl (Flomax -) 0.4 mg PO HS [facility] Last Admin: 06/23/19 21:23 Dose: 0.4 mg Home Medications Medication Instructions Recorded Amlodipine Besylate 5 mg PO DAILY 06/10/19 Calcium Acetate [Phoslo -] 667 mg PO TID 06/10/19 Furosemide [Lasix] 80 mg PO TID 06/10/19 Microbiology 06/17/19 15:45 Urine - Urine Clean Catch Urine Culture - Final NO GROWTH OBTAINED 06/10/19 22:00 Urine - Urine - Catheterized Urine Culture - Final NO GROWTH OBTAINED ASSESSMENT/PLAN: 83 y/o M, pmh of CKD stage V, T2DM presented with LE edema of 1 week duration likely 2/2 fluid overload from ESRD. #AMS Stable today PT for bedside exercise with pt- As per PT pt could barely walk HD tomorrow Tolerating PO #Urinary retention likely 2/2 to UTI US kidneys- small nonobstructing Right renal stones- 7mm w/ signs of hydro, Gall stones also noted without wall thickening WBC 10.1 today, came down from yesterday ceftriaxone today d/c [place] #LE edema likely 2/2 to Fluid overload 2/2 ESRD pending placement for HD #Safety at home Pt will be going to Rehab #CHF- acute on chronic systolic CHF w/ severe fluid overload Strict salt and fluid restrictions. No fluids nor ice cubes at the bedside. #HTN Cont hydralazine 25 mg 3 times a day. #HLD cont atorvastatin #Type 2 DM ISS #DVT ppx Heparin FEN: renal diet Dispo: cont PT, monitor mentation, f/u HD jeff Visit type - Emergency Visit Emergency Visit: Yes ED Registration Date: 06/10/19 Care time: The patient presented to the Emergency Department on the above date and was hospitalized for further evaluation of their emergent condition. - New Patient This patient is new to me today: Yes Date on this admission: 06/25/19 - Critical Care Critical Care patient: No - Discharge Referral Referred to [facility] Med P.C.: No ATTENDING PHYSICIAN STATEMENT I saw and evaluated the patient. I reviewed the resident's note and discussed the case with the resident. I agree with the resident's findings and plan as documented. SUBJECTIVE: OBJECTIVE: ASSESSMENT AND PLAN:
--- NOTE | 2019-06-24 20:32 | PN ---
Teaching Attending Note Name of Resident: Olaf Winn ATTENDING PHYSICIAN STATEMENT I saw and evaluated the patient. I reviewed the resident's note and discussed the case with the resident. I agree with the resident's findings and plan as documented. SUBJECTIVE: Patient is comfortable with no acute distress. No nausea or vomiting. Vital Signs Temperature 97.8 F 06/24/19 18:24 Pulse Rate 68 06/24/19 18:24 Respiratory Rate 20 06/24/19 18:24 Blood Pressure 130/65 06/24/19 18:24 O2 Sat by Pulse Oximetry (%) 98 06/24/19 09:00 GENERAL: The patient is awake, better today , in no acute distress. HEAD: Normal with no signs of trauma. EYES: PERRL, extraocular movements intact, sclera anicteric, conjunctiva clear. ENT: Ears normal, oropharynx clear without exudates, moist mucous membranes. NECK: Trachea midline, full range of motion, supple. LUNGS:decreased BS BL , no wheezes, no crackles, no accessory muscle use. HEART: Regular rate and rhythm, S1, S2 positive, JACKY 2/6, no rub or gallop. ABDOMEN: Soft, NT,ND, normoactive bowel sounds, no guarding, no rebound, no hepatosplenomegaly, no masses. EXTREMITIES: 2+ pulses, warm, well-perfused, no edema. NEUROLOGICAL: Cranial nerves II through XII grossly intact. Normal speech, gait not observed. SKIN: Warm, dry, normal turgor, no rashes or lesions noted CBCD WBC 10.1 K/mm3 (4.0-10.0) H 06/24/19 06:00 RBC 5.15 M/mm3 (4.00-5.60) 06/24/19 06:00 Hgb 9.9 GM/dL (11.7-16.9) L 06/24/19 06:00 Hct 32.1 % (35.4-49) L 06/24/19 06:00 MCV 62.2 fl (80-96) L 06/24/19 06:00 MCHC 30.9 g/dl (32.0-35.9) L 06/24/19 06:00 RDW 19.1 % (11.9-15.9) H 06/24/19 06:00 Plt Count 246 K/MM3 (134-434) 11/22/19 06:00 MPV 8.4 fl (7.5-11.1) 06/24/19 06:00 CMP Sodium 136 mmol/L (136-145) 06/24/19 06:00 Potassium 4.0 mmol/L (3.5-5.1) 06/24/19 06:00 Chloride 101 mmol/L (98-107) 06/24/19 06:00 Carbon Dioxide 28 mmol/L (21-32) 06/24/19 06:00 Anion Gap 6 MMOL/L (8-16) L 06/24/19 06:00 BUN 41.2 mg/dL (7-18) H 06/24/19 06:00 Creatinine 3.4 mg/dL (0.55-1.3) H 06/24/19 06:00 Random Glucose 135 mg/dL (74-106) H 06/24/19 06:00 Calcium 7.9 mg/dL (8.5-10.1) L 06/24/19 06:00 Total Bilirubin 0.8 mg/dL (0.2-1) 06/18/19 06:20 AST 15 U/L (15-37) 06/18/19 06:20 ALT 18 U/L (13-61) 06/18/19 06:20 Alkaline Phosphatase 120 U/L (45-117) H 06/18/19 06:20 Total Protein 5.6 g/dl (6.4-8.2) L 06/18/19 06:20 Albumin 2.7 g/dl (3.4-5.0) L 06/18/19 06:20 CARDIAC ENZYMES Creatine Kinase 159 U/L (26-308) 06/10/19 15:00 Troponin I 0.15 ng/ml (0.00-0.05) H 06/11/19 08:40 Current Medications Generic Name Dose Route Start Last Admin Trade Name Freq PRN Reason Stop Dose Admin Acetaminophen 500 mg 06/24/19 20:20 Tylenol - PO Q6H PRN PAIN LEVEL 6-10 Aspirin 81 mg 06/25/19 10:00 Asa - PO DAILY [facility] Atorvastatin Calcium 40 mg 06/24/19 22:00 Lipitor - PO HS [facility] Calcium Acetate 667 mg 06/25/19 08:00 Phoslo - PO TIDCM [facility] Guaifenesin 600 mg 06/24/19 22:00 Mucinex - PO BID [facility] Heparin Sodium (Porcine) 5,000 unit 06/24/19 22:00 Heparin - SQ TID [facility] Hydralazine HCl 25 mg 06/24/19 22:00 Apresoline - PO TID [facility] Sodium Chloride 250 mls @ 3,000 mls/hr 06/24/19 12:39 Normal Saline - IV 06/25/19 12:39 PRN PRN Hypotension during Dialysis Ceftriaxone Sodium 1 gm/ 50 mls @ 100 mls/hr 06/25/19 10:00 Dextrose IVPB DAILY [facility] Protocol Insulin Aspart 1 vial 06/25/19 07:00 Novolog Vial Sliding Scale - SQ TIDAC [facility] Protocol Isosorbide Mononitrate 30 mg 06/25/19 10:00 Imdur - PO DAILY [facility] Metoprolol Succinate 25 mg 06/25/19 10:00 Toprol Xl - PO DAILY [facility] Senna 1 tab 06/24/19 22:00 Senna - PO BID [facility] Tamsulosin HCl 0.4 mg 06/24/19 22:00 Flomax - PO [facility] Home Medications Medication Instructions Recorded Amlodipine Besylate 5 mg PO DAILY 06/10/19 Calcium Acetate [Phoslo -] 667 mg PO TID 06/10/19 Furosemide [Lasix] 80 mg PO TID 06/10/19 Echo:EJF 30-35%, diastolic dysfunction grade 2, moderate MR, moderate TR Assessment and plan: Patient is an 83 y/o man with PMhx of CKD , HTN , systolic CHF and DM who presented with AMS and was found to be uremic and in acute CHF # Acute systolic CHF exacerbation: On HD now improving # ESRD on HD (TTrSaT) nephro on the case # Chronic microcytic anemia: iron def as per nephro #AMS: likely due to metabolic encephalopathy from uremia s/p acute delirium. Improved. most likely due to zyprexa which was on hold # Hx of DM : SS with coverage # Hx of HTN : continue Imdur, Toprol # urinary retention continue Flomax # Acute change mental status: zyprexa was held ,mental status improved and lethargy resolved, cont to hold. Heparin sq
[2019-06-24] MEDS: ATORVASTATIN CA 40 MG TABLET (FP) PO SCH (21:35)
[2019-06-24] MEDS: TAMSULOSIN HCL 0.4 MG CAP PO SCH (21:35)
[2019-06-25] MEDS: hydrALAZINE HCL 25 MG TABLET (FP) PO SCH ×3 (06:06→21:35)
[2019-06-25] MEDS: HEPARIN NA (PORCINE) 5,000 UNITS/ML 1ML VIAL SQ SCH ×3 (06:06→21:35)
[2019-06-25] MEDS: INSULIN SLIDING SCALE (NOVOLOG) 1 VIAL SQ SCH ×3 (06:06→17:52)
[2019-06-25] MEDS ORDERED: INSULIN (NOVOLOG) ASPART 100 UNITS/ML 10ML VIAL ONE (06:45)
[2019-06-25] MEDS ORDERED: cefTRIAXone SODIUM 1 GM VIAL ONE (08:51)
[2019-06-25] MEDS ORDERED: DEXTROSE 5%-WATER - 50 ML IVPB ONE (08:51)
[2019-06-25 10:04] LABS: HEMATOCRIT 30.7 % (35.4-49); HEMOGLOBIN 9.5 GM/dL (11.7-16.9); MCHC 30.9 g/dl (32.0-35.9); MEAN CELL VOLUME 62.3 fl (80-96); MEAN PLT VOLUME 8.5 fl (7.5-11.1); PLATELET COUNT 264 K/MM3 (134-434); RBC 4.93 M/mm3 (4.00-5.60); RDW 18.8 % (11.9-15.9); WHITE BLOOD COUNT 9.2 K/mm3 (4.0-10.0)
[2019-06-25 10:11] LABS: MCH 19.2 pg (25.7-33.7)
[2019-06-25 10:27] LABS: BLOOD UREA NITROGEN 54.4 mg/dL (7-18); CALCIUM 7.7 mg/dL (8.5-10.1); CREATININE 3.9 mg/dL (0.55-1.3); MAGNESIUM 2.2 mg/dL (1.8-2.4); PHOSPHOROUS 3.6 mg/dL (2.5-4.9); POTASSIUM 4.1 mmol/L (3.5-5.1)
--- NOTE | 2019-06-25 11:48 | PN ---
Progress Note (short form) - Note Progress Note: Patient continues to be confused, but better than before. Vital Signs Temperature 98 F 06/25/19 02:00 Pulse Rate 69 06/25/19 11:20 Respiratory Rate 18 06/25/19 11:20 Blood Pressure 144/63 06/25/19 11:20 O2 Sat by Pulse Oximetry (%) 100 06/24/19 20:55 GENERAL: The patient is awake, better today , in no acute distress. HEAD: Normal with no signs of trauma. EYES: PERRL, extraocular movements intact, sclera anicteric, conjunctiva clear. ENT: Ears normal, oropharynx clear without exudates, moist mucous membranes. NECK: Trachea midline, full range of motion, supple. right shilly LUNGS: Breath sounds equal, clear to auscultation bilaterally, no wheezes, no crackles, no accessory muscle use. HEART: Regular rate and rhythm, S1, S2 positive, JACKY 2/6, no rub or gallop. ABDOMEN: Soft, NT,ND, normoactive bowel sounds, no guarding, no rebound, no hepatosplenomegaly, no masses. EXTREMITIES: 2+ pulses, warm, well-perfused, no edema. NEUROLOGICAL: Cranial nerves II through XII grossly intact. Normal speech, gait not observed. PSYCH: Normal mood, normal affect. SKIN: Warm, dry, normal turgor, no rashes or lesions noted CBCD WBC 9.2 K/mm3 (4.0-10.0) 06/25/19 07:30 RBC 4.93 M/mm3 (4.00-5.60) 06/25/19 07:30 Hgb 9.5 GM/dL (11.7-16.9) L 06/25/19 07:30 Hct 30.7 % (35.4-49) L 06/25/19 07:30 MCV 62.3 fl (80-96) L 06/25/19 07:30 MCHC 30.9 g/dl (32.0-35.9) L 06/25/19 07:30 RDW 18.8 % (11.9-15.9) H 06/25/19 07:30 Plt Count 264 K/MM3 (134-434) 06/25/19 07:30 MPV 8.5 fl (7.5-11.1) 06/25/19 07:30 CMP Sodium 135 mmol/L (136-145) L 06/25/19 07:30 Potassium 4.1 mmol/L (3.5-5.1) 06/25/19 07:30 Chloride 101 mmol/L (98-107) 06/25/19 07:30 Carbon Dioxide 27 mmol/L (21-32) 06/25/19 07:30 Anion Gap 7 MMOL/L (8-16) L 06/25/19 07:30 BUN 54.4 mg/dL (7-18) H 06/25/19 07:30 Creatinine 3.9 mg/dL (0.55-1.3) H 06/25/19 07:30 Random Glucose 105 mg/dL (74-106) 06/25/19 07:30 Calcium 7.7 mg/dL (8.5-10.1) L 06/25/19 07:30 Total Bilirubin 0.8 mg/dL (0.2-1) 06/18/19 06:20 AST 15 U/L (15-37) 06/18/19 06:20 ALT 18 U/L (13-61) 06/18/19 06:20 Alkaline Phosphatase 120 U/L (45-117) H 06/18/19 06:20 Total Protein 5.6 g/dl (6.4-8.2) L 06/18/19 06:20 Albumin 2.7 g/dl (3.4-5.0) L 06/18/19 06:20 CARDIAC ENZYMES Creatine Kinase 159 U/L (26-308) 06/10/19 15:00 Troponin I 0.15 ng/ml (0.00-0.05) H 06/11/19 08:40 Home Medications Medication Instructions Recorded Amlodipine Besylate 5 mg PO DAILY 06/10/19 Calcium Acetate [Phoslo -] 667 mg PO TID 06/10/19 Furosemide [Lasix] 80 mg PO TID 06/10/19 Echo:EJF 30-35%, diastolic dysfunction grade 2, moderate MR, moderate TR Assessment and plan: Patient is an 83 y/o man with PMhx of CKD , HTN , systolic CHF and DM who presented with AMS and was found to be uremic and in acute CHF # ESRD on HD (TTrSaT) nephro on the case # Acute systolic CHF exacerbation: On HD now improving # Chronic microcytic anemia: iron def as per nephro #AMS: likely due to metabolic encephalopathy from uremia s/p acute delirium. Improved, but continues to be confused # Hx of DM : SS with coverage # Hx of HTN : continue Imdur, Toprol # urinary retention continue Flomax # Acute change mental status: zyprexa was held ,mental status improved and lethargy resolved, cont to hold. Heparin sq Visit type - Emergency Visit Emergency Visit: Yes ED Registration Date: 06/10/19 Care time: The patient presented to the Emergency Department on the above date and was hospitalized for further evaluation of their emergent condition. - New Patient This patient is new to me today: No - Critical Care Critical Care patient: No - Discharge Referral Referred to [facility] Med P.C.: No
[2019-06-25] MEDS: CEFTRIAXONE 1 GM in DEXTROSE 5%-WATER - 50 ML IVPB SCH (13:05)
[2019-06-25] MEDS: CALCIUM ACETATE 667 MG CAPSULE (FP) PO SCH ×3 (13:05→17:52)
[2019-06-25] MEDS: ASPIRIN 81 MG CHEWABLE TABLETS PO SCH (13:06)
[2019-06-25] MEDS: guaiFENesin 600 MG TABLET.ER (FP) PO SCH ×2 (13:06→21:36)
[2019-06-25] MEDS: ISOSORBIDE MONONITRATE 30 MG TAB.SR.24H (FP) PO SCH (13:06)
[2019-06-25] MEDS: SENNOSIDES 8.6MG TABLET (FP) PO SCH ×2 (13:07→21:35)
--- NOTE | 2019-06-25 16:19 | PN ---
Progress Note (short form) - Note Progress Note: 1. CKD 2. HTN 3. DM 4. fluid overload 5. esrd 6. altered mental status Current Medications Acetaminophen (Tylenol -) 500 mg PO Q6H PRN PRN Reason: PAIN LEVEL 6-10 Aspirin (Asa -) 81 mg PO DAILY [facility] Last Admin: 06/25/19 13:06 Dose: 81 mg Atorvastatin Calcium (Lipitor -) 40 mg PO HS [facility] Last Admin: 06/24/19 21:35 Dose: 40 mg Calcium Acetate (Phoslo -) 667 mg PO TIDCM [facility] Last Admin: 06/25/19 13:06 Dose: 667 mg Guaifenesin (Mucinex -) 600 mg PO BID [facility] Last Admin: 06/25/19 13:06 Dose: 600 mg Heparin Sodium (Porcine) (Heparin -) 5,000 unit SQ TID [facility] Last Admin: 06/25/19 15:39 Dose: 5,000 unit Hydralazine HCl (Apresoline -) 25 mg PO TID [facility] Last Admin: 06/25/19 15:38 Dose: 25 mg Sodium Chloride (Normal Saline -) 250 mls @ 3,000 mls/hr IV PRN PRN PRN Reason: Hypotension during Dialysis Stop: 06/25/19 12:39 Ceftriaxone Sodium 1 gm/ (Dextrose) 50 mls @ 100 mls/hr IVPB DAILY [facility]; Protocol Last Admin: 06/25/19 13:05 Dose: 100 mls/hr Insulin Aspart (Novolog Vial Sliding Scale -) 1 vial SQ TIDAC [facility]; Protocol Last Admin: 06/25/19 13:09 Dose: Not Given Isosorbide Mononitrate (Imdur -) 30 mg PO DAILY [facility] Last Admin: 06/25/19 13:06 Dose: 30 mg Metoprolol Succinate (Toprol Xl -) 25 mg PO DAILY [facility] Last Admin: 06/25/19 13:07 Dose: 25 mg Senna (Senna -) 1 tab PO BID [facility] Last Admin: 06/25/19 13:07 Dose: 1 tab Tamsulosin HCl (Flomax -) 0.4 mg PO HS [facility] Last Admin: 06/24/19 21:35 Dose: 0.4 mg Last Vital Signs Temp Pulse Resp BP Pulse Ox 98.5 F 68 20 123/58 L 100 06/25/19 14:56 06/25/19 14:56 06/25/19 14:56 06/25/19 14:56 06/24/19 20:55 CBC, BMP 06/25/19 07:30 06/25/19 07:30 IMP- ESRD s/p HD uneventful today placement for outpatient HD Plan - HD tomorrow - mental status improved - can d/c fajardo - monitor wbc - pt tolerating po intake
[2019-06-25] MEDS ORDERED: POLYETHYLENE GLYCOL 3350 119 GM BTL PO ONE (20:26)
[2019-06-25] MEDS: ATORVASTATIN CA 40 MG TABLET (FP) PO SCH (21:35)
[2019-06-25] MEDS: TAMSULOSIN HCL 0.4 MG CAP PO SCH (21:35)
[2019-06-25] MEDS: ACETAMINOPHEN 500 MG TABLET (FP) PO PRN (21:35)
[2019-06-26] MEDS: hydrALAZINE HCL 25 MG TABLET (FP) PO SCH ×3 (05:11→21:31)
[2019-06-26] MEDS: HEPARIN NA (PORCINE) 5,000 UNITS/ML 1ML VIAL SQ SCH ×3 (05:11→21:30)
[2019-06-26] MEDS: INSULIN SLIDING SCALE (NOVOLOG) 1 VIAL SQ SCH ×3 (08:17→17:02)
[2019-06-26] MEDS ORDERED: cefTRIAXone SODIUM 1 GM VIAL ONE (09:11)
[2019-06-26] MEDS ORDERED: DEXTROSE 5%-WATER - 50 ML IVPB ONE (09:11)
[2019-06-26] MEDS: CEFTRIAXONE 1 GM in DEXTROSE 5%-WATER - 50 ML IVPB SCH (09:32)
[2019-06-26] MEDS: ASPIRIN 81 MG CHEWABLE TABLETS PO SCH (09:32)
[2019-06-26] MEDS: guaiFENesin 600 MG TABLET.ER (FP) PO SCH ×2 (09:32→21:31)
[2019-06-26] MEDS: CALCIUM ACETATE 667 MG CAPSULE (FP) PO SCH ×3 (09:32→17:44)
[2019-06-26] MEDS: ISOSORBIDE MONONITRATE 30 MG TAB.SR.24H (FP) PO SCH (09:32)
[2019-06-26] MEDS: SENNOSIDES 8.6MG TABLET (FP) PO SCH ×2 (09:33→21:31)
[2019-06-26] MEDS ORDERED: INSULIN (NOVOLOG) ASPART 100 UNITS/ML 10ML VIAL ONE (12:14)
--- NOTE | 2019-06-26 18:52 | PN ---
Teaching Attending Note Name of Resident: Coral Frederick ATTENDING PHYSICIAN STATEMENT I saw and evaluated the patient. I reviewed the resident's note and discussed the case with the resident. I agree with the resident's findings and plan as documented. SUBJECTIVE: Patient is better but continues to be confused Vital Signs Temperature 98.5 F 06/26/19 10:00 Pulse Rate 76 06/26/19 10:00 Respiratory Rate 18 06/26/19 10:00 Blood Pressure 121/59 L 06/26/19 10:00 O2 Sat by Pulse Oximetry (%) 99 06/26/19 09:00 GENERAL: The patient is awake, better today , in no acute distress. HEAD: Normal with no signs of trauma. EYES: PERRL, extraocular movements intact, sclera anicteric, conjunctiva clear. ENT: Ears normal, oropharynx clear without exudates, moist mucous membranes. NECK: Trachea midline, full range of motion, supple. right shilly LUNGS: Breath sounds equal, clear to auscultation bilaterally, no wheezes, no crackles, no accessory muscle use. HEART: Regular rate and rhythm, S1, S2 positive, JACKY 2/6, no rub or gallop. ABDOMEN: Soft, NT,ND, normoactive bowel sounds, no guarding, no rebound, no hepatosplenomegaly, no masses. EXTREMITIES: 2+ pulses, warm, well-perfused, no edema. NEUROLOGICAL: Cranial nerves II through XII grossly intact. Normal speech, gait not observed. PSYCH: Normal mood, normal affect. SKIN: Warm, dry, normal turgor, no rashes or lesions noted CBCD WBC 9.2 K/mm3 (4.0-10.0) 06/25/19 07:30 RBC 4.93 M/mm3 (4.00-5.60) 06/25/19 07:30 Hgb 9.5 GM/dL (11.7-16.9) L 06/25/19 07:30 Hct 30.7 % (35.4-49) L 06/25/19 07:30 MCV 62.3 fl (80-96) L 06/25/19 07:30 MCHC 30.9 g/dl (32.0-35.9) L 06/25/19 07:30 RDW 18.8 % (11.9-15.9) H 06/25/19 07:30 Plt Count 264 K/MM3 (134-434) 06/25/19 07:30 MPV 8.5 fl (7.5-11.1) 06/25/19 07:30 CMP Sodium 135 mmol/L (136-145) L 06/25/19 07:30 Potassium 4.1 mmol/L (3.5-5.1) 06/25/19 07:30 Chloride 101 mmol/L (98-107) 06/25/19 07:30 Carbon Dioxide 27 mmol/L (21-32) 06/25/19 07:30 Anion Gap 7 MMOL/L (8-16) L 06/25/19 07:30 BUN 54.4 mg/dL (7-18) H 06/25/19 07:30 Creatinine 3.9 mg/dL (0.55-1.3) H 06/25/19 07:30 Random Glucose 105 mg/dL (74-106) 06/25/19 07:30 Calcium 7.7 mg/dL (8.5-10.1) L 06/25/19 07:30 Total Bilirubin 0.8 mg/dL (0.2-1) 06/18/19 06:20 AST 15 U/L (15-37) 06/18/19 06:20 ALT 18 U/L (13-61) 06/18/19 06:20 Alkaline Phosphatase 120 U/L (45-117) H 06/18/19 06:20 Total Protein 5.6 g/dl (6.4-8.2) L 06/18/19 06:20 Albumin 2.7 g/dl (3.4-5.0) L 06/18/19 06:20 CARDIAC ENZYMES Creatine Kinase 159 U/L (26-308) 06/10/19 15:00 Troponin I 0.15 ng/ml (0.00-0.05) H 06/11/19 08:40 Current Medications Generic Name Dose Route Start Last Admin Trade Name Freq PRN Reason Stop Dose Admin Acetaminophen 500 mg 06/24/19 20:20 06/25/19 21:35 Tylenol - PO 500 mg Q6H PRN Administration PAIN LEVEL 6-10 Aspirin 81 mg 06/25/19 10:00 06/26/19 09:32 Asa - PO 81 mg DAILY [facility] Administration Atorvastatin Calcium 40 mg 06/24/19 22:00 06/25/19 21:35 Lipitor - PO 40 mg HS [facility] Administration Calcium Acetate 667 mg 06/25/19 08:00 06/26/19 17:44 Phoslo - PO 667 mg TIDCM [facility] Administration Guaifenesin 600 mg 06/24/19 22:00 06/26/19 09:32 Mucinex - PO 600 mg BID [facility] Administration Heparin Sodium (Porcine) 5,000 unit 06/24/19 22:00 06/26/19 14:52 Heparin - SQ 5,000 unit TID [facility] Administration Hydralazine HCl 25 mg 06/24/19 22:00 06/26/19 14:52 Apresoline - PO 25 mg TID [facility] Administration Sodium Chloride 250 mls @ 3,000 mls/hr 06/24/19 12:39 Normal Saline - IV 06/25/19 12:39 PRN PRN Hypotension during Dialysis Ceftriaxone Sodium 1 gm/ 50 mls @ 100 mls/hr 06/25/19 10:00 06/26/19 09:32 Dextrose IVPB 100 mls/hr DAILY [facility] Administration Protocol Insulin Aspart 1 vial 06/25/19 07:00 06/26/19 17:02 Novolog Vial Sliding Scale - SQ 2 units TIDAC [facility] Administration Protocol Isosorbide Mononitrate 30 mg 06/25/19 10:00 06/26/19 09:32 Imdur - PO 30 mg DAILY [facility] Administration Metoprolol Succinate 25 mg 06/25/19 10:00 06/26/19 09:32 Toprol Xl - PO 25 mg DAILY [facility] Administration Senna 1 tab 06/24/19 22:00 06/26/19 09:33 Senna - PO 1 tab BID [facility] Administration Tamsulosin HCl 0.4 mg 06/24/19 22:00 06/25/19 21:35 Flomax - PO 0.4 mg HS [facility] Administration Home Medications Medication Instructions Recorded Amlodipine Besylate 5 mg PO DAILY 06/10/19 Calcium Acetate [Phoslo -] 667 mg PO TID 06/10/19 Furosemide [Lasix] 80 mg PO TID 06/10/19 Echo:EJF 30-35%, diastolic dysfunction grade 2, moderate MR, moderate TR Assessment and plan: Patient is an 83 y/o man with PMhx of CKD , HTN , systolic CHF and DM who presented with AMS and was found to be uremic and in acute CHF # ESRD on HD (TTrSaT) nephro on the case # Acute systolic CHF exacerbation: On HD now improving # Chronic microcytic anemia: iron def as per nephro #AMS: likely due to metabolic encephalopathy from uremia s/p acute delirium. Improved, but continues to be confused # Hx of DM : SS with coverage # Hx of HTN : continue Imdur, Toprol # urinary retention continue Flomax # Acute change mental status: zyprexa was held ,mental status improved and lethargy resolved, cont to hold. Heparin sq
[2019-06-26] MEDS: ATORVASTATIN CA 40 MG TABLET (FP) PO SCH (21:31)
[2019-06-26] MEDS: TAMSULOSIN HCL 0.4 MG CAP PO SCH (21:31)
--- NOTE | 2019-06-26 22:03 | PN ---
Progress Note (short form) - Note Progress Note: 1. CKD 2. HTN 3. DM 4. fluid overload 5. esrd 6. altered mental status Current Medications Acetaminophen (Tylenol -) 500 mg PO Q6H PRN PRN Reason: PAIN LEVEL 6-10 Last Admin: 06/25/19 21:35 Dose: 500 mg Aspirin (Asa -) 81 mg PO DAILY [facility] Last Admin: 06/26/19 09:32 Dose: 81 mg Atorvastatin Calcium (Lipitor -) 40 mg PO HS [facility] Last Admin: 06/26/19 21:31 Dose: 40 mg Calcium Acetate (Phoslo -) 667 mg PO TIDCM [facility] Last Admin: 06/26/19 17:44 Dose: 667 mg Guaifenesin (Mucinex -) 600 mg PO BID [facility] Last Admin: 06/26/19 21:31 Dose: 600 mg Heparin Sodium (Porcine) (Heparin -) 5,000 unit SQ TID [facility] Last Admin: 06/26/19 21:30 Dose: 5,000 unit Hydralazine HCl (Apresoline -) 25 mg PO TID [facility] Last Admin: 06/26/19 21:31 Dose: 25 mg Sodium Chloride (Normal Saline -) 250 mls @ 3,000 mls/hr IV PRN PRN PRN Reason: Hypotension during Dialysis Stop: 06/25/19 12:39 Ceftriaxone Sodium 1 gm/ (Dextrose) 50 mls @ 100 mls/hr IVPB DAILY [facility]; Protocol Last Admin: 06/26/19 09:32 Dose: 100 mls/hr Insulin Aspart (Novolog Vial Sliding Scale -) 1 vial SQ [facility]IDAC [facility]; Protocol Last Admin: 06/26/19 17:02 Dose: 2 units Isosorbide Mononitrate (Imdur -) 30 mg PO DAILY [facility] Last Admin: 06/26/19 09:32 Dose: 30 mg Metoprolol Succinate (Toprol Xl -) 25 mg PO DAILY [facility] Last Admin: 06/26/19 09:32 Dose: 25 mg Senna (Senna -) 1 tab PO BID [facility] Last Admin: 06/26/19 21:31 Dose: 1 tab Tamsulosin HCl (Flomax -) 0.4 mg PO HS [facility] Last Admin: 06/26/19 21:31 Dose: 0.4 mg Last Vital Signs Temp Pulse Resp BP Pulse Ox 98.6 F 78 20 119/78 99 11/24/19 18:00 06/26/19 18:00 06/26/19 18:00 06/26/19 18:00 06/26/19 09:00 CBC, BMP 06/25/19 07:30 06/25/19 07:30 CBC, BMP 06/25/19 07:30 06/25/19 07:30 IMP- ESRD s/p HD uneventful today placement for outpatient HD Plan HD next week
[2019-06-27] MEDS: hydrALAZINE HCL 25 MG TABLET (FP) PO SCH ×3 (05:59→21:16)
[2019-06-27] MEDS: HEPARIN NA (PORCINE) 5,000 UNITS/ML 1ML VIAL SQ SCH ×3 (05:59→21:17)
[2019-06-27] MEDS: INSULIN SLIDING SCALE (NOVOLOG) 1 VIAL SQ SCH ×3 (06:03→17:25)
--- NOTE | 2019-06-27 08:25 | PN ---
Progress Note (short form) - Note Progress Note: Neurology HISTORY OF PRESENT ILLNESS: 83yo M with h/o CKD stage V, HTN, Type 2 DM who presents on day of admission with 1 week worsening lower extremity edema. Pt has been told he has end-stage CKD, however he refuses dialysis because he believed his family members suffered and did not benefit in regards to mortality. Pt noticed about 1-2 weeks he has been having increased edema of his legs. He does not weigh himself regularly and he does not know his dry weight. Pt reports he went to see his PCP who increased his lasix to 80mg TID PO. He was only taking this for a couple of days when he noticed severe dyspnea on exertion worsening when he went to the bathroom or moving from [id number] in his house. Pt endorses orthopnea and uses multiple pillows at night to sleep. Pt denies any fever/ chills, headaches, blurry vision, diarrhea/constiption, chest pain, palpitations , abdominal pain, n/v. 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 Psychiatry consult completed, for behavioral changes, put on Zyprexa and if not helpful can use Remeron, per note. Zyprexa reduced to 2.[address] repeated , no acute changes noted. Remains awake and conversive, neurologically remained stable over weekend. Does not know date but able to tell me he's in [facility] as well as the year. Patient BUN/Cr continues to be elevated. HD plan ongoing. Active Medications Acetaminophen (Tylenol -) 500 mg PO Q6H PRN PRN Reason: PAIN LEVEL 6-10 Last Admin: 06/25/19 21:35 Dose: 500 mg Aspirin (Asa -) 81 mg PO DAILY [facility] Last Admin: 06/26/19 09:32 Dose: 81 mg Atorvastatin Calcium (Lipitor -) 40 mg PO HS [facility] Last Admin: 06/26/19 21:31 Dose: 40 mg Calcium Acetate (Phoslo -) 667 mg PO TIDCM [facility] Last Admin: 06/26/19 17:44 Dose: 667 mg Guaifenesin (Mucinex -) 600 mg PO BID [facility] Last Admin: 06/26/19 21:31 Dose: 600 mg Heparin Sodium (Porcine) (Heparin -) 5,000 unit SQ TID [facility] Last Admin: 06/27/19 05:59 Dose: 5,000 unit Hydralazine HCl (Apresoline -) 25 mg PO TID [facility] Last Admin: 06/27/19 05:59 Dose: 25 mg Sodium Chloride (Normal Saline -) 250 mls @ 3,000 mls/hr IV PRN PRN PRN Reason: Hypotension during Dialysis Stop: 06/25/19 12:39 Ceftriaxone Sodium 1 gm/ (Dextrose) 50 mls @ 100 mls/hr IVPB DAILY [facility]; Protocol Last Admin: 06/26/19 09:32 Dose: 100 mls/hr Insulin Aspart (Novolog Vial Sliding Scale -) 1 vial SQ TIDAC [facility]; Protocol Last Admin: 06/27/19 06:03 Dose: 2 units Isosorbide Mononitrate (Imdur -) 30 mg PO DAILY [facility] Last Admin: 06/26/19 09:32 Dose: 30 mg Metoprolol Succinate (Toprol Xl -) 25 mg PO DAILY [facility] Last Admin: 06/26/19 09:32 Dose: 25 mg Senna (Senna -) 1 tab PO BID [facility] Last Admin: 06/26/19 21:31 Dose: 1 tab Tamsulosin HCl (Flomax -) 0.4 mg PO HS [facility] Last Admin: 06/26/19 21:31 Dose: 0.4 mg PHYSICAL EXAMINATION Vital Signs Period Temp Pulse Resp BP Sys/Alexandre Pulse Ox Last 24 Hr 98.5 F-98.9 F 75-78 18-20 119-139/58-78 99-99 GENERAL: Awake, alert, not oriented, conversive but not coherent HEENT: NC/AT, CAROLA, MMM, EOMI. NECK: + JVD LUNGS: Rales throughout all lung strong bilaterally. No wheezes. No accessory muscle use. On 2LNC. Speaking in full sentences HEART: RRR, normal S1 and S2 without murmur ABDOMEN: Soft, nontender, abdominal wall edema, hypoactive BS, + hepatojugular reflux, no guarding or rebound, no hepatomegaly or caput medusa noted. MUSCULOSKELETAL: No CVA tenderness. EXTREMITIES: 2+ DP pulses b/l, 3+ pitting edema to groin and abdominal wall. Warm, venous stasis changes also noted, no calf tenderness. NEUROLOGICAL: Nonfocal exam. Normal speech. moves all extremities, sensory intact PSYCHIATRIC: Cooperative. Good eye contact. Appropriate mood and affect. SKIN: Warm, dry, no rashes or lesions noted, stasis changes as above, normal capillary refill. CBCD WBC 9.2 K/mm3 (4.0-10.0) 06/25/19 07:30 RBC 4.93 M/mm3 (4.00-5.60) 06/25/19 07:30 Hgb 9.5 GM/dL (11.7-16.9) L 06/25/19 07:30 Hct 30.7 % (35.4-49) L 06/25/19 07:30 MCV 62.3 fl (80-96) L 06/25/19 07:30 MCHC 30.9 g/dl (32.0-35.9) L 06/25/19 07:30 RDW 18.8 % (11.9-15.9) H 06/25/19 07:30 Plt Count 264 K/MM3 (134-434) 06/25/19 07:30 MPV 8.5 fl (7.5-11.1) 06/25/19 07:30 CMP Sodium 135 mmol/L (136-145) L 06/25/19 07:30 Potassium 4.1 mmol/L (3.5-5.1) 06/25/19 07:30 Chloride 101 mmol/L (98-107) 06/25/19 07:30 Carbon Dioxide 27 mmol/L (21-32) 06/25/19 07:30 Anion Gap 7 MMOL/L (8-16) L 06/25/19 07:30 BUN 54.4 mg/dL (7-18) H 06/25/19 07:30 Creatinine 3.9 mg/dL (0.55-1.3) H 06/25/19 07:30 Random Glucose 105 mg/dL (74-106) 06/25/19 07:30 Calcium 7.7 mg/dL (8.5-10.1) L 06/25/19 07:30 Total Bilirubin 0.8 mg/dL (0.2-1) 06/18/19 06:20 AST 15 U/L (15-37) 06/18/19 06:20 ALT 18 U/L (13-61) 06/18/19 06:20 Alkaline Phosphatase 120 U/L (45-117) H 06/18/19 06:20 Total Protein 5.6 g/dl (6.4-8.2) L 06/18/19 06:20 Albumin 2.7 g/dl (3.4-5.0) L 06/18/19 06:20 CARDIAC ENZYMES Creatine Kinase 159 U/L (26-308) 06/10/19 15:00 Troponin I 0.15 ng/ml (0.00-0.05) H 06/11/19 08:40 ASSESSMENT AND PLAN: 83yo M with h/o CKD stage V, HTN, Type 2 DM who presents on day of admission with 1 week worsening lower extremity edema. Pt has been told he has end-stage CKD, however he refuses dialysis because he believed his family members suffered and did not benefit in regards to mortality. Pt noticed about 1-2 weeks he has been having increased edema of his legs. He does not weigh himself regularly and he does not know his dry weight. Pt reports he went to see his PCP who increased his lasix to 80mg TID PO. He was only taking this for a couple of days when he noticed severe dyspnea on exertion worsening when he went to the bathroom or moving from [id number] in his house. Pt endorses orthopnea and uses multiple pillows at night to sleep. Pt denies any fever/ chills, headaches, blurry vision, diarrhea/constiption, chest pain, palpitations , abdominal pain, n/v. 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 Psychiatry consult completed, for behavioral changes, put on Zyprexa and if not helpful can use Remeron, per note. Zyprexa reduced to 2.[address] repeated , no acute changes noted.Remains awake and conversive, neurologically remained stable over weekend. Does not know date but able to tell me he's in [facility] as well as the year. Patient BUN/Cr continues to be elevated. HD plan ongoing. Continue mgmt for uremia, reorientation as able, monitor mental status. Maintain adequate hydration. Cognitively improved.
[2019-06-27] MEDS: CALCIUM ACETATE 667 MG CAPSULE (FP) PO SCH ×3 (08:37→17:25)
[2019-06-27 08:53] LABS: ALBUMIN 2.3 g/dl (3.4-5.0); BILIRUBIN,TOTAL 0.4 mg/dL (0.2-1); CALCIUM 7.8 mg/dL (8.5-10.1); CREATININE 3.9 mg/dL (0.55-1.3); POTASSIUM 4.8 mmol/L (3.5-5.1); TOT PROT 5.3 g/dl (6.4-8.2)
[2019-06-27] MEDS ORDERED: DEXTROSE 5%-WATER - 50 ML IVPB ONE (09:15)
[2019-06-27] MEDS ORDERED: cefTRIAXone SODIUM 1 GM VIAL ONE (09:15)
[2019-06-27] MEDS: SENNOSIDES 8.6MG TABLET (FP) PO SCH ×2 (09:19→21:16)
[2019-06-27] MEDS: ISOSORBIDE MONONITRATE 30 MG TAB.SR.24H (FP) PO SCH (09:19)
[2019-06-27] MEDS: guaiFENesin 600 MG TABLET.ER (FP) PO SCH ×2 (09:19→21:16)
[2019-06-27] MEDS: CEFTRIAXONE 1 GM in DEXTROSE 5%-WATER - 50 ML IVPB SCH (09:20)
[2019-06-27] MEDS: ASPIRIN 81 MG CHEWABLE TABLETS PO SCH (09:20)
[2019-06-27] MEDS ORDERED: SODIUM CHLORIDE 250 ML IV PRN (14:17)
--- NOTE | 2019-06-27 14:17 | PN ---
Progress Note, Physician History of Present Illness: Pt seen and examined at bedside. He is awake and appears comfortable. - Current Medication List Current Medications: Active Medications Acetaminophen (Tylenol -) 500 mg PO Q6H PRN PRN Reason: PAIN LEVEL 6-10 Last Admin: 06/25/19 21:35 Dose: 500 mg Aspirin (Asa -) 81 mg PO DAILY [facility] Last Admin: 06/27/19 09:20 Dose: 81 mg Atorvastatin Calcium (Lipitor -) 40 mg PO HS [facility] Last Admin: 06/26/19 21:31 Dose: 40 mg Calcium Acetate (Phoslo -) 667 mg PO TIDCM [facility] Last Admin: 06/27/19 12:03 Dose: 667 mg Guaifenesin (Mucinex -) 600 mg PO BID [facility] Last Admin: 06/27/19 09:19 Dose: 600 mg Heparin Sodium (Porcine) (Heparin -) 5,000 unit SQ TID [facility] Last Admin: 06/27/19 13:45 Dose: 5,000 unit Hydralazine HCl (Apresoline -) 25 mg PO TID [facility] Last Admin: 06/27/19 13:45 Dose: Not Given Sodium Chloride (Normal Saline -) 250 mls @ 3,000 mls/hr IV PRN PRN PRN Reason: Hypotension during Dialysis Stop: 06/25/19 12:39 Ceftriaxone Sodium 1 gm/ (Dextrose) 50 mls @ 100 mls/hr IVPB DAILY [facility]; Protocol Last Admin: 06/27/19 09:20 Dose: 100 mls/hr Insulin Aspart (Novolog Vial Sliding Scale -) 1 vial SQ TIDAC [facility]; Protocol Last Admin: 06/27/19 12:02 Dose: 2 units Isosorbide Mononitrate (Imdur -) 30 mg PO DAILY [facility] Last Admin: 06/27/19 09:19 Dose: 30 mg Metoprolol Succinate (Toprol Xl -) 25 mg PO DAILY [facility] Last Admin: 06/27/19 09:20 Dose: 25 mg Senna (Senna -) 1 tab PO BID [facility] Last Admin: 06/27/19 09:19 Dose: Not Given Tamsulosin HCl (Flomax -) 0.4 mg PO HS [facility] Last Admin: 06/26/19 21:31 Dose: 0.4 mg - Objective Vital Signs: Vital Signs Temperature 97.7 F 06/27/19 10:00 Pulse Rate 73 06/27/19 10:00 Respiratory Rate 18 06/27/19 10:00 Blood Pressure 136/62 06/27/19 10:00 O2 Sat by Pulse Oximetry (%) 95 06/27/19 09:00 Constitutional: Yes: Calm Eyes: Yes: Conjunctiva Clear HENT: Yes: Atraumatic Cardiovascular: Yes: S1, S2 Respiratory: Yes: CTA Bilaterally Gastrointestinal: Yes: Normal Bowel Sounds, Soft Genitourinary: Yes: WNL Musculoskeletal: Yes: WNL Edema: Yes Edema: LLE: 1+, RLE: 1+ Neurological: Yes: Oriented Psychiatric: Yes: Oriented Labs: CBC, BMP 06/25/19 07:30 06/27/19 07:14 INR, PTT INR 1.03 (0.83-1.09) 06/19/19 06:00 Problem List - Problems (1) CKD (chronic kidney disease) Code(s): N18.9 - CHRONIC KIDNEY DISEASE, UNSPECIFIED (2) HTN (hypertension) Code(s): I10 - ESSENTIAL (PRIMARY) HYPERTENSION (3) Diabetes mellitus Code(s): E11.9 - TYPE 2 DIABETES MELLITUS WITHOUT COMPLICATIONS Assessment/Plan Current Medications Generic Name Dose Route Start Last Admin Trade Name Freq PRN Reason Stop Dose Admin Acetaminophen 500 mg 06/24/19 20:20 06/25/19 21:35 Tylenol - PO 500 mg Q6H PRN Administration PAIN LEVEL 6-10 Aspirin 81 mg 06/25/19 10:00 06/27/19 09:20 Asa - PO 81 mg DAILY [facility] Administration Atorvastatin Calcium 40 mg 06/24/19 22:00 06/26/19 21:31 Lipitor - PO 40 mg HS [facility] Administration Calcium Acetate 667 mg 06/25/19 08:00 06/27/19 12:03 Phoslo - PO 667 mg TIDCM [facility] Administration Guaifenesin 600 mg 06/24/19 22:00 06/27/19 09:19 Mucinex - PO 600 mg BID [facility] Administration Heparin Sodium (Porcine) 5,000 unit 06/24/19 22:00 06/27/19 13:45 Heparin - SQ 5,000 unit TID [facility] Administration Hydralazine HCl 25 mg 06/24/19 22:00 06/27/19 13:45 Apresoline - PO Not Given TID [facility] Sodium Chloride 250 mls @ 3,000 mls/hr 06/24/19 12:39 Normal Saline - IV 06/25/19 12:39 PRN PRN Hypotension during Dialysis Ceftriaxone Sodium 1 gm/ 50 mls @ 100 mls/hr 06/25/19 10:00 06/27/19 09:20 Dextrose IVPB 100 mls/hr DAILY [facility] Administration Protocol Insulin Aspart 1 vial 06/25/19 07:00 06/27/19 12:02 Novolog Vial Sliding Scale - SQ 2 units TIDAC [facility] Administration Protocol Isosorbide Mononitrate 30 mg 06/25/19 10:00 06/27/19 09:19 Imdur - PO 30 mg DAILY [facility] Administration Metoprolol Succinate 25 mg 06/25/19 10:00 06/27/19 09:20 Toprol Xl - PO 25 mg DAILY [facility] Administration Senna 1 tab 06/24/19 22:00 06/27/19 09:19 Senna - PO Not Given BID [facility] Tamsulosin HCl 0.4 mg 06/24/19 22:00 06/26/19 21:31 Flomax - PO 0.4 mg HS [facility] Administration Impression 1. CKD 2. HTN 3. DM 4. fluid overload 5. esrd 6. altered mental status Plan - will arrange for HD tomorrow - mental status improved - monitor wbc - pt tolerating po intake - epogen for anemia
--- NOTE | 2019-06-27 16:20 | PN ---
Physical Exam: SUBJECTIVE: Patient seen and examined. PT reports no overnight issues or events. Pt is in usual state of health. Mentating at baseline. Denies f/c/n/v/d/ chest pain/sob. OBJECTIVE: Vital Signs Period Temp Pulse Resp BP Sys/Alexandre Pulse Ox Last 24 Hr 97.7 F-98.9 F 69-78 18-20 119-137/51-78 95-99 GENERAL: Pt alert, awake and conversational. Mild confusion but much improved EYES: PERRL, extraocular movements intact. ENT: dentation poor. Uses artificial teeth. moist mucous membranes. NECK: full range of motion, supple. LUNGS: breath sounds have improved significantly. Mild wheezing heard b/l. HEART: Regular rate and rhythm, S1 and S2 normal ABDOMEN: Tenderness to palpation in suprapubic region- improved, nondistended, normoactive bowel sounds EXTREMITIES: 2+ pulses, no edema. Chronic venous stasis skin changes b/l. Mild tenderness to palpation on both extremities b/l- vastly improved NEUROLOGICAL: Cranial nerves II through XII grossly intact. SKIN: Warm, dry, normal turgor Laboratory Results - last 24 hr CBC,CMP WBC 9.2 K/mm3 (4.0-10.0) 06/25/19 07:30 RBC 4.93 M/mm3 (4.00-5.60) 06/25/19 07:30 Hgb 9.5 GM/dL (11.7-16.9) L 06/25/19 07:30 Hct 30.7 % (35.4-49) L 06/25/19 07:30 MCV 62.3 fl (80-96) L 06/25/19 07:30 MCH 19.2 pg (25.7-33.7) L 06/25/19 07:30 MCHC 30.9 g/dl (32.0-35.9) L 06/25/19 07:30 RDW 18.8 % (11.9-15.9) H 06/25/19 07:30 Plt Count 264 K/MM3 (134-434) 06/25/19 07:30 MPV 8.5 fl (7.5-11.1) 06/25/19 07:30 Absolute Neuts (auto) 6.6 K/mm3 (1.5-8.0) 06/16/19 06:10 Neutrophils % 79.4 % (42.8-82.8) 06/16/19 06:10 Neutrophils % (Manual) 79.2 % (42.8-82.8) 06/15/19 06:20 Band Neutrophils % 0.0 % 06/15/19 06:20 Lymphocytes % 5.7 % (8-40) L D 06/16/19 06:10 Lymphocytes % (Manual) 4.9 % (8-40) L 06/15/19 06:20 Monocytes % 10.6 % (3.8-10.2) H 06/16/19 06:10 Monocytes % (Manual) 6 % (3.8-10.2) 06/15/19 06:20 Eosinophils % 3.5 % (0-4.5) 06/16/19 06:10 Eosinophils % (Manual) 3.0 % (0-4.5) 06/15/19 06:20 Basophils % 0.8 % (0-2.0) 06/16/19 06:10 Basophils % (Manual) 3.0 % (0-2.0) H D 06/15/19 06:20 Myelocytes % (Man) 0 % (0-2) 06/15/19 06:20 Promyelocytes % (Man) 0 % (0-2) 06/15/19 06:20 Blast Cells % (Manual) 0 % (0-0) 06/15/19 06:20 Nucleated RBC % 1 % (0-0) H 06/16/19 06:10 Metamyelocytes 0 % (0-2) 06/15/19 06:20 Hypochromia 3+ 06/15/19 06:20 Toxic Granulation 1+ 06/13/19 05:35 Platelet Estimate Normal 06/16/19 06:10 Platelet Comment Present 06/12/19 06:16 Polychromasia 1+ 06/15/19 06:20 Poikilocytosis 3+ 06/15/19 06:20 Anisocytosis 3+ 06/15/19 06:20 Microcytosis 3+ 06/15/19 06:20 Macrocytosis 0 06/15/19 06:20 Spherocytes 2+ 06/13/19 05:35 Target Cells 3+ 06/15/19 06:20 Tear Drop Cells 1+ 06/13/19 05:35 Ovalocytes 1+ 06/14/19 06:07 Benedict Cells 1+ 06/10/19 15:00 Rouleaux 1+ 06/15/19 06:20 Fragmented RBCs 2+ 06/15/19 06:20 Schistocytes 3+ 06/15/19 06:20 Sodium 136 mmol/L (136-145) 06/27/19 07:14 Potassium 4.8 mmol/L (3.5-5.1) 06/27/19 07:14 Chloride 103 mmol/L (98-107) 06/27/19 07:14 Carbon Dioxide 27 mmol/L (21-32) 06/27/19 07:14 Anion Gap 7 MMOL/L (8-16) L 06/27/19 07:14 BUN 50.0 mg/dL (7-18) H 06/27/19 07:14 Creatinine 3.9 mg/dL (0.55-1.3) H 06/27/19 07:14 Est GFR (CKD-EPI)AfAm 15.60 06/27/19 07:14 Est GFR (CKD-EPI)NonAf 13.46 06/27/19 07:14 POC Glucometer 172 UNITS (80-120) 06/27/19 11:54 Random Glucose 157 mg/dL (74-106) H 06/27/19 07:14 Hemoglobin A1c % 8.0 % (4.2-6.3) H 06/11/19 06:00 Calcium 7.8 mg/dL (8.5-10.1) L 06/27/19 07:14 Phosphorus 3.6 mg/dL (2.5-4.9) 06/25/19 07:30 Magnesium 2.2 mg/dL (1.8-2.4) 06/25/19 07:30 Iron 16 ug/dL (50-175) L 06/11/19 06:00 TIBC 329 ug/dL (250-450) 06/11/19 06:00 Iron Saturation 4 % (17.5-39) L 06/11/19 06:00 Unsaturated IBC 313 ug/dL (200-275) H 06/11/19 06:00 Ferritin 17.1 ng/ml (8-388) 06/11/19 06:00 Total Bilirubin 0.4 mg/dL (0.2-1) 06/27/19 07:14 AST 92 U/L (15-37) H 06/27/19 07:14 ALT 84 U/L (13-61) H 06/27/19 07:14 Alkaline Phosphatase 180 U/L (45-117) H 06/27/19 07:14 Ammonia 12.70 umol/L (11-32) 06/22/19 12:15 Creatine Kinase 159 U/L (26-308) 06/10/19 15:00 Creatine Kinase Index 3.3 % (0.0-5.0) 06/10/19 15:00 CK-MB (CK-2) 5.4 ng/mL (0.5-3.6) H 06/10/19 15:00 Troponin I 0.15 ng/ml (0.00-0.05) H 06/11/19 08:40 B-Natriuretic Peptide 10538.8 pg/ml (5-450) H 06/10/19 15:00 Total Protein 5.3 g/dl (6.4-8.2) L 06/27/19 07:14 Albumin 2.3 g/dl (3.4-5.0) L 06/27/19 07:14 PTH Intact 236 pg/mL (15-65) H 06/11/19 06:00 PTH Intact Intraop 0 m (.) 06/11/19 06:00 Active Medications Current Medications Acetaminophen (Tylenol -) 500 mg PO Q6H PRN PRN Reason: PAIN LEVEL 6-10 Last Admin: 06/25/19 21:35 Dose: 500 mg Aspirin (Asa -) 81 mg PO DAILY [facility] Last Admin: 06/27/19 09:20 Dose: 81 mg Atorvastatin Calcium (Lipitor -) 40 mg PO HS [facility] Last Admin: 06/26/19 21:31 Dose: 40 mg Calcium Acetate (Phoslo -) 667 mg PO TIDCM [facility] Last Admin: 06/27/19 12:03 Dose: 667 mg Epoetin Mamadou (Epogen -) 2,000 unit IVPUSH ONCE ONE Stop: 06/28/19 14:18 Guaifenesin (Mucinex -) 600 mg PO BID [facility] Last Admin: 06/27/19 09:19 Dose: 600 mg Heparin Sodium (Porcine) (Heparin -) 5,000 unit SQ TID [facility] Last Admin: 06/27/19 13:45 Dose: 5,000 unit Hydralazine HCl (Apresoline -) 25 mg PO TID [facility] Last Admin: 06/27/19 13:45 Dose: Not Given Sodium Chloride (Normal Saline -) 250 mls @ 3,000 mls/hr IV PRN PRN PRN Reason: Hypotension during Dialysis Stop: 06/25/19 12:39 Ceftriaxone Sodium 1 gm/ (Dextrose) 50 mls @ 100 mls/hr IVPB DAILY [facility]; Protocol Last Admin: 06/27/19 09:20 Dose: 100 mls/hr Sodium Chloride (Normal Saline -) 250 mls @ 3,000 mls/hr IV PRN PRN PRN Reason: Hypotension during Dialysis Stop: 06/28/19 14:17 Insulin Aspart (Novolog Vial Sliding Scale -) 1 vial SQ TIDAC [facility]; Protocol Last Admin: 06/27/19 12:02 Dose: 2 units Isosorbide Mononitrate (Imdur -) 30 mg PO DAILY [facility] Last Admin: 06/27/19 09:19 Dose: 30 mg Metoprolol Succinate (Toprol Xl -) 25 mg PO DAILY [facility] Last Admin: 06/27/19 09:20 Dose: 25 mg Senna (Senna -) 1 tab PO BID [facility] Last Admin: 06/27/19 09:19 Dose: Not Given Tamsulosin HCl (Flomax -) 0.4 mg PO HS [facility] Last Admin: 06/26/19 21:31 Dose: 0.4 mg Home Medications Medication Instructions Recorded Amlodipine Besylate 5 mg PO DAILY 06/10/19 Calcium Acetate [Phoslo -] 667 mg PO TID 06/10/19 Furosemide [Lasix] 80 mg PO TID 06/10/19 Microbiology 06/24/19 13:00 Urine - Urine [place] Urine Culture - Final Escherichia Coli 06/17/19 15:45 Urine - Urine Clean Catch Urine Culture - Final NO GROWTH OBTAINED 06/10/19 22:00 Urine - Urine - Catheterized Urine Culture - Final NO GROWTH OBTAINED ASSESSMENT/PLAN: 83 y/o M, pmh of CKD stage V, T2DM presented with LE edema of 1 week duration likely 2/2 fluid overload from ESRD. #AMS Stable today PT for bedside exercise with pt HD tomorrow Tolerating PO Epogen for anemia #Urinary retention likely 2/2 to UTI WBC 10.1 today, came down from yesterday ceftriaxone today d/c [place] #LE edema likely 2/2 to Fluid overload 2/2 ESRD pending placement for HD #Safety at home Pt will be going to Rehab #CHF- acute on chronic systolic CHF w/ severe fluid overload Strict salt and fluid restrictions. No fluids nor ice cubes at the bedside. #HTN Cont hydralazine 25 mg 3 times a day. #HLD cont atorvastatin #Type 2 DM ISS #DVT ppx Heparin FEN: renal diet Dispo: cont PT, monitor mentation, f/u HD jeff Visit type - Emergency Visit Emergency Visit: Yes ED Registration Date: 06/10/19 Care time: The patient presented to the Emergency Department on the above date and was hospitalized for further evaluation of their emergent condition. - New Patient This patient is new to me today: Yes Date on this admission: 06/28/19 - Critical Care Critical Care patient: No - Discharge Referral Referred to [facility] Med P.C.: No ATTENDING PHYSICIAN STATEMENT I saw and evaluated the patient. I reviewed the resident's note and discussed the case with the resident. I agree with the resident's findings and plan as documented. SUBJECTIVE: OBJECTIVE: ASSESSMENT AND PLAN:
--- NOTE | 2019-06-27 19:06 | PN ---
Teaching Attending Note Name of Resident: Olaf Winn ATTENDING PHYSICIAN STATEMENT I saw and evaluated the patient. I reviewed the resident's note and discussed the case with the resident. I agree with the resident's findings and plan as documented. SUBJECTIVE: Patient is back to hie normal sense, comfortable with no acute distress. OBJECTIVE: Vital Signs Temperature 97.5 F L 06/27/19 18:02 Pulse Rate 73 06/27/19 18:02 Respiratory Rate 18 06/27/19 18:02 Blood Pressure 135/68 06/27/19 18:02 O2 Sat by Pulse Oximetry (%) 95 06/27/19 09:00 GENERAL: The patient is awake, better today , in no acute distress. HEAD: Normal with no signs of trauma. EYES: PERRL, extraocular movements intact, sclera anicteric, conjunctiva clear. ENT: Ears normal, oropharynx clear without exudates, moist mucous membranes. NECK: Trachea midline, full range of motion, supple. right shilly LUNGS: Breath sounds equal, clear to auscultation bilaterally, no wheezes, no crackles, no accessory muscle use. HEART: Regular rate and rhythm, S1, S2 positive, JACKY 2/6, no rub or gallop. ABDOMEN: Soft, NT,ND, normoactive bowel sounds, no guarding, no rebound, no hepatosplenomegaly, no masses. EXTREMITIES: 2+ pulses, warm, well-perfused, no edema. NEUROLOGICAL: Cranial nerves II through XII grossly intact. Normal speech, gait not observed. PSYCH: Normal mood, normal affect. SKIN: Warm, dry, normal turgor, no rashes or lesions noted WBC 9.2 K/mm3 (4.0-10.0) 06/25/19 07:30 RBC 4.93 M/mm3 (4.00-5.60) 06/25/19 07:30 Hgb 9.5 GM/dL (11.7-16.9) L 06/25/19 07:30 Hct 30.7 % (35.4-49) L 06/25/19 07:30 MCV 62.3 fl (80-96) L 06/25/19 07:30 MCHC 30.9 g/dl (32.0-35.9) L 06/25/19 07:30 RDW 18.8 % (11.9-15.9) H 06/25/19 07:30 Plt Count 264 K/MM3 (134-434) 06/25/19 07:30 MPV 8.5 fl (7.5-11.1) 06/25/19 07:30 CMP Sodium 136 mmol/L (136-145) 06/27/19 07:14 Potassium 4.8 mmol/L (3.5-5.1) 06/27/19 07:14 Chloride 103 mmol/L (98-107) 06/27/19 07:14 Carbon Dioxide 27 mmol/L (21-32) 06/27/19 07:14 Anion Gap 7 MMOL/L (8-16) L 06/27/19 07:14 BUN 50.0 mg/dL (7-18) H 06/27/19 07:14 Creatinine 3.9 mg/dL (0.55-1.3) H 06/27/19 07:14 Random Glucose 157 mg/dL (74-106) H 06/27/19 07:14 Calcium 7.8 mg/dL (8.5-10.1) L 06/27/19 07:14 Total Bilirubin 0.4 mg/dL (0.2-1) 06/27/19 07:14 AST 92 U/L (15-37) H 06/27/19 07:14 ALT 84 U/L (13-61) H 06/27/19 07:14 Alkaline Phosphatase 180 U/L (45-117) H 06/27/19 07:14 Total Protein 5.3 g/dl (6.4-8.2) L 06/27/19 07:14 Albumin 2.3 g/dl (3.4-5.0) L 06/27/19 07:14 CARDIAC ENZYMES Creatine Kinase 159 U/L (26-308) 06/10/19 15:00 Troponin I 0.15 ng/ml (0.00-0.05) H 06/11/19 08:40 Echo:EJF 30-35%, diastolic dysfunction grade 2, moderate MR, moderate TR Assessment and plan: Patient is an 83 y/o man with PMhx of CKD , HTN , systolic CHF and DM who presented with AMS and was found to be uremic and in acute CHF # Generalized weakness, deconditioned will arrange for rehab. # ESRD on HD (TTrSaT) nephro on the case # Acute systolic CHF exacerbation: On HD now improving # Chronic microcytic anemia: iron def as per nephro #AMS: likely due to metabolic encephalopathy from uremia s/p acute delirium. Improved, back to his norm now. # Hx of DM : SS with coverage # Hx of HTN : continue Imdur, Toprol # urinary retention continue Flomax # Acute change mental status: zyprexa was held ,mental status improved and lethargy resolved, cont to hold. Heparin sq rehab placement
[2019-06-27] MEDS: ATORVASTATIN CA 40 MG TABLET (FP) PO SCH (21:16)
[2019-06-27] MEDS: TAMSULOSIN HCL 0.4 MG CAP PO SCH (21:16)
[2019-06-28] MEDS: HEPARIN NA (PORCINE) 5,000 UNITS/ML 1ML VIAL SQ SCH ×3 (06:08→22:46)
[2019-06-28] MEDS: hydrALAZINE HCL 25 MG TABLET (FP) PO SCH ×3 (06:13→22:50)
[2019-06-28] MEDS: INSULIN SLIDING SCALE (NOVOLOG) 1 VIAL SQ SCH ×3 (06:34→16:59)
[2019-06-28 08:14] LABS: HEMATOCRIT 30.8 % (35.4-49); HEMOGLOBIN 9.6 GM/dL (11.7-16.9); MCHC 31.1 g/dl (32.0-35.9); MEAN CELL VOLUME 62.8 fl (80-96); MEAN PLT VOLUME 8.7 fl (7.5-11.1); PLATELET COUNT 371 K/MM3 (134-434); RDW 19.2 % (11.9-15.9); WHITE BLOOD COUNT 8.6 K/mm3 (4.0-10.0)
[2019-06-28 08:29] LABS: MCH 19.5 pg (25.7-33.7)
[2019-06-28 08:40] LABS: BLOOD UREA NITROGEN 63.8 mg/dL (7-18); CALCIUM 7.5 mg/dL (8.5-10.1); MAGNESIUM 2.2 mg/dL (1.8-2.4); PHOSPHOROUS 4.4 mg/dL (2.5-4.9); POTASSIUM 4.9 mmol/L (3.5-5.1)
--- NOTE | 2019-06-28 09:53 | PN ---
Physical Exam: SUBJECTIVE: Patient seen and examined Today pt reports no overnight issues or events. Pt is in usual state of health. Mentating at baseline. Is asking questions about strength training. C/o of weakness and would like to ambulate. Denies f/c/n/v/d/chest pain/sob. OBJECTIVE: Vital Signs Period Temp Pulse Resp BP Sys/Alexandre Pulse Ox Last 24 Hr 97.5 F-99.3 F 69-92 17-18 110-136/51-73 95 GENERAL: Pt alert, awake and conversational. Pt is mentating well today. EYES: PERRL, extraocular movements intact. ENT: dentation poor. Uses artificial teeth. moist mucous membranes. NECK: full range of motion, supple. LUNGS: breath sounds have improved significantly. Expiratory wheezing heard b/ l. HEART: Regular rate and rhythm, S1 and S2 normal ABDOMEN: NT, ND. Normoactive bowel sounds EXTREMITIES: 2+ pulses, no edema. Chronic venous stasis skin changes b/l. Mild tenderness to palpation on both extremities b/l NEUROLOGICAL: Cranial nerves II through XII grossly intact. SKIN: Warm, dry, normal turgor Laboratory Results - last 24 hr CBC,CMP WBC 8.6 K/mm3 (4.0-10.0) 06/28/19 06:58 RBC 4.90 M/mm3 (4.00-5.60) 06/28/19 06:58 Hgb 9.6 GM/dL (11.7-16.9) L 06/28/19 06:58 Hct 30.8 % (35.4-49) L 06/28/19 06:58 MCV 62.8 fl (80-96) L 06/28/19 06:58 MCH 19.5 pg (25.7-33.7) L 06/28/19 06:58 MCHC 31.1 g/dl (32.0-35.9) L 06/28/19 06:58 RDW 19.2 % (11.9-15.9) H 06/28/19 06:58 Plt Count 371 K/MM3 (134-434) D 06/28/19 06:58 MPV 8.7 fl (7.5-11.1) 06/28/19 06:58 Absolute Neuts (auto) 6.6 K/mm3 (1.5-8.0) 06/16/19 06:10 Neutrophils % 79.4 % (42.8-82.8) 06/16/19 06:10 Neutrophils % (Manual) 79.2 % (42.8-82.8) 06/15/19 06:20 Band Neutrophils % 0.0 % 06/15/19 06:20 Lymphocytes % 5.7 % (8-40) L D 06/16/19 06:10 Lymphocytes % (Manual) 4.9 % (8-40) L 06/15/19 06:20 Monocytes % 10.6 % (3.8-10.2) H 06/16/19 06:10 Monocytes % (Manual) 6 % (3.8-10.2) 06/15/19 06:20 Eosinophils % 3.5 % (0-4.5) 06/16/19 06:10 Eosinophils % (Manual) 3.0 % (0-4.5) 06/15/19 06:20 Basophils % 0.8 % (0-2.0) 06/16/19 06:10 Basophils % (Manual) 3.0 % (0-2.0) H D 06/15/19 06:20 Myelocytes % (Man) 0 % (0-2) 06/15/19 06:20 Promyelocytes % (Man) 0 % (0-2) 06/15/19 06:20 Blast Cells % (Manual) 0 % (0-0) 06/15/19 06:20 Nucleated RBC % 1 % (0-0) H 06/16/19 06:10 Metamyelocytes 0 % (0-2) 06/15/19 06:20 Hypochromia 3+ 06/15/19 06:20 Toxic Granulation 1+ 06/13/19 05:35 Platelet Estimate Normal 06/16/19 06:10 Platelet Comment Present 06/12/19 06:16 Polychromasia 1+ 06/15/19 06:20 Poikilocytosis 3+ 06/15/19 06:20 Anisocytosis 3+ 06/15/19 06:20 Microcytosis 3+ 06/15/19 06:20 Macrocytosis 0 06/15/19 06:20 Spherocytes 2+ 06/13/19 05:35 Target Cells 3+ 06/15/19 06:20 Tear Drop Cells 1+ 06/13/19 05:35 Ovalocytes 1+ 06/14/19 06:07 [place] Cells 1+ 06/10/19 15:00 Rouleaux 1+ 06/15/19 06:20 Fragmented RBCs 2+ 06/15/19 06:20 Schistocytes 3+ 06/15/19 06:20 Sodium 136 mmol/L (136-145) 06/28/19 06:58 Potassium 4.9 mmol/L (3.5-5.1) 06/28/19 06:58 Chloride 104 mmol/L (98-107) 06/28/19 06:58 Carbon Dioxide 26 mmol/L (21-32) 06/28/19 06:58 Anion Gap 6 MMOL/L (8-16) L 06/28/19 06:58 BUN 63.8 mg/dL (7-18) H 06/28/19 06:58 Creatinine 4.0 mg/dL (0.55-1.3) H 06/28/19 06:58 Est GFR (CKD-EPI)AfAm 15.13 06/28/19 06:58 Est GFR (CKD-EPI)NonAf 13.06 06/28/19 06:58 POC Glucometer 248 UNITS (80-120) 06/28/19 06:31 Random Glucose 166 mg/dL (74-106) H 06/28/19 06:58 Hemoglobin A1c % 8.0 % (4.2-6.3) H 06/11/19 06:00 Calcium 7.5 mg/dL (8.5-10.1) L 06/28/19 06:58 Phosphorus 4.4 mg/dL (2.5-4.9) 06/28/19 06:58 Magnesium 2.2 mg/dL (1.8-2.4) 06/28/19 06:58 Iron 16 ug/dL (50-175) L 06/11/19 06:00 TIBC 329 ug/dL (250-450) 06/11/19 06:00 Iron Saturation 4 % (17.5-39) L 06/11/19 06:00 Unsaturated IBC 313 ug/dL (200-275) H 06/11/19 06:00 Ferritin 17.1 ng/ml (8-388) 06/11/19 06:00 Total Bilirubin 0.4 mg/dL (0.2-1) 06/27/19 07:14 AST 92 U/L (15-37) H 06/27/19 07:14 ALT 84 U/L (13-61) H 06/27/19 07:14 Alkaline Phosphatase 180 U/L (45-117) H 06/27/19 07:14 Ammonia 12.70 umol/L (11-32) 06/22/19 12:15 Creatine Kinase 159 U/L (26-308) 06/10/19 15:00 Creatine Kinase Index 3.3 % (0.0-5.0) 06/10/19 15:00 CK-MB (CK-2) 5.4 ng/mL (0.5-3.6) H 06/10/19 15:00 Troponin I 0.15 ng/ml (0.00-0.05) H 06/11/19 08:40 B-Natriuretic Peptide 17735.8 pg/ml (5-450) H 06/10/19 15:00 Total Protein 5.3 g/dl (6.4-8.2) L 06/27/19 07:14 Albumin 2.3 g/dl (3.4-5.0) L 06/27/19 07:14 PTH Intact 236 pg/mL (15-65) H 06/11/19 06:00 PTH Intact Intraop 0 m (.) 06/11/19 06:00 Active Medications Current Medications Acetaminophen (Tylenol -) 500 mg PO Q6H PRN PRN Reason: PAIN LEVEL 6-10 Last Admin: 06/25/19 21:35 Dose: 500 mg Aspirin (Asa -) 81 mg PO DAILY [facility] Last Admin: 06/27/19 09:20 Dose: 81 mg Atorvastatin Calcium (Lipitor -) 40 mg PO HS [facility] [place] Last Admin: 06/27/19 21:16 Dose: 40 mg Calcium Acetate (Phoslo -) 667 mg PO TIDCM [facility] [place] Last Admin: 06/27/19 17:25 Dose: 667 mg Epoetin Mamadou (Epogen -) 2,000 unit IVPUSH ONCE ONE Stop: 06/28/19 10:01 Guaifenesin (Mucinex -) 600 mg PO BID [facility] [place] Last Admin: 06/27/19 21:16 Dose: 600 mg Heparin Sodium (Porcine) (Heparin -) 5,000 unit SQ TID [facility] Last Admin: 06/28/19 06:08 Dose: 5,000 unit Hydralazine HCl (Apresoline -) 25 mg PO TID [facility] [place] Last Admin: 06/28/19 06:13 Dose: 25 mg Ceftriaxone Sodium 1 gm/ (Dextrose) 50 mls @ 100 mls/hr IVPB DAILY [facility]; Protocol Last Admin: 06/27/19 09:20 Dose: 100 mls/hr Sodium Chloride (Normal Saline -) 250 mls @ 3,000 mls/hr IV PRN PRN PRN Reason: Hypotension during Dialysis Stop: 06/28/19 14:17 Insulin Aspart (Novolog Vial Sliding Scale -) 1 vial SQ TIDAC [facility]; Protocol Last Admin: 06/28/19 06:34 Dose: 4 units Isosorbide Mononitrate (Imdur -) 30 mg PO DAILY [facility] Last Admin: 06/27/19 09:19 Dose: 30 mg Metoprolol Succinate (Toprol Xl -) 25 mg PO DAILY [facility] Last Admin: 06/27/19 09:20 Dose: 25 mg Senna (Senna -) 1 tab PO BID [facility] Last Admin: 06/27/19 21:16 Dose: 1 tab Tamsulosin HCl (Flomax -) 0.4 mg PO HS [facility] Last Admin: 06/27/19 21:16 Dose: 0.4 mg Home Medications Medication Instructions Recorded Amlodipine Besylate 5 mg PO DAILY 06/10/19 Calcium Acetate [Phoslo -] 667 mg PO TID 06/10/19 Furosemide [Lasix] 80 mg PO TID 06/10/19 Microbiology 06/24/19 13:00 Urine - Urine [place] Urine Culture - Final Escherichia Coli 06/17/19 15:45 Urine - Urine Clean Catch Urine Culture - Final NO GROWTH OBTAINED 06/10/19 22:00 Urine - Urine - Catheterized Urine Culture - Final NO GROWTH OBTAINED ASSESSMENT/PLAN: 83 y/o M, pmh of CKD stage V, T2DM presented with LE edema of 1 week duration likely 2/2 fluid overload from ESRD. #AMS Will call PT for bedside exercise with pt HD today Tolerating PO Epogen given for anemia #Urinary retention likely 2/2 to UTI ceftriaxone- wbc normal today #LE edema likely 2/2 to Fluid overload 2/2 ESRD pending placement for HD #Safety at home Pt will be going to Rehab #CHF- acute on chronic systolic CHF w/ severe fluid overload Strict salt and fluid restrictions. No fluids nor ice cubes at the bedside. #HTN Cont hydralazine 25 mg 3 times a day. #HLD cont atorvastatin #Type 2 DM ISS #DVT ppx Heparin FEN: renal diet Dispo: cont PT, monitor mentation, f/u HD Visit type - Emergency Visit Emergency Visit: Yes ED Registration Date: 06/10/19 Care time: The patient presented to the Emergency Department on the above date and was hospitalized for further evaluation of their emergent condition. - New Patient This patient is new to me today: Yes Date on this admission: 06/29/19 - Critical Care Critical Care patient: No - Discharge Referral Referred to [facility] Med P.C.: No ATTENDING PHYSICIAN STATEMENT I saw and evaluated the patient. I reviewed the resident's note and discussed the case with the resident. I agree with the resident's findings and plan as documented. SUBJECTIVE: OBJECTIVE: ASSESSMENT AND PLAN:
[2019-06-28] MEDS ORDERED: EPOETIN ALFA 2,000 UNIT/1 ML VIAL IVPUSH ONE (10:00)
[2019-06-28] MEDS ORDERED: DEXTROSE 5%-WATER - 50 ML IVPB ONE (12:03)
[2019-06-28] MEDS ORDERED: cefTRIAXone SODIUM 1 GM VIAL ONE (12:03)
[2019-06-28] MEDS: CALCIUM ACETATE 667 MG CAPSULE (FP) PO SCH ×3 (12:18→16:59)
[2019-06-28] MEDS: guaiFENesin 600 MG TABLET.ER (FP) PO SCH ×2 (12:18→22:50)
[2019-06-28] MEDS: SENNOSIDES 8.6MG TABLET (FP) PO SCH ×2 (12:18→22:50)
[2019-06-28] MEDS: ISOSORBIDE MONONITRATE 30 MG TAB.SR.24H (FP) PO SCH (12:18)
[2019-06-28] MEDS: ASPIRIN 81 MG CHEWABLE TABLETS PO SCH (12:18)
[2019-06-28] MEDS: CEFTRIAXONE 1 GM in DEXTROSE 5%-WATER - 50 ML IVPB SCH (12:19)
--- NOTE | 2019-06-28 16:16 | PN ---
Teaching Attending Note Name of Resident: Olaf Winn ATTENDING PHYSICIAN STATEMENT I saw and evaluated the patient. I reviewed the resident's note and discussed the case with the resident. I agree with the resident's findings and plan as documented. SUBJECTIVE: Patient is comfortable having dialysis today OBJECTIVE: Vital Signs Temperature 98.9 F 06/28/19 15:07 Pulse Rate 74 06/28/19 15:07 Respiratory Rate 18 06/28/19 15:07 Blood Pressure 126/52 L 06/28/19 15:07 O2 Sat by Pulse Oximetry (%) 98 06/28/19 09:00 GENERAL: The patient is awake, better today , in no acute distress. HEAD: Normal with no signs of trauma. EYES: PERRL, extraocular movements intact, sclera anicteric, conjunctiva clear. ENT: Ears normal, oropharynx clear without exudates, moist mucous membranes. NECK: Trachea midline, full range of motion, supple. right shilly LUNGS: Breath sounds equal, clear to auscultation bilaterally, no wheezes, no crackles, no accessory muscle use. HEART: Regular rate and rhythm, S1, S2 positive, JACKY 2/6, no rub or gallop. ABDOMEN: Soft, NT,ND, normoactive bowel sounds, no guarding, no rebound, no hepatosplenomegaly, no masses. EXTREMITIES: 2+ pulses, warm, well-perfused, no edema. NEUROLOGICAL: Cranial nerves II through XII grossly intact. Normal speech, gait not observed. PSYCH: Normal mood, normal affect. SKIN: Warm, dry, normal turgor, no rashes or lesions noted CBCD WBC 8.6 K/mm3 (4.0-10.0) 06/28/19 06:58 RBC 4.90 M/mm3 (4.00-5.60) 06/28/19 06:58 Hgb 9.6 GM/dL (11.7-16.9) L 06/28/19 06:58 Hct 30.8 % (35.4-49) L 06/28/19 06:58 MCV 62.8 fl (80-96) L 06/28/19 06:58 MCHC 31.1 g/dl (32.0-35.9) L 06/28/19 06:58 RDW 19.2 % (11.9-15.9) H 06/28/19 06:58 Plt Count 371 K/MM3 (134-434) D 06/28/19 06:58 MPV 8.7 fl (7.5-11.1) 06/28/19 06:58 CMP Sodium 136 mmol/L (136-145) 06/28/19 06:58 Potassium 4.9 mmol/L (3.5-5.1) 06/28/19 06:58 Chloride 104 mmol/L (98-107) 06/28/19 06:58 Carbon Dioxide 26 mmol/L (21-32) 06/28/19 06:58 Anion Gap 6 MMOL/L (8-16) L 06/28/19 06:58 BUN 63.8 mg/dL (7-18) H 06/28/19 06:58 Creatinine 4.0 mg/dL (0.55-1.3) H 06/28/19 06:58 Random Glucose 166 mg/dL (74-106) H 06/28/19 06:58 Calcium 7.5 mg/dL (8.5-10.1) L 06/28/19 06:58 Total Bilirubin 0.4 mg/dL (0.2-1) 06/27/19 07:14 AST 92 U/L (15-37) H 06/27/19 07:14 ALT 84 U/L (13-61) H 06/27/19 07:14 Alkaline Phosphatase 180 U/L (45-117) H 06/27/19 07:14 Total Protein 5.3 g/dl (6.4-8.2) L 06/27/19 07:14 Albumin 2.3 g/dl (3.4-5.0) L 06/27/19 07:14 CARDIAC ENZYMES Creatine Kinase 159 U/L (26-308) 06/10/19 15:00 Troponin I 0.15 ng/ml (0.00-0.05) H 06/11/19 08:40 Current Medications Generic Name Dose Route Start Last Admin Trade Name Freq PRN Reason Stop Dose Admin Acetaminophen 500 mg 06/24/19 20:20 06/25/19 21:35 Tylenol - PO 500 mg Q6H PRN Administration PAIN LEVEL 6-10 Aspirin 81 mg 06/25/19 10:00 06/28/19 12:18 Asa - PO 81 mg DAILY [facility] Administration Atorvastatin Calcium 40 mg 06/24/19 22:00 06/27/19 21:16 Lipitor - PO 40 mg HS [facility] Administration Calcium Acetate 667 mg 06/25/19 08:00 06/28/19 12:18 Phoslo - PO 667 mg TIDCM [facility] Administration Guaifenesin 600 mg 06/24/19 22:00 06/28/19 12:18 Mucinex - PO 600 mg BID [facility] Administration Heparin Sodium (Porcine) 5,000 unit 06/24/19 22:00 06/28/19 14:43 Heparin - SQ 5,000 unit TID [facility] Administration Hydralazine HCl 25 mg 06/24/19 22:00 06/28/19 14:43 Apresoline - PO 25 mg TID [facility] Administration Ceftriaxone Sodium 1 gm/ 50 mls @ 100 mls/hr 06/25/19 10:00 06/28/19 12:19 Dextrose IVPB 100 mls/hr DAILY [facility] Administration Protocol Insulin Aspart 1 vial 06/25/19 07:00 06/28/19 12:24 Novolog Vial Sliding Scale - SQ Not Given TIDAC [facility] Protocol Isosorbide Mononitrate 30 mg 06/25/19 10:00 06/28/19 12:18 Imdur - PO 30 mg DAILY [facility] Administration Metoprolol Succinate 25 mg 06/25/19 10:00 06/28/19 12:18 Toprol Xl - PO 25 mg DAILY [facility] Administration Senna 1 tab 06/24/19 22:00 06/28/19 12:18 Senna - PO 1 tab BID [facility] Administration Tamsulosin HCl 0.4 mg 06/24/19 22:00 06/27/19 21:16 Flomax - PO 0.4 mg HS [facility] Administration Home Medications Medication Instructions Recorded Amlodipine Besylate 5 mg PO DAILY 06/10/19 Calcium Acetate [Phoslo -] 667 mg PO TID 06/10/19 Furosemide [Lasix] 80 mg PO TID 06/10/19 Echo:EJF 30-35%, diastolic dysfunction grade 2, moderate MR, moderate TR Assessment and plan: Patient is an 83 y/o man with PMhx of CKD , HTN , systolic CHF and DM who presented with AMS and was found to be uremic and in acute CHF # Generalized weakness, deconditioned will arrange for rehab. waiting for authorization and placement # ESRD on HD (TTrSaT) nephro on the case # Acute systolic CHF exacerbation: On HD now improving # Chronic microcytic anemia: iron def as per nephro #AMS: likely due to metabolic encephalopathy from uremia s/p acute delirium. Improved, back to his norm now. # Hx of DM : SS with coverage # Hx of HTN : continue Imdur, Toprol # urinary retention continue Flomax # Acute change mental status: zyprexa was held ,mental status improved and lethargy resolved, cont to hold. Heparin sq rehab placement
--- NOTE | 2019-06-28 18:13 | PN ---
Progress Note, Physician History of Present Illness: Pt seen and examined at bedside. He is more awake and alert. he tolerated HD. - Current Medication List Current Medications: Active Medications Acetaminophen (Tylenol -) 500 mg PO Q6H PRN PRN Reason: PAIN LEVEL 6-10 Last Admin: 06/25/19 21:35 Dose: 500 mg Aspirin (Asa -) 81 mg PO DAILY [facility] Last Admin: 06/28/19 12:18 Dose: 81 mg Atorvastatin Calcium (Lipitor -) 40 mg PO HS [facility] Last Admin: 06/27/19 21:16 Dose: 40 mg Calcium Acetate (Phoslo -) 667 mg PO TIDCM [facility] Last Admin: 06/28/19 16:59 Dose: 667 mg Guaifenesin (Mucinex -) 600 mg PO BID [facility] Last Admin: 06/28/19 12:18 Dose: 600 mg Heparin Sodium (Porcine) (Heparin -) 5,000 unit SQ TID [facility] Last Admin: 06/28/19 14:43 Dose: 5,000 unit Hydralazine HCl (Apresoline -) 25 mg PO TID [facility] Last Admin: 06/28/19 14:43 Dose: 25 mg Ceftriaxone Sodium 1 gm/ (Dextrose) 50 mls @ 100 mls/hr IVPB DAILY [facility]; Protocol Last Admin: 06/28/19 12:19 Dose: 100 mls/hr Insulin Aspart (Novolog Vial Sliding Scale -) 1 vial SQ TIDAC [facility]; Protocol Last Admin: 06/28/19 16:59 Dose: 2 units Isosorbide Mononitrate (Imdur -) 30 mg PO DAILY [facility] Last Admin: 06/28/19 12:18 Dose: 30 mg Metoprolol Succinate (Toprol Xl -) 25 mg PO DAILY [facility] Last Admin: 06/28/19 12:18 Dose: 25 mg Senna (Senna -) 1 tab PO BID [facility] Last Admin: 06/28/19 12:18 Dose: 1 tab Tamsulosin HCl (Flomax -) 0.4 mg PO HS [facility] Last Admin: 06/27/19 21:16 Dose: 0.4 mg - Objective Vital Signs: Vital Signs Temperature 98.9 F 06/28/19 15:07 Pulse Rate 74 06/28/19 15:07 Respiratory Rate 18 06/28/19 15:07 Blood Pressure 126/52 L 06/28/19 15:07 O2 Sat by Pulse Oximetry (%) 98 06/28/19 09:00 Constitutional: Yes: Calm Eyes: Yes: Conjunctiva Clear HENT: Yes: Atraumatic Neck: Yes: Supple Cardiovascular: Yes: S1, S2 Respiratory: Yes: CTA Bilaterally Gastrointestinal: Yes: Soft Genitourinary: Yes: WNL Musculoskeletal: Yes: WNL Edema: Yes Edema: LLE: 1+, RLE: 1+ Neurological: Yes: Oriented Psychiatric: Yes: Oriented Labs: CBC, BMP 06/28/19 06:58 06/28/19 06:58 INR, PTT INR 1.03 (0.83-1.09) 06/19/19 06:00 Problem List - Problems (1) CKD (chronic kidney disease) Code(s): N18.9 - CHRONIC KIDNEY DISEASE, UNSPECIFIED (2) HTN (hypertension) Code(s): I10 - ESSENTIAL (PRIMARY) HYPERTENSION (3) Diabetes mellitus Code(s): E11.9 - TYPE 2 DIABETES MELLITUS WITHOUT COMPLICATIONS Assessment/Plan Current Medications Generic Name Dose Route Start Last Admin Trade Name Freq PRN Reason Stop Dose Admin Acetaminophen 500 mg 06/24/19 20:20 06/25/19 21:35 Tylenol - PO 500 mg Q6H PRN Administration PAIN LEVEL 6-10 Aspirin 81 mg 06/25/19 10:00 06/28/19 12:18 Asa - PO 81 mg DAILY [facility] Administration Atorvastatin Calcium 40 mg 06/24/19 22:00 06/27/19 21:16 Lipitor - PO 40 mg HS [facility] Administration Calcium Acetate 667 mg 06/25/19 08:00 06/28/19 16:59 Phoslo - PO 667 mg TIDCM [facility] Administration Guaifenesin 600 mg 06/24/19 22:00 06/28/19 12:18 Mucinex - PO 600 mg BID [facility] Administration Heparin Sodium (Porcine) 5,000 unit 06/24/19 22:00 06/28/19 14:43 Heparin - SQ 5,000 unit TID [facility] Administration Hydralazine HCl 25 mg 06/24/19 22:00 06/28/19 14:43 Apresoline - PO 25 mg TID [facility] Administration Ceftriaxone Sodium 1 gm/ 50 mls @ 100 mls/hr 06/25/19 10:00 06/28/19 12:19 Dextrose IVPB 100 mls/hr DAILY [facility] Administration Protocol Insulin Aspart 1 vial 06/25/19 07:00 06/28/19 16:59 Novolog Vial Sliding Scale - SQ 2 units TIDAC [facility] Administration Protocol Isosorbide Mononitrate 30 mg 06/25/19 10:00 06/28/19 12:18 Imdur - PO 30 mg DAILY [facility] Administration Metoprolol Succinate 25 mg 06/25/19 10:00 06/28/19 12:18 Toprol Xl - PO 25 mg DAILY [facility] Administration Senna 1 tab 06/24/19 22:00 06/28/19 12:18 Senna - PO 1 tab BID [facility] Administration Tamsulosin HCl 0.4 mg 06/24/19 22:00 06/27/19 21:16 Flomax - PO 0.4 mg HS [facility] Administration Impression 1. CKD 2. HTN 3. DM 4. fluid overload 5. esrd 6. altered mental status Plan - HD today - renal diet - pt tolerating po intake - epogen for anemia - will need placement
[2019-06-28] MEDS: TAMSULOSIN HCL 0.4 MG CAP PO SCH (22:46)
[2019-06-28] MEDS: ATORVASTATIN CA 40 MG TABLET (FP) PO SCH (22:51)
[2019-06-29] MEDS: HEPARIN NA (PORCINE) 5,000 UNITS/ML 1ML VIAL SQ SCH ×3 (05:32→22:43)
[2019-06-29] MEDS: hydrALAZINE HCL 25 MG TABLET (FP) PO SCH ×3 (05:32→22:43)
[2019-06-29] MEDS: INSULIN SLIDING SCALE (NOVOLOG) 1 VIAL SQ SCH ×3 (06:50→17:32)
[2019-06-29 08:22] LABS: HEMATOCRIT 30.4 % (35.4-49); HEMOGLOBIN 9.5 GM/dL (11.7-16.9); MCHC 31.2 g/dl (32.0-35.9); MEAN CELL VOLUME 62.1 fl (80-96); MEAN PLT VOLUME 8.4 fl (7.5-11.1); PLATELET COUNT 401 K/MM3 (134-434); RBC 4.89 M/mm3 (4.00-5.60); RDW 19.7 % (11.9-15.9); WHITE BLOOD COUNT 8.8 K/mm3 (4.0-10.0)
[2019-06-29] MEDS: CALCIUM ACETATE 667 MG CAPSULE (FP) PO SCH ×3 (08:35→17:32)
[2019-06-29 08:46] LABS: BLOOD UREA NITROGEN 41.9 mg/dL (7-18); CALCIUM 7.7 mg/dL (8.5-10.1); CREATININE 3.1 mg/dL (0.55-1.3); MAGNESIUM 2.1 mg/dL (1.8-2.4); PHOSPHOROUS 3.6 mg/dL (2.5-4.9); POTASSIUM 4.1 mmol/L (3.5-5.1)
[2019-06-29 08:47] LABS: MCH 19.4 pg (25.7-33.7)
[2019-06-29] MEDS ORDERED: cefTRIAXone SODIUM 1 GM VIAL ONE (09:17)
[2019-06-29] MEDS ORDERED: DEXTROSE 5%-WATER - 50 ML IVPB ONE (09:18)
[2019-06-29] MEDS: CEFTRIAXONE 1 GM in DEXTROSE 5%-WATER - 50 ML IVPB SCH (09:29)
[2019-06-29] MEDS: ASPIRIN 81 MG CHEWABLE TABLETS PO SCH (09:30)
[2019-06-29] MEDS: ISOSORBIDE MONONITRATE 30 MG TAB.SR.24H (FP) PO SCH (09:30)
[2019-06-29] MEDS: guaiFENesin 600 MG TABLET.ER (FP) PO SCH ×2 (09:30→22:43)
[2019-06-29] MEDS: SENNOSIDES 8.6MG TABLET (FP) PO SCH ×3 (09:30→22:43)
[2019-06-29] MEDS ORDERED: INSULIN (NOVOLOG) ASPART 100 UNITS/ML 10ML VIAL ONE (11:55)
--- NOTE | 2019-06-29 12:33 | PN ---
Progress Note, Physician History of Present Illness: Pt seen and examined at bedside. He denies shortness of breath. - Current Medication List Current Medications: Active Medications Acetaminophen (Tylenol -) 500 mg PO Q6H PRN PRN Reason: PAIN LEVEL 6-10 Last Admin: 06/25/19 21:35 Dose: 500 mg Aspirin (Asa -) 81 mg PO DAILY [facility] Last Admin: 06/29/19 09:30 Dose: 81 mg Atorvastatin Calcium (Lipitor -) 40 mg PO HS [facility] Last Admin: 06/28/19 22:51 Dose: 40 mg Calcium Acetate (Phoslo -) 667 mg PO TIDCM [facility] Last Admin: 06/29/19 12:04 Dose: 667 mg Guaifenesin (Mucinex -) 600 mg PO BID [facility] Last Admin: 06/29/19 09:30 Dose: 600 mg Heparin Sodium (Porcine) (Heparin -) 5,000 unit SQ TID [facility] Last Admin: 06/29/19 05:32 Dose: 5,000 unit Hydralazine HCl (Apresoline -) 25 mg PO TID [facility] Last Admin: 06/29/19 05:32 Dose: 25 mg Ceftriaxone Sodium 1 gm/ (Dextrose) 50 mls @ 100 mls/hr IVPB DAILY [facility]; Protocol Last Admin: 06/29/19 09:29 Dose: 100 mls/hr Insulin Aspart (Novolog Vial Sliding Scale -) 1 vial SQ TIDAC [facility]; Protocol Last Admin: 06/29/19 12:01 Dose: 2 units Isosorbide Mononitrate (Imdur -) 30 mg PO DAILY [facility] Last Admin: 06/29/19 09:30 Dose: 30 mg Metoprolol Succinate (Toprol Xl -) 25 mg PO DAILY [facility] Last Admin: 06/29/19 09:30 Dose: 25 mg Senna (Senna -) 1 tab PO BID [facility] Last Admin: 06/29/19 09:41 Dose: Not Given Tamsulosin HCl (Flomax -) 0.4 mg PO HS [facility] Last Admin: 06/28/19 22:46 Dose: 0.4 mg - Objective Vital Signs: Vital Signs Temperature 98.3 F 06/29/19 10:00 Pulse Rate 78 06/29/19 10:00 Respiratory Rate 18 06/29/19 10:00 Blood Pressure 145/69 06/29/19 10:00 O2 Sat by Pulse Oximetry (%) 95 06/29/19 09:00 Constitutional: Yes: Calm Eyes: Yes: Conjunctiva Clear HENT: Yes: Atraumatic Neck: Yes: Supple Cardiovascular: Yes: S1, S2 Respiratory: Yes: CTA Bilaterally Gastrointestinal: Yes: Soft Genitourinary: Yes: WNL Musculoskeletal: Yes: WNL Edema: Yes Edema: LLE: 1+, RLE: 1+ Neurological: Yes: Oriented Psychiatric: Yes: Oriented Labs: CBC, BMP 06/29/19 07:32 06/29/19 07:32 INR, PTT INR 1.03 (0.83-1.09) 06/19/19 06:00 Problem List - Problems (1) CKD (chronic kidney disease) Code(s): N18.9 - CHRONIC KIDNEY DISEASE, UNSPECIFIED (2) HTN (hypertension) Code(s): I10 - ESSENTIAL (PRIMARY) HYPERTENSION (3) Diabetes mellitus Code(s): E11.9 - TYPE 2 DIABETES MELLITUS WITHOUT COMPLICATIONS Assessment/Plan Current Medications Generic Name Dose Route Start Last Admin Trade Name Freq PRN Reason Stop Dose Admin Acetaminophen 500 mg 06/24/19 20:20 06/25/19 21:35 Tylenol - PO 500 mg Q6H PRN Administration PAIN LEVEL 6-10 Aspirin 81 mg 06/25/19 10:00 06/29/19 09:30 Asa - PO 81 mg DAILY [facility] Administration Atorvastatin Calcium 40 mg 06/24/19 22:00 06/28/19 22:51 Lipitor - PO 40 mg HS [facility] Administration Calcium Acetate 667 mg 06/25/19 08:00 06/29/19 12:04 Phoslo - PO 667 mg TIDCM [facility] Administration Guaifenesin 600 mg 06/24/19 22:00 06/29/19 09:30 Mucinex - PO 600 mg BID [facility] Administration Heparin Sodium (Porcine) 5,000 unit 06/24/19 22:00 06/29/19 05:32 Heparin - SQ 5,000 unit TID [facility] Administration Hydralazine HCl 25 mg 06/24/19 22:00 06/29/19 05:32 Apresoline - PO 25 mg TID [facility] Administration Ceftriaxone Sodium 1 gm/ 50 mls @ 100 mls/hr 06/25/19 10:00 06/29/19 09:29 Dextrose IVPB 100 mls/hr DAILY [facility] Administration Protocol Insulin Aspart 1 vial 06/25/19 07:00 06/29/19 12:01 Novolog Vial Sliding Scale - SQ 2 units TIDAC [facility] Administration Protocol Isosorbide Mononitrate 30 mg 06/25/19 10:00 06/29/19 09:30 Imdur - PO 30 mg DAILY [facility] Administration Metoprolol Succinate 25 mg 06/25/19 10:00 06/29/19 09:30 Toprol Xl - PO 25 mg DAILY [facility] Administration Senna 1 tab 06/24/19 22:00 06/29/19 09:41 Senna - PO Not Given BID [facility] Tamsulosin HCl 0.4 mg 06/24/19 22:00 06/28/19 22:46 Flomax - PO 0.4 mg HS [facility] Administration Impression 1. CKD 2. HTN 3. DM 4. fluid overload 5. esrd 6. altered mental status Plan - HD tomorrow - orders written - cxr reviewed - renal diet - pt tolerating po intake - epogen for anemia - will need placement
--- NOTE | 2019-06-29 15:21 | PN ---
Physical Exam: SUBJECTIVE: Patient seen and examined No overnight issues or events as per pt. Pt is in usual state of health. Mentating at baseline. Would like to try more physical therapy. Denies f/c/n/v/d /chest pain/sob. OBJECTIVE: Vital Signs Period Temp Pulse Resp BP Sys/Alexandre Pulse Ox Last 24 Hr 97.8 F-98.6 F 69-78 17-20 126-147/57-76 95-95 GENERAL: Pt alert, awake and conversational. Pt is mentating well today. ENT: dentation poor. Uses artificial teeth. moist mucous membranes. Tongue appears collapse and obstruct his breathing at increased angles NECK: full range of motion, supple. LUNGS: breath sounds have improved significantly. Expiratory wheezing heard b/ l. HEART: Regular rate and rhythm, S1 and S2 normal ABDOMEN: NT, ND. Normoactive bowel sounds EXTREMITIES: 2+ pulses, no edema. Chronic venous stasis skin changes b/l. Mild tenderness to palpation on both extremities b/l NEUROLOGICAL: Cranial nerves II through XII grossly intact. SKIN: Warm, dry, normal turgor Laboratory Results - last 24 hr CBC,CMP WBC 8.8 K/mm3 (4.0-10.0) 06/29/19 07:32 RBC 4.89 M/mm3 (4.00-5.60) 06/29/19 07:32 Hgb 9.5 GM/dL (11.7-16.9) L 06/29/19 07:32 Hct 30.4 % (35.4-49) L 06/29/19 07:32 MCV 62.1 fl (80-96) L 06/29/19 07:32 MCH 19.4 pg (25.7-33.7) L 06/29/19 07:32 MCHC 31.2 g/dl (32.0-35.9) L 06/29/19 07:32 RDW 19.7 % (11.9-15.9) H 06/29/19 07:32 Plt Count 401 K/MM3 (134-434) 06/29/19 07:32 MPV 8.4 fl (7.5-11.1) 06/29/19 07:32 Absolute Neuts (auto) 6.6 K/mm3 (1.5-8.0) 06/16/19 06:10 Neutrophils % 79.4 % (42.8-82.8) 06/16/19 06:10 Neutrophils % (Manual) 79.2 % (42.8-82.8) 06/15/19 06:20 Band Neutrophils % 0.0 % 06/15/19 06:20 Lymphocytes % 5.7 % (8-40) L D 06/16/19 06:10 Lymphocytes % (Manual) 4.9 % (8-40) L 06/15/19 06:20 Monocytes % 10.6 % (3.8-10.2) H 06/16/19 06:10 Monocytes % (Manual) 6 % (3.8-10.2) 06/15/19 06:20 Eosinophils % 3.5 % (0-4.5) 06/16/19 06:10 Eosinophils % (Manual) 3.0 % (0-4.5) 06/15/19 06:20 Basophils % 0.8 % (0-2.0) 06/16/19 06:10 Basophils % (Manual) 3.0 % (0-2.0) H D 06/15/19 06:20 Myelocytes % (Man) 0 % (0-2) 06/15/19 06:20 Promyelocytes % (Man) 0 % (0-2) 06/15/19 06:20 Blast Cells % (Manual) 0 % (0-0) 06/15/19 06:20 Nucleated RBC % 1 % (0-0) H 06/16/19 06:10 Metamyelocytes 0 % (0-2) 06/15/19 06:20 Hypochromia 3+ 06/15/19 06:20 Toxic Granulation 1+ 06/13/19 05:35 Platelet Estimate Normal 06/16/19 06:10 Platelet Comment Present 06/12/19 06:16 Polychromasia 1+ 06/15/19 06:20 Poikilocytosis 3+ 06/15/19 06:20 Anisocytosis 3+ 06/15/19 06:20 Microcytosis 3+ 06/15/19 06:20 Macrocytosis 0 06/15/19 06:20 Spherocytes 2+ 06/13/19 05:35 Target Cells 3+ 06/15/19 06:20 Tear Drop Cells 1+ 06/13/19 05:35 Ovalocytes 1+ 06/14/19 06:07 [place] Cells 1+ 06/10/19 15:00 Rouleaux 1+ 06/15/19 06:20 Fragmented RBCs 2+ 06/15/19 06:20 Schistocytes 3+ 06/15/19 06:20 Sodium 137 mmol/L (136-145) 06/29/19 07:32 Potassium 4.1 mmol/L (3.5-5.1) 06/29/19 07:32 Chloride 104 mmol/L (98-107) 06/29/19 07:32 Carbon Dioxide 28 mmol/L (21-32) 06/29/19 07:32 Anion Gap 5 MMOL/L (8-16) L 06/29/19 07:32 BUN 41.9 mg/dL (7-18) H 06/29/19 07:32 Creatinine 3.1 mg/dL (0.55-1.3) H 06/29/19 07:32 Est GFR (CKD-EPI)AfAm 20.59 06/29/19 07:32 Est GFR (CKD-EPI)NonAf 17.77 06/29/19 07:32 POC Glucometer 171 UNITS (80-120) 06/29/19 11:58 Random Glucose 133 mg/dL (74-106) H 06/29/19 07:32 Hemoglobin A1c % 8.0 % (4.2-6.3) H 06/11/19 06:00 Calcium 7.7 mg/dL (8.5-10.1) L 06/29/19 07:32 Phosphorus 3.6 mg/dL (2.5-4.9) 06/29/19 07:32 Magnesium 2.1 mg/dL (1.8-2.4) 06/29/19 07:32 Iron 16 ug/dL (50-175) L 06/11/19 06:00 TIBC 329 ug/dL (250-450) 06/11/19 06:00 Iron Saturation 4 % (17.5-39) L 06/11/19 06:00 Unsaturated IBC 313 ug/dL (200-275) H 06/11/19 06:00 Ferritin 17.1 ng/ml (8-388) 06/11/19 06:00 Total Bilirubin 0.4 mg/dL (0.2-1) 06/27/19 07:14 AST 92 U/L (15-37) H 06/27/19 07:14 ALT 84 U/L (13-61) H 06/27/19 07:14 Alkaline Phosphatase 180 U/L (45-117) H 06/27/19 07:14 Ammonia 12.70 umol/L (11-32) 06/22/19 12:15 Creatine Kinase 159 U/L (26-308) 06/10/19 15:00 Creatine Kinase Index 3.3 % (0.0-5.0) 06/10/19 15:00 CK-MB (CK-2) 5.4 ng/mL (0.5-3.6) H 06/10/19 15:00 Troponin I 0.15 ng/ml (0.00-0.05) H 06/11/19 08:40 B-Natriuretic Peptide 12439.8 pg/ml (5-450) H 06/10/19 15:00 Total Protein 5.3 g/dl (6.4-8.2) L 06/27/19 07:14 Albumin 2.3 g/dl (3.4-5.0) L 06/27/19 07:14 PTH Intact 236 pg/mL (15-65) H 06/11/19 06:00 PTH Intact Intraop 0 m (.) 06/11/19 06:00 Active Medications Current Medications Acetaminophen (Tylenol -) 500 mg PO Q6H PRN PRN Reason: PAIN LEVEL 6-10 Last Admin: 06/25/19 21:35 Dose: 500 mg Aspirin (Asa -) 81 mg PO DAILY [facility] Last Admin: 06/29/19 09:30 Dose: 81 mg Atorvastatin Calcium (Lipitor -) 40 mg PO HS [facility] Last Admin: 06/28/19 22:51 Dose: 40 mg Calcium Acetate (Phoslo -) 667 mg PO TIDCM [facility] Last Admin: 06/29/19 12:04 Dose: 667 mg Epoetin Mamadou (Epogen -) 2,000 unit IVPUSH ONCE ONE Stop: 06/30/19 12:34 Guaifenesin (Mucinex -) 600 mg PO BID [facility] Last Admin: 06/29/19 09:30 Dose: 600 mg Heparin Sodium (Porcine) (Heparin -) 5,000 unit SQ TID [facility] Last Admin: 06/29/19 14:37 Dose: 5,000 unit Hydralazine HCl (Apresoline -) 25 mg PO TID [facility] Last Admin: 06/29/19 14:37 Dose: Not Given Ceftriaxone Sodium 1 gm/ (Dextrose) 50 mls @ 100 mls/hr IVPB DAILY [facility]; Protocol Last Admin: 06/29/19 09:29 Dose: 100 mls/hr Sodium Chloride (Normal Saline -) 250 mls @ 3,000 mls/hr IV PRN PRN PRN Reason: Hypotension during Dialysis Stop: 06/30/19 12:33 Insulin Aspart (Novolog Vial Sliding Scale -) 1 vial SQ TIDAC [facility]; Protocol Last Admin: 06/29/19 12:01 Dose: 2 units Isosorbide Mononitrate (Imdur -) 30 mg PO DAILY [facility] Last Admin: 06/29/19 09:30 Dose: 30 mg Metoprolol Succinate (Toprol Xl -) 25 mg PO DAILY [facility] Last Admin: 06/29/19 09:30 Dose: 25 mg Senna (Senna -) 1 tab PO BID [facility] Last Admin: 06/29/19 09:41 Dose: Not Given Tamsulosin HCl (Flomax -) 0.4 mg PO HS [facility] Last Admin: 06/28/19 22:46 Dose: 0.4 mg Home Medications Medication Instructions Recorded Amlodipine Besylate 5 mg PO DAILY 06/10/19 Calcium Acetate [Phoslo -] 667 mg PO TID 06/10/19 Furosemide [Lasix] 80 mg PO TID 06/10/19 Microbiology 06/24/19 13:00 Urine - Urine [place] Urine Culture - Final Escherichia Coli 06/17/19 15:45 Urine - Urine Clean Catch Urine Culture - Final NO GROWTH OBTAINED 06/10/19 22:00 Urine - Urine - Catheterized Urine Culture - Final NO GROWTH OBTAINED ASSESSMENT/PLAN: 83 y/o M, pmh of CKD stage V, T2DM presented with LE edema of 1 week duration likely 2/2 fluid overload from ESRD. #AMS Will call PT for bedside exercise with pt HD tomorrow CXR shows no acute changes Tolerating PO well Epogen given for anemia #Urinary retention likely 2/2 to UTI Rocephin d/rylie #LE edema likely 2/2 to Fluid overload 2/2 ESRD pending placement for HD #Safety at home Pt will be going to Rehab #CHF- acute on chronic systolic CHF w/ severe fluid overload Strict salt and fluid restrictions. No fluids nor ice cubes at the bedside. #HTN Cont hydralazine 25 mg 3 times a day. #HLD cont atorvastatin #Type 2 DM ISS #DVT ppx Heparin FEN: renal diet Dispo: cont PT, monitor mentation, f/u HD jeff Visit type - Emergency Visit Emergency Visit: Yes ED Registration Date: 06/10/19 Care time: The patient presented to the Emergency Department on the above date and was hospitalized for further evaluation of their emergent condition. - New Patient This patient is new to me today: Yes Date on this admission: 07/01/19 - Critical Care Critical Care patient: No - Discharge Referral Referred to [facility] Med P.C.: No ATTENDING PHYSICIAN STATEMENT I saw and evaluated the patient. I reviewed the resident's note and discussed the case with the resident. I agree with the resident's findings and plan as documented. SUBJECTIVE: OBJECTIVE: ASSESSMENT AND PLAN:
--- NOTE | 2019-06-29 16:30 | PN ---
Teaching Attending Note Name of Resident: Olaf Winn ATTENDING PHYSICIAN STATEMENT I saw and evaluated the patient. I reviewed the resident's note and discussed the case with the resident. I agree with the resident's findings and plan as documented. SUBJECTIVE: no pain, SOB , or fever OBJECTIVE: NAD, awake CV: RRR. Lungs: CTAB Ext: No edemam on legs, wrinkled skin ASSESSMENT AND PLAN: 83 y/o man with h./o CKD , HTN , systolic CHF and DM who presented with AMS and was found to be uremic and in acute CHF 1- Acute systolic CHF exacerbation. 2- ESRD 3- Chronic microcytic anemia: iron def 4-AMS: likely due to metabolic encephalopathy from uremia and acute delirium.resolved 5- H/o DM 6- h/o HTN 7- urinary retention 8- UTI : resolved . Plan: - mentation back to normal - OFF abx - HS as per patient schedule - cont HTN meds - dc on low dose glipizide - flomax dc to rehab
--- NOTE | 2019-06-29 17:46 | DS ---
Addendum entered and electronically signed by Olaf Winn, RESIDENT 07/01/19 14:53: Pt was discharged on 06/29 but did not leave till today. Original Note: Physical Exam: SUBJECTIVE: Patient seen and examined No overnight issues or events as per pt. Pt is in usual state of health. Mentating at baseline. Would like to try more physical therapy. Denies f/c/n/v/d /chest pain/sob. OBJECTIVE: Vital Signs Period Temp Pulse Resp BP Sys/Alexandre Pulse Ox Last 24 Hr 97.8 F-98.6 F 69-78 17-20 126-147/57-76 95-95 PHYSICAL EXAM GENERAL: Pt alert, awake and conversational. Pt is mentating well today. ENT: dentation poor. Uses artificial teeth. moist mucous membranes. Tongue appears collapse and obstruct his breathing at increased angles NECK: full range of motion, supple. LUNGS: breath sounds have improved significantly. Expiratory wheezing heard b/ l. HEART: Regular rate and rhythm, S1 and S2 normal ABDOMEN: NT, ND. Normoactive bowel sounds EXTREMITIES: 2+ pulses, no edema. Chronic venous stasis skin changes b/l. Mild tenderness to palpation on both extremities b/l NEUROLOGICAL: Cranial nerves II through XII grossly intact. SKIN: Warm, dry, normal turgor LABS Laboratory Results - last 24 hr Current Medications Acetaminophen (Tylenol -) 500 mg PO Q6H PRN PRN Reason: PAIN LEVEL 6-10 Last Admin: 06/25/19 21:35 Dose: 500 mg Aspirin (Asa -) 81 mg PO DAILY [facility] Last Admin: 06/29/19 09:30 Dose: 81 mg Atorvastatin Calcium (Lipitor -) 40 mg PO HS [facility] Last Admin: 06/28/19 22:51 Dose: 40 mg Calcium Acetate (Phoslo -) 667 mg PO TIDCM [facility] Last Admin: 06/29/19 17:32 Dose: 667 mg Epoetin Mamadou (Epogen -) 2,000 unit IVPUSH ONCE ONE Stop: 06/30/19 12:34 Guaifenesin (Mucinex -) 600 mg PO BID [facility] Last Admin: 06/29/19 09:30 Dose: 600 mg Heparin Sodium (Porcine) (Heparin -) 5,000 unit SQ TID [facility] Last Admin: 06/29/19 14:37 Dose: 5,000 unit Hydralazine HCl (Apresoline -) 25 mg PO TID [facility] Last Admin: 06/29/19 14:37 Dose: Not Given Sodium Chloride (Normal Saline -) 250 mls @ 3,000 mls/hr IV PRN PRN PRN Reason: Hypotension during Dialysis Stop: 06/30/19 12:33 Insulin Aspart (Novolog Vial Sliding Scale -) 1 vial SQ TIDAC [facility]; Protocol Last Admin: 06/29/19 17:32 Dose: 2 units Isosorbide Mononitrate (Imdur -) 30 mg PO DAILY [facility] Last Admin: 06/29/19 09:30 Dose: 30 mg Metoprolol Succinate (Toprol Xl -) 25 mg PO DAILY [facility] Last Admin: 06/29/19 09:30 Dose: 25 mg Senna (Senna -) 1 tab PO BID [facility] Last Admin: 06/29/19 09:41 Dose: Not Given Tamsulosin HCl (Flomax -) 0.4 mg PO HS [facility] Last Admin: 06/28/19 22:46 Dose: 0.4 mg Home Medications Medication Instructions Recorded Amlodipine Besylate 5 mg PO DAILY 06/10/19 Calcium Acetate [Phoslo -] 667 mg PO TID 06/10/19 Atorvastatin Ca [Lipitor] 40 mg PO HS #30 tablet 06/29/19 Glipizide Xl [Glucotrol Xl -] 2.5 mg PO DAILY #30 tab.er.24 06/29/19 Isosorbide Mononitrate [Imdur -] 30 mg PO DAILY #30 tab.sr.24h 06/29/19 Metoprolol Succinate [Toprol Xl -] 25 mg PO DAILY #30 tab.sr.24h 06/29/19 Tamsulosin HCl [Flomax -] 0.4 mg PO HS #30 cap.er.24h 06/29/19 hydrALAZINE HCL [Apresoline -] 25 mg PO TID #90 tablet 06/29/19 Microbiology 06/24/19 13:00 Urine - Urine [place] Urine Culture - Final Escherichia Coli 06/17/19 15:45 Urine - Urine Clean Catch Urine Culture - Final NO GROWTH OBTAINED 06/10/19 22:00 Urine - Urine - Catheterized Urine Culture - Final NO GROWTH OBTAINED CBC,CMP WBC 8.8 K/mm3 (4.0-10.0) 06/29/19 07:32 RBC 4.89 M/mm3 (4.00-5.60) 06/29/19 07:32 Hgb 9.5 GM/dL (11.7-16.9) L 06/29/19 07:32 Hct 30.4 % (35.4-49) L 06/29/19 07:32 MCV 62.1 fl (80-96) L 06/29/19 07:32 MCH 19.4 pg (25.7-33.7) L 06/29/19 07:32 MCHC 31.2 g/dl (32.0-35.9) L 06/29/19 07:32 RDW 19.7 % (11.9-15.9) H 06/29/19 07:32 Plt Count 401 K/MM3 (134-434) 06/29/19 07:32 MPV 8.4 fl (7.5-11.1) 06/29/19 07:32 Absolute Neuts (auto) 6.6 K/mm3 (1.5-8.0) 06/16/19 06:10 Neutrophils % 79.4 % (42.8-82.8) 06/16/19 06:10 Neutrophils % (Manual) 79.2 % (42.8-82.8) 06/15/19 06:20 Band Neutrophils % 0.0 % 06/15/19 06:20 Lymphocytes % 5.7 % (8-40) L D 06/16/19 06:10 Lymphocytes % (Manual) 4.9 % (8-40) L 06/15/19 06:20 Monocytes % 10.6 % (3.8-10.2) H 06/16/19 06:10 Monocytes % (Manual) 6 % (3.8-10.2) 06/15/19 06:20 Eosinophils % 3.5 % (0-4.5) 06/16/19 06:10 Eosinophils % (Manual) 3.0 % (0-4.5) 06/15/19 06:20 Basophils % 0.8 % (0-2.0) 06/16/19 06:10 Basophils % (Manual) 3.0 % (0-2.0) H D 06/15/19 06:20 Myelocytes % (Man) 0 % (0-2) 06/15/19 06:20 Promyelocytes % (Man) 0 % (0-2) 06/15/19 06:20 Blast Cells % (Manual) 0 % (0-0) 06/15/19 06:20 Nucleated RBC % 1 % (0-0) H 06/16/19 06:10 Metamyelocytes 0 % (0-2) 06/15/19 06:20 Hypochromia 3+ 06/15/19 06:20 Toxic Granulation 1+ 06/13/19 05:35 Platelet Estimate Normal 06/16/19 06:10 Platelet Comment Present 06/12/19 06:16 Polychromasia 1+ 06/15/19 06:20 Poikilocytosis 3+ 06/15/19 06:20 Anisocytosis 3+ 06/15/19 06:20 Microcytosis 3+ 06/15/19 06:20 Macrocytosis 0 06/15/19 06:20 Spherocytes 2+ 06/13/19 05:35 Target Cells 3+ 06/15/19 06:20 Tear Drop Cells 1+ 06/13/19 05:35 Ovalocytes 1+ 06/14/19 06:07 [place] Cells 1+ 06/10/19 15:00 Rouleaux 1+ 06/15/19 06:20 Fragmented RBCs 2+ 06/15/19 06:20 Schistocytes 3+ 06/15/19 06:20 Sodium 137 mmol/L (136-145) 06/29/19 07:32 Potassium 4.1 mmol/L (3.5-5.1) 06/29/19 07:32 Chloride 104 mmol/L (98-107) 06/29/19 07:32 Carbon Dioxide 28 mmol/L (21-32) 06/29/19 07:32 Anion Gap 5 MMOL/L (8-16) L 06/29/19 07:32 BUN 41.9 mg/dL (7-18) H 06/29/19 07:32 Creatinine 3.1 mg/dL (0.55-1.3) H 06/29/19 07:32 Est GFR (CKD-EPI)AfAm 20.59 06/29/19 07:32 Est GFR (CKD-EPI)NonAf 17.77 06/29/19 07:32 POC Glucometer 172 UNITS (80-120) 06/29/19 16:43 Random Glucose 133 mg/dL (74-106) H 06/29/19 07:32 Hemoglobin A1c % 8.0 % (4.2-6.3) H 06/11/19 06:00 Calcium 7.7 mg/dL (8.5-10.1) L 06/29/19 07:32 Phosphorus 3.6 mg/dL (2.5-4.9) 06/29/19 07:32 Magnesium 2.1 mg/dL (1.8-2.4) 06/29/19 07:32 Iron 16 ug/dL (50-175) L 06/11/19 06:00 TIBC 329 ug/dL (250-450) 06/11/19 06:00 Iron Saturation 4 % (17.5-39) L 06/11/19 06:00 Unsaturated IBC 313 ug/dL (200-275) H 06/11/19 06:00 Ferritin 17.1 ng/ml (8-388) 06/11/19 06:00 Total Bilirubin 0.4 mg/dL (0.2-1) 06/27/19 07:14 AST 92 U/L (15-37) H 06/27/19 07:14 ALT 84 U/L (13-61) H 06/27/19 07:14 Alkaline Phosphatase 180 U/L (45-117) H 06/27/19 07:14 Ammonia 12.70 umol/L (11-32) 06/22/19 12:15 Creatine Kinase 159 U/L (26-308) 06/10/19 15:00 Creatine Kinase Index 3.3 % (0.0-5.0) 06/10/19 15:00 CK-MB (CK-2) 5.4 ng/mL (0.5-3.6) H 06/10/19 15:00 Troponin I 0.15 ng/ml (0.00-0.05) H 06/11/19 08:40 B-Natriuretic Peptide 69777.8 pg/ml (5-450) H 06/10/19 15:00 Total Protein 5.3 g/dl (6.4-8.2) L 06/27/19 07:14 Albumin 2.3 g/dl (3.4-5.0) L 06/27/19 07:14 PTH Intact 236 pg/mL (15-65) H 06/11/19 06:00 PTH Intact Intraop 0 m (.) 06/11/19 06:00 HOSPITAL COURSE: Date of Admission:06/10/19 83 y/o M, pmh of CKD stage V, T2DM presented with LE edema of 1 week duration likely 2/2 fluid overload from ESRD. While pt was here, he was treated with lasix and he had initially refused dialysis. However, after extensive conversation he agreed to emergent dialysis. Permacath was placed and pt was started on dialysis treatment. During his stay, he began to become altered and confused several times before dialysis and improved drastically after dialysis. After a few rounds of dialysis, pt improved significantly and his mental status remained stable and at baseline. He was also positive for a UTI, for which he was treated wit Rocephin and his symptoms resolved. Pt was sent to SNF w/ instructions on dialysis schedule and follow ups with the park keeper. US kidneys- small nonobstructing Right renal stones- 7mm w/ signs of hydro, Gall stones also noted without wall thickening EKG today- NSR, unchanged from previous ekg CXR- 06/28- no acute changes Head CT 06/18- no acute pathology #AMS Will call PT for bedside exercise with pt HD tomorrow CXR shows no acute changes Tolerating PO well Epogen given for anemia #Urinary retention likely 2/2 to UTI Rocephin Date of Discharge: 06/29/19 Minutes to complete discharge: 35 <Olaf Winn - Last Filed: 06/29/19 17:38> Discharge Summary Problems reviewed: Yes Reason For Visit: ELEVATED TROPONIN I LEVEL DYSPNEA Current Active Problems Encephalopathy (Acute) CKD (chronic kidney disease) (Chronic) - Home Medications Comprehensive Discharge Medication List: Ambulatory Orders Amlodipine Besylate 5 mg PO DAILY 06/10/19 Calcium Acetate [Phoslo -] 667 mg PO TID 06/10/19 Atorvastatin Ca [Lipitor] 40 mg PO HS #30 tablet 06/29/19 Glipizide Xl [Glucotrol Xl -] 2.5 mg PO DAILY #30 tab.er.24 06/29/19 Isosorbide Mononitrate [Imdur -] 30 mg PO DAILY #30 tab.sr.24h 06/29/19 Metoprolol Succinate [Toprol Xl -] 25 mg PO DAILY #30 tab.sr.24h 06/29/19 Tamsulosin HCl [Flomax -] 0.4 mg PO HS #30 cap.er.24h 06/29/19 hydrALAZINE HCL [Apresoline -] 25 mg PO TID #90 tablet 06/29/19 <Olaf Winn - Last Filed: 06/29/19 17:38> <Wiley Lema - Last Filed: 07/02/19 17:36> Hospital Course: Correction to resident's hospital course. The shabnam is not on Rocephin. He finished treatment fro UTI a while befer his dc. the patient si at his base line mental status at dc Condition: Improved - Instructions Referrals: Milton Rey MD [Staff Physician] - Shadi Carpenter MD [Staff Physician] - Lv Prescott MD [Staff Physician] - Everett Zimmerman MD [Primary Care Provider] - Disposition: HALFWAY FACILITY This patient is new to me today: Yes Date on this admission: 06/29/19 Emergency Visit: Yes ED Registration Date: 06/10/19 Care time: The patient presented to the Emergency Department on the above date and was hospitalized for further evaluation of their emergent condition. Critical Care patient: No - Discharge Referral Referred to [facility] No <Olaf Winn - Last Filed: 06/29/19 17:38> ATTENDING PHYSICIAN STATEMENT I saw and evaluated the patient. I reviewed the resident's note and discussed the case with the resident. I agree with the resident's findings and plan as documented. SUBJECTIVE: OBJECTIVE: ASSESSMENT AND PLAN: <Olaf Winn - Last Filed: 06/29/19 17:38> ATTENDING PHYSICIAN STATEMENT I saw and evaluated the patient. I reviewed the resident's note and discussed the case with the resident. I agree with the resident's findings and plan as documented. SUBJECTIVE: OBJECTIVE: ASSESSMENT AND PLAN: <Wiley Lema - Last Filed: 07/02/19 17:36>
[2019-06-29] MEDS: ATORVASTATIN CA 40 MG TABLET (FP) PO SCH (22:43)
[2019-06-29] MEDS: TAMSULOSIN HCL 0.4 MG CAP PO SCH (22:43)
[2019-06-30] MEDS: HEPARIN NA (PORCINE) 5,000 UNITS/ML 1ML VIAL SQ SCH ×3 (05:40→23:00)
[2019-06-30] MEDS: hydrALAZINE HCL 25 MG TABLET (FP) PO SCH ×3 (05:40→23:00)
[2019-06-30] MEDS: INSULIN SLIDING SCALE (NOVOLOG) 1 VIAL SQ SCH ×3 (07:04→17:20)
[2019-06-30 08:11] LABS: HEMATOCRIT 31.8 % (35.4-49); HEMOGLOBIN 9.9 GM/dL (11.7-16.9); MEAN CELL VOLUME 62.4 fl (80-96); MEAN PLT VOLUME 8.5 fl (7.5-11.1); PLATELET COUNT 429 K/MM3 (134-434); WHITE BLOOD COUNT 10.7 K/mm3 (4.0-10.0)
[2019-06-30 08:25] LABS: MCH 19.3 pg (25.7-33.7)
[2019-06-30 08:30] LABS: BLOOD UREA NITROGEN 51.2 mg/dL (7-18); CALCIUM 8.3 mg/dL (8.5-10.1); CREATININE 3.6 mg/dL (0.55-1.3); PHOSPHOROUS 4.1 mg/dL (2.5-4.9); POTASSIUM 4.6 mmol/L (3.5-5.1)
[2019-06-30] MEDS ORDERED: SODIUM CHLORIDE 250 ML IV PRN (10:30)
[2019-06-30] MEDS ORDERED: EPOETIN ALFA 2,000 UNIT/1 ML VIAL IVPUSH ONE (10:30)
--- NOTE | 2019-06-30 14:05 | PN ---
Teaching Attending Note Name of Resident: Dakota Jackson ATTENDING PHYSICIAN STATEMENT I saw and evaluated the patient. I reviewed the resident's note and discussed the case with the resident. I agree with the resident's findings and plan as documented. SUBJECTIVE: no pain ,no fever or chills OBJECTIVE: NAD, awake CV: RRR. Lungs: CTAB Ext: trace edema , wrinkled skin ASSESSMENT AND PLAN: 83 y/o man with h./o CKD , HTN , systolic CHF and DM who presented with AMS and was found to be uremic and in acute CHF 1- Acute systolic CHF exacerbation. 2- ESRD 3- Chronic microcytic anemia: iron def 4-AMS: likely due to metabolic encephalopathy from uremia and acute delirium.resolved 5- H/o DM 6- h/o HTN 7- urinary retention 8- UTI : resolved . Plan: - mentation back to normal - OFF abx - HS today - cont HTN meds - start glipizide at dc . cont SSI here - cont flomax HD was not set as out pt , so patient did not leave yesterday. will wait fro out pt HD arrangements :
[2019-06-30] MEDS: CALCIUM ACETATE 667 MG CAPSULE (FP) PO SCH ×3 (16:30→16:48)
[2019-06-30] MEDS: ISOSORBIDE MONONITRATE 30 MG TAB.SR.24H (FP) PO SCH (16:48)
[2019-06-30] MEDS: ASPIRIN 81 MG CHEWABLE TABLETS PO SCH (16:48)
[2019-06-30] MEDS: SENNOSIDES 8.6MG TABLET (FP) PO SCH (16:52)
[2019-06-30] MEDS: guaiFENesin 600 MG TABLET.ER (FP) PO SCH ×2 (17:10→23:00)
--- NOTE | 2019-06-30 18:48 | PN ---
Progress Note, Physician History of Present Illness: Pt seen and examined at bedside. He tolerated HD today. - Current Medication List Current Medications: Active Medications Acetaminophen (Tylenol -) 500 mg PO Q6H PRN PRN Reason: PAIN LEVEL 6-10 Last Admin: 06/25/19 21:35 Dose: 500 mg Aspirin (Asa -) 81 mg PO DAILY [facility] Last Admin: 06/30/19 16:48 Dose: 81 mg Atorvastatin Calcium (Lipitor -) 40 mg PO HS [facility] Last Admin: 06/29/19 22:43 Dose: 40 mg Calcium Acetate (Phoslo -) 667 mg PO TIDCM [facility] Last Admin: 06/30/19 16:48 Dose: 667 mg Guaifenesin (Mucinex -) 600 mg PO BID [facility] Last Admin: 06/30/19 17:10 Dose: Not Given Heparin Sodium (Porcine) (Heparin -) 5,000 unit SQ TID [facility] Last Admin: 06/30/19 16:51 Dose: 5,000 unit Hydralazine HCl (Apresoline -) 25 mg PO TID [facility] Last Admin: 06/30/19 16:48 Dose: 25 mg Sodium Chloride (Normal Saline -) 250 mls @ 3,000 mls/hr IV PRN PRN PRN Reason: Hypotension during Dialysis Stop: 07/01/19 10:29 Insulin Aspart (Novolog Vial Sliding Scale -) 1 vial SQ TIDAC [facility]; Protocol Last Admin: 06/30/19 17:20 Dose: 4 units Isosorbide Mononitrate (Imdur -) 30 mg PO DAILY [facility] Last Admin: 06/30/19 16:48 Dose: 30 mg Metoprolol Succinate (Toprol Xl -) 25 mg PO DAILY [facility] Last Admin: 06/30/19 16:49 Dose: 25 mg Senna (Senna -) 1 tab PO BID [facility] Last Admin: 06/30/19 16:52 Dose: Not Given Tamsulosin HCl (Flomax -) 0.4 mg PO [facility] Last Admin: 06/29/19 22:43 Dose: 0.4 mg - Objective Vital Signs: Vital Signs Temperature 98.1 F 06/30/19 14:34 Pulse Rate 78 06/30/19 14:34 Respiratory Rate 20 06/30/19 14:34 Blood Pressure 128/60 06/30/19 14:34 O2 Sat by Pulse Oximetry (%) 96 11/28/19 10:00 Constitutional: Yes: Calm Eyes: Yes: Conjunctiva Clear HENT: Yes: Atraumatic Cardiovascular: Yes: S1, S2 Respiratory: Yes: CTA Bilaterally Gastrointestinal: Yes: Normal Bowel Sounds, Soft Genitourinary: Yes: WNL Musculoskeletal: Yes: WNL Edema: Yes Edema: LLE: 1+, RLE: 1+ Neurological: Yes: Oriented Labs: CBC, BMP 06/30/19 06:30 06/30/19 06:30 INR, PTT INR 1.03 (0.83-1.09) 06/19/19 06:00 Problem List - Problems (1) CKD (chronic kidney disease) Code(s): N18.9 - CHRONIC KIDNEY DISEASE, UNSPECIFIED (2) HTN (hypertension) Code(s): I10 - ESSENTIAL (PRIMARY) HYPERTENSION (3) Diabetes mellitus Code(s): E11.9 - TYPE 2 DIABETES MELLITUS WITHOUT COMPLICATIONS Assessment/Plan Current Medications Generic Name Dose Route Start Last Admin Trade Name Freq PRN Reason Stop Dose Admin Acetaminophen 500 mg 06/24/19 20:20 06/25/19 21:35 Tylenol - PO 500 mg Q6H PRN Administration PAIN LEVEL 6-10 Aspirin 81 mg 06/25/19 10:00 06/30/19 16:48 Asa - PO 81 mg DAILY [facility] Administration Atorvastatin Calcium 40 mg 06/24/19 22:00 06/29/19 22:43 Lipitor - PO 40 mg HS [facility] Administration Calcium Acetate 667 mg 06/25/19 08:00 06/30/19 16:48 Phoslo - PO 667 mg TIDCM [facility] Administration Guaifenesin 600 mg 06/24/19 22:00 06/30/19 17:10 Mucinex - PO Not Given BID [facility] Heparin Sodium (Porcine) 5,000 unit 06/24/19 22:00 06/30/19 16:51 Heparin - SQ 5,000 unit TID [facility] Administration Hydralazine HCl 25 mg 06/24/19 22:00 06/30/19 16:48 Apresoline - PO 25 mg TID [facility] Administration Sodium Chloride 250 mls @ 3,000 mls/hr 06/30/19 10:30 Normal Saline - IV 07/01/19 10:29 PRN PRN Hypotension during Dialysis Insulin Aspart 1 vial 06/25/19 07:00 06/30/19 17:20 Novolog Vial Sliding Scale - SQ 4 units TIDAC [facility] Administration Protocol Isosorbide Mononitrate 30 mg 06/25/19 10:00 06/30/19 16:48 Imdur - PO 30 mg DAILY [facility] Administration Metoprolol Succinate 25 mg 06/25/19 10:00 06/30/19 16:49 Toprol Xl - PO 25 mg DAILY [facility] Administration Senna 1 tab 06/24/19 22:00 06/30/19 16:52 Senna - PO Not Given BID [facility] Tamsulosin HCl 0.4 mg 06/24/19 22:00 06/29/19 22:43 Flomax - PO 0.4 mg HS [facility] Administration Impression 1. ESRD 2. HTN 3. DM 4. fluid overload 5. esrd 6. altered mental status Plan - HD today - will need outpt placement - will still need vascular access - UF volume on HD - renal diet - pt tolerating po intake - epogen for anemia
[2019-06-30] MEDS: ATORVASTATIN CA 40 MG TABLET (FP) PO SCH (23:00)
[2019-06-30] MEDS: TAMSULOSIN HCL 0.4 MG CAP PO SCH (23:00)
[2019-07-01] MEDS: SENNOSIDES 8.6MG TABLET (FP) PO SCH ×3 (00:36→21:53)
[2019-07-01 01:25] VITALS: BMI 25.9
[2019-07-01] MEDS: HEPARIN NA (PORCINE) 5,000 UNITS/ML 1ML VIAL SQ SCH ×2 (05:13→15:52)
[2019-07-01] MEDS: hydrALAZINE HCL 25 MG TABLET (FP) PO SCH ×3 (05:13→21:53)
[2019-07-01] MEDS: INSULIN SLIDING SCALE (NOVOLOG) 1 VIAL SQ SCH ×3 (07:43→17:18)
[2019-07-01] MEDS: CALCIUM ACETATE 667 MG CAPSULE (FP) PO SCH ×3 (08:11→17:21)
[2019-07-01] MEDS: guaiFENesin 600 MG TABLET.ER (FP) PO SCH ×2 (09:41→21:53)
[2019-07-01] MEDS: ISOSORBIDE MONONITRATE 30 MG TAB.SR.24H (FP) PO SCH (09:45)
[2019-07-01] MEDS: ASPIRIN 81 MG CHEWABLE TABLETS PO SCH (09:45)
--- NOTE | 2019-07-01 13:35 | PN ---
Progress Note, Physician History of Present Illness: Pt seen and examined at bedside. He is awake but still gets confused at times. - Current Medication List Current Medications: Active Medications Acetaminophen (Tylenol -) 500 mg PO Q6H PRN PRN Reason: PAIN LEVEL 6-10 Last Admin: 06/25/19 21:35 Dose: 500 mg Aspirin (Asa -) 81 mg PO DAILY [facility] Last Admin: 07/01/19 09:45 Dose: 81 mg Atorvastatin Calcium (Lipitor -) 40 mg PO HS [facility] Last Admin: 06/30/19 23:00 Dose: 40 mg Calcium Acetate (Phoslo -) 667 mg PO TIDCM [facility] Last Admin: 07/01/19 12:55 Dose: 667 mg Guaifenesin (Mucinex -) 600 mg PO BID [facility] Last Admin: 07/01/19 09:41 Dose: 600 mg Heparin Sodium (Porcine) (Heparin -) 5,000 unit SQ TID [facility] Last Admin: 07/01/19 05:13 Dose: 5,000 unit Hydralazine HCl (Apresoline -) 25 mg PO TID [facility] Last Admin: 07/01/19 05:13 Dose: 25 mg Insulin Aspart (Novolog Vial Sliding Scale -) 1 vial SQ TIDAC [facility]; Protocol Last Admin: 07/01/19 13:19 Dose: Not Given Isosorbide Mononitrate (Imdur -) 30 mg PO DAILY [facility] Last Admin: 07/01/19 09:45 Dose: 30 mg Metoprolol Succinate (Toprol Xl -) 25 mg PO DAILY [facility] Last Admin: 07/01/19 09:46 Dose: 25 mg Senna (Senna -) 1 tab PO BID [facility] Last Admin: 07/01/19 09:45 Dose: 1 tab Tamsulosin HCl (Flomax -) 0.4 mg PO [facility] Last Admin: 06/30/19 23:00 Dose: 0.4 mg - Objective Vital Signs: Vital Signs Temperature 98.2 F 07/01/19 10:00 Pulse Rate 71 07/01/19 10:00 Respiratory Rate 18 07/01/19 10:00 Blood Pressure 140/66 07/01/19 10:00 O2 Sat by Pulse Oximetry (%) 95 07/01/19 09:00 Constitutional: Yes: Calm Eyes: Yes: Conjunctiva Clear HENT: Yes: Atraumatic Cardiovascular: Yes: S1, S2 Respiratory: Yes: Rhonchi Gastrointestinal: Yes: Soft Genitourinary: Yes: Incontinence Musculoskeletal: Yes: WNL Edema: Yes Edema: LLE: 1+, RLE: 1+ Neurological: Yes: Confusion Labs: CBC, BMP 06/30/19 06:30 06/30/19 06:30 INR, PTT INR 1.03 (0.83-1.09) 06/19/19 06:00 Problem List - Problems (1) CKD (chronic kidney disease) Code(s): N18.9 - CHRONIC KIDNEY DISEASE, UNSPECIFIED (2) HTN (hypertension) Code(s): I10 - ESSENTIAL (PRIMARY) HYPERTENSION (3) Diabetes mellitus Code(s): E11.9 - TYPE 2 DIABETES MELLITUS WITHOUT COMPLICATIONS Assessment/Plan Current Medications Generic Name Dose Route Start Last Admin Trade Name Freq PRN Reason Stop Dose Admin Acetaminophen 500 mg 06/24/19 20:20 06/25/19 21:35 Tylenol - PO 500 mg Q6H PRN Administration PAIN LEVEL 6-10 Aspirin 81 mg 06/25/19 10:00 07/01/19 09:45 Asa - PO 81 mg DAILY [facility] Administration Atorvastatin Calcium 40 mg 06/24/19 22:00 06/30/19 23:00 Lipitor - PO 40 mg HS [facility] Administration Calcium Acetate 667 mg 06/25/19 08:00 07/01/19 12:55 Phoslo - PO 667 mg TIDCM [facility] Administration Guaifenesin 600 mg 06/24/19 22:00 07/01/19 09:41 Mucinex - PO 600 mg BID [facility] Administration Heparin Sodium (Porcine) 5,000 unit 06/24/19 22:00 07/01/19 05:13 Heparin - SQ 5,000 unit TID [facility] Administration Hydralazine HCl 25 mg 06/24/19 22:00 07/01/19 05:13 Apresoline - PO 25 mg TID [facility] Administration Insulin Aspart 1 vial 06/25/19 07:00 07/01/19 13:19 Novolog Vial Sliding Scale - SQ Not Given TIDAC [facility] Protocol Isosorbide Mononitrate 30 mg 06/25/19 10:00 07/01/19 09:45 Imdur - PO 30 mg DAILY [facility] Administration Metoprolol Succinate 25 mg 06/25/19 10:00 07/01/19 09:46 Toprol Xl - PO 25 mg DAILY [facility] Administration Senna 1 tab 06/24/19 22:00 07/01/19 09:45 Senna - PO 1 tab BID [facility] Administration Tamsulosin HCl 0.4 mg 06/24/19 22:00 06/30/19 23:00 Flomax - PO 0.4 mg HS [facility] Administration Impression 1. ESRD 2. HTN 3. DM 4. fluid overload 5. esrd 6. altered mental status Plan - next HD is tomorrow - pt is still pending placement - will still need vascular access, can get fistula as outpt - UF volume on HD - renal diet - pt tolerating po intake - epogen for anemia
--- NOTE | 2019-07-01 19:22 | PN ---
Teaching Attending Note Name of Resident: Olaf Winn ATTENDING PHYSICIAN STATEMENT I saw and evaluated the patient. I reviewed the resident's note and discussed the case with the resident. I agree with the resident's findings and plan as documented. SUBJECTIVE: no pain , fever or chills . No SOB OBJECTIVE: NAD, awake CV: RRR. Lungs: CTAB Abd: no rash Ext: trace edema , wrinkled skin ASSESSMENT AND PLAN: 83 y/o man with h./o CKD , HTN , systolic CHF and DM who presented with AMS and was found to be uremic and in acute CHF 1- Acute systolic CHF exacerbation. 2- ESRD 3- Chronic microcytic anemia: iron def 4-AMS: likely due to metabolic encephalopathy from uremia and acute delirium.resolved 5- H/o DM 6- h/o HTN 7- urinary retention 8- UTI : resolved . Plan: - mentation back to normal - OFF abx - HS tomorrow - cont HTN meds - start glipizide at dc . cont SSI here - cont flomax dispo : dc to rehab when HD is set up
[2019-07-01] MEDS: ATORVASTATIN CA 40 MG TABLET (FP) PO SCH (21:53)
[2019-07-01] MEDS: TAMSULOSIN HCL 0.4 MG CAP PO SCH (21:53)
[2019-07-02] MEDS: hydrALAZINE HCL 25 MG TABLET (FP) PO SCH ×3 (05:56→22:13)
[2019-07-02] MEDS: INSULIN SLIDING SCALE (NOVOLOG) 1 VIAL SQ SCH ×3 (06:00→16:43)
[2019-07-02] MEDS ORDERED: SODIUM CHLORIDE 250 ML IV PRN (07:29)
[2019-07-02] MEDS: CALCIUM ACETATE 667 MG CAPSULE (FP) PO SCH ×3 (08:12→17:55)
[2019-07-02 08:47] LABS: HEMATOCRIT 30.5 % (35.4-49); HEMOGLOBIN 9.6 GM/dL (11.7-16.9); MCHC 31.4 g/dl (32.0-35.9); MEAN CELL VOLUME 62.6 fl (80-96); MEAN PLT VOLUME 8.5 fl (7.5-11.1); PLATELET COUNT 431 K/MM3 (134-434); RBC 4.88 M/mm3 (4.00-5.60); RDW 20.4 % (11.9-15.9); WHITE BLOOD COUNT 9.1 K/mm3 (4.0-10.0)
[2019-07-02 08:55] LABS: MCH 19.7 pg (25.7-33.7)
[2019-07-02 09:14] LABS: BLOOD UREA NITROGEN 47.5 mg/dL (7-18); CALCIUM 7.9 mg/dL (8.5-10.1); CREATININE 3.4 mg/dL (0.55-1.3); POTASSIUM 4.4 mmol/L (3.5-5.1)
[2019-07-02] MEDS ORDERED: EPOETIN ALFA 2,000 UNIT/1 ML VIAL IVPUSH ONE (10:00)
[2019-07-02] MEDS ORDERED: HEPARIN NA (PORCINE) 5,000 UNITS/ML 1ML VIAL IVPUSH ONE (10:00)
--- NOTE | 2019-07-02 11:19 | PN ---
Progress Note (short form) - Note Progress Note: Renal follow up for ESRD Seen and examined on dialysis BP 131/59, goal UF is 3L. Using catheter BF at goal pt without complaints Vital Signs Temperature 98 F 07/02/19 08:10 Pulse Rate 59 L 07/02/19 10:15 Respiratory Rate 18 07/02/19 10:15 Blood Pressure 112/48 L 07/02/19 10:15 O2 Sat by Pulse Oximetry (%) 95 07/01/19 21:00 Intake & Output 06/29/19 06/30/19 07/01/19 07/02/19 23:59 23:59 23:59 23:59 Intake Total 50 700 400 100 Balance 50 700 400 100 Weight 77.7 kg 77.224 kg 76.742 kg 76.929 kg NAD awake and alert RRR CTA + edema in LE right IJ tunneled catheter CBC, BMP 07/02/19 06:56 07/02/19 06:56 Current Medications Acetaminophen (Tylenol -) 500 mg PO Q6H PRN PRN Reason: PAIN LEVEL 6-10 Last Admin: 06/25/19 21:35 Dose: 500 mg Aspirin (Asa -) 81 mg PO DAILY [facility] Last Admin: 07/01/19 09:45 Dose: 81 mg Atorvastatin Calcium (Lipitor -) 40 mg PO HS [facility] Last Admin: 07/01/19 21:53 Dose: 40 mg Calcium Acetate (Phoslo -) 667 mg PO TIDCM [facility] Last Admin: 07/02/19 08:12 Dose: Not Given Guaifenesin (Mucinex -) 600 mg PO BID [facility] Last Admin: 07/01/19 21:53 Dose: 600 mg Hydralazine HCl (Apresoline -) 25 mg PO TID [facility] Last Admin: 07/02/19 05:56 Dose: 25 mg Sodium Chloride (Normal Saline -) 250 mls @ 3,000 mls/hr IV PRN PRN PRN Reason: Hypotension during Dialysis Stop: 07/03/19 07:28 Insulin Aspart (Novolog Vial Sliding Scale -) 1 vial SQ TIDAC [facility]; Protocol Last Admin: 07/02/19 06:00 Dose: Not Given Isosorbide Mononitrate (Imdur -) 30 mg PO DAILY [facility] Last Admin: 07/01/19 09:45 Dose: 30 mg Metoprolol Succinate (Toprol Xl -) 25 mg PO DAILY [facility] Last Admin: 07/01/19 09:46 Dose: 25 mg Senna (Senna -) 1 tab PO BID [facility] Last Admin: 07/01/19 21:53 Dose: 1 tab Tamsulosin HCl (Flomax -) 0.4 mg PO HS [facility] Last Admin: 07/01/19 21:53 Dose: 0.4 mg Impression 1. ESRD 2. HTN 3. DM 4. fluid overload 5. esrd 6. altered mental status Plan Tolerating dialysis well. Fluid restriction daily Renal diet CELESTE to be given with dialysis Will evaluate for additional HD/UF on Thursday. Vinnie Al DO
--- NOTE | 2019-07-02 12:08 | PN ---
Physical Exam: SUBJECTIVE: Patient seen and examined Pt reports no overnight issues or events as per pt. Pt is in usual state of health. Mentating at baseline. Pt is conversating and in good state of health. Pt is being dialyzed when I saw him. Denies f/c/n/v/d/chest pain/sob. OBJECTIVE: Vital Signs Period Temp Pulse Resp BP Sys/Alexandre Pulse Ox Last 24 Hr 97.9 F-98.8 F 59-74 18-20 99-153/48-80 95 GENERAL: Pt alert, awake and conversational. Pt is mentating well today. Pleasant elderly man. ENT: dentation poor. Uses artificial teeth. moist mucous membranes. Tongue appears collapse and obstruct his breathing at increased angles NECK: full range of motion, supple. No LAD LUNGS: breath sounds have improved significantly. Expiratory wheezing heard b/ l. HEART: Regular rate and rhythm, S1 and S2 normal ABDOMEN: NT, ND. Normoactive bowel sounds EXTREMITIES: 2+ pulses, no edema. Chronic venous stasis skin changes b/l. Mild tenderness to palpation on both extremities b/l NEUROLOGICAL: Cranial nerves II through XII grossly intact. SKIN: Warm, dry, normal turgor Laboratory Results - last 24 hr CBC,CMP WBC 9.1 K/mm3 (4.0-10.0) 07/02/19 06:56 RBC 4.88 M/mm3 (4.00-5.60) 07/02/19 06:56 Hgb 9.6 GM/dL (11.7-16.9) L 07/02/19 06:56 Hct 30.5 % (35.4-49) L 07/02/19 06:56 MCV 62.6 fl (80-96) L 07/02/19 06:56 MCH 19.7 pg (25.7-33.7) L 07/02/19 06:56 MCHC 31.4 g/dl (32.0-35.9) L 07/02/19 06:56 RDW 20.4 % (11.9-15.9) H 07/02/19 06:56 Plt Count 431 K/MM3 (134-434) 07/02/19 06:56 MPV 8.5 fl (7.5-11.1) 07/02/19 06:56 Absolute Neuts (auto) 6.6 K/mm3 (1.5-8.0) 06/16/19 06:10 Neutrophils % 79.4 % (42.8-82.8) 06/16/19 06:10 Neutrophils % (Manual) 79.2 % (42.8-82.8) 06/15/19 06:20 Band Neutrophils % 0.0 % 06/15/19 06:20 Lymphocytes % 5.7 % (8-40) L D 06/16/19 06:10 Lymphocytes % (Manual) 4.9 % (8-40) L 06/15/19 06:20 Monocytes % 10.6 % (3.8-10.2) H 06/16/19 06:10 Monocytes % (Manual) 6 % (3.8-10.2) 06/15/19 06:20 Eosinophils % 3.5 % (0-4.5) 06/16/19 06:10 Eosinophils % (Manual) 3.0 % (0-4.5) 06/15/19 06:20 Basophils % 0.8 % (0-2.0) 06/16/19 06:10 Basophils % (Manual) 3.0 % (0-2.0) H D 06/15/19 06:20 Myelocytes % (Man) 0 % (0-2) 06/15/19 06:20 Promyelocytes % (Man) 0 % (0-2) 06/15/19 06:20 Blast Cells % (Manual) 0 % (0-0) 06/15/19 06:20 Nucleated RBC % 1 % (0-0) H 06/16/19 06:10 Metamyelocytes 0 % (0-2) 06/15/19 06:20 Hypochromia 3+ 06/15/19 06:20 Toxic Granulation 1+ 06/13/19 05:35 Platelet Estimate Normal 06/16/19 06:10 Platelet Comment Present 06/12/19 06:16 Polychromasia 1+ 06/15/19 06:20 Poikilocytosis 3+ 06/15/19 06:20 Anisocytosis 3+ 06/15/19 06:20 Microcytosis 3+ 06/15/19 06:20 Macrocytosis 0 06/15/19 06:20 Spherocytes 2+ 06/13/19 05:35 Target Cells 3+ 06/15/19 06:20 Tear Drop Cells 1+ 06/13/19 05:35 Ovalocytes 1+ 06/14/19 06:07 [place] Cells 1+ 06/10/19 15:00 Rouleaux 1+ 06/15/19 06:20 Fragmented RBCs 2+ 06/15/19 06:20 Schistocytes 3+ 06/15/19 06:20 Sodium 137 mmol/L (136-145) 07/02/19 06:56 Potassium 4.4 mmol/L (3.5-5.1) 07/02/19 06:56 Chloride 103 mmol/L (98-107) 07/02/19 06:56 Carbon Dioxide 27 mmol/L (21-32) 07/02/19 06:56 Anion Gap 7 MMOL/L (8-16) L 07/02/19 06:56 BUN 47.5 mg/dL (7-18) H 07/02/19 06:56 Creatinine 3.4 mg/dL (0.55-1.3) H 07/02/19 06:56 Est GFR (CKD-EPI)AfAm 18.42 07/02/19 06:56 Est GFR (CKD-EPI)NonAf 15.89 07/02/19 06:56 POC Glucometer 147 UNITS (80-120) 07/02/19 05:54 Random Glucose 134 mg/dL (74-106) H 07/02/19 06:56 Hemoglobin A1c % 8.0 % (4.2-6.3) H 06/11/19 06:00 Calcium 7.9 mg/dL (8.5-10.1) L 07/02/19 06:56 Phosphorus 4.1 mg/dL (2.5-4.9) 06/30/19 06:30 Magnesium 2.0 mg/dL (1.8-2.4) 06/30/19 06:30 Iron 16 ug/dL (50-175) L 06/11/19 06:00 TIBC 329 ug/dL (250-450) 06/11/19 06:00 Iron Saturation 4 % (17.5-39) L 06/11/19 06:00 Unsaturated IBC 313 ug/dL (200-275) H 06/11/19 06:00 Ferritin 17.1 ng/ml (8-388) 06/11/19 06:00 Total Bilirubin 0.4 mg/dL (0.2-1) 06/27/19 07:14 AST 92 U/L (15-37) H 06/27/19 07:14 ALT 84 U/L (13-61) H 06/27/19 07:14 Alkaline Phosphatase 180 U/L (45-117) H 06/27/19 07:14 Ammonia 12.70 umol/L (11-32) 06/22/19 12:15 Creatine Kinase 159 U/L (26-308) 06/10/19 15:00 Creatine Kinase Index 3.3 % (0.0-5.0) 06/10/19 15:00 CK-MB (CK-2) 5.4 ng/mL (0.5-3.6) H 06/10/19 15:00 Troponin I 0.15 ng/ml (0.00-0.05) H 06/11/19 08:40 B-Natriuretic Peptide 43459.8 pg/ml (5-450) H 06/10/19 15:00 Total Protein 5.3 g/dl (6.4-8.2) L 06/27/19 07:14 Albumin 2.3 g/dl (3.4-5.0) L 06/27/19 07:14 PTH Intact 236 pg/mL (15-65) H 06/11/19 06:00 PTH Intact Intraop 0 m (.) 06/11/19 06:00 Active Medications Current Medications Acetaminophen (Tylenol -) 500 mg PO Q6H PRN PRN Reason: PAIN LEVEL 6-10 Last Admin: 06/25/19 21:35 Dose: 500 mg Aspirin (Asa -) 81 mg PO DAILY [facility] Last Admin: 07/01/19 09:45 Dose: 81 mg Atorvastatin Calcium (Lipitor -) 40 mg PO HS [facility] Last Admin: 07/01/19 21:53 Dose: 40 mg Calcium Acetate (Phoslo -) 667 mg PO TIDCM [facility] Last Admin: 07/02/19 08:12 Dose: Not Given Guaifenesin (Mucinex -) 600 mg PO BID [facility] Last Admin: 07/01/19 21:53 Dose: 600 mg Hydralazine HCl (Apresoline -) 25 mg PO TID [facility] Last Admin: 07/02/19 05:56 Dose: 25 mg Sodium Chloride (Normal Saline -) 250 mls @ 3,000 mls/hr IV PRN PRN PRN Reason: Hypotension during Dialysis Stop: 07/03/19 07:28 Insulin Aspart (Novolog Vial Sliding Scale -) 1 vial SQ TIDAC [facility]; Protocol Last Admin: 07/02/19 06:00 Dose: Not Given Isosorbide Mononitrate (Imdur -) 30 mg PO DAILY [facility] Last Admin: 07/01/19 09:45 Dose: 30 mg Metoprolol Succinate (Toprol Xl -) 25 mg PO DAILY [facility] Last Admin: 07/01/19 09:46 Dose: 25 mg Senna (Senna -) 1 tab PO BID [facility] Last Admin: 07/01/19 21:53 Dose: 1 tab Tamsulosin HCl (Flomax -) 0.4 mg PO HS [facility] Last Admin: 07/01/19 21:53 Dose: 0.4 mg Home Medications Medication Instructions Recorded Amlodipine Besylate 5 mg PO DAILY 06/10/19 Calcium Acetate [Phoslo -] 667 mg PO TID 06/10/19 Atorvastatin Ca [Lipitor] 40 mg PO HS #30 tablet 06/29/19 Glipizide Xl [Glucotrol Xl -] 2.5 mg PO DAILY #30 tab.er.24 06/29/19 Isosorbide Mononitrate [Imdur -] 30 mg PO DAILY #30 tab.sr.24h 06/29/19 Metoprolol Succinate [Toprol Xl -] 25 mg PO DAILY #30 tab.sr.24h 06/29/19 Tamsulosin HCl [Flomax -] 0.4 mg PO HS #30 cap.er.24h 06/29/19 hydrALAZINE HCL [Apresoline -] 25 mg PO TID #90 tablet 06/29/19 Microbiology 06/24/19 13:00 Urine - Urine [place] Urine Culture - Final Escherichia Coli 06/17/19 15:45 Urine - Urine Clean Catch Urine Culture - Final NO GROWTH OBTAINED 06/10/19 22:00 Urine - Urine - Catheterized Urine Culture - Final NO GROWTH OBTAINED ASSESSMENT/PLAN: 83 y/o M, pmh of CKD stage V, T2DM presented with LE edema of 1 week duration likely 2/2 fluid overload from ESRD. #AMS HD Today Tolerating PO well Epogen given for anemia Pt ready for discharge #LE edema likely 2/2 to Fluid overload 2/2 ESRD Placement confirmed for HD #Safety at home Pt will be going to Rehab #CHF- acute on chronic systolic CHF w/ severe fluid overload Strict salt and fluid restrictions. No fluids nor ice cubes at the bedside. #HTN Cont hydralazine 25 mg 3 times a day. #HLD cont atorvastatin #Type 2 DM ISS #DVT ppx Heparin FEN: renal diet Dispo: monitor mentation, pt ready for discharge Visit type - Emergency Visit Emergency Visit: Yes ED Registration Date: 06/10/19 Care time: The patient presented to the Emergency Department on the above date and was hospitalized for further evaluation of their emergent condition. - New Patient This patient is new to me today: Yes Date on this admission: 07/03/19 - Critical Care Critical Care patient: No - Discharge Referral Referred to [facility] Med [facility] No ATTENDING PHYSICIAN STATEMENT I saw and evaluated the patient. I reviewed the resident's note and discussed the case with the resident. I agree with the resident's findings and plan as documented. SUBJECTIVE: OBJECTIVE: ASSESSMENT AND PLAN:
[2019-07-02] MEDS: guaiFENesin 600 MG TABLET.ER (FP) PO SCH ×2 (12:26→22:13)
[2019-07-02] MEDS: ASPIRIN 81 MG CHEWABLE TABLETS PO SCH (12:26)
[2019-07-02] MEDS: ISOSORBIDE MONONITRATE 30 MG TAB.SR.24H (FP) PO SCH (12:26)
[2019-07-02] MEDS: SENNOSIDES 8.6MG TABLET (FP) PO SCH ×2 (12:26→22:13)
--- NOTE | 2019-07-02 15:44 | PN ---
Teaching Attending Note Name of Resident: Olaf Winn ATTENDING PHYSICIAN STATEMENT I saw and evaluated the patient. I reviewed the resident's note and discussed the case with the resident. I agree with the resident's findings and plan as documented. SUBJECTIVE: seen in HD. No fever or chills. No pain. No SOB . feels tired OBJECTIVE: NAD, awake CV: RRR. Lungs: CTAB Abd: no rash Ext: trace edema on legs , wrinkled skin. edema and thick skin on inner thighs ASSESSMENT AND PLAN: 83 y/o man with h./o CKD , HTN , systolic CHF and DM who presented with AMS and was found to be uremic and in acute CHF 1- Acute systolic CHF exacerbation. 2- ESRD 3- Chronic microcytic anemia: iron def 4- AMS: likely due to metabolic encephalopathy from uremia and acute delirium. resolved 5- H/o DM 6- h/o HTN 7- Urinary retention: resolved 8- UTI : resolved . Plan: - Monitor off Abx. - HD today - Cont HTN meds : Imdur , toprol, and hydralazine - Start glipizide at dc . cont SSI here - Cont flomax Dispo: dc to rehab when HD is set up
[2019-07-02] MEDS ORDERED: INSULIN (NOVOLOG) ASPART 100 UNITS/ML 10ML VIAL ONE (18:20)
[2019-07-02] MEDS ORDERED: INSULIN (LEVEMIR) 100 UNITS/ML UNITS SQ ONE (18:21)
[2019-07-02] MEDS: TAMSULOSIN HCL 0.4 MG CAP PO SCH (22:13)
[2019-07-02] MEDS: ATORVASTATIN CA 40 MG TABLET (FP) PO SCH (22:13)
[2019-07-03] MEDS: hydrALAZINE HCL 25 MG TABLET (FP) PO SCH ×3 (05:56→22:24)
[2019-07-03] MEDS: INSULIN SLIDING SCALE (NOVOLOG) 1 VIAL SQ SCH ×3 (06:08→17:04)
[2019-07-03] MEDS: guaiFENesin 600 MG TABLET.ER (FP) PO SCH ×2 (10:01→22:25)
[2019-07-03] MEDS: CALCIUM ACETATE 667 MG CAPSULE (FP) PO SCH ×3 (10:01→17:05)
[2019-07-03] MEDS: ISOSORBIDE MONONITRATE 30 MG TAB.SR.24H (FP) PO SCH (10:01)
[2019-07-03] MEDS: SENNOSIDES 8.6MG TABLET (FP) PO SCH ×2 (10:01→22:25)
[2019-07-03] MEDS: ASPIRIN 81 MG CHEWABLE TABLETS PO SCH (10:01)
--- NOTE | 2019-07-03 15:40 | PN ---
Progress Note (short form) - Note Progress Note: Subjective: No fever or chills. No NEELY . no pain . no N/V Objective: Vital Signs: Last Vital Signs Temp Pulse Resp BP Pulse Ox 97.5 F L 66 20 120/56 L 95 07/03/19 14:16 07/03/19 14:16 07/03/19 14:16 07/03/19 14:16 07/02/19 21:00 Laboratory Results - last 24 hr 07/02/19 07/03/19 07/03/19 16:35 05:53 12:34 POC Glucometer 174 144 206 Physical Exam: NAD, awake CV: RRR. Lungs: CTAB Abd: no rash Ext: trace edema on legs , wrinkled skin. edema and thick skin on inner thighs ASSESSMENT AND PLAN: 83 y/o man with h./o CKD , HTN , systolic CHF and DM who presented with AMS and was found to be uremic and in acute CHF 1- Acute systolic CHF exacerbation. 2- ESRD 3- Chronic microcytic anemia: iron def 4- AMS: likely due to metabolic encephalopathy from uremia and acute delirium. resolved 5- H/o DM 6- h/o HTN 7- Urinary retention: resolved 8- UTI: resolved . Plan: - Monitor off Abx. - HD TTS - Cont HTN meds : Imdur , toprol, and hydralazine - Start glipizide at dc . cont SSI here - Cont flomax Dispo: dc to rehab when HD is set up Visit type - Emergency Visit Emergency Visit: Yes ED Registration Date: 06/10/19 Care time: The patient presented to the Emergency Department on the above date and was hospitalized for further evaluation of their emergent condition. - New Patient This patient is new to me today: No - Critical Care Critical Care patient: No
[2019-07-03] MEDS: ATORVASTATIN CA 40 MG TABLET (FP) PO SCH (22:25)
[2019-07-03] MEDS: TAMSULOSIN HCL 0.4 MG CAP PO SCH (22:25)
[2019-07-03] MEDS: ACETAMINOPHEN 500 MG TABLET (FP) PO PRN (22:25)
[2019-07-04] MEDS: hydrALAZINE HCL 25 MG TABLET (FP) PO SCH ×3 (05:48→22:19)
[2019-07-04] MEDS: INSULIN SLIDING SCALE (NOVOLOG) 1 VIAL SQ SCH ×3 (06:31→17:55)
[2019-07-04] MEDS ORDERED: INSULIN (LEVEMIR) 100 UNITS/ML UNITS SQ ONE (06:45)
[2019-07-04] MEDS ORDERED: INSULIN (NOVOLOG) ASPART 100 UNITS/ML 10ML VIAL ONE ×2 (06:45→12:33)
[2019-07-04 08:40] LABS: BLOOD UREA NITROGEN 43.7 mg/dL (7-18); CALCIUM 8.2 mg/dL (8.5-10.1); CREATININE 3.5 mg/dL (0.55-1.3); POTASSIUM 4.3 mmol/L (3.5-5.1)
--- NOTE | 2019-07-04 08:48 | PN ---
Progress Note (short form) - Note Progress Note: Neurology HISTORY OF PRESENT ILLNESS: 83yo M with h/o CKD stage V, HTN, Type 2 DM who presents on day of admission with 1 week worsening lower extremity edema. Pt has been told he has end-stage CKD, however he refuses dialysis because he believed his family members suffered and did not benefit in regards to mortality. Pt noticed about 1-2 weeks he has been having increased edema of his legs. He does not weigh himself regularly and he does not know his dry weight. Pt reports he went to see his PCP who increased his lasix to 80mg TID PO. He was only taking this for a couple of days when he noticed severe dyspnea on exertion worsening when he went to the bathroom or moving from [id number] in his house. Pt endorses orthopnea and uses multiple pillows at night to sleep. Pt denies any fever/ chills, headaches, blurry vision, diarrhea/constiption, chest pain, palpitations , abdominal pain, n/v. 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 Psychiatry consult completed, for behavioral changes, put on Zyprexa and if not helpful can use Remeron, per note. Zyprexa reduced to 2.5 mg and now off the medication. Head CT with no acute changes noted. Remains awake and conversive, neurologically remained stable over weekend. HD plan being determined and awaiting placement. Neurologically stable at this time. Active Medications Acetaminophen (Tylenol -) 500 mg PO Q6H PRN PRN Reason: PAIN LEVEL 6-10 Last Admin: 07/03/19 22:25 Dose: 500 mg Aspirin (Asa -) 81 mg PO DAILY [facility] Last Admin: 07/03/19 10:01 Dose: 81 mg Atorvastatin Calcium (Lipitor -) 40 mg PO HS [facility] Last Admin: 07/03/19 22:25 Dose: 40 mg Calcium Acetate (Phoslo -) 667 mg PO TIDCM [facility] Last Admin: 07/03/19 17:05 Dose: 667 mg Guaifenesin (Mucinex -) 600 mg PO BID [facility] Last Admin: 07/03/19 22:25 Dose: 600 mg Hydralazine HCl (Apresoline -) 25 mg PO TID [facility] Last Admin: 07/04/19 05:48 Dose: Not Given Insulin Aspart (Novolog Vial Sliding Scale -) 1 vial SQ TIDAC [facility]; Protocol Last Admin: 07/04/19 06:31 Dose: Not Given Isosorbide Mononitrate (Imdur -) 30 mg PO DAILY [facility] Last Admin: 07/03/19 10:01 Dose: 30 mg Metoprolol Succinate (Toprol Xl -) 25 mg PO DAILY [facility] Last Admin: 07/03/19 10:01 Dose: 25 mg Senna (Senna -) 1 tab PO BID [facility] Last Admin: 07/03/19 22:25 Dose: 1 tab Tamsulosin HCl (Flomax -) 0.4 mg PO HS [facility] Last Admin: 07/03/19 22:25 Dose: 0.4 mg PHYSICAL EXAMINATION Vital Signs Period Temp Pulse Resp BP Sys/Alexandre Pulse Ox Last 24 Hr 97.5 F-98.9 F 61-85 19-20 120-153/56-78 96-96 GENERAL: Awake, alert, not oriented, conversive but not coherent HEENT: NC/AT, [place], MMM, EOMI. NECK: + JVD LUNGS: Rales throughout all lung strong bilaterally. No wheezes. No accessory muscle use. On 2LNC. Speaking in full sentences HEART: RRR, normal S1 and S2 without murmur ABDOMEN: Soft, nontender, abdominal wall edema, hypoactive BS, + hepatojugular reflux, no guarding or rebound, no hepatomegaly or caput medusa noted. MUSCULOSKELETAL: No CVA tenderness. EXTREMITIES: 2+ DP pulses b/l, 3+ pitting edema to groin and abdominal wall. Warm, venous stasis changes also noted, no calf tenderness. NEUROLOGICAL: Nonfocal exam. Normal speech. moves all extremities, sensory intact PSYCHIATRIC: Cooperative. Good eye contact. Appropriate mood and affect. SKIN: Warm, dry, no rashes or lesions noted, stasis changes as above, normal capillary refill. CBCD WBC 9.1 K/mm3 (4.0-10.0) 07/02/19 06:56 RBC 4.88 M/mm3 (4.00-5.60) 07/02/19 06:56 Hgb 9.6 GM/dL (11.7-16.9) L 07/02/19 06:56 Hct 30.5 % (35.4-49) L 07/02/19 06:56 MCV 62.6 fl (80-96) L 07/02/19 06:56 MCHC 31.4 g/dl (32.0-35.9) L 07/02/19 06:56 RDW 20.4 % (11.9-15.9) H 07/02/19 06:56 Plt Count 431 K/MM3 (134-434) 07/02/19 06:56 MPV 8.5 fl (7.5-11.1) 07/02/19 06:56 CMP Sodium 139 mmol/L (136-145) 07/04/19 07:00 Potassium 4.3 mmol/L (3.5-5.1) 07/04/19 07:00 Chloride 104 mmol/L (98-107) 07/04/19 07:00 Carbon Dioxide 28 mmol/L (21-32) 07/04/19 07:00 Anion Gap 8 MMOL/L (8-16) 07/04/19 07:00 BUN 43.7 mg/dL (7-18) H 07/04/19 07:00 Creatinine 3.5 mg/dL (0.55-1.3) H 07/04/19 07:00 Random Glucose 127 mg/dL (74-106) H 07/04/19 07:00 Calcium 8.2 mg/dL (8.5-10.1) L 07/04/19 07:00 Total Bilirubin 0.4 mg/dL (0.2-1) 06/27/19 07:14 AST 92 U/L (15-37) H 06/27/19 07:14 ALT 84 U/L (13-61) H 06/27/19 07:14 Alkaline Phosphatase 180 U/L (45-117) H 06/27/19 07:14 Total Protein 5.3 g/dl (6.4-8.2) L 06/27/19 07:14 Albumin 2.3 g/dl (3.4-5.0) L 06/27/19 07:14 CARDIAC ENZYMES Creatine Kinase 159 U/L (26-308) 06/10/19 15:00 Troponin I 0.15 ng/ml (0.00-0.05) H 06/11/19 08:40 ASSESSMENT AND PLAN: 83yo M with h/o CKD stage V, HTN, Type 2 DM who presents on day of admission with 1 week worsening lower extremity edema. Pt has been told he has end-stage CKD, however he refuses dialysis because he believed his family members suffered and did not benefit in regards to mortality. Pt noticed about 1-2 weeks he has been having increased edema of his legs. He does not weigh himself regularly and he does not know his dry weight. Pt reports he went to see his PCP who increased his lasix to 80mg TID PO. He was only taking this for a couple of days when he noticed severe dyspnea on exertion worsening when he went to the bathroom or moving from [id number] in his house. Pt endorses orthopnea and uses multiple pillows at night to sleep. Pt denies any fever/ chills, headaches, blurry vision, diarrhea/constiption, chest pain, palpitations , abdominal pain, n/v. 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 Psychiatry consult completed, for behavioral changes, put on Zyprexa and if not helpful can use Remeron, per note. Zyprexa reduced to 2.5 mg, no longer on. Head CT with no acute changes noted.Remains awake and conversive, neurologically remained stable over weekend. Does not know date but able to tell me he's in [facility] as well as the year. Cognitively improved. HD plan being determined and awaiting placement. Neurologically stable at this time.
[2019-07-04] MEDS: CALCIUM ACETATE 667 MG CAPSULE (FP) PO SCH ×3 (10:34→17:49)
[2019-07-04] MEDS: guaiFENesin 600 MG TABLET.ER (FP) PO SCH ×2 (10:34→22:19)
[2019-07-04] MEDS: ISOSORBIDE MONONITRATE 30 MG TAB.SR.24H (FP) PO SCH (10:34)
[2019-07-04] MEDS: ASPIRIN 81 MG CHEWABLE TABLETS PO SCH (10:35)
[2019-07-04] MEDS: SENNOSIDES 8.6MG TABLET (FP) PO SCH ×2 (10:35→22:19)
--- NOTE | 2019-07-04 13:19 | PN ---
Teaching Attending Note Name of Resident: Olaf Winn ATTENDING PHYSICIAN STATEMENT I saw and evaluated the patient. I reviewed the resident's note and discussed the case with the resident. I agree with the resident's findings and plan as documented. SUBJECTIVE: no pain , fever or chills. OBJECTIVE: NAD, awake CV: RRR. Lungs: CTAB Abd: no rash Ext: trace edema on legs, wrinkled skin. edema and thick skin on inner thighs. ASSESSMENT AND PLAN: 83 y/o man with h./o CKD , HTN , systolic CHF and DM who presented with AMS and was found to be uremic and in acute CHF 1- Acute systolic CHF exacerbation. 2- ESRD 3- Chronic microcytic anemia: iron def 4- AMS: likely due to metabolic encephalopathy from uremia and acute delirium. resolved 5- H/o DM 6- h/o HTN 7- Urinary retention: resolved. 8- UTI: resolved. Plan: - HD TTS - Cont HTN meds : Imdur , toprol, and hydralazine - Start glipizide at dc . cont SSI here - Cont flomax Dispo: ready for dc if HD is set up
--- NOTE | 2019-07-04 14:31 | PN ---
Physical Exam: SUBJECTIVE: Patient seen and examined Today pt reports no overnight issues or events as per pt. Pt is in usual state of health. Mentating at baseline. Pt is conversating and in good state of health. Denies f/c/n/v/d/chest pain/sob. OBJECTIVE: Vital Signs Period Temp Pulse Resp BP Sys/Alexandre Pulse Ox Last 24 Hr 97.7 F-98.9 F 61-85 18-20 129-153/61-78 96 GENERAL: Pt alert, awake and conversational. Pt is mentating well today. Pleasant elderly man. ENT: dentation poor. Uses artificial teeth. moist mucous membranes. Tongue appears collapse and obstruct his breathing at increased angles NECK: full range of motion, supple. No LAD LUNGS: breath sounds have improved significantly. Expiratory wheezing heard b/ l. HEART: Regular rate and rhythm, S1 and S2 normal ABDOMEN: NT, ND. Normoactive bowel sounds EXTREMITIES: 2+ pulses, no edema. Chronic venous stasis skin changes b/l. Mild tenderness to palpation on both extremities b/l NEUROLOGICAL: Cranial nerves II through XII grossly intact. SKIN: Warm, dry, normal turgor Laboratory Results - last 24 hr CBC,CMP WBC 9.1 K/mm3 (4.0-10.0) 07/02/19 06:56 RBC 4.88 M/mm3 (4.00-5.60) 07/02/19 06:56 Hgb 9.6 GM/dL (11.7-16.9) L 07/02/19 06:56 Hct 30.5 % (35.4-49) L 07/02/19 06:56 MCV 62.6 fl (80-96) L 07/02/19 06:56 MCH 19.7 pg (25.7-33.7) L 07/02/19 06:56 MCHC 31.4 g/dl (32.0-35.9) L 07/02/19 06:56 RDW 20.4 % (11.9-15.9) H 07/02/19 06:56 Plt Count 431 K/MM3 (134-434) 07/02/19 06:56 MPV 8.5 fl (7.5-11.1) 07/02/19 06:56 Absolute Neuts (auto) 6.6 K/mm3 (1.5-8.0) 06/16/19 06:10 Neutrophils % 79.4 % (42.8-82.8) 06/16/19 06:10 Neutrophils % (Manual) 79.2 % (42.8-82.8) 06/15/19 06:20 Band Neutrophils % 0.0 % 06/15/19 06:20 Lymphocytes % 5.7 % (8-40) L D 06/16/19 06:10 Lymphocytes % (Manual) 4.9 % (8-40) L 06/15/19 06:20 Monocytes % 10.6 % (3.8-10.2) H 06/16/19 06:10 Monocytes % (Manual) 6 % (3.8-10.2) 06/15/19 06:20 Eosinophils % 3.5 % (0-4.5) 06/16/19 06:10 Eosinophils % (Manual) 3.0 % (0-4.5) 06/15/19 06:20 Basophils % 0.8 % (0-2.0) 06/16/19 06:10 Basophils % (Manual) 3.0 % (0-2.0) H D 06/15/19 06:20 Myelocytes % (Man) 0 % (0-2) 06/15/19 06:20 Promyelocytes % (Man) 0 % (0-2) 06/15/19 06:20 Blast Cells % (Manual) 0 % (0-0) 06/15/19 06:20 Nucleated RBC % 1 % (0-0) H 06/16/19 06:10 Metamyelocytes 0 % (0-2) 06/15/19 06:20 Hypochromia 3+ 06/15/19 06:20 Toxic Granulation 1+ 06/13/19 05:35 Platelet Estimate Normal 06/16/19 06:10 Platelet Comment Present 06/12/19 06:16 Polychromasia 1+ 06/15/19 06:20 Poikilocytosis 3+ 06/15/19 06:20 Anisocytosis 3+ 06/15/19 06:20 Microcytosis 3+ 06/15/19 06:20 Macrocytosis 0 06/15/19 06:20 Spherocytes 2+ 06/13/19 05:35 Target Cells 3+ 06/15/19 06:20 Tear Drop Cells 1+ 06/13/19 05:35 Ovalocytes 1+ 06/14/19 06:07 Paterson Cells 1+ 06/10/19 15:00 Rouleaux 1+ 06/15/19 06:20 Fragmented RBCs 2+ 06/15/19 06:20 Schistocytes 3+ 06/15/19 06:20 Sodium 139 mmol/L (136-145) 07/04/19 07:00 Potassium 4.3 mmol/L (3.5-5.1) 07/04/19 07:00 Chloride 104 mmol/L (98-107) 07/04/19 07:00 Carbon Dioxide 28 mmol/L (21-32) 07/04/19 07:00 Anion Gap 8 MMOL/L (8-16) 07/04/19 07:00 BUN 43.7 mg/dL (7-18) H 07/04/19 07:00 Creatinine 3.5 mg/dL (0.55-1.3) H 07/04/19 07:00 Est GFR (CKD-EPI)AfAm 17.78 07/04/19 07:00 Est GFR (CKD-EPI)NonAf 15.34 07/04/19 07:00 POC Glucometer 194 UNITS (80-120) 07/04/19 12:24 Random Glucose 127 mg/dL (74-106) H 07/04/19 07:00 Hemoglobin A1c % 8.0 % (4.2-6.3) H 06/11/19 06:00 Calcium 8.2 mg/dL (8.5-10.1) L 07/04/19 07:00 Phosphorus 4.1 mg/dL (2.5-4.9) 06/30/19 06:30 Magnesium 2.0 mg/dL (1.8-2.4) 06/30/19 06:30 Iron 16 ug/dL (50-175) L 06/11/19 06:00 TIBC 329 ug/dL (250-450) 06/11/19 06:00 Iron Saturation 4 % (17.5-39) L 06/11/19 06:00 Unsaturated IBC 313 ug/dL (200-275) H 06/11/19 06:00 Ferritin 17.1 ng/ml (8-388) 06/11/19 06:00 Total Bilirubin 0.4 mg/dL (0.2-1) 06/27/19 07:14 AST 92 U/L (15-37) H 06/27/19 07:14 ALT 84 U/L (13-61) H 06/27/19 07:14 Alkaline Phosphatase 180 U/L (45-117) H 06/27/19 07:14 Ammonia 12.70 umol/L (11-32) 06/22/19 12:15 Creatine Kinase 159 U/L (26-308) 06/10/19 15:00 Creatine Kinase Index 3.3 % (0.0-5.0) 06/10/19 15:00 CK-MB (CK-2) 5.4 ng/mL (0.5-3.6) H 06/10/19 15:00 Troponin I 0.15 ng/ml (0.00-0.05) H 06/11/19 08:40 B-Natriuretic Peptide 89360.8 pg/ml (5-450) H 06/10/19 15:00 Total Protein 5.3 g/dl (6.4-8.2) L 06/27/19 07:14 Albumin 2.3 g/dl (3.4-5.0) L 06/27/19 07:14 PTH Intact 236 pg/mL (15-65) H 06/11/19 06:00 PTH Intact Intraop 0 m (.) 06/11/19 06:00 Active Medications Current Medications Acetaminophen (Tylenol -) 500 mg PO Q6H PRN PRN Reason: PAIN LEVEL 6-10 Last Admin: 07/03/19 22:25 Dose: 500 mg Aspirin (Asa -) 81 mg PO DAILY [facility] Last Admin: 07/04/19 10:35 Dose: 81 mg Atorvastatin Calcium (Lipitor -) 40 mg PO HS [facility] Last Admin: 07/03/19 22:25 Dose: 40 mg Calcium Acetate (Phoslo -) 667 mg PO TIDCM [facility] Last Admin: 07/04/19 12:31 Dose: 667 mg Guaifenesin (Mucinex -) 600 mg PO BID [facility] Last Admin: 07/04/19 10:34 Dose: 600 mg Hydralazine HCl (Apresoline -) 25 mg PO TID [facility] Last Admin: 07/04/19 05:48 Dose: Not Given Insulin Aspart (Novolog Vial Sliding Scale -) 1 vial SQ TIDAC [facility]; Protocol Last Admin: 07/04/19 12:31 Dose: 2 units Isosorbide Mononitrate (Imdur -) 30 mg PO DAILY [facility] Last Admin: 07/04/19 10:34 Dose: 30 mg Metoprolol Succinate (Toprol Xl -) 25 mg PO DAILY [facility] Last Admin: 07/04/19 10:34 Dose: 25 mg Senna (Senna -) 1 tab PO BID [facility] Last Admin: 07/04/19 10:35 Dose: 1 tab Tamsulosin HCl (Flomax -) 0.4 mg PO [facility] Last Admin: 07/03/19 22:25 Dose: 0.4 mg Microbiology 06/24/19 13:00 Urine - Urine [place] Urine Culture - Final Escherichia Coli 06/17/19 15:45 Urine - Urine Clean Catch Urine Culture - Final NO GROWTH OBTAINED 06/10/19 22:00 Urine - Urine - Catheterized Urine Culture - Final NO GROWTH OBTAINED Home Medications Medication Instructions Recorded Amlodipine Besylate 5 mg PO DAILY 06/10/19 Calcium Acetate [Phoslo -] 667 mg PO TID 06/10/19 Atorvastatin Ca [Lipitor] 40 mg PO HS #30 tablet 06/29/19 Glipizide Xl [Glucotrol Xl -] 2.5 mg PO DAILY #30 tab.er.24 06/29/19 Isosorbide Mononitrate [Imdur -] 30 mg PO DAILY #30 tab.sr.24h 06/29/19 Metoprolol Succinate [Toprol Xl -] 25 mg PO DAILY #30 tab.sr.24h 06/29/19 Tamsulosin HCl [Flomax -] 0.4 mg PO HS #30 cap.er.24h 06/29/19 hydrALAZINE HCL [Apresoline -] 25 mg PO TID #90 tablet 06/29/19 ASSESSMENT/PLAN: 83 y/o M, pmh of CKD stage V, T2DM presented with LE edema of 1 week duration likely 2/2 fluid overload from ESRD. #AMS HD Tomorrow Tolerating PO well Epogen given for anemia Pt ready for discharge #LE edema likely 2/2 to Fluid overload 2/2 ESRD Placement confirmed for HD #Safety at home Pt will be going to Rehab #CHF- acute on chronic systolic CHF w/ severe fluid overload Strict salt and fluid restrictions. No fluids nor ice cubes at the bedside. #HTN Cont hydralazine 25 mg 3 times a day. #HLD cont atorvastatin #Type 2 DM ISS #DVT ppx Heparin FEN: renal diet Dispo: monitor mentation, pt ready for discharge Visit type - Emergency Visit Emergency Visit: Yes ED Registration Date: 06/10/19 Care time: The patient presented to the Emergency Department on the above date and was hospitalized for further evaluation of their emergent condition. - New Patient This patient is new to me today: Yes Date on this admission: 07/04/19 - Critical Care Critical Care patient: No - Discharge Referral Referred to [facility] No ATTENDING PHYSICIAN STATEMENT I saw and evaluated the patient. I reviewed the resident's note and discussed the case with the resident. I agree with the resident's findings and plan as documented. SUBJECTIVE: OBJECTIVE: ASSESSMENT AND PLAN:
[2019-07-04] MEDS ORDERED: SODIUM CHLORIDE 250 ML IV PRN (16:41)
--- NOTE | 2019-07-04 16:41 | PN ---
Progress Note, Physician History of Present Illness: Pt seen and examined at bedside. He is awake and appears comfortable. - Current Medication List Current Medications: Active Medications Acetaminophen (Tylenol -) 500 mg PO Q6H PRN PRN Reason: PAIN LEVEL 6-10 Last Admin: 07/03/19 22:25 Dose: 500 mg Aspirin (Asa -) 81 mg PO DAILY [facility] Last Admin: 07/04/19 10:35 Dose: 81 mg Atorvastatin Calcium (Lipitor -) 40 mg PO HS [facility] Last Admin: 07/03/19 22:25 Dose: 40 mg Calcium Acetate (Phoslo -) 667 mg PO TIDCM [facility] Last Admin: 07/04/19 12:31 Dose: 667 mg Guaifenesin (Mucinex -) 600 mg PO BID [facility] Last Admin: 07/04/19 10:34 Dose: 600 mg Hydralazine HCl (Apresoline -) 25 mg PO TID [facility] Last Admin: 07/04/19 14:58 Dose: 25 mg Insulin Aspart (Novolog Vial Sliding Scale -) 1 vial SQ TIDAC [facility]; Protocol Last Admin: 07/04/19 12:31 Dose: 2 units Isosorbide Mononitrate (Imdur -) 30 mg PO DAILY [facility] Last Admin: 07/04/19 10:34 Dose: 30 mg Metoprolol Succinate (Toprol Xl -) 25 mg PO DAILY [facility] Last Admin: 07/04/19 10:34 Dose: 25 mg Senna (Senna -) 1 tab PO BID [facility] Last Admin: 07/04/19 10:35 Dose: 1 tab Tamsulosin HCl (Flomax -) 0.4 mg PO [facility] Last Admin: 07/03/19 22:25 Dose: 0.4 mg - Objective Vital Signs: Vital Signs Temperature 98 F 07/04/19 14:22 Pulse Rate 69 07/04/19 14:22 Respiratory Rate 20 07/04/19 14:22 Blood Pressure 129/64 07/04/19 14:22 O2 Sat by Pulse Oximetry (%) 96 07/03/19 21:00 Constitutional: Yes: Calm Eyes: Yes: Conjunctiva Clear HENT: Yes: Atraumatic Cardiovascular: Yes: S1, S2 Respiratory: Yes: CTA Bilaterally Gastrointestinal: Yes: Soft Genitourinary: Yes: WNL Musculoskeletal: Yes: WNL Edema: Yes Edema: LLE: Trace, RLE: Trace Neurological: Yes: Oriented Psychiatric: Yes: Oriented Labs: CBC, BMP 07/02/19 06:56 07/04/19 07:00 INR, PTT INR 1.03 (0.83-1.09) 06/19/19 06:00 Problem List - Problems (1) CKD (chronic kidney disease) Code(s): N18.9 - CHRONIC KIDNEY DISEASE, UNSPECIFIED (2) HTN (hypertension) Code(s): I10 - ESSENTIAL (PRIMARY) HYPERTENSION (3) Diabetes mellitus Code(s): E11.9 - TYPE 2 DIABETES MELLITUS WITHOUT COMPLICATIONS Assessment/Plan Current Medications Generic Name Dose Route Start Last Admin Trade Name Freq PRN Reason Stop Dose Admin Acetaminophen 500 mg 06/24/19 20:20 07/03/19 22:25 Tylenol - PO 500 mg Q6H PRN Administration PAIN LEVEL 6-10 Aspirin 81 mg 06/25/19 10:00 07/04/19 10:35 Asa - PO 81 mg DAILY [facility] Administration Atorvastatin Calcium 40 mg 06/24/19 22:00 07/03/19 22:25 Lipitor - PO 40 mg HS [facility] Administration Calcium Acetate 667 mg 06/25/19 08:00 07/04/19 12:31 Phoslo - PO 667 mg TIDCM [facility] Administration Guaifenesin 600 mg 06/24/19 22:00 07/04/19 10:34 Mucinex - PO 600 mg BID [facility] Administration Hydralazine HCl 25 mg 06/24/19 22:00 07/04/19 14:58 Apresoline - PO 25 mg TID [facility] Administration Insulin Aspart 1 vial 06/25/19 07:00 07/04/19 12:31 Novolog Vial Sliding Scale - SQ 2 units TIDAC [facility] Administration Protocol Isosorbide Mononitrate 30 mg 06/25/19 10:00 07/04/19 10:34 Imdur - PO 30 mg DAILY [facility] Administration Metoprolol Succinate 25 mg 06/25/19 10:00 07/04/19 10:34 Toprol Xl - PO 25 mg DAILY [facility] Administration Senna 1 tab 06/24/19 22:00 07/04/19 10:35 Senna - PO 1 tab BID [facility] Administration Tamsulosin HCl 0.4 mg 06/24/19 22:00 07/03/19 22:25 Flomax - PO 0.4 mg HS [facility] Administration Impression 1. ESRD 2. HTN 3. DM 4. fluid overload 5. esrd 6. altered mental status Plan - HD tomorrow - HD set up at [facility] - UF volume on HD - renal diet - pt tolerating po intake - epogen for anemia
[2019-07-04] MEDS: ATORVASTATIN CA 40 MG TABLET (FP) PO SCH (22:19)
[2019-07-04] MEDS: TAMSULOSIN HCL 0.4 MG CAP PO SCH (22:19)
[2019-07-05] MEDS: hydrALAZINE HCL 25 MG TABLET (FP) PO SCH ×2 (06:01→13:36)
[2019-07-05] MEDS: INSULIN SLIDING SCALE (NOVOLOG) 1 VIAL SQ SCH ×3 (06:01→17:57)
[2019-07-05] MEDS ORDERED: EPOETIN ALFA 2,000 UNIT/1 ML VIAL IVPUSH ONE (07:30)
[2019-07-05 08:28] LABS: HEMATOCRIT 31.8 % (35.4-49); HEMOGLOBIN 9.8 GM/dL (11.7-16.9); MCHC 30.8 g/dl (32.0-35.9); MEAN CELL VOLUME 63.2 fl (80-96); MEAN PLT VOLUME 8.3 fl (7.5-11.1); PLATELET COUNT 402 K/MM3 (134-434); RBC 5.04 M/mm3 (4.00-5.60); RDW 20.7 % (11.9-15.9); WHITE BLOOD COUNT 11.7 K/mm3 (4.0-10.0)
--- NOTE | 2019-07-05 08:45 | PN ---
Progress Note (short form) - Note Progress Note: Neurology HISTORY OF PRESENT ILLNESS: 83yo M with h/o CKD stage V, HTN, Type 2 DM who presents on day of admission with 1 week worsening lower extremity edema. Pt has been told he has end-stage CKD, however he refuses dialysis because he believed his family members suffered and did not benefit in regards to mortality. Pt noticed about 1-2 weeks he has been having increased edema of his legs. He does not weigh himself regularly and he does not know his dry weight. Pt reports he went to see his PCP who increased his lasix to 80mg TID PO. He was only taking this for a couple of days when he noticed severe dyspnea on exertion worsening when he went to the bathroom or moving from [id number] in his house. Pt endorses orthopnea and uses multiple pillows at night to sleep. Pt denies any fever/ chills, headaches, blurry vision, diarrhea/constiption, chest pain, palpitations , abdominal pain, n/v. 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 Psychiatry consult completed, for behavioral changes, put on Zyprexa and if not helpful can use Remeron, per note. Zyprexa reduced to 2.5 mg and now off the medication altogether. Head CT with no acute changes noted. Remains awake and conversive, neurologically remained stable over weekend. HD plan being determined and awaiting placement. Neurologically stable at this time. Nephrology note reviewed. Possibly for for discharge Active Medications Acetaminophen (Tylenol -) 500 mg PO Q6H PRN PRN Reason: PAIN LEVEL 6-10 Last Admin: 07/03/19 22:25 Dose: 500 mg Aspirin (Asa -) 81 mg PO DAILY [facility] Last Admin: 07/04/19 10:35 Dose: 81 mg Atorvastatin Calcium (Lipitor -) 40 mg PO HS [facility] Last Admin: 07/04/19 22:19 Dose: 40 mg Calcium Acetate (Phoslo -) 667 mg PO TIDCM [facility] Last Admin: 07/04/19 17:49 Dose: 667 mg Guaifenesin (Mucinex -) 600 mg PO BID [facility] Last Admin: 07/04/19 22:19 Dose: 600 mg Heparin Sodium (Porcine) (Heparin -) 500 unit IVPUSH ONCE ONE Stop: 07/05/19 16:42 Hydralazine HCl (Apresoline -) 25 mg PO TID [facility] Last Admin: 07/05/19 06:01 Dose: 25 mg Sodium Chloride (Normal Saline -) 250 mls @ 3,000 mls/hr IV PRN PRN PRN Reason: Hypotension during Dialysis Stop: 07/05/19 16:41 Insulin Aspart (Novolog Vial Sliding Scale -) 1 vial SQ TIDAC [facility]; Protocol Last Admin: 07/05/19 06:01 Dose: Not Given Isosorbide Mononitrate (Imdur -) 30 mg PO DAILY [facility] Last Admin: 07/04/19 10:34 Dose: 30 mg Metoprolol Succinate (Toprol Xl -) 25 mg PO DAILY [facility] Last Admin: 07/04/19 10:34 Dose: 25 mg Senna (Senna -) 1 tab PO BID [facility] Last Admin: 07/04/19 22:19 Dose: 1 tab Tamsulosin HCl (Flomax -) 0.4 mg PO HS [facility] Last Admin: 07/04/19 22:19 Dose: 0.4 mg PHYSICAL EXAMINATION Vital Signs Period Temp Pulse Resp BP Sys/Alexandre Pulse Ox Last 24 Hr 97.9 F-98.3 F 68-70 18-20 129-150/61-79 96-96 GENERAL: Awake, alert, not oriented, conversive but not coherent HEENT: NC/AT, CAROLA, MMM, EOMI. NECK: + JVD LUNGS: Rales throughout all lung strong bilaterally. No wheezes. No accessory muscle use. On 2LNC. Speaking in full sentences HEART: RRR, normal S1 and S2 without murmur ABDOMEN: Soft, nontender, abdominal wall edema, hypoactive BS, + hepatojugular reflux, no guarding or rebound, no hepatomegaly or caput medusa noted. MUSCULOSKELETAL: No CVA tenderness. EXTREMITIES: 2+ DP pulses b/l, 3+ pitting edema to groin and abdominal wall. Warm, venous stasis changes also noted, no calf tenderness. NEUROLOGICAL: Nonfocal exam. Normal speech. moves all extremities, sensory intact PSYCHIATRIC: Cooperative. Good eye contact. Appropriate mood and affect. SKIN: Warm, dry, no rashes or lesions noted, stasis changes as above, normal capillary refill. CBCD WBC 9.1 K/mm3 (4.0-10.0) 07/02/19 06:56 RBC 4.88 M/mm3 (4.00-5.60) 07/02/19 06:56 Hgb 9.6 GM/dL (11.7-16.9) L 07/02/19 06:56 Hct 30.5 % (35.4-49) L 07/02/19 06:56 MCV 62.6 fl (80-96) L 07/02/19 06:56 MCHC 31.4 g/dl (32.0-35.9) L 07/02/19 06:56 RDW 20.4 % (11.9-15.9) H 07/02/19 06:56 Plt Count 431 K/MM3 (134-434) 07/02/19 06:56 MPV 8.5 fl (7.5-11.1) 07/02/19 06:56 CMP Sodium 139 mmol/L (136-145) 07/04/19 07:00 Potassium 4.3 mmol/L (3.5-5.1) 07/04/19 07:00 Chloride 104 mmol/L (98-107) 07/04/19 07:00 Carbon Dioxide 28 mmol/L (21-32) 07/04/19 07:00 Anion Gap 8 MMOL/L (8-16) 07/04/19 07:00 BUN 43.7 mg/dL (7-18) H 07/04/19 07:00 Creatinine 3.5 mg/dL (0.55-1.3) H 07/04/19 07:00 Random Glucose 127 mg/dL (74-106) H 07/04/19 07:00 Calcium 8.2 mg/dL (8.5-10.1) L 07/04/19 07:00 Total Bilirubin 0.4 mg/dL (0.2-1) 06/27/19 07:14 AST 92 U/L (15-37) H 06/27/19 07:14 ALT 84 U/L (13-61) H 06/27/19 07:14 Alkaline Phosphatase 180 U/L (45-117) H 06/27/19 07:14 Total Protein 5.3 g/dl (6.4-8.2) L 06/27/19 07:14 Albumin 2.3 g/dl (3.4-5.0) L 06/27/19 07:14 CARDIAC ENZYMES Creatine Kinase 159 U/L (26-308) 06/10/19 15:00 Troponin I 0.15 ng/ml (0.00-0.05) H 06/11/19 08:40 ASSESSMENT AND PLAN: 83yo M with h/o CKD stage V, HTN, Type 2 DM who presents on day of admission with 1 week worsening lower extremity edema. Pt has been told he has end-stage CKD, however he refuses dialysis because he believed his family members suffered and did not benefit in regards to mortality. Pt noticed about 1-2 weeks he has been having increased edema of his legs. He does not weigh himself regularly and he does not know his dry weight. Pt reports he went to see his PCP who increased his lasix to 80mg TID PO. He was only taking this for a couple of days when he noticed severe dyspnea on exertion worsening when he went to the bathroom or moving from [id number] in his house. Pt endorses orthopnea and uses multiple pillows at night to sleep. Pt denies any fever/ chills, headaches, blurry vision, diarrhea/constiption, chest pain, palpitations , abdominal pain, n/v. 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 Psychiatry consult completed, for behavioral changes, put on Zyprexa and if not helpful can use Remeron, per note. Zyprexa reduced to 2.5 mg, no longer on. Head CT with no acute changes noted.Remains awake and conversive, neurologically remained stable over weekend. Does not know date but able to tell me he's in [facility] as well as the year. Cognitively improved. HD plan being determined and awaiting placement. Nephrology note reviewed. Possibly for for discharge. Neurologically stable at this time.
[2019-07-05 08:46] LABS: MCH 19.5 pg (25.7-33.7)
[2019-07-05] MEDS: CALCIUM ACETATE 667 MG CAPSULE (FP) PO SCH ×3 (09:02→17:57)
[2019-07-05] MEDS ORDERED: HEPARIN NA (PORCINE) 5,000 UNITS/ML 1ML VIAL IVPUSH ONE ×2 (10:00→16:41)
[2019-07-05] MEDS: guaiFENesin 600 MG TABLET.ER (FP) PO SCH (13:35)
[2019-07-05] MEDS: SENNOSIDES 8.6MG TABLET (FP) PO SCH (13:36)
[2019-07-05] MEDS: ASPIRIN 81 MG CHEWABLE TABLETS PO SCH (13:36)
[2019-07-05] MEDS: ISOSORBIDE MONONITRATE 30 MG TAB.SR.24H (FP) PO SCH (13:36)
[2019-07-05 14:54] VITALS: BP 159/79; PULSE 72; TEMP 98.8
--- NOTE | 2019-07-05 15:47 | PN ---
Teaching Attending Note Name of Resident: Olaf Winn ATTENDING PHYSICIAN STATEMENT I saw and evaluated the patient. I reviewed the resident's note and discussed the case with the resident. I agree with the resident's findings and plan as documented. SUBJECTIVE: seen in HD no pain or SOn.No NEELY. no SOB OBJECTIVE: NAD, awake CV: RRR. Lungs: CTAB Ext: trace edema on legs, wrinkled skin. edema and thick skin on inner thighs. ASSESSMENT AND PLAN: 83 y/o man with h./o CKD , HTN , systolic CHF and DM who presented with AMS and was found to be uremic and in acute CHF 1- Acute systolic CHF exacerbation. 2- ESRD 3- Chronic microcytic anemia: iron def 4- AMS: likely due to metabolic encephalopathy from uremia and acute delirium. resolved 5- H/o DM 6- h/o HTN 7- Urinary retention: resolved. 8- UTI: resolved. Plan: - HD TTS - accepted at out pt HD . - Cont HTN meds : Imdur , toprol, and hydralazine - Start glipizide at dc . cont SSI here - Cont flomax DC today
--- NOTE | 2019-07-05 16:27 | DS ---
Physical Exam: SUBJECTIVE: Patient seen and examined Pt is in a pleasant state of health. He reports no overnight issues or events as per pt. Mentating at baseline. Pt is conversating and in good state of health. Denies f/c/n/v/d/chest pain/sob. OBJECTIVE: Vital Signs Period Temp Pulse Resp BP Sys/Alexandre Pulse Ox Last 24 Hr 97.8 F-98.8 F 60-72 18-20 134-163/62-101 96-96 PHYSICAL EXAM GENERAL: Pt alert, awake and conversational. Pt is mentating well today. Pleasant elderly man. ENT: dentation poor. Uses artificial teeth. moist mucous membranes. Tongue appears collapse and obstruct his breathing at increased angles NECK: full range of motion, supple. No LAD LUNGS: breath sounds have improved significantly. Expiratory wheezing heard b/ l. HEART: Regular rate and rhythm, S1 and S2 normal ABDOMEN: NT, ND. Normoactive bowel sounds EXTREMITIES: 2+ pulses, no edema. Chronic venous stasis skin changes b/l. Mild tenderness to palpation on both extremities b/l NEUROLOGICAL: Cranial nerves II through XII grossly intact. SKIN: Warm, dry, normal turgor LABS Laboratory Results - last 24 hr CBC,CMP WBC 11.7 K/mm3 (4.0-10.0) H 07/05/19 07:48 RBC 5.04 M/mm3 (4.00-5.60) 07/05/19 07:48 Hgb 9.8 GM/dL (11.7-16.9) L 07/05/19 07:48 Hct 31.8 % (35.4-49) L 07/05/19 07:48 MCV 63.2 fl (80-96) L 07/05/19 07:48 MCH 19.5 pg (25.7-33.7) L 07/05/19 07:48 MCHC 30.8 g/dl (32.0-35.9) L 07/05/19 07:48 RDW 20.7 % (11.9-15.9) H 07/05/19 07:48 Plt Count 402 K/MM3 (134-434) 07/05/19 07:48 MPV 8.3 fl (7.5-11.1) 07/05/19 07:48 Absolute Neuts (auto) 6.6 K/mm3 (1.5-8.0) 06/16/19 06:10 Neutrophils % 79.4 % (42.8-82.8) 06/16/19 06:10 Neutrophils % (Manual) 79.2 % (42.8-82.8) 06/15/19 06:20 Band Neutrophils % 0.0 % 06/15/19 06:20 Lymphocytes % 5.7 % (8-40) L D 06/16/19 06:10 Lymphocytes % (Manual) 4.9 % (8-40) L 06/15/19 06:20 Monocytes % 10.6 % (3.8-10.2) H 06/16/19 06:10 Monocytes % (Manual) 6 % (3.8-10.2) 06/15/19 06:20 Eosinophils % 3.5 % (0-4.5) 06/16/19 06:10 Eosinophils % (Manual) 3.0 % (0-4.5) 06/15/19 06:20 Basophils % 0.8 % (0-2.0) 06/16/19 06:10 Basophils % (Manual) 3.0 % (0-2.0) H D 06/15/19 06:20 Myelocytes % (Man) 0 % (0-2) 06/15/19 06:20 Promyelocytes % (Man) 0 % (0-2) 06/15/19 06:20 Blast Cells % (Manual) 0 % (0-0) 06/15/19 06:20 Nucleated RBC % 1 % (0-0) H 06/16/19 06:10 Metamyelocytes 0 % (0-2) 06/15/19 06:20 Hypochromia 3+ 06/15/19 06:20 Toxic Granulation 1+ 06/13/19 05:35 Platelet Estimate Normal 06/16/19 06:10 Platelet Comment Present 06/12/19 06:16 Polychromasia 1+ 06/15/19 06:20 Poikilocytosis 3+ 06/15/19 06:20 Anisocytosis 3+ 06/15/19 06:20 Microcytosis 3+ 06/15/19 06:20 Macrocytosis 0 06/15/19 06:20 Spherocytes 2+ 06/13/19 05:35 Target Cells 3+ 06/15/19 06:20 Tear Drop Cells 1+ 06/13/19 05:35 Ovalocytes 1+ 06/14/19 06:07 [place] Cells 1+ 06/10/19 15:00 Rouleaux 1+ 06/15/19 06:20 Fragmented RBCs 2+ 06/15/19 06:20 Schistocytes 3+ 06/15/19 06:20 Sodium 139 mmol/L (136-145) 07/04/19 07:00 Potassium 4.3 mmol/L (3.5-5.1) 07/04/19 07:00 Chloride 104 mmol/L (98-107) 07/04/19 07:00 Carbon Dioxide 28 mmol/L (21-32) 07/04/19 07:00 Anion Gap 8 MMOL/L (8-16) 07/04/19 07:00 BUN 43.7 mg/dL (7-18) H 07/04/19 07:00 Creatinine 3.5 mg/dL (0.55-1.3) H 07/04/19 07:00 Est GFR (CKD-EPI)AfAm 17.78 07/04/19 07:00 Est GFR (CKD-EPI)NonAf 15.34 07/04/19 07:00 POC Glucometer 119 UNITS (80-120) 07/05/19 06:00 Random Glucose 127 mg/dL (74-106) H 07/04/19 07:00 Hemoglobin A1c % 8.0 % (4.2-6.3) H 06/11/19 06:00 Calcium 8.2 mg/dL (8.5-10.1) L 07/04/19 07:00 Phosphorus 4.1 mg/dL (2.5-4.9) 06/30/19 06:30 Magnesium 2.0 mg/dL (1.8-2.4) 06/30/19 06:30 Iron 16 ug/dL (50-175) L 06/11/19 06:00 TIBC 329 ug/dL (250-450) 06/11/19 06:00 Iron Saturation 4 % (17.5-39) L 06/11/19 06:00 Unsaturated IBC 313 ug/dL (200-275) H 06/11/19 06:00 Ferritin 17.1 ng/ml (8-388) 06/11/19 06:00 Total Bilirubin 0.4 mg/dL (0.2-1) 06/27/19 07:14 AST 92 U/L (15-37) H 06/27/19 07:14 ALT 84 U/L (13-61) H 06/27/19 07:14 Alkaline Phosphatase 180 U/L (45-117) H 06/27/19 07:14 Ammonia 12.70 umol/L (11-32) 06/22/19 12:15 Creatine Kinase 159 U/L (26-308) 06/10/19 15:00 Creatine Kinase Index 3.3 % (0.0-5.0) 06/10/19 15:00 CK-MB (CK-2) 5.4 ng/mL (0.5-3.6) H 06/10/19 15:00 Troponin I 0.15 ng/ml (0.00-0.05) H 06/11/19 08:40 B-Natriuretic Peptide 82412.8 pg/ml (5-450) H 06/10/19 15:00 Total Protein 5.3 g/dl (6.4-8.2) L 06/27/19 07:14 Albumin 2.3 g/dl (3.4-5.0) L 06/27/19 07:14 PTH Intact 236 pg/mL (15-65) H 06/11/19 06:00 PTH Intact Intraop 0 m (.) 06/11/19 06:00 Current Medications Acetaminophen (Tylenol -) 500 mg PO Q6H PRN PRN Reason: PAIN LEVEL 6-10 Last Admin: 07/03/19 22:25 Dose: 500 mg Aspirin (Asa -) 81 mg PO DAILY [facility] Last Admin: 07/05/19 13:36 Dose: 81 mg Atorvastatin Calcium (Lipitor -) 40 mg PO HS [facility] Last Admin: 07/04/19 22:19 Dose: 40 mg Calcium Acetate (Phoslo -) 667 mg PO TIDCM [facility] Last Admin: 07/05/19 13:32 Dose: 667 mg Guaifenesin (Mucinex -) 600 mg PO BID [facility] Last Admin: 07/05/19 13:35 Dose: 600 mg Hydralazine HCl (Apresoline -) 25 mg PO TID [facility] Last Admin: 07/05/19 13:36 Dose: 25 mg Sodium Chloride (Normal Saline -) 250 mls @ 3,000 mls/hr IV PRN PRN PRN Reason: Hypotension during Dialysis Stop: 07/05/19 16:41 Insulin Aspart (Novolog Vial Sliding Scale -) 1 vial SQ TIDAC [facility]; Protocol Last Admin: 07/05/19 13:36 Dose: Not Given Isosorbide Mononitrate (Imdur -) 30 mg PO DAILY [facility] Last Admin: 07/05/19 13:36 Dose: 30 mg Metoprolol Succinate (Toprol Xl -) 25 mg PO DAILY [facility] Last Admin: 07/05/19 13:35 Dose: 25 mg Senna (Senna -) 1 tab PO BID [facility] Last Admin: 07/05/19 13:36 Dose: 1 tab Tamsulosin HCl (Flomax -) 0.4 mg PO HS [facility] Last Admin: 07/04/19 22:19 Dose: 0.4 mg Microbiology 06/24/19 13:00 Urine - Urine [place] Urine Culture - Final Escherichia Coli 06/17/19 15:45 Urine - Urine Clean Catch Urine Culture - Final NO GROWTH OBTAINED 06/10/19 22:00 Urine - Urine - Catheterized Urine Culture - Final NO GROWTH OBTAINED HOSPITAL COURSE: Date of Admission:06/10/19 83 y/o M, pmh of CKD stage V, T2DM presented with LE edema of 1 week duration likely 2/2 fluid overload from ESRD. Pt initially presented with worsening b/l LE edema and fluid overload. We had treated him optimally with lasix but he need more intervention, including dialysis. Pt was seen my nephrology and he required emergent dialysis but initially he had refused to dialysis due to risks. However, after long discussion with pt, he agreed to dialysis and a permacath was placed on the right side. After 2 rounds of HD, pt began to mentate poorly and presented with altered mental status, likely due to toxic uremia build up. During this time, pt also developed a UTI for which he was started on ceftriaxone. S/p resolution of infxn, abx was d/rylie. After several more rounds of HD, pt began to improve significantly with mentation returning to baseline and lower extremity edema improving. Pt was also found to have worsening acute on chronic systolic CHF w/ severe volume overload. Echo showed LV function severely, severe global hypokinesis, Diastolic dysfunction grade II , moderate MR, TR, pleural effusion present, EF 30%. Pt was started on imdur 30 , metoprolol 25, and continued on hydralazine. Pt was discharged to rehab to assist in recovery of ambulation. Pt was also set up with HD outpt at at [facility]. Echo- LV function severely, severe global hypokinesis, Diastolic dysfunction grade II, moderate MR, TR, pleural effusion present, EF 30% US renal: no acute pathology, tiny nonobstructing stones in right kidney CT head: no acute pathology noted, cerebral atrophy with supratentorial chronic microischemic changes. CXR 06/10- small b/l pleural effusions noted Date of Discharge: 07/05/19 Minutes to complete discharge: 35 Discharge Summary Problems reviewed: Yes Reason For Visit: ELEVATED TROPONIN I LEVEL DYSPNEA Current Active Problems CHF exacerbation (Acute) Encephalopathy (Acute) CKD (chronic kidney disease) (Chronic) Hospital Course: Correction to resident's hospital course. The shabnam is not on Rocephin. He finished treatment fro UTI a while befer his dc. the patient si at his base line mental status at dc Condition: Improved - Instructions Diet, Activity, Other Instructions: hemodialysis Thursday , and Thursday - new medication , glipizide , started for your diabetes. avoid missing breakfast to avoid hypoglycemia - follow up with your primary care doctor - follow up with Dr. Carpenter, or your cardiologoist for your heart failure in 1- 2 weeks Referrals: Shadi Carpenter MD [Staff Physician] - 2 Weeks Lv Prescott MD [Staff Physician] - Everett Zimmerman MD [Primary Care Provider] - Disposition: [facility] - Home Medications Comprehensive Discharge Medication List: Ambulatory Orders Amlodipine Besylate 5 mg PO DAILY 06/10/19 Calcium Acetate [Phoslo -] 667 mg PO TID 06/10/19 Atorvastatin Ca [Lipitor] 40 mg PO HS #30 tablet 06/29/19 Glipizide Xl [Glucotrol Xl -] 2.5 mg PO DAILY #30 tab.er.24 06/29/19 Isosorbide Mononitrate [Imdur -] 30 mg PO DAILY #30 tab.sr.24h 06/29/19 Metoprolol Succinate [Toprol Xl -] 25 mg PO DAILY #30 tab.sr.24h 06/29/19 Tamsulosin HCl [Flomax -] 0.4 mg PO HS #30 cap.er.24h 06/29/19 hydrALAZINE HCL [Apresoline -] 25 mg PO TID #90 tablet 06/29/19 - Discharge Referral Referred to [facility] No ATTENDING PHYSICIAN STATEMENT I saw and evaluated the patient. I reviewed the resident's note and discussed the case with the resident. I agree with the resident's findings and plan as documented. SUBJECTIVE: OBJECTIVE: ASSESSMENT AND PLAN:
--- NOTE | 2019-07-05 16:53 | PN ---
Progress Note, Physician History of Present Illness: Pt seen and examined at bedside. He is awake and appears comfortable. He tolerated HD today. - Current Medication List Current Medications: Active Medications Acetaminophen (Tylenol -) 500 mg PO Q6H PRN PRN Reason: PAIN LEVEL 6-10 Last Admin: 07/03/19 22:25 Dose: 500 mg Aspirin (Asa -) 81 mg PO DAILY [facility] Last Admin: 07/05/19 13:36 Dose: 81 mg Atorvastatin Calcium (Lipitor -) 40 mg PO HS [facility] Last Admin: 07/04/19 22:19 Dose: 40 mg Calcium Acetate (Phoslo -) 667 mg PO TIDCM [facility] Last Admin: 07/05/19 13:32 Dose: 667 mg Guaifenesin (Mucinex -) 600 mg PO BID [facility] Last Admin: 07/05/19 13:35 Dose: 600 mg Hydralazine HCl (Apresoline -) 25 mg PO TID [facility] Last Admin: 07/05/19 13:36 Dose: 25 mg Insulin Aspart (Novolog Vial Sliding Scale -) 1 vial SQ TIDAC [facility]; Protocol Last Admin: 07/05/19 13:36 Dose: Not Given Isosorbide Mononitrate (Imdur -) 30 mg PO DAILY [facility] Last Admin: 07/05/19 13:36 Dose: 30 mg Metoprolol Succinate (Toprol Xl -) 25 mg PO DAILY [facility] Last Admin: 07/05/19 13:35 Dose: 25 mg Senna (Senna -) 1 tab PO BID [facility] Last Admin: 07/05/19 13:36 Dose: 1 tab Tamsulosin HCl (Flomax -) 0.4 mg PO [facility] Last Admin: 07/04/19 22:19 Dose: 0.4 mg - Objective Vital Signs: Vital Signs Temperature 98.8 F 07/05/19 14:48 Pulse Rate 72 07/05/19 14:48 Respiratory Rate 20 07/05/19 14:48 Blood Pressure 159/79 07/05/19 14:48 O2 Sat by Pulse Oximetry (%) 96 07/05/19 08:25 Constitutional: Yes: Calm Eyes: Yes: Conjunctiva Clear HENT: Yes: Atraumatic Cardiovascular: Yes: S1, S2 Respiratory: Yes: CTA Bilaterally Gastrointestinal: Yes: Soft Genitourinary: Yes: WNL Musculoskeletal: Yes: WNL Edema: Yes Edema: LLE: 1+, RLE: 1+ Integumentary: Yes: Venous Stasis Changes Neurological: Yes: Oriented Psychiatric: Yes: Oriented Labs: CBC, BMP 07/05/19 07:48 07/04/19 07:00 INR, PTT INR 1.03 (0.83-1.09) 06/19/19 06:00 Problem List - Problems (1) CKD (chronic kidney disease) Code(s): N18.9 - CHRONIC KIDNEY DISEASE, UNSPECIFIED (2) HTN (hypertension) Code(s): I10 - ESSENTIAL (PRIMARY) HYPERTENSION (3) Diabetes mellitus Code(s): E11.9 - TYPE 2 DIABETES MELLITUS WITHOUT COMPLICATIONS Assessment/Plan Current Medications Generic Name Dose Route Start Last Admin Trade Name Freq PRN Reason Stop Dose Admin Acetaminophen 500 mg 06/24/19 20:20 07/03/19 22:25 Tylenol - PO 500 mg Q6H PRN Administration PAIN LEVEL 6-10 Aspirin 81 mg 06/25/19 10:00 07/05/19 13:36 Asa - PO 81 mg DAILY [facility] Administration Atorvastatin Calcium 40 mg 06/24/19 22:00 07/04/19 22:19 Lipitor - PO 40 mg HS [facility] Administration Calcium Acetate 667 mg 06/25/19 08:00 07/05/19 13:32 Phoslo - PO 667 mg TIDCM [facility] Administration Guaifenesin 600 mg 06/24/19 22:00 07/05/19 13:35 Mucinex - PO 600 mg BID [facility] Administration Hydralazine HCl 25 mg 06/24/19 22:00 07/05/19 13:36 Apresoline - PO 25 mg TID [facility] Administration Insulin Aspart 1 vial 06/25/19 07:00 07/05/19 13:36 Novolog Vial Sliding Scale - SQ Not Given TIDAC [facility] Protocol Isosorbide Mononitrate 30 mg 06/25/19 10:00 07/05/19 13:36 Imdur - PO 30 mg DAILY [facility] Administration Metoprolol Succinate 25 mg 06/25/19 10:00 07/05/19 13:35 Toprol Xl - PO 25 mg DAILY [facility] Administration Senna 1 tab 06/24/19 22:00 07/05/19 13:36 Senna - PO 1 tab BID [facility] Administration Tamsulosin HCl 0.4 mg 06/24/19 22:00 07/04/19 22:19 Flomax - PO 0.4 mg HS [facility] Administration Impression 1. ESRD 2. HTN 3. DM 4. fluid overload 5. esrd 6. altered mental status Plan - HD today - he has HD set up as outpt - renal diet - discussed care with his - pt tolerating po intake - epogen for anemia
[2019-07-05] MEDS: ACETAMINOPHEN 500 MG TABLET (FP) PO PRN (17:56)
== END 2019-07-05 19:05 | DRG 291 ==
LOC: JER 14:07 → JERBED 16:06 → J4W 18:43 → J7W 06-25 00:15
PROVIDERS: ADMIT Internal Medicine; ATTEND Internal Medicine
PROC: B518ZZA Fluoroscopy of Superior Vena Cava, Guidance (ICD-10-PCS; 2019-06-14)
PROC: 02H633Z Insertion of Infusion Device into Right Atrium, Percutaneous Approach (ICD-10-PCS; principal; 2019-06-14 14:30)
PROC: 5A1D70Z Performance of Urinary Filtration, Intermittent, Less than 6 Hours Per Day (ICD-10-PCS; 2019-07-05)
DX: I13.2 Hypertensive heart and chronic kidney disease with heart failure and with stage 5 chronic kidney disease, or end stage renal disease (principal); I50.23 Acute on chronic systolic (congestive) heart failure; N18.6 End stage renal disease; G93.41 Metabolic encephalopathy; I24.8 Other forms of acute ischemic heart disease; F05 Delirium due to known physiological condition; N39.0 Urinary tract infection, site not specified; E87.70 Fluid overload, unspecified; E87.5 Hyperkalemia; D50.0 Iron deficiency anemia secondary to blood loss (chronic); E83.39 Other disorders of phosphorus metabolism; E78.5 Hyperlipidemia, unspecified; E11.22 Type 2 diabetes mellitus with diabetic chronic kidney disease; R33.9 Retention of urine, unspecified; Z99.2 Dependence on renal dialysis; R41.82 Altered mental status, unspecified
CPT/HCPCS: 36415; 70450-TC; 71045-TC-FY; 76000-TC-FY; 76775-TC; 80048; 80053; 81003; 82140; 82272; 82310; 82550; 82553; 82728; 82803; 82962; 83036; 83540; 83550; 83735; 83880; 83970; 84100; 84484; 85025; 85027; 85610; 86704; 86705; 86706; 86707; 86708; 86709; 87086; 87186; 87340; 87522; 93005; 93010; 93306-TC; 94760; 97116-GP; 97161-GP; 99284-25; J0885; J1644

== ENCOUNTER 2020-01-27 05:16 | Day surgery (SDC) | payer OTHER ==
[2020-01-26 11:07] VITALS: BMI 23.5
[2020-01-27] MEDS ORDERED: HEPARIN NA (PORCINE) 5,000 UNITS/ML 1ML VIAL ONE (13:25)
[2020-01-27] MEDS ORDERED: LIDOCAINE HCL 1%, 10 MG/ML (20ML VIAL) ONE (13:25)
[2020-01-27] MEDS ORDERED: ROPIVACAINE HCL 0.5% 30ML VIAL ONE (14:15)
[2020-01-27] MEDS ORDERED: MIDAZOLAM HCL 2 MG/2 ML SINGLE DOSE VIAL ONE ×2 (14:16)
[2020-01-27] MEDS ORDERED: PROMETHAZINE HCL 25 MG/1 ML VIAL IVPUSH PRN (15:24)
[2020-01-27] MEDS ORDERED: ONDANSETRON 4 MG/2 ML VIAL IVPUSH PRN (15:24)
[2020-01-27] MEDS ORDERED: SODIUM CHLORIDE 1,000 ML IV SCH (15:30)
[2020-01-27] MEDS ORDERED: PROPOFOL 20 ML ONE (16:19)
[2020-01-27] MEDS ORDERED: LIDOCAINE HCL/PF 2% SDV 5ML VIAL ONE (16:20)
[2020-01-27] MEDS ORDERED: LIDOCAINE HCL 1%, 10 MG/ML (20ML VIAL) NR ONE (16:24)
[2020-01-27] MEDS ORDERED: EPHEDRINE SULFATE/0.9% NACL/PF 50 MG/10 ML SYRINGE NR ONE (16:41)
[2020-01-27] MEDS ORDERED: POVIDONE-IODINE OINTMENT 10% - 28.4 GM TUBE ONE (17:07)
--- NOTE | 2020-01-27 17:58 | HP ---
Admitting History and Physical - Admission Chief Complaint: Pt here for left avf creation for HD. Limitations to Obtaining History: No Limitations - Past Medical History Cardiovascular: Yes: HTN Renal/: Yes: Renal Inusuff Endocrine: Yes: Diabetes Mellitus - Smoking History Smoking history: Former smoker Have you smoked in the past 12 months: No If you are a former smoker, when did you quit?: 25 YEARS AGO - Alcohol/Substance Use Hx Alcohol Use: No Home Medications - Allergies Allergies/Adverse Reactions: Allergies Allergy/AdvReac Type Severity Reaction Status Date / Time Penicillins Allergy Mild Verified 01/16/20 09:06 shrimp Allergy Verified 01/16/20 09:06 - Home Medications Home Medications: Ambulatory Orders Amlodipine Besylate 5 mg PO DAILY 06/10/19 Atorvastatin Ca [Lipitor] 40 mg PO HS #30 tablet 06/29/19 Isosorbide Mononitrate [Imdur -] 30 mg PO DAILY #30 tab.sr.24h 06/29/19 Tamsulosin HCl [Flomax -] 0.4 mg PO HS #30 cap.er.24h 06/29/19 hydrALAZINE HCL [Apresoline -] 25 mg PO TID #90 tablet 06/29/19 Collagenase Clostridium Hist. [Santyl] 90 gm TP DAILY #90 oint...g. 01/13/20 Escitalopram Oxalate [Lexapro -] 10 mg PO DAILY 01/16/20 Docusate Sodium [Dulcolax Stool Softener] 100 mg PO PRN 01/26/20 Fexofenadine/Pseudoephedrine [[place]-D 12 Hour Tablet] 1 each PO PRN 01/26/20 Fluocinonide 0.05% Cream [Lidex 0.05% Cream -] 1 applic TP DAILY 01/26/20 Insulin Sliding Scale [Novolog Vial Sliding Scale -] 0 units SQ DAILY 01/26/20 Sevelamer Carbonate [Renvela] 2 tab PO DAILY 01/26/20 Review of Systems - Review of Systems Constitutional: reports: No Symptoms Eyes: reports: No Symptoms HENT: reports: No Symptoms Neck: reports: No Symptoms Cardiovascular: reports: No Symptoms Respiratory: reports: No Symptoms Gastrointestinal: reports: No Symptoms Genitourinary: reports: No Symptoms Breasts: reports: No Symptoms Reported Musculoskeletal: reports: No Symptoms Integumentary: reports: No Symptoms Neurological: reports: No Symptoms Endocrine: reports: No Symptoms Hematology/Lymphatic: reports: No Symptoms Psychiatric: reports: No Symptoms Physical Examination Vital Signs: Vital Signs Temperature 98.3 F 01/27/20 13:28 Pulse Rate 69 01/27/20 13:28 Respiratory Rate 01/27/20 13:28 Blood Pressure 117/66 01/27/20 13:28 O2 Sat by Pulse Oximetry (%) 97 01/27/20 13:28 Constitutional: Yes: Well Nourished, No Distress, Calm Eyes: Yes: WNL, Conjunctiva Clear, EOM Intact HENT: Yes: WNL, Atraumatic, Normocephalic Neck: Yes: WNL, Supple, Trachea Midline Cardiovascular: Yes: WNL, Regular Rate and Rhythm Respiratory: Yes: WNL, Regular, CTA Bilaterally Gastrointestinal: Yes: WNL, Normal Bowel Sounds Musculoskeletal: Yes: WNL Extremities: Yes: WNL Edema: No Peripheral Pulses WNL: Yes Integumentary: Yes: WNL Neurological: Yes: WNL, Alert, Oriented ...Motor Strength: WNL Psychiatric: Yes: WNL Labs: CBC, BMP 01/27/20 12:34 Problem List - Problems (1) ESRD (end stage renal disease) Assessment/Plan: For left avf creation today Romario Medina DO Problems reviewed: Yes Code(s): N18.6 - END STAGE RENAL DISEASE
[2020-01-27 18:51] VITALS: PULSE 70
[2020-01-27 19:25] VITALS: BP 119/60; TEMP 97.6
--- NOTE | 2020-01-29 01:01 | OP ---
DATE OF OPERATION: 01/27/2020 PREOPERATIVE DIAGNOSIS: End-stage renal disease. POSTOPERATIVE DIAGNOSIS: End-stage renal disease. PROCEDURE: Creation of left arteriovenous fistula. SURGEON: Romario Azul DO ANESTHESIA: Fractional. BLOOD LOSS: 50 mL. INDICATIONS: Patient is an 84-year-old male who comes in to ambulatory surgery needing permanent dialysis access. Preoperative vein mapping showed that he has veins that are adequate for AV fistula creation, mainly the cephalic vein. Patient had medical and cardiology clearance. DESCRIPTION OF PROCEDURE: Patient came into ambulatory surgery. Patient was consented for the procedure, understanding all risks, benefits, and alternatives. He was then taken to the operating room. Once in the operating room, he was laid on the operating table in the supine manner. The area of the left arm was prepped and draped in the sterile surgical manner. Using ultrasound guidance, we were able to zac the cephalic vein and the brachial artery below the antecubital fossa and a transverse incision was drawn with a skin marker for about 5 cm. We then injected 10 mL of lidocaine 1% in the area. We then took a number 15-blade and made an incision along the zac. We then went ahead and used Bovie electrocautery to control all hemostasis and get through all of the subcutaneous tissue. We then came down to the cephalic vein. The cephalic vein was dissected anteriorly and posteriorly. All branches were ligated using 4-0 silk. We got about 6 cm worth of cephalic vein that was all freed up. We then went medially and using electrocautery we got through all of the subcutaneous tissue and down to the fascia. The fascia was opened using Metzenbaum scissors. We then dissected out the brachial artery. The brachial artery was dissected anteriorly and posteriorly. We also dissected the radial artery and the ulnar artery anteriorly and posteriorly. We then placed Vesseloops around all three for control. We then went ahead and ligated our cephalic vein distally using 2-0 silk. We then placed a 4-Spanish feeding tube into the vein and the vein was dilated appropriately. There was good flow. The feeding tube went all of the way up into the shoulder. At this point, we used a micro-Dutta and we made a 7-mm venotomy on our vein. Then, 5000 units of IV heparin were administered to the patient. After 3 minutes we got proximal and distal control on the brachial artery, ulnar artery, and the medial artery. We then went ahead and used number 15-blade and made an arteriotomy at the bifurcation and extended it up to 7 cm. We then placed 6-0 Prolene stay sutures. We then used 6-0 Prolene double-arm in an outside-in on the vein and inside-out on the artery and ran the suture around performing anastomosis between the artery and the vein. Once completed, we opened the distal artery first and the proximal artery and there was good thrill in our AV fistula going all of the way up the arm. We then irrigated the wound copiously. Vicryl 3-0 was used and the subcutaneous tissue was approximated in an interrupted manner. Skin was closed with skin naseem. Area was cleaned and dried, 4 x 4 and Tegaderm was placed. Patient tolerated the procedure well with no complications. Patient transferred to the PACU in stable condition. ROMARIO AZUL DO NP/[id number]
== END 2020-01-27 19:20 | disposition home or self-care (01) ==
LOC: JASU-SURG 05:16
PROVIDERS: ATTEND Surgery Vascular Surgery
PROC: 03180ZD Bypass Left Brachial Artery to Upper Arm Vein, Open Approach (ICD-10-PCS; principal; 2020-01-27 14:30)
DX: I12.0 Hypertensive chronic kidney disease with stage 5 chronic kidney disease or end stage renal disease (principal); E11.22 Type 2 diabetes mellitus with diabetic chronic kidney disease; N18.6 End stage renal disease; I50.9 Heart failure, unspecified
CPT/HCPCS: 36415; 84132; 94760; J1644

== ENCOUNTER 2020-03-03 14:30 | Inpatient (IN) | payer OTHER ==
--- NOTE | 2020-03-03 14:44 | PDOC ---
History of Present Illness - General Chief Complaint: Nausea/Vomiting Stated Complaint: VOMITING Time Seen by Provider: 03/03/20 14:40 - History of Present Illness Initial Comments: 03/03/20 14:45 Pt is an 84 yo M, with PMH of HTN, NIDDM , and CKD (T, TH, SAT), who is presenting with complaints of N/V. Patient has been feeling ill for a week. According to his nurse aid, he took his med today, shortly after, he had N/V x3 NBNB. He denies F, chestpain. , but endorse chill, SOB. Allergies: NKDA PCP: Dr. Elsie V. Endo: Dr. Danielle Social: Pt denies any cigarette, alcohol, or drug use. Remote hx of smoking, quit 20 years ago. Pt denies any recent travel or sick contacts. Surgical: no relevant history. Family: no relevant history. ROS GENERAL/CONSTITUTIONAL: No fever , +chills. HEAD, EYES, EARS, NOSE AND THROAT: No change in vision. No ear pain or discharge. No sore throat. CARDIOVASCULAR: No chest pain , +shortness of breath RESPIRATORY: No cough, wheezing, or hemoptysis. GASTROINTESTINAL: +nausea, vomiting, no diarrhea or constipation. GENITOURINARY: No dysuria, frequency, or change in urination. MUSCULOSKELETAL: No joint or muscle swelling or pain. No neck or back pain. SKIN: No rash NEUROLOGIC: No headache, vertigo, loss of consciousness ENDOCRINE: No increased thirst. No abnormal weight change HEMATOLOGIC/LYMPHATIC: No anemia, easy bleeding, or history of blood clots. ALLERGIC/IMMUNOLOGIC: No hives or skin allergy. PE GENERAL: AOx2, in mild acute distress. HEAD: No signs of trauma, normocephalic, atraumatic EYES: PERRLA, sclera anicteric, conjunctiva clear ENT: Auricles normal inspection, hearing grossly normal, nares patent, oropharynx clear without exudates. Moist mucosa NECK: Normal ROM, supple, no lymphadenopathy, JVD, or masses LUNGS: congested and fluid overload bilat. + rales bilat HEART: Regular rate and rhythm, normal S1 and S2, no murmurs, rubs or gallops, peripheral pulses normal and equal bilaterally. Permacat for HD ABDOMEN: Soft, nontender, normoactive bowel sounds. No guarding, no rebound. No masses. Epigastric tenderness. Nondistended. EXTREMITIES : feets are wrapped to prevent pressure ulcer. no edema. No clubbing or cyanosis. NEUROLOGICAL: Cranial nerves II through XII grossly intact. Normal speech, no focal sensorimotor deficits SKIN: Warm, Dry, normal turgor, no rashes or lesions noted 03/03/20 18:09 Past History - Medical History Allergies/Adverse Reactions: Allergies Allergy/AdvReac Type Severity Reaction Status Date / Time Penicillins Allergy Mild Verified 03/03/20 14:39 shrimp Allergy Verified 03/03/20 14:39 Home Medications: Ambulatory Orders Amlodipine Besylate 5 mg PO DAILY 06/10/19 Atorvastatin Ca [Lipitor] 40 mg PO HS #30 tablet 06/29/19 Isosorbide Mononitrate [Imdur -] 30 mg PO DAILY #30 tab.sr.24h 06/29/19 Tamsulosin HCl [Flomax -] 0.4 mg PO HS #30 cap.er.24h 06/29/19 hydrALAZINE HCL [Apresoline -] 25 mg PO TID #90 tablet 06/29/19 Collagenase Clostridium Hist. [Santyl] 90 gm TP DAILY #90 oint...g. 01/13/20 Escitalopram Oxalate [Lexapro -] 10 mg PO DAILY 01/16/20 Docusate Sodium [Dulcolax Stool Softener] 100 mg PO PRN 01/26/20 Fluocinonide 0.05% Cream [Lidex 0.05% Cream -] 1 applic TP DAILY 01/26/20 Insulin Sliding Scale [Novolog Vial Sliding Scale -] 0 units SQ DAILY 01/26/20 Sevelamer Carbonate [Renvela] 2 tab PO DAILY 01/26/20 Anemia: No Asthma: No Cancer: No Cardiac Disorders: No CVA: No COPD: No CHF: No Dementia: No Diabetes: Yes GI Disorders: No Disorders: No HTN: Yes Hypercholesterolemia: Yes Liver Disease: No Seizures: No Thyroid Disease: No - Surgical History Abdominal Surgery: No Appendectomy: No Cardiac Surgery: No Cholecystectomy: No Lung Surgery: No Neurologic Surgery: No Orthopedic Surgery: No - Psycho-Social/Smoking History Smoking History: Never smoked Have you smoked in the past 12 months: No If you are a former smoker, when did you quit?: 25 YEARS AGO ED Treatment Course - LABORATORY CBC & Chemistry Diagram: 03/03/20 15:00 03/03/20 15:00 Medical Decision Making - Medical Decision Making 03/03/20 16:33 Lab: Na 131, no elevated WBC, BNP 19612s Chest Xray showed sign of COVID EKG show borderline ST elevation on V2,3,4, vent rate 85. Compared to previous one. MBMT sent, EKG redo. Trop 2.72. 03/03/20 16:57 Training Intern was paged. Dr. Bland was consulted, and he recommended 600mg plavix, IV drip heparin, aspirin 03/03/20 17:38 03/03/20 17:44 EKG repeated showed dynamic changes on V3, tombing. This is a lateral ischemic change. Will transfer to [facility] 03/03/20 17:47 03/03/20 18:07 Called the transfer center. Talked to Dr. Smith from [facility], sent the EKG before and after, gave the history. IR doctor Dr. Olvera saw, refused to accept even though admitted this is a lateral STEMI. Will call [facility]. [facility] accepted the transfer. Under Dr. Villalpando and Dr. Mera. 03/03/20 18:26 03/03/20 18:28 03/03/20 18:36 18:36 , patient is transferred out by ambulance to [facility]. Discharge - Discharge Information Problems reviewed: Yes Clinical Impression/Diagnosis: CKD (chronic kidney disease), ESRD (end stage renal disease), Suspected COVID- 19 virus infection STEMI (ST elevation myocardial infarction) Qualifiers: Involved coronary artery: LAD coronary artery Qualified Code(s): I21.02 - ST elevation (STEMI) myocardial infarction involving left anterior descending coronary artery Condition: Fair Disposition: TRANSFER ACUTE CARE/OTHER HOSP - Admission No - Follow up/Referral - Patient Discharge Instructions - Post Discharge Activity
[2020-03-03 15:23] VITALS: BMI 27.3
[2020-03-03 15:32] LABS: BASO % 1.4 % (0-2.0); HEMATOCRIT 35.3 % (35.4-49); LYMPH % 5.3 % (8-40); MCH 22.3 pg (25.7-33.7); MCHC 31.1 g/dl (32.0-35.9); MEAN CELL VOLUME 71.5 fl (80-96); MONO % 12.5 % (3.8-10.2); NEUT % 79.8 % (42.8-82.8); PLATELET COUNT 151 K/MM3 (134-434); RBC 4.94 M/mm3 (4.00-5.60); RDW 16.3 % (11.9-15.9); WHITE BLOOD COUNT 8.8 K/mm3 (4.0-10.0)
[2020-03-03 15:55] LABS: ANISOCYTOSIS 2+; MACROCYTOSIS 0; PLATELET ESTIMATE DECREASED; TARGET CELLS 1+
--- NOTE | 2020-03-03 16:11 | PDOC ---
Documentation entered by Alexander Burns SCRIBE, acting as scribe for Jon Veras MD. Jon Veras MD: This documentation has been prepared by the Grant gonzales Aaron, SCRIBE, under my direction and personally reviewed by me in its entirety. I confirm that the documentation accurately reflects all work, treatment, procedures, and medical decision making performed by me. Attending Attestation - Resident Resident Name: Juan C Faustin - ED Attending Attestation I have performed the following: I have examined & evaluated the patient, The case was reviewed & discussed with the resident, I agree w/resident's findings & plan, Exceptions are as noted - HPI HPI: 03/03/20 15:54 The patient is an 84 year old male with a significant PMH of HTN, DM, and CKD who presents to the emergency department for nausea and vomiting. Patient describes increasing SOB over the last few weeks. Patient also endorses productive cough, nausea, decreased urine output, and bilateral LE edema. Today, pt began to feel nauseous and vomited twice. Patient denies fever, chills, vision changes, syncope, chest pain, abdominal pain, or any other symptoms. Allergies: penicillin, shrimp Past surgical history: PCP:Dr. Elsie V. - Physicial Exam PE: 03/03/20 16:12 See resident exam - Medical Decision Making 03/03/20 16:12 84 M with SOB and N+V. Pt with rales in both lungs, suspicious for volume overload. No abdominal tenderness on exam. - Labs, trop ,BNP - CXR - Admit 03/03/20 16:25 CXR clear Labs notable for trop 2.7 EKG with likely J point elevation in V3-V4, morphology similar to prior EKG from 06/2019. Pt continues to deny any chest pain Will trend trop and repeat EKG Will give aspirin, discuss with cards Labs show lymphopenia, mild transaminitis Will send COVID swab Pt signed out to Dr. Rubio at 4:30 PM. Discharge - Discharge Information Problems reviewed: Yes Clinical Impression/Diagnosis: CKD (chronic kidney disease), ESRD (end stage renal disease), Suspected COVID- 19 virus infection STEMI (ST elevation myocardial infarction) Qualifiers: Involved coronary artery: LAD coronary artery Qualified Code(s): I21.02 - ST elevation (STEMI) myocardial infarction involving left anterior descending coronary artery Condition: Fair Disposition: TRANSFER ACUTE CARE/OTHER HOSP - Follow up/Referral - Patient Discharge Instructions - Post Discharge Activity
[2020-03-03 16:15] LABS: ALBUMIN 3.2 g/dl (3.4-5.0); BILIRUBIN,TOTAL 0.8 mg/dL (0.2-1); BLOOD UREA NITROGEN 58.8 mg/dL (7-18); CALCIUM 8.5 mg/dL (8.5-10.1); CREATININE 4.9 mg/dL (0.55-1.3); MAGNESIUM 2.5 mg/dL (1.8-2.4); POTASSIUM 4.6 mmol/L (3.5-5.1)
[2020-03-03] MEDS ORDERED: ASPIRIN 81 MG CHEWABLE TABLETS PO ONE (16:19)
[2020-03-03 16:20] LABS: N-TERMINAL BNP 91784.8 pg/ml (5-450)
--- NOTE | 2020-03-03 16:37 | HP ---
CHIEF COMPLAINT: PCP: Elsie HISTORY OF PRESENT ILLNESS: 84M w/ pmh of HTN, NIDDM (not on meds), and ESRD(T,R,S) BIBA to [facility] for [place]. Recently had complaints of fever, chills. Doesnt take lasix. Had HD on . Took cipro x5d for suppoed UTI. Sp AVF([place], ). Has fistual fu for this upcoming Thursday. Had temperature of 94F(reportedly). Has been feeling tired 5months. Loss of appetite. Denies cough ER course was notable for: (1) Na 131, BUN/Cr 58.8/4.9 (2) troponin 2.78, BNP 74911 (3) UA: 3+ protein, neg LE, neg nitrite, bact 43, WBC 1, epith 5; UCX grew urogenital izabela(30-40k CFU (4) CXR: cardiomegaly w/o acute lung disease (5) CTH??? (6) ASA 324mg (7) ED: spoke to karoline(plavix load 600mg, heparin gtt) Recent Travel: PAST MEDICAL HISTORY: PAST SURGICAL HISTORY: Social History: Smoking: smoked 20ys prior Alcohol: Drugs: Allergies Penicillins Allergy (Mild, Verified 03/03/20 14:39) shrimp Allergy (Verified 03/03/20 14:39) HOME MEDICATIONS: Home Medications Medication Instructions Recorded Amlodipine Besylate 5 mg PO DAILY 06/10/19 Atorvastatin Ca [Lipitor] 40 mg PO HS #30 tablet 06/29/19 Isosorbide Mononitrate [Imdur -] 30 mg PO DAILY #30 tab.sr.24h 06/29/19 Tamsulosin HCl [Flomax -] 0.4 mg PO HS #30 cap.er.24h 06/29/19 hydrALAZINE HCL [Apresoline -] 25 mg PO TID #90 tablet 06/29/19 Collagenase Clostridium Hist. 90 gm TP DAILY #90 oint...g. 01/13/20 [Santyl] Escitalopram Oxalate [Lexapro -] 10 mg PO DAILY 01/16/20 Docusate Sodium [Dulcolax Stool 100 mg PO PRN 01/26/20 Softener] Fexofenadine/Pseudoephedrine 1 each PO PRN 01/26/20 [[place]yd[place]-D 12 Hour Tablet] Fluocinonide 0.05% Cream [Lidex 1 applic TP DAILY 01/26/20 0.05% Cream -] Insulin Sliding Scale [Novolog 0 units SQ DAILY 01/26/20 Vial Sliding Scale -] Sevelamer Carbonate [Renvela] 2 tab PO DAILY 01/26/20 REVIEW OF SYSTEMS CONSTITUTIONAL: Absent: fever, chills, diaphoresis, generalized weakness, malaise, loss of appetite, weight change HEENT: Absent: rhinorrhea, nasal congestion, throat pain, throat swelling, difficulty swallowing, mouth swelling, ear pain, eye pain, visual changes CARDIOVASCULAR: Absent: chest pain, syncope, palpitations, irregular heart rate, lightheadedness, peripheral edema RESPIRATORY: Absent: cough, shortness of breath, dyspnea with exertion, orthopnea, wheezing, stridor, hemoptysis GASTROINTESTINAL: Absent: abdominal pain, abdominal distension, nausea, vomiting, diarrhea, constipation, melena, hematochezia GENITOURINARY: Absent: dysuria, frequency, urgency, hesitancy, hematuria, flank pain, genital pain MUSCULOSKELETAL: Absent: myalgia, arthralgia, joint swelling, back pain, neck pain SKIN: Absent: rash, itching, pallor HEMATOLOGIC/IMMUNOLOGIC: Absent: easy bleeding, easy bruising, lymphadenopathy, frequent infections ENDOCRINE: Absent: unexplained weight gain, unexplained weight loss, heat intolerance, cold intolerance NEUROLOGIC: Absent: headache, focal weakness or paresthesias, dizziness, unsteady gait, seizure, mental status changes, bladder or bowel incontinence PSYCHIATRIC: Absent: anxiety, depression, suicidal or homicidal ideation, hallucinations. PHYSICAL EXAMINATION Vital Signs - 24 hr 03/03/20 15:08 Temperature 98.2 F Pulse Rate 88 Respiratory 17 Rate Blood Pressure 95/51 L O2 Sat by Pulse 93 L Oximetry (%) GENERAL: Awake, alert, and fully oriented, in no acute distress. HEAD: Normal with no signs of trauma. EYES: Pupils equal, round and reactive to light, extraocular movements intact, sclera anicteric, conjunctiva clear. No lid lag. EARS, NOSE, THROAT: Ears normal, nares patent, oropharynx clear without exudates. Moist mucous membranes. NECK: Normal range of motion, supple without lymphadenopathy, JVD, or masses. LUNGS: Breath sounds equal, clear to auscultation bilaterally. No wheezes, and no crackles. No accessory muscle use. HEART: Regular rate and rhythm, normal S1 and S2 without murmur, rub or gallop. ABDOMEN: Soft, nontender, not distended, normoactive bowel sounds, no guarding, no rebound, no masses. No hepatomegaly or splenomegaly. MUSCULOSKELETAL: Normal range of motion at all joints. No bony deformities or tenderness. No CVA tenderness. UPPER EXTREMITIES: 2+ pulses, warm, well-perfused. No cyanosis. No clubbing. No peripheral edema. LOWER EXTREMITIES: 2+ pulses, warm, well-perfused. No calf tenderness. No peripheral edema. NEUROLOGICAL: Cranial nerves II-XII intact. Normal speech. Normal gait. PSYCHIATRIC: Cooperative. Good eye contact. Appropriate mood and affect. SKIN: Warm, dry, normal turgor, no rashes or lesions noted, normal capillary refill. Laboratory Results - last 24 hr 03/03/20 03/03/20 03/03/20 15:00 15:00 15:00 WBC 8.8 RBC 4.94 Hgb 11.0 L Hct 35.3 L MCV 71.5 L MCH 22.3 L MCHC 31.1 L RDW 16.3 H Plt Count 151 MPV 9.0 Absolute Neuts (auto) 7.0 Neutrophils % 79.8 Neutrophils % (Manual) 88.8 H Band Neutrophils % 4.1 Lymphocytes % 5.3 L D Lymphocytes % (Manual) 3.0 L D Monocytes % 12.5 H D Monocytes % (Manual) 4 Eosinophils % 1.0 D Eosinophils % (Manual) 0.0 D Basophils % 1.4 Basophils % (Manual) 0.0 Myelocytes % (Man) 0 Promyelocytes % (Man) 0 Blast Cells % (Manual) 0 Nucleated RBC % 0 Metamyelocytes 0 Hypochromia 1+ Platelet Estimate Decreased Polychromasia 1+ Poikilocytosis 1+ Anisocytosis 2+ Microcytosis 2+ Macrocytosis 0 Target Cells 1+ Zoila Cells 1+ Sodium 131 L Potassium 4.6 Chloride 96 L Carbon Dioxide 21 Anion Gap 14 BUN 58.8 H Creatinine 4.9 H Est GFR (CKD-EPI)AfAm 11.76 Est GFR (CKD-EPI)NonAf 10.14 Random Glucose 253 H Calcium 8.5 Magnesium 2.5 H Total Bilirubin 0.8 AST 182 H ALT 117 H Alkaline Phosphatase 221 H Creatine Kinase 64 Troponin I 2.78 H* B-Natriuretic Peptide 74718.8 H Total Protein 7.0 Albumin 3.2 L Lipase 84 ASSESSMENT/PLAN: Pt's repeat EKG showed further ST segment changes. Pt transferred to [facility] for possible cardiac cath Visit type - Medication Review Med list reviewed for High Risk Meds patients 65 and older: No - Emergency Visit Emergency Visit: Yes ED Registration Date: 03/03/20 Care time: The patient presented to the Emergency Department on the above date and was hospitalized for further evaluation of their emergent condition. - New Patient This patient is new to me today: Yes Date on this admission: 03/11/20 - Critical Care Critical Care patient: No ATTENDING PHYSICIAN STATEMENT I saw and evaluated the patient. I reviewed the resident's note and discussed the case with the resident. I agree with the resident's findings and plan as documented. SUBJECTIVE: OBJECTIVE: ASSESSMENT AND PLAN:
[2020-03-03] MEDS ORDERED: ASPIRIN 81 MG CHEWABLE TABLETS ONE (16:54)
[2020-03-03] MEDS ORDERED: HEPARIN NA (PORCINE) 5,000 UNITS/ML 1ML VIAL IVPUSH PRN ×2 (16:55)
[2020-03-03] MEDS ORDERED: CLOPIDOGREL BISULFATE 300 MG TABLET PO ONE (16:56)
[2020-03-03] MEDS ORDERED: HEPARIN - 25,000 UNIT in SODIUM CHLORIDE 495 ML IV SCH (17:00)
[2020-03-03] MEDS ORDERED: ATORVASTATIN CA 80 MG TABLET (FP) PO ONE (17:39)
[2020-03-03] MEDS ORDERED: CLOPIDOGREL BISULFATE 300 MG TABLET ONE (17:43)
[2020-03-03] MEDS ORDERED: HEPARIN INFUSION - 25,000 UNITS/500 ML INFUS.BAG IVPB ONE (17:44)
[2020-03-03] MEDS ORDERED: ATORVASTATIN CA 40 MG TABLET (FP) ONE (17:45)
[2020-03-03] MEDS ORDERED: HEPARIN NA (PORCINE) 5,000 UNITS/ML 1ML VIAL IVPUSH ONE (17:46)
--- NOTE | 2020-03-03 17:49 | PDOC ---
*Physical Exam - Vital Signs Last Vital Signs Temp Pulse Resp BP Pulse Ox 98.2 F 88 17 95/51 L 93 L 03/03/20 15:08 03/03/20 15:08 03/03/20 15:08 03/03/20 15:08 03/03/20 15:08 ED Treatment Course - LABORATORY CBC & Chemistry Diagram: 03/03/20 15:00 03/03/20 15:00 - ADDITIONAL ORDERS Additional order review: Laboratory Results 03/03/20 03/03/20 15:00 15:00 Sodium 131 L Potassium 4.6 Chloride 96 L Carbon Dioxide 21 Anion Gap 14 BUN 58.8 H Creatinine 4.9 H Est GFR (CKD-EPI)AfAm 11.76 Est GFR (CKD-EPI)NonAf 10.14 Random Glucose 253 H Calcium 8.5 Magnesium 2.5 H Total Bilirubin 0.8 AST 182 H ALT 117 H Alkaline Phosphatase 221 H Creatine Kinase 64 Troponin I 2.78 H* B-Natriuretic Peptide 33713.8 H Total Protein 7.0 Albumin 3.2 L Lipase 84 03/03/20 15:00 RBC 4.94 MCV 71.5 L MCHC 31.1 L RDW 16.3 H MPV 9.0 Neutrophils % 79.8 Lymphocytes % 5.3 L D Monocytes % 12.5 H D Eosinophils % 1.0 D Basophils % 1.4 - Medications Given in the ED: ED Medications Discontinued Medications Generic Name Dose Route Start Last Admin Trade Name Freq PRN Reason Stop Dose Admin Aspirin 324 mg 03/03/20 16:19 03/03/20 16:55 Asa - PO 03/03/20 16:20 324 mg ONCE ONE Administration Medical Decision Making - Medical Decision Making 03/03/20 17:48 Pt signed out from Dr Veras at 1630 pending admit in summary, 84 M with SOB and N+V. Pt with rales in both lungs, suspicious for volume overload. vitals reviewed, soft bp and hypoxic 93% on RA, placed on supp O2 with improvement. labs and lytes remarkable for transaminitis, leukopenia and +trop 2.78 and sig elevated bnp 91,000 initial concern for fluid overload/CHF cxr with cardiomegaly, no e/o fluid overload. repeat EKG 03/03/20 17:49 shows evolving changes, continues to have BRAD in V3-4 with more coved appearance and depressions laterally in the V5-6 changed from prior EKG. ASA already given STEMI alert called to [facility], waiting call back to discuss heparin gtt initiated, bolus 5000 units x1. Plavix pt is also high risk covid 19, which can increase risk of thrombosis/STEMI as well. dispo: STEMI alert called at 545pm, to [facility] Cardiology called, Dr Smith, declined transfer 03/03/20 18:19 [facility] called, auto accepted to the ED, accepted by Dr Jose Brown, cardiology, ACLS crew, monitor. 03/03/20 18:21 Discharge - Discharge Information Problems reviewed: Yes Clinical Impression/Diagnosis: CKD (chronic kidney disease), ESRD (end stage renal disease), Suspected COVID- 19 virus infection, STEMI (ST elevation myocardial infarction) Condition: Fair Disposition: TRANSFER ACUTE CARE/OTHER HOSP - Follow up/Referral - Patient Discharge Instructions - Post Discharge Activity - Transfer to Acute Care Facility Receiving Facility Name: [facility] Accepting Physician:: Dr Jose Brown, Cardiology, ED to ED transfer
[2020-03-03] MEDS ORDERED: HEPARIN NA (PORCINE) 5,000 UNITS/ML 1ML VIAL ONE (18:04)
[2020-03-03 18:39] LABS: INR 0.88 (0.83-1.09); PROTHROMBIN TIME (PATIENT) 10.4 SEC (9.7-13.0)
[2020-03-03 18:41] LABS: ACTIVATED PTT 31.5 SECONDS (25.2-36.5)
[2020-03-03 18:51] VITALS: BP 105/68; PULSE 77; TEMP 98
--- NOTE | 2020-03-03 18:54 | PN ---
Progress Note (short form) - Note Progress Note: Prior to evaluation of admission patient was found to have evolving STEMI with ED consultation of cardiology. Patient transferred from ED to [facility] rn lab (see Dr. Faustin's note for accepting physician). Jamir Nelson DO - IM
--- NOTE | 2020-03-05 10:06 | EKG ---
Test Reason : Blood Pressure : / mmHG Vent. Rate : 077 BPM Atrial Rate : 077 BPM P-R Int : 206 ms QRS Dur : 126 ms QT Int : 448 ms P-R-T Axes : 061 034 149 degrees QTc Int : 506 ms NORMAL SINUS RHYTHM NON-SPECIFIC INTRA-VENTRICULAR CONDUCTION BLOCK T WAVE ABNORMALITY, CONSIDER LATERAL ISCHEMIA ABNORMAL ECG WHEN COMPARED WITH ECG OF 03-MAR-2020 15:36, INVERTED T WAVES HAVE REPLACED NONSPECIFIC T WAVE ABNORMALITY IN ANTERIOR LEADS Confirmed by Paul Blair ([id number]) on 03/05/2020 10:06:24 AM Referred By: Confirmed By:Paul Blair
--- NOTE | 2020-03-05 10:07 | EKG ---
Test Reason : Blood Pressure : / mmHG Vent. Rate : 085 BPM Atrial Rate : 085 BPM P-R Int : 194 ms QRS Dur : 130 ms QT Int : 414 ms P-R-T Axes : 068 -03 167 degrees QTc Int : 492 ms NORMAL SINUS RHYTHM POSSIBLE LEFT ATRIAL ENLARGEMENT NON-SPECIFIC INTRA-VENTRICULAR CONDUCTION BLOCK T WAVE ABNORMALITY, CONSIDER LATERAL ISCHEMIA ABNORMAL ECG WHEN COMPARED WITH ECG OF 03-MAR-2020 15:34, NO SIGNIFICANT CHANGE WAS FOUND Confirmed by Paul Blair ([id number]) on 03/05/2020 10:06:58 AM Referred By: Confirmed By:Paul Blair
== END 2020-03-03 19:08 | disposition short-term general hospital (02) | DRG 280 ==
LOC: SUPCPDRO 14:30 → JER 14:30 → JERBED 16:40
PROVIDERS: ADMIT Internal Medicine; ATTEND Internal Medicine
DX: I21.3 ST elevation (STEMI) myocardial infarction of unspecified site (principal); N18.6 End stage renal disease; I12.0 Hypertensive chronic kidney disease with stage 5 chronic kidney disease or end stage renal disease; E11.22 Type 2 diabetes mellitus with diabetic chronic kidney disease; N18.9 Chronic kidney disease, unspecified; Z88.0 Allergy status to penicillin; R74.0 Nonspecific elevation of levels of transaminase and lactic acid dehydrogenase [LDH]; Z99.2 Dependence on renal dialysis; Z79.4 Long term (current) use of insulin
CPT/HCPCS: 36415; 71045-TC-FY; 80053; 82550; 83690; 83735; 83880; 84484; 85025; 85610; 85730; 86769; 93005; 93010; 99285-25; J1644; U0003